=== PATIENT | female | born 1940 | race Caucasian/White ===

== ENCOUNTER 2017-10-27 13:00 | Outpatient (RCR) | payer MEDICARE, OTHER, SELFPAY | END 2017-11-17 15:26 | disposition home or self-care (01) | LOC: PT 13:00 | PROVIDERS: Visit Provider Podiatrist | DX: M72.2 Plantar fascial fibromatosis (principal) | CPT/HCPCS: 97033; 97035; 97110; 97140; 97163; 97164 ==

== ENCOUNTER → 2018-08-28 12:26 | Outpatient (POV) | payer MEDICARE, OTHER, SELFPAY | PROVIDERS: Visit Provider Dermatology | DX: Z00.00 Encounter for general adult medical examination without abnormal findings (principal) ==

== ENCOUNTER → 2019-01-15 10:26 | Outpatient (POV) | payer MEDICARE, OTHER, SELFPAY | PROVIDERS: Visit Provider Dermatology | DX: Z00.00 Encounter for general adult medical examination without abnormal findings (principal) ==

== ENCOUNTER 2019-09-26 14:51 | Emergency (ER) | payer MEDICARE, OTHER, SELFPAY ==
[2019-09-26 14:52] VITALS: BP 187/90; PULSE 71; RESP 16; TEMP 36.8; O2SAT 100; BMI 22.6
[2019-09-26 15:01] LABS: POC Glucose,Bedside 220 (70-110)
--- NOTE | 2019-09-26 15:01 | CT_ITS ---
PROCEDURE: CT HEAD/BRAIN WO CON CLINICAL INDICATION: Left Sided weakness Left arm numbness weakness and heaviness COMPARISON: No exams were available for comparison TECHNIQUE: Axial images obtained. All CT scans at the facility use one or more dose reduction, viz: automated exposure control, ma/kV adjustment per patient size (including targeted exams where dose is matched to indication, i.e. head), or iterative reconstruction technique. FINDINGS: No midline shift, mass effect, intracranial hemorrhage, hydrocephalus, or extra-axial fluid collection is evident. There is generalized atrophy with hypoattenuation of the periventricular white matter consistent with microangiopathic changes. The calvarium has an unremarkable appearance. No mastoid effusion. No sinus air-fluid level. IMPRESSION: No acute intracranial finding Dictated by: Roc Georges MD 09/26/2019 15:28 Electronically signed by Roc Georges MD in [place] 09/26/2019 15:28
--- NOTE | 2019-09-26 15:05 | ECG_ITS ---
APPROVED REPORT Exam: Resting ECG HR:70 bpm ECG Measurements Heart Rate 70 AXES AR 400 P QRSd 174 QRS 60 QT 432 T 263 QTc 466 <Conclusion> Electronic ventricular pacemaker Electronically signed by : Alejandro Boudreaux, 10/01/2019 13:55:19
--- NOTE | 2019-09-26 15:07 | PC.NURSE ---
PT TO CT FOR STROKE PROTOCOL.
--- NOTE | 2019-09-26 15:17 | PC.NURSE ---
pt returned from rad
--- NOTE | 2019-09-26 15:18 | PC.NURSE ---
PT RETURNED FROM CT.
[2019-09-26 15:35] VITALS: BP 156/79; PULSE 74; O2SAT 99
[2019-09-26 15:35] LABS: Basophils # 0.1 K/mm3 (0-0.2); Basophils % 0.8 % (0.1-2.0); Chloride 103 mmol/L (98-107); Eosinophils # 0.1 K/mm3 (0.0-0.4); Hematocrit 39.6 % (37.0-47.0); Hemoglobin 12.7 g/dL (12.2-16.2); Lymphocytes # 2.1 K/mm3 (0.7-4.5); Mean Corpuscular Volume 96.8 fl (81-99); Mean Platelet Volume 7.8 fl (7.4-10.4); Monocytes # 0.4 K/mm3 (0.1-1.0); Monocytes % 2.6 % (1.7-9.3); Neutrophils # 11.3 K/mm3 (1.8-7.8); Neutrophils % 80.7 % (37.0-80.0); Platelet Count 276 K/mm3 (142-424); Potassium 3.8 mmoL/L (3.5-5.1); Red Blood Count 4.09 M/mm3 (4.20-5.40); Red Cell Distribution Width 15.5 % (11.5-17.5); Sodium 139 mmol/L (136-145); White Blood Count 14.1 K/mm3 (4.8-10.8)
--- NOTE | 2019-09-26 15:35 | PC.NURSE ---
UA sent to lab
[2019-09-26 15:37] LABS: Microscopic, Urine URINE MICROSCOPIC (MICROSCOPIC)
[2019-09-26 15:38] LABS: Appearance,Urine CLEAR (Clear); Bilirubin,Urine Negative (Negative); Blood, Urine TRACE-L (Negative); Color,Urine YELLOW (Yellow); Glucose,Urine (UA) Negative (Negative); Ketones,Urine Negative (Negative); Leukocyte Esterase,Urine Negative (Negative); Nitrate,Urine Negative (Negative); PH,Urine 5.5 (5.0-8.5); Protein,Urine Negative (Negative); Urobilinogen,Urine 0.2 EU/dl (0.2)
[2019-09-26 15:38] LABS: Alanine Aminotransferase 30 U/L (12-78); Albumin Level 4.3 g/dl (3.5-5.0); Albumin/Globulin Ratio 1.1 (1.1-1.8); Alkaline Phosphatase 288 U/L (38-126); Anion Gap 12.8 mEq/L (5-15); Aspartate Amino Transferase 47 U/L (14-36); Bilirubin,Total 1.1 mg/dl (0.2-1.3); Blood Urea Nitrogen 14 mg/dl (7-17); Calcium 9.4 mg/dl (8.4-10.2); Carbon Dioxide 27 mmol/L (22.0-30.0); Creatinine Clearance Estimated 46 mL/min (50-200); Estimated Glomerular Filt Rate 60 ml/min (>60); GFR (African American) 73 ML/MIN (>60); Globulin 3.8 g/dL (1.3-3.2); Glucose 148 mg/dl (74-100); Total Protein,Serum 8.1 g/dl (6.3-8.2)
[2019-09-26 15:55] LABS: RBC,Urine Occasional #/hpf (0-3); Squamous Epithelial Cell,Urine Occasional #/hpf (0-5); WBC,Urine Occasional #/hpf (0-3)
--- NOTE | 2019-09-26 16:05 | PC.NURSE ---
calling [facility] at this time
--- NOTE | 2019-09-26 16:13 | PC.NURSE ---
Dr Valdes talking to Dr Duque.
--- NOTE | 2019-09-26 16:17 | HMH.EDNEU ---
ED Disposition Clinical Impression: Transient cerebral ischemia Disposition: Xfer Short-Term Hosp Condition on Discharge: Good Referrals: Obie Hernandes [Primary Care Provider] - - Critical Care Critical Care Time: Yes Attestation: On 09/26/19, the high probability of a clinically significant, sudden or life threatening deterioration of the following system(s) required my full and direct attention, intervention and personal management. The time I documented below is in addition to time spent performing reported procedures but includes the following listed in this critical care notation. Total Critical Care Time: 10 Vital system(s) involved:: Central Nervous System My critical care processes included: Assessment & monitoring of V/S, Initial and Re-exams, Data Review/Interpretation, Coordinating Care, Medication Orders and management, Documentation Medical Decision Making - Medical Records Medical records reviewed: Yes: I reviewed the patient's medical records. - Jorge Inquiry Pt receiving controlled substance: No Vital Signs: 09/26/19 14:52 09/26/19 15:35 Temperature 98.2 F Temperature Source Oral Pulse Rate [Right Radial] 71 74 Respiratory Rate 16 Blood Pressure [Right Arm] 187/90 H 156/79 H Blood Pressure Mean [Right Arm] 122 104 Blood Pressure Source [Right Arm] Automatic Cuff Automatic Cuff Blood Pressure Position [Right Arm] Sitting Sitting 02 Sat by Pulse Oximetry 100 99 Oxygen Delivery Method Room Air Room Air - Lab Data Lab results reviewed: Yes: I reviewed the patient's lab results. Lab Results 09/26/19 14:58: POC Glucose 220 H 09/26/19 15:04: WBC 14.1 H, RBC 4.09 L, Hgb 12.7, Hct 39.6, MCV 96.8, MCH 31.0, MCHC 32.0, RDW 15.5, Plt Count 276, MPV 7.8, Neut % (Auto) 80.7 H, Lymph % (Auto) 15.0, [place] % (Auto) 2.6, Eos % (Auto) 1.0, Baso % (Auto) 0.8, Neut # (Auto) 11.3 H, Lymph # (Auto) 2.1, [place] # (Auto) 0.4, Eos # (Auto) 0.1, Baso # (Auto) 0.1 09/26/19 15:04: Sodium 139, Potassium 3.8, Chloride 103, Carbon Dioxide 27, Anion Gap 12.8, BUN 14, Creatinine 0.90, Estimated Creat Clear 46, Estimated GFR 60, Est GFR ( Amer) 73, Glucose 148 H, Calcium 9.4, Total Bilirubin 1.1, AST 47 H, ALT 30, Alkaline Phosphatase 288 H, Total Protein 8.1, Albumin 4.3, Globulin 3.8 H, Albumin/Globulin Ratio 1.1 09/26/19 15:33: Urine Color Yellow, Urine Appearance Clear, Urine pH 5.5, Ur Specific [place] 1.010, Urine Protein Negative, Urine Glucose (UA) Negative, Urine Ketones Negative, Urine Blood Trace-l, Urine Nitrate Negative, Urine Bilirubin Negative, Urine Urobilinogen 0.2, Ur Leukocyte Esterase Negative, Urine RBC Occasional, Urine WBC Occasional, Ur Squamous Epith Cells Occasional, Urine Bacteria None Result diagrams: 09/26/19 15:04 09/26/19 15:04 Orders (Tests/Meds): ORDERS Category Date Time Status PT/INR [Prothrombin Time INR] Stat Lab 09/26/19 16:05 Ordered - CT Data CT Scan: Head Time Received: 16:00 Preliminary Findings: Normal/NAD - ECG Data Tracing #1 I reviewed this ECG and interpreted as documented below: Arrhythmias present: afib Medical Decision Narrative: I spoke to Dr. Lauren at [facility] neurology she accepted the patient to the emergency department at . Neuro HPI - General Chief Complaint: Neuro Symptoms/Deficit Stated Complaint: weakness on left side Time Seen by Provider: 09/26/19 16:00 Mode of Arrival: Ambulatory Source of Information: Patient Limitations: No Limitations Description of Symptoms (Recalled from ER Triage Doc. by RN): PT TO ED VIA PVT CAR C/O A 1 MINUTE EPISODE AT APPROX 1300 THAT SHE WASN'T ABLE TO MOVE HER LEFT ARM OR LEG WHILE SITTING IN HER RECLINER. PT DENIES ANY WEAKNESS AT THIS TIME. NIHSS IS NEGATIVE AT THIS TIME. PT STATES THAT SHE HAD BEEN MOPPING HER FLOORS PRIOR TO THE EVENT. - History of Present Illness HPI Narrative: 79-year-old female presents the ED after having neurological deficit around 1:45 PM [facility]
[2019-09-26 16:26] VITALS: BP 185/89; PULSE 70; O2SAT 100
[2019-09-26 16:27] LABS: INR 2.39 (0.9-1.1); Prothrombin Time 23.8 seconds (9.4-11.8)
--- NOTE | 2019-09-26 16:34 | PC.NURSE ---
[facility] aware of transfer
--- NOTE | 2019-09-26 17:07 | PC.NURSE ---
report called to [facility] spoke with akosua roth
[2019-09-26 17:10] VITALS: BP 185/89; PULSE 70; RESP 16; TEMP 36.6; O2SAT 98
== END 2019-09-26 17:12 | disposition short-term general hospital (02) ==
PROVIDERS: Emergency Provider Family Medicine; PCP Family Medicine
DX: G45.8 Other transient cerebral ischemic attacks and related syndromes (principal); I48.91 Unspecified atrial fibrillation; Z95.0 Presence of cardiac pacemaker; Z79.899 Other long term (current) drug therapy
CPT/HCPCS: 70450; 80053; 81001; 82962; 85025; 85610; 93005; 96374; 99284

== ENCOUNTER 2021-09-29 13:21 | Inpatient (IN) | payer MEDICARE, OTHER, SELFPAY ==
[2021-09-29] VITALS (10 sets, daily range): BP systolic 129–148; BP diastolic 40–64; PULSE 70–77; RESP 17–26; TEMP 37–37.4; O2SAT 90–97; BMI 24.1; BMI 22.6
--- NOTE | 2021-09-29 13:33 | ECG_ITS ---
APPROVED REPORT Exam: Resting ECG HR:72 bpm ECG Measurements Heart Rate 72 AXES QRSd 144 QRS 106 QT 401 T -83 QTc 426 Conclusion ELECTRONIC VENTRICULAR PACEMAKER ABNORMAL RHYTHM ECG UNCONFIRMED REPORT Electronically signed by : Alejandro Boudreaux MD 10/01/2021 10:33:06
[2021-09-29 13:41] LABS: Influenza A, PCR Not Detected (NotDetected); Influenza B, PCR Not Detected (NotDetected)
--- NOTE | 2021-09-29 13:44 | XR_ITS ---
FINAL REPORT CLINICAL HISTORY: . 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 A left-sided pacemaker is present. Cardiac and mediastinal silhouettes are within normal limits. There are mixed interstitial and alveolar markings bilaterally, asymmetric to the right, could be related to pneumonia or pulmonary edema. There are likely small pleural effusions. There is no pneumothorax. IMPRESSION: 1. Mixed interstitial and alveolar markings bilaterally, asymmetric to the right, could be related to pneumonia or pulmonary edema. 2. Likely small pleural effusions. Reviewed, Interpreted and Dictated by Mame Flower MD Transcribed by Carli Cuevas Authenticated by Mame Flower MD on 09/29/2021 04:21:35 PM [facility]
--- NOTE | 2021-09-29 14:00 | PC.NURSE ---
ED MD at
[2021-09-29 14:08] LABS: Lactic Acid 1.5 mmol/L (0.7-2.1)
[2021-09-29 14:08] LABS: Coronavirus 19, PCR Detected (NotDetected)
[2021-09-29 14:09] LABS: Alanine Aminotransferase 28 U/L (12-78); Albumin Level 3.6 g/dl (3.5-5.0); Albumin/Globulin Ratio 1.1 (1.1-1.8); Alkaline Phosphatase 252 U/L (38-126); Anion Gap 14.8 mEq/L (5-15); Aspartate Amino Transferase 74 U/L (14-36); Bilirubin,Total 0.7 mg/dl (0.2-1.3); Blood Urea Nitrogen 24 mg/dl (7-17); Calcium 8.5 mg/dl (8.4-10.2); Carbon Dioxide 20 mmol/L (22.0-30.0); Chloride 105 mmol/L (98-107); Creatinine Clearance Estimated 38 mL/min (50-200); Estimated Glomerular Filt Rate 43 ml/min (>60); GFR (African American) 52 ML/MIN (>60); Globulin 3.3 g/dL (1.3-3.2); Glucose 107 mg/dl (74-100); Potassium 4.8 mmoL/L (3.5-5.1); Sodium 135 mmol/L (136-145); Total Protein,Serum 6.9 g/dl (6.3-8.2)
[2021-09-29 14:12] LABS: Basophils # 0.1 K/mm3 (0-0.2); Basophils % 0.6 % (0.1-2.0); Eosinophils % 0.1 % (0.1-12.0); Hemoglobin 12.4 g/dL (12.2-16.2); Lymphocytes # 1.9 K/mm3 (0.7-4.5); Mean Corpuscular HGB Conc 32.5 g/dL (31.8-35.4); Mean Corpuscular Hemoglobin 31.7 pg (27.0-31.2); Mean Corpuscular Volume 97.5 fl (81-99); Mean Platelet Volume 9.5 fl (7.4-10.4); Monocytes # 0.4 K/mm3 (0.1-1.0); Monocytes % 4.2 % (1.7-9.3); Neutrophils # 6.2 K/mm3 (1.8-7.8); Neutrophils % 73.1 % (37.0-80.0); Platelet Count 207 K/mm3 (142-424); Red Blood Count 3.89 M/mm3 (4.20-5.40); Red Cell Distribution Width 15.8 % (11.5-17.5); White Blood Count 8.5 K/mm3 (4.8-10.8)
--- NOTE | 2021-09-29 14:24 | HMH.EDGENADL ---
ED Disposition Clinical Impression: Pneumonia due to COVID-19 virus Disposition: Admitted As Inpatient Condition on Discharge: Good - Critical Care Critical Care Time: No Attestation: On 09/29/21, the high probability of a clinically significant, sudden or life threatening deterioration of the following system(s) required my full and direct attention, intervention and personal management. The time I documented below is in addition to time spent performing reported procedures but includes the following listed in this critical care notation. Medical Decision Making - Medical Records Medical records reviewed: Yes: I reviewed the patient's medical records. - Jorge Inquiry Pt receiving controlled substance: No Vital Signs: 09/29/21 13:30 09/29/21 13:58 09/29/21 14:00 Temperature 99 F Temperature Source Oral Pulse Rate 72 72 Pulse Rate [Left Radial] 72 Respiratory Rate 17 20 Blood Pressure 142/60 H 129/61 Blood Pressure [Right Arm] 142/55 H Blood Pressure Mean [Right Arm] 84 Blood Pressure Source Automatic Cuff Automatic Cuff Blood Pressure Position Sitting Sitting 02 Sat by Pulse Oximetry 92 L 96 97 Oxygen Delivery Method Nasal Cannula Nasal Cannula Nasal Cannula Oxygen Flow Rate (LPM) 3 3 3 09/29/21 14:30 Temperature Temperature Source Pulse Rate 72 Pulse Rate [Left Radial] Respiratory Rate 20 Blood Pressure 148/64 H Blood Pressure [Right Arm] Blood Pressure Mean [Right Arm] Blood Pressure Source Automatic Cuff Blood Pressure Position Sitting 02 Sat by Pulse Oximetry 95 Oxygen Delivery Method Nasal Cannula Oxygen Flow Rate (LPM) - Lab Data Lab results reviewed: Yes: I reviewed the patient's lab results. Lab Results 09/29/21 13:37: SARS-CoV-2 (PCR) Detected A, Influenza A Untype (PCR) Not detected, Influenza Type B (PCR) Not detected 09/29/21 13:50: WBC 8.5, RBC 3.89 L, Hgb 12.4, Hct 38.0, MCV 97.5, MCH 31.7 H, MCHC 32.5, RDW 15.8, Plt Count 207, MPV 9.5, Neut % (Auto) 73.1, Lymph % (Auto) 22.0, [place] % (Auto) 4.2, Eos % (Auto) 0.1, Baso % (Auto) 0.6, Neut # (Auto) 6.2, Lymph # (Auto) 1.9, [place] # (Auto) 0.4, Eos # (Auto) 0.0, Baso # (Auto) 0.1 09/29/21 13:50: Sodium 135 L, Potassium 4.8, Chloride 105, Carbon Dioxide 20 L, Anion Gap 14.8, BUN 24 H, Creatinine 1.20 H, Estimated Creat Clear 38, Estimated GFR 43 L, Est GFR ( Amer) 52 L, Glucose 107 H, Calcium 8.5, Total Bilirubin 0.7, AST 74 H, ALT 28, Alkaline Phosphatase 252 H, Troponin I 1.58 H, Total Protein 6.9, Albumin 3.6, Globulin 3.3 H, Albumin/Globulin Ratio 1.1 09/29/21 13:50: Lactate 1.5 09/29/21 15:03: VBG pH 7.35, VBG pCO2 36.3, VBG pO2 29.8, VBG HCO3 19.7 L, VBG Total CO2 20.8 L, VBG O2 Saturation 53.5, VBG Base Excess -5.8 L Result diagrams: 09/29/21 13:50 09/29/21 13:50 Orders (Tests/Meds): ED MEDICATIONS Generic Name Dose Route Start Last Admin Trade Name Freq PRN Reason Stop Dose Admin Acetaminophen 650 mg 09/29/21 14:57 Acetaminophen 325mg Tab PO 10/29/21 14:36 Q6HP PRN Mild pain,fever,headache Ascorbic Acid 500 mg 09/29/21 17:00 09/29/21 20:58 Ascorbic Acid 500mg Tab PO 10/29/21 16:59 500 mg QID TERA Administration Enoxaparin Sodium 40 mg 09/29/21 14:57 09/29/21 16:20 Enoxaparin 40mg/0.4ml Syringe SQ 10/29/21 14:56 40 mg DAILY TERA Administration Ergocalciferol 50,000 unit 09/29/21 14:57 09/29/21 16:21 Ergocalciferol 50,000 Units (1.25mg) Capsule PO 10/29/21 14:44 50,000 unit WEEKLY TERA Administration Famotidine 20 mg 09/29/21 21:00 09/29/21 20:58 Famotidine 20mg Tablet PO 10/29/21 20:59 20 mg HS TERA Administration Sodium Chloride 1,000 mls @ 100 mls/hr 09/29/21 14:57 09/29/21 18:12 Sod Chlor 0.9% 1000ml Bag IV 10/29/21 14:44 100 mls/hr .Q10H TERA Administration Ceftriaxone Sodium 1 gm/ 50 mls @ 100 mls/hr 09/30/21 15:00 Sodium Chloride IV 10/13/21 14:59 Q24H TERA Levofloxacin/Dextrose 750 mg in 150 mls @ 100 mls
--- NOTE | 2021-09-29 14:33 | PC.NURSE ---
Paging Dr. Boudreaux to call back to the ED
--- NOTE | 2021-09-29 14:35 | PC.NURSE ---
GHADA ESTES speaking with Dr. Boudreaux who is electron beam photo mask technician for service pts.
--- NOTE | 2021-09-29 14:38 | PC.NURSE ---
contacted care management of admission, spoke with Madid. Reports pt will be an OBS admission.
--- NOTE | 2021-09-29 14:50 | PC.NURSE ---
notified RT of VBG order
[2021-09-29 15:07] LABS: VBG PCO2 36.3 mmol/L (35-51); VBG PH 7.35 mmol/L (7.31-7.41); VBG PO2 29.8 mmol/L (28-40)
[2021-09-29 15:08] LABS: VBG Base Excess -5.8 mmol/L (-2.4-2.3); VBG HCO3 19.7 mmol/L (23-30); VBG Oxygen Saturation 53.5 % (50-70); VBG Total CO2 20.8 mmol/L (23-27)
--- NOTE | 2021-09-29 15:10 | PC.NURSE ---
report called to ROMA Bates on second floor at this time, reports she will send staff down to transport pt.
--- NOTE | 2021-09-29 15:16 | HMH.PHAVTE ---
[facility] Pharmacy VTE Monitoring - Patient Demographics Admission date: 09/29/21 Report Date: 09/29/21 Time: 15:16 Allergies/Adverse Reactions: Patient Allergies nitrofurantoin [From Macrobid] Allergy (Verified 09/26/19 15:26) Sulfa (Sulfonamide Antibiotics) Allergy (Verified 09/26/19 15:26) Height: 1.65 m Weight: 65.771 kg - VTE Risk Labs: VTE Related Lab Results Hgb 12.4 g/dL (12.2-16.2) 09/29/21 13:50 Hct 38.0 % (37.0-47.0) 09/29/21 13:50 Plt Count 207 K/mm3 (142-424) 09/29/21 13:50 BUN 24 mg/dl (7-17) H 09/29/21 13:50 Creatinine 1.20 mg/dl (0.52-1.04) H 09/29/21 13:50 Estimated Creat Clear 38 mL/min (50-200) 09/29/21 13:50 Was VTE Risk Assessment Performed: No Clinical Trial Participant: No - Prophylaxis VTE Prophylaxis Ordered?: Yes Types of VTE Prophylaxis: TEDS Knee High, Pharmacological Location of Applied Device: Bilateral Lower Extremeties Pharmacologic Type: Enoxaparin
[2021-09-29 15:27] LABS: Troponin I 1.58 ng/ml (0.00-0.034)
--- NOTE | 2021-09-29 15:27 | PC.NURSE ---
notified ER MD of critical troponin at this time.
--- NOTE | 2021-09-29 15:28 | PC.NURSE ---
profile saw operator paging dr. lucio per ER request for consult
--- NOTE | 2021-09-29 15:29 | PC.NURSE ---
cd reactor operator head states left dr. lucio a message.
--- NOTE | 2021-09-29 15:33 | CA_ITS ---
APPROVED REPORT EXAM: Comprehensive 2D, Doppler, and color-flow Echocardiogram Mule Developer: BOB Barth, RVS Ht: 5 ft 4 in Wt: 145lbs BSA: 1.71 BP: 142/60 mmHg Rhythm: Atrial Fibrillation Indications: COVID Pneumonia, Afib, Pacer, Respiratory failure 2D Dimensions Aortic Root 3.07 cm F: 2.7 - 3.3 LA Volume 117.20 mL Left Atrium 3.91 cm F: 2.7 - 3.8 LA Volume Index [id number] mL/m2 (M/F) 16-34 LVOT 1.99 cm (M/F) 1.5-2.5 M-Mode Dimensions RVDd 2.48 cm (0.9-2.6) LA Diam 4.50 cm (1.9-4.0) LVDd 5.93 cm (3.5-5.7) Ao Diam 3.35 cm (2.0-3.7) LVDs 3.88 cm (3.5-5.7) IVSd 1.36 cm (0.6-1.1) PWd 1.00 cm (0.6-1.1) EF (Teich) 62.80% EPSs 1.70 cm FS 34.60% EDV (Teich) 175.20 mL TAPSE 1.39 (<1.7) ESV (Teich) 65.10 mL LV Diastology E Decel Time 197.00 (160-240 msec) E/A Ratio 4.08 MED E' 7.30 (< 7 cm/sec) MED A' 5.40 cm/s E'/MED E' Ratio 16.78 (>14) LAT E' 10.50 (<10 cm/sec) E/LAT E' Ratio 11.67 (>14) Aortic Valve LVOT Max 134.00 (70-110 cm/s) LVOT VTI 20.64 cm Mitral Valve MV A Velocity 30.00 (40-130 cm/s) E/A Ratio 4.08 MV Decel. Time 197.00 (160-240 ms) MV Mean Gr. 2.70 (<2mmHg) MV PHT 57.00 ms Pulmonary Valve PV Peak Velocity 126.00 (50-150 cm/s) MI End VMAX 233.00 cm/s Tricuspid Valve TR P. Velocity 255.00 cm/s RAP Estimate 10.00 mmHg RVSP 36.00 mmHg Left Ventricle Left atrium is mildly enlarged, left ventricle is normal size, mild concentric left ventricular hypertrophy, estimated ejection fraction 55% with no regional wall motion abnormality, diastolic parameters are inconclusive. Right Ventricle Right atrium and right ventricle are normal size and contractility, pacemaker lead seen in right ventricle. Aortic Valve Aortic valve is thickened and calcified without aortic stenosis or aortic insufficiency. Mitral Valve Mitral valve leaflets are minimally thickened, there is mild mitral regurgitation. Tricuspid Valve Tricuspid valve grossly normal, there is mild tricuspid regurgitation, tricuspid regurgitation jet velocity is inadequate for calculation of the right ventricular systolic pressure. Pulmonic Valve Pulmonic valve is poorly visualized, there is mild pulmonic insufficiency. Great Vessels Aortic root is normal size. Inferior vena cava is normal size with normal inspiratory collapse Pericardium No significant pericardial effusion noted. Conclusion 1. Mildly enlarged left atrium, normal left ventricular size, mild concentric left ventricular hypertrophy, estimated ejection fraction of 55% with no regional wall motion abnormality, diastolic parameters are inconclusive. 2. Thickened and calcified aortic valve without significant aortic stenosis or aortic insufficiency. 3. Mild mitral and tricuspid regurgitation. 4. No significant pericardial effusion. 5. Inferior vena cava is normal size with normal inspiratory collapse. Electronically signed by : Kyle Brandon MD 09/30/2021 05:49:42
--- NOTE | 2021-09-29 15:33 | PC.NURSE ---
GHADA ESTES speaking with Dr. Millard.
--- NOTE | 2021-09-29 15:34 | PC.NURSE ---
notified JanaRN on second floor of critical troponin on pt -ER MD has been notified and has consulted Dr. Millard. An echo order being placed per request of Dr. Millard Echo lab staff notified of Echo order, spoke with Kaylen
--- NOTE | 2021-09-29 15:34 | PC.NURSE ---
Tami Loera, RN called and notified this RN of pt's critical troponin of 1.53. She stated she would notify pt's Janusz ESTES.
--- NOTE | 2021-09-29 15:40 | PC.NURSE ---
Dr. Boudreaux notified of critical troponin, Dr. Millard consult and echo order for pt.
[2021-09-29 18:12] LABS: Troponin I 1.65 ng/ml (0.00-0.034)
--- NOTE | 2021-09-29 18:30 | PC.NURSE ---
PT IS ALERT AND ORIENTED X4. TOLERATING 3L NASAL CANNULA WELL. PT STATES THAT SHE, IS FEELING A LITTLE BETTER NOW .
[2021-09-30] VITALS (8 sets, daily range): BP systolic 139–182; BP diastolic 60–78; PULSE 60–80; RESP 20–26; TEMP 36.7–37.2; O2SAT 90–97; BMI 23.0
--- NOTE | 2021-09-30 03:42 | PC.NURSE ---
Patient had reports of nausea at the beginning of the shift and was treated per MAR with favorable results. Patient's oxygen dropped below 90% and was maintaining 88% on 3LNC around 0000. Patient's oxygen was increased to 4LNC and patient has tolerated 4LNC with oxygen saturation maintaining in the low 90%. Patient was educated on sleeping prone or attempting to at least lay on her sides. Patient verbalized understanding. Patient is a standby assist to the bedside commode.
[2021-09-30 06:29] LABS: Basophils # 0.1 K/mm3 (0-0.2); Basophils % 0.7 % (0.1-2.0); Eosinophils % 0.2 % (0.1-12.0); Hematocrit 36.3 % (37.0-47.0); Hemoglobin 11.7 g/dL (12.2-16.2); Lymphocytes # 1.3 K/mm3 (0.7-4.5); Lymphocytes % 20.5 % (10-50); Mean Corpuscular HGB Conc 32.3 g/dL (31.8-35.4); Mean Corpuscular Hemoglobin 31.8 pg (27.0-31.2); Mean Corpuscular Volume 98.4 fl (81-99); Mean Platelet Volume 8.9 fl (7.4-10.4); Monocytes # 0.2 K/mm3 (0.1-1.0); Monocytes % 3.8 % (1.7-9.3); Neutrophils # 4.8 K/mm3 (1.8-7.8); Neutrophils % 74.8 % (37.0-80.0); Platelet Count 189 K/mm3 (142-424); Red Blood Count 3.69 M/mm3 (4.20-5.40); Red Cell Distribution Width 15.9 % (11.5-17.5); White Blood Count 6.4 K/mm3 (4.8-10.8)
[2021-09-30 06:39] LABS: Alanine Aminotransferase 27 U/L (12-78); Anion Gap 14.2 mEq/L (5-15); Aspartate Amino Transferase 69 U/L (14-36); Bilirubin,Total 0.4 mg/dl (0.2-1.3); Blood Urea Nitrogen 21 mg/dl (7-17); Calcium 8.2 mg/dl (8.4-10.2); Carbon Dioxide 19 mmol/L (22.0-30.0); Chloride 109 mmol/L (98-107); Creatinine Clearance Estimated 46 mL/min (50-200); Estimated Glomerular Filt Rate 53 ml/min (>60); GFR (African American) 64 ML/MIN (>60); Glucose 100 mg/dl (74-100); Potassium 4.2 mmoL/L (3.5-5.1); Sodium 138 mmol/L (136-145)
[2021-09-30 06:40] LABS: Alkaline Phosphatase 221 U/L (38-126)
[2021-09-30 06:49] LABS: NT Pro Brain Natriuretic Pep. 7550 pg/mL (0-450)
--- NOTE | 2021-09-30 07:00 | XR_ITS ---
PROCEDURE INFORMATION: Exam: XR Chest Exam date and time: 09/30/2021 5:51 AM Age: 81 years old Clinical indication: Condition or disease; Lung condition and disease; Pneumonia; Other: Covid; Prior surgery; Additional info: Covid pneumonia TECHNIQUE: Imaging protocol: XR of the chest. Views: 1 view. COMPARISON: CR XR CHEST PORTABLE 09/29/2021 1:51 PM FINDINGS: Lungs: Chronic interstitial changes are noted bilaterally consistent with pulmonary fibrosis. Increased density seen in the right mid chest and lung base which may represent superimposed pneumonia. Pleural spaces: Unremarkable. No pleural effusion. No pneumothorax. Heart/Mediastinum: Unremarkable. No cardiomegaly. Bones/joints: Unremarkable. IMPRESSION: Increased opacity right mid and lower chest may represent superimposed infiltrate. Underlying fibrosis noted.
--- NOTE | 2021-09-30 07:28 | HMH.PHAINT ---
MEDICATION RECONCILIATION COMPLETED ON PATIENT USING EXTERNAL FILL HISTORY FROM PHARMACY. -HONORIO JAMIL, HARPREETD
--- NOTE | 2021-09-30 07:39 | HMH.HP ---
*Admission Date: 09/29/21 *Chief complaint: Cough/congestion/fever *History of present illness: Miss Santacruz is a 81 yo female presenting to the ED with dyspnea for 1 week. Patient tested + for COVID on Mon with home test. Patient is satting 88% on RA on arrival placed on 4L NC with improvement. No oxygen requirement at home. Bedside ECG shows V paced rhythm with no evidence of acute stemi given scarbossa criteria. Bedside CXR shows evidence of pneumonia. Patient is started on rocephin and levoquin. Basic labs, Trop, Lactic acid, UA, Blood cultures x2, and vbg obtained for furhter evaluation results remarkable for tropnin elevatoin of 1.4. Cardiology consulted for further management. Recommendations start enoxaprin per covid protocol and they will follow along. Patient is started on COVID protocol and admitted to medicine for acute hypoxic respiratory failure 2/2 to covid pneumonia. Above note per emergency department. Agree with admission. Troponin elevation seems to be likely from generalized inflammation. Follow echo and serial troponins level we will ask cardiology to be involved if needed. When I made rounds on the evening of 09/29 patient was pleasant, not confused and already felt better. [facility] History I have reviewed the patient's past medical history: Yes Medical History: Reports:: Arrhythmia, Atrial Fibrillation, Hyperlipidemia, Hypertension, Internal Pacemaker, Palpitations Denies:: Cancer, Diabetes Mellitus Type 1, Diabetes Mellitus Type 2, MRSA *Have you ever received a pneumonia vaccine?: No *Have you received a flu vaccine this season?: No Other Medical History: Reports: Arthritis, Blood Transfusion Reaction, Cataracts, Sinus Problems Other Surgeries: Yes: Cardiac Catheterization, Pacemaker, Tubal Ligation Amputation: No Fractures: No - *Social History Last grade of school completed: High school graduate Smoking Status: Never smoker Alcohol Intake: never *Occupational Status:: retired Housing: house Household Members: none *Travel in the last 8 weeks: None Family Hx:: Cancer, Hyperlipidemia, Hypertension Review of Systems - Review of Systems Review of systems:: pertinent systems reviewed and negative unless documented below Meds Home Medications Medication Instructions Recorded Confirmed Type Furosemide [Furosemide 20mg Tab*] 20 mg PO DAILY 09/29/21 09/29/21 History Amlodipine Besylate [Norvasc 2.5mg 2.5 mg PO DAILY 09/30/21 09/30/21 History tablet] Atorvastatin Calcium [Lipitor 80mg 80 mg PO HS 09/30/21 09/30/21 History Tab] Leflunomide 20 mg PO DAILY 09/30/21 09/30/21 History Levothyroxine Sodium 50 mcg PO DAILY 09/30/21 09/30/21 History [Levothyroxine 50mcg (0.05mg) Tab] Pantoprazole Sodium 40 mg PO DAILY 09/30/21 09/30/21 History Potassium Chloride [Klor-Con 10mEq 10 meq PO BID 09/30/21 09/30/21 History tab] ondansetron HCL [Ondansetron 4mg 4 mg PO BIDP PRN 09/30/21 09/30/21 History tab*] Allergies Allergy/AdvReac Type Severity Reaction Status Date / Time nitrofurantoin Allergy Verified 09/26/19 15:26 [From Macrobid] Sulfa (Sulfonamide Allergy Verified 09/26/19 15:26 Antibiotics) Exam Vital signs and Labs for Last 24 Hours: Temp Pulse Resp BP Pulse Ox 98.5 F 74 24 145/68 H 90 L 09/30/21 04:00 09/30/21 04:00 09/30/21 04:00 09/30/21 04:00 09/30/21 04:00 Laboratory Results - last 24 hr 09/29/21 13:37: SARS-CoV-2 (PCR) Detected A, Influenza A Untype (PCR) Not detected, Influenza Type B (PCR) Not detected 09/29/21 13:50: WBC 8.5, RBC 3.89 L, Hgb 12.4, Hct 38.0, MCV 97.5, MCH 31.7 H, MCHC 32.5, RDW 15.8, Plt Count 207, MPV 9.5, Neut % (Auto) 73.1, Lymph % (Auto) 22.0, [place] % (Auto) 4.2, Eos % (Auto) 0.1, Baso % (Auto) 0.6, Neut # (Auto) 6.2, Lymph # (Auto) 1.9, [place] # (Auto) 0.4, Eos # (Auto) 0.0, Baso # (Auto) 0.1 09/29/21 13:50: Sodium 135 L, Potassium 4.8, Chloride 105, Carbon Dioxide 20 L, Anion Gap 14.8, BUN 24 H, Creatinine 1.20
--- NOTE | 2021-09-30 08:34 | HMH.ACPN2 ---
Internal Medicine - PN: Ronald *Date: 09/30/21 *Time: 08:34 Interval history: Overnight patient did fairly well. Did have a little bit of dyspnea. Fluids were stopped and she feels little better. Exam Vital signs and Labs for Last 24 Hours: Temp Pulse Resp BP Pulse Ox 98.5 F 74 24 145/68 H 90 L 09/30/21 04:00 09/30/21 04:00 09/30/21 04:00 09/30/21 04:00 09/30/21 04:00 Laboratory Results - last 24 hr 09/29/21 13:37: SARS-CoV-2 (PCR) Detected A, Influenza A Untype (PCR) Not detected, Influenza Type B (PCR) Not detected 09/29/21 13:50: WBC 8.5, RBC 3.89 L, Hgb 12.4, Hct 38.0, MCV 97.5, MCH 31.7 H, MCHC 32.5, RDW 15.8, Plt Count 207, MPV 9.5, Neut % (Auto) 73.1, Lymph % (Auto) 22.0, Forrest % (Auto) 4.2, Eos % (Auto) 0.1, Baso % (Auto) 0.6, Neut # (Auto) 6.2, Lymph # (Auto) 1.9, Forrest # (Auto) 0.4, Eos # (Auto) 0.0, Baso # (Auto) 0.1 09/29/21 13:50: Sodium 135 L, Potassium 4.8, Chloride 105, Carbon Dioxide 20 L, Anion Gap 14.8, BUN 24 H, Creatinine 1.20 H, Estimated Creat Clear 38, Estimated GFR 43 L, Est GFR ( Amer) 52 L, Glucose 107 H, Calcium 8.5, Total Bilirubin 0.7, AST 74 H, ALT 28, Alkaline Phosphatase 252 H, Troponin I 1.58 H, Total Protein 6.9, Albumin 3.6, Globulin 3.3 H, Albumin/Globulin Ratio 1.1 09/29/21 13:50: Lactate 1.5 09/29/21 15:03: VBG pH 7.35, VBG pCO2 36.3, VBG pO2 29.8, VBG HCO3 19.7 L, VBG Total CO2 20.8 L, VBG O2 Saturation 53.5, VBG Base Excess -5.8 L 09/29/21 17:26: Troponin I 1.65 H 09/30/21 06:13: WBC 6.4, RBC 3.69 L, Hgb 11.7 L, Hct 36.3 L, MCV 98.4, MCH 31.8 H, MCHC 32.3, RDW 15.9, Plt Count 189, MPV 8.9, Neut % (Auto) 74.8, Lymph % (Auto) 20.5, Forrest % (Auto) 3.8, Eos % (Auto) 0.2, Baso % (Auto) 0.7, Neut # (Auto) 4.8, Lymph # (Auto) 1.3, Forrest # (Auto) 0.2, Eos # (Auto) 0.0, Baso # (Auto) 0.1 09/30/21 06:13: Sodium 138, Potassium 4.2, Chloride 109 H, Carbon Dioxide 19 L, Anion Gap 14.2, BUN 21 H, Creatinine 1.00, Estimated Creat Clear 46, Estimated GFR 53 L, Est GFR ( Amer) 64 D, Glucose 100, Calcium 8.2 L, Total Bilirubin 0.4, AST 69 H, ALT 27, Alkaline Phosphatase 221 H, Total Protein 6.0 L, Albumin 3.0 L D, Globulin 3.0, Albumin/Globulin Ratio 1.0 L 09/30/21 06:13: NT-Pro-B Natriuret Pep 7550 H I & O for Last 24 hours: Intake & Output 09/27/21 09/28/21 09/29/21 09/30/21 11:59 11:59 11:59 11:59 Intake Total 1297 / 1297 Output Total 150 / 150 Balance 1147 / 1147 Weight 146 lb 11.2 oz Narrative: Patient is alert, pleasant. Able to sit up on the side of the bed without distress. Requiring 4 L nasal cannula. Heart rate regular. Crackles in both lower lung [place], especially on the left side but easy breathing with no use of accessory muscles or gasping. Able to talk in complete sentences. Abdomen soft. No edema noted Assessment and Plan (1) Pneumonia due to COVID-19 virus Status: Acute Category: Medical Code(s): U07.1 - COVID-19; J12.82 - Pneumonia due to coronavirus disease 2019 (2) Transient cerebral ischemia Status: Acute Category: Medical Code(s): G45.9 - Transient cerebral ischemic attack, unspecified - Assessment and plan all Dx Assessment and Plan for all problems:: Patient seems to be doing fairly well. Elevated troponins and BNP are from inflammatory issues. Lovenox for DVT prophylaxis. Given her x-ray report showing underlying fibrosis and slightly worsened infiltrate I will asked Dr. Harris for his opinion regarding further pulmonary recommendations. Continue remdesivir given her age and high risk COVID status. Given infiltrates we will continue Levaquin.
--- NOTE | 2021-09-30 09:31 | HMH.PULMCON ---
*Admission Date: 09/29/21 *Reason for consult:: Acute hypoxic respiratory failure, COVID-19 pneumonia *History of present illness: Ms. Santacruz is a 81-year-old female no significant prior respiratory complaints, no significant smoking history only using albuterol as needed basis scented to the hospital worsening respiratory distress found to having COVID-19 pneumonia and pulmonary was called for further management. She completed her vaccination initial booster dose. History of COVID-19 pneumonia 1 year ago. [facility] History Medical History: Reports:: Arrhythmia, Atrial Fibrillation, Hyperlipidemia, Hypertension, Internal Pacemaker, Palpitations Denies:: Cancer, Diabetes Mellitus Type 1, Diabetes Mellitus Type 2, MRSA *Have you ever received a pneumonia vaccine?: No *Have you received a flu vaccine this season?: No Other Medical History: Reports: Arthritis, Blood Transfusion Reaction, Cataracts, Sinus Problems Other Surgeries: Yes: Cardiac Catheterization, Pacemaker, Tubal Ligation Amputation: No Fractures: No - *Social History Last grade of school completed: High school graduate Smoking Status: Never smoker Alcohol Intake: never *Occupational Status:: retired Housing: house Household Members: none *Travel in the last 8 weeks: None Family Hx:: Cancer, Hyperlipidemia, Hypertension ROS - Cons Reports anorexia, Reports body ache(s) - Eyes Reports blurry vision - ENT Denies nosebleed - Card Reports shortness of breath, Reports shortness of breath with activity - Resp Respiratory: Reports chest congestion, Reports cough, Reports excessive phlegm production, Reports cough with sputum production - GI Gastrointestingal: Denies: abdominal pain - [place] Musculoskeletal: Reports back pain - Psych Denies thoughts of hurting/killing others, Denies thoughts of hurting/killing yourself Meds Home Medications Medication Instructions Recorded Confirmed Type Furosemide [Furosemide 20mg Tab*] 20 mg PO DAILY 09/29/21 09/29/21 History Amlodipine Besylate [Norvasc 2.5mg 2.5 mg PO DAILY 09/30/21 09/30/21 History tablet] Atorvastatin Calcium [Lipitor 80mg 80 mg PO HS 09/30/21 09/30/21 History Tab] Leflunomide 20 mg PO DAILY 09/30/21 09/30/21 History Levothyroxine Sodium 50 mcg PO DAILY 09/30/21 09/30/21 History [Levothyroxine 50mcg (0.05mg) Tab] Pantoprazole Sodium 40 mg PO DAILY 09/30/21 09/30/21 History Potassium Chloride [Klor-Con 10mEq 10 meq PO BID 09/30/21 09/30/21 History tab] ondansetron HCL [Ondansetron 4mg 4 mg PO BIDP PRN 09/30/21 09/30/21 History tab*] Allergies Allergy/AdvReac Type Severity Reaction Status Date / Time nitrofurantoin Allergy Verified 09/26/19 15:26 [From Macrobid] Sulfa (Sulfonamide Allergy Verified 09/26/19 15:26 Antibiotics) Exam - Constitutional Constitutional:: Present: no acute distress, comfortable - HENMT Exam HENMT: Present: normocephalic, atraumatic - Eye Exam Eyes:: Present: normal appearance both eyes and related structures - Neck Exam Neck:: Present: normal visual inspection - Respiratory Exam Respiratory:: Present: able to speak in complete sentences, no respiratory distress, rales, rhonchi, wheezing - Cardiovascular Exam Cardiac:: Present: S1, S2 - GI Exam GI:: Present: soft - Skin Exam Skin: Present: warm, no rash - Neurological Exam Neurological: Present: alert, awake, normal cognition - Extremities Exam Extremities: Present: no cyanosis, no clubbing, no edema Internal Medicine - CN: Reslt - Labs CBC & Chem 7: 09/30/21 06:13 09/30/21 06:13 Labs: Short CBC 09/29/21 09/30/21 Range/Units 13:50 06:13 WBC 8.5 6.4 (4.8-10.8) K/mm3 Hgb 12.4 11.7 L (12.2-16.2) g/dL Hct 38.0 36.3 L (37.0-47.0) % Plt Count 207 189 (142-424) K/mm3 BMP 09/29/21 09/30/21 13:50 06:13 Sodium 135 L 138 Potassium 4.8 4.2 Chloride 105 109 H Carbon Dioxide 20 L 19 L BUN 24 H 21 H Cr
--- NOTE | 2021-09-30 09:35 | CA_ITS ---
FINAL REPORT CLINICAL HISTORY: Hypoxia, Covid, Afib, Varicosities. FINDINGS: DUPLEX VENOUS SONOGRAPHY OF THE BILATERAL LOWER EXTREMITIES Multiple transverse and longitudinal scans were performed of the femoropopliteal deep venous systems, with augmentation and compression maneuvers. Normal phasic flow was noted in the visualized deep venous systems. No intraluminal increased echogenicity is noted to suggest thrombus. There is normal compression and augmentation of the venous structures. No abnormal venous collaterals are seen. IMPRESSION: No evidence of deep venous thrombosis of the bilateral lower extremities. Reviewed, Interpreted and Dictated by Mame Flower MD Transcribed by Carli Cuevas Authenticated by Mame Flower MD on 09/30/2021 01:08:49 PM [facility]
[2021-09-30 09:39] LABS: Troponin I 1.43 ng/ml (0.00-0.034)
--- NOTE | 2021-09-30 09:41 | PC.NURSE ---
lab reported critical troponin. verified patient name and date of . md made aware. troponin is down from yesterday.
--- NOTE | 2021-09-30 09:45 | PC.NURSE ---
RESP CARE NOTE: Pt SPO2 at 86% on 4 lpm nc. Increased O2 to 6 lpm and SPO2 increased to 92% on 6 lpm. Will continue to monitor patient.
[2021-09-30 09:52] LABS: Lactate Dehydrogenase 397 U/L (313-618)
--- NOTE | 2021-09-30 11:05 | HMH.PTEV ---
Physical Therapy Evaluation Rehab PT IP Evaluation Start: 09/30/21 09:35 Freq: ONCE Status: Active Protocol: Document 09/30/21 11:00 DANIELDESIER (Rec: 09/30/21 11:05 COLLEENDAISHA [id number]) Subjective/History History History Miss Santacruz is a 81 yo female presenting to the ED with dyspnea for 1 week. Patient tested + for COVID on Mon with home test. Patient is satting 88% on RA on arrival placed on 4L NC with improvement. No oxygen requirement at home. Bedside ECG shows V paced rhythm with no evidence of acute stemi given scarbossa criteria. Bedside CXR shows evidence of pneumonia. Patient is started on rocephin and levoquin. Basic labs, Trop, Lactic acid, UA, Blood cultures x2, and vbg obtained for furhter evaluation results remarkable for tropnin elevatoin of 1.4. Cardiology consulted for further management. Recommendations start enoxaprin per covid protocol and they will follow along. Patient is started on COVID protocol and admitted to medicine for acute hypoxic respiratory failure 2/2 to covid pneumonia. sumaya from ER H&P Subjective Subjective Pt sitting EOB upon entering room and reports she will participate if I went easy on her c/o SOA Rehab PT IP Eval Objective Appearance Patient Behavior Appropriate,Cooperative Patient Orientation Place,Name,Birthday,Year Difficulty following instructions none Speech Pattern Appropriate,Soft-Spoken Ambulation Patient Able to Ambulate Yes Ambulation Observation IP General Gait Pattern Observation Shuffling Step Ambulation Distance (feet) 25 Ambulation Assistive Device None Ambulation Ability Contact Guard/Hand Hold Balance Ability to Arise Able, uses arms to help Sitting Balance Steady, safe Standing Balance Steady, wide stance Dynamic Sitting Balance Ability Good Dynamic
--- NOTE | 2021-09-30 15:51 | HMH.OTEV ---
OT Inpatient Evaluation Rehab OT IP Evaluation Start: 09/30/21 09:35 Freq: ONCE Status: Complete Protocol: Document 09/30/21 15:08 PALLOU (Rec: 09/30/21 15:49 ADRIANA [id number]) Rehab OT IP Assessment Subjective History Noam is a 81 yo female presenting to the ED with dyspnea for 1 week. Patient tested + for COVID on Mon with home test. Patient is satting 88% on RA on arrival placed on 4L NC with improvement. No oxygen requirement at home. Bedside ECG shows V paced rhythm with no evidence of acute stemi given scarbossa criteria. Bedside CXR shows evidence of pneumonia. Patient is started on rocephin and levoquin. Basic labs, Trop, Lactic acid, UA, Blood cultures x2, and vbg obtained for furhter evaluation results remarkable for tropnin elevatoin of 1.4. Cardiology consulted for further management. Recommendations start enoxaprin per covid protocol and they will follow along. Patient is started on COVID protocol and admitted to medicine for acute hypoxic respiratory failure 2/2 to covid pneumonia. Troponin elevation seems to be likely from generalized inflammation. Follow echo and serial troponins level we will ask cardiology to be involved if needed. When I made rounds on the evening of 09/29 patient was pleasant, not confused and already felt better. Medical History: Reports:: Arrhythmia, Atrial Fibrillation, Hyperlipidemia, Hypertension, Internal Pacemaker, Palpitations Denies:: Cancer, Diabetes Mellitus Type 1, Diabetes
--- NOTE | 2021-09-30 17:09 | PC.NURSE ---
Pt is alert and oriented x4. Crackles noted to lungs. Oxygen has been between 4L NC-6L NC to keep oxygen >92%. It is currently at 4L. Oxygen drops into the 80's with exertion but comes back up quickly with rest. She also gets very sob with exertion. Appetite is poor, she states she's just not hungry. She's paced on telemetry. She was up to the chair for a few hours and tolerated well. Family has called several times and have been updated on patients condition and poc.
--- NOTE | 2021-09-30 23:45 | PC.NURSE ---
Patient fell from the recliner to the floor from a sitting position per patient statement. Patient states I cannot get comfortable . Patient reports Patient attempted to get up without assistance. Call light was within reach, bedside table was within reach, non-skid foot wear was in place. Patient denies pain and denies hitting her head. Patient vitals are as follows BP- 182/78; RR-22; HR-73; O2- 92 4LNC. MD notified at 2349, patient observation put in place for every 30 minutes, bed alarm is on and functioning, patient educated on the importance of calling for help. Patient was assisted back to bed with 2 assist. Patient is weak in legs and unsteady when ambulating. Family notified of incident. MD has no new orders.
[2021-10-01] VITALS (9 sets, daily range): BP systolic 135–165; BP diastolic 51–72; PULSE 70–80; RESP 20–33; TEMP 36.4–37.1; O2SAT 90–96; BMI 22.8
--- NOTE | 2021-10-01 03:00 | PC.NURSE ---
Patient has been tolerating NC well. Patient was increased to 6LNC after ambulation to the BSC. Patient was not recovering very well. Patient lung sounds are rhonchi throughout. Patient has voiced no concerns from fall incident from earlier in the shift. Patient has bed alarm on, non skid footwear. Patient has remained >90% on 6LNC.
[2021-10-01 06:52] LABS: Basophils % 0.3 % (0.1-2.0); Eosinophils % 0.2 % (0.1-12.0); Hematocrit 36.3 % (37.0-47.0); Hemoglobin 11.8 g/dL (12.2-16.2); Lymphocytes # 1.4 K/mm3 (0.7-4.5); Lymphocytes % 16.1 % (10-50); Mean Corpuscular HGB Conc 32.5 g/dL (31.8-35.4); Mean Corpuscular Hemoglobin 31.9 pg (27.0-31.2); Mean Corpuscular Volume 98.2 fl (81-99); Monocytes # 0.3 K/mm3 (0.1-1.0); Neutrophils # 6.7 K/mm3 (1.8-7.8); Neutrophils % 79.5 % (37.0-80.0); Platelet Count 238 K/mm3 (142-424); Red Blood Count 3.69 M/mm3 (4.20-5.40); Red Cell Distribution Width 15.8 % (11.5-17.5); White Blood Count 8.5 K/mm3 (4.8-10.8)
[2021-10-01 07:01] LABS: Alanine Aminotransferase 26 U/L (12-78); Albumin Level 2.9 g/dl (3.5-5.0); Alkaline Phosphatase 215 U/L (38-126); Anion Gap 10.2 mEq/L (5-15); Aspartate Amino Transferase 70 U/L (14-36); Bilirubin,Total 0.5 mg/dl (0.2-1.3); Blood Urea Nitrogen 26 mg/dl (7-17); Calcium 8.6 mg/dl (8.4-10.2); Carbon Dioxide 21 mmol/L (22.0-30.0); Chloride 111 mmol/L (98-107); Creatinine Clearance Estimated 46 mL/min (50-200); Estimated Glomerular Filt Rate 60 ml/min (>60); GFR (African American) 73 ML/MIN (>60); Globulin 2.9 g/dL (1.3-3.2); Glucose 106 mg/dl (74-100); Potassium 4.2 mmoL/L (3.5-5.1); Sodium 138 mmol/L (136-145); Total Protein,Serum 5.8 g/dl (6.3-8.2)
--- NOTE | 2021-10-01 07:30 | HMH.ACPN2 ---
Internal Medicine - PN: Subj *Date: 10/01/21 *Time: 08:47 Interval history: Clinically better this morning. Stable anemia on labs. Kidney function normalized. Oxygen requirement of 6 L which is up a little bit over the past 24 hours however appears to be breathing comfortably. Afebrile. Exam Vital signs and Labs for Last 24 Hours: Temp Pulse Resp BP Pulse Ox 98.8 F 75 20 135/51 L 90 L 10/01/21 04:00 10/01/21 04:00 10/01/21 04:00 10/01/21 04:00 10/01/21 06:25 Laboratory Results - last 24 hr 09/30/21 06:13: Troponin I 1.43 H 09/30/21 06:13: Lactate Dehydrogenase 397, C-Reactive Protein 229.0 H 10/01/21 06:10: WBC 8.5 D, RBC 3.69 L, Hgb 11.8 L, Hct 36.3 L, MCV 98.2, MCH 31.9 H, MCHC 32.5, RDW 15.8, Plt Count 238 D, MPV 9.0, Neut % (Auto) 79.5, Lymph % (Auto) 16.1, Wharton % (Auto) 4.0, Eos % (Auto) 0.2, Baso % (Auto) 0.3, Neut # (Auto) 6.7, Lymph # (Auto) 1.4, [place]arton # (Auto) 0.3, Eos # (Auto) 0.0, Baso # (Auto) 0.0 10/01/21 06:10: Sodium 138, Potassium 4.2, Chloride 111 H, Carbon Dioxide 21 L, Anion Gap 10.2, BUN 26 H, Creatinine 0.90, Estimated Creat Clear 46, Estimated GFR 60, Est GFR ( Amer) 73, Glucose 106 H, Calcium 8.6, Total Bilirubin 0.5, AST 70 H, ALT 26, Alkaline Phosphatase 215 H, Total Protein 5.8 L, Albumin 2.9 L, Globulin 2.9, Albumin/Globulin Ratio 1.0 L I & O for Last 24 hours: Intake & Output 09/28/21 09/29/21 09/30/21 10/01/21 23:59 23:59 23:59 23:59 Intake Total 405 / 405 2122 / 2242 120 / 120 Output Total 150 / 150 600 / 600 Balance 255 / 255 1522 / 1642 120 / 120 Weight 65.487 kg 66.5 kg 66.224 kg - Constitutional mild distress, average body habitus - *Routine HEENT Exam Head: Present: normocephalic Eye: Present: EOMI, PERRL ENT: Present: mucous membranes moist - *Routine Neck Exam Present: supple. Absent: lymphadenopathy - *Routine Respiratory Exam Present: crackles (Left lung base). Absent: accessory muscle use, decreased breath sounds, rhonchi, wheezes - *Routine Cardiovascular Exam Present: RRR - *Routine Abdominal Exam Present: soft, normoactive bowel sounds. Absent: tenderness - *Routine Extremities Exam Absent: cyanosis, clubbing, edema - *Routine Skin Exam Present: warm. Absent: rash - *Routine Neurological Exam Present: alert, oriented X3 Assessment and Plan (1) Pneumonia due to COVID-19 virus Status: Acute Category: Medical Code(s): U07.1 - COVID-19; J12.82 - Pneumonia due to coronavirus disease 2019 (2) Transient cerebral ischemia Status: Acute Category: Medical Code(s): G45.9 - Transient cerebral ischemic attack, unspecified (3) Essential hypertension Status: Chronic Category: Medical Code(s): I10 - Essential (primary) hypertension (4) Hypothyroid Status: Chronic Category: Medical Code(s): E03.9 - Hypothyroidism, unspecified (5) Rheumatoid arthritis Status: Chronic Category: Medical Code(s): M06.9 - Rheumatoid arthritis, unspecified Chronic immunosuppressive therapy with leflunomide at home. Likely culprit in her more severe disease given vaccination status. - Assessment and plan all Dx Assessment and Plan for all problems:: 81-year-old female with acute hypoxemic respiratory failure secondary to COVID-19. Continue antibiotics and antivirals as ordered. Continues to require supplemental oxygen, increase overnight. Continues to require inpatient management due to increased O2 requirement. Resume home medications for hypothyroid. We will hold on antihypertensives for now. Holding leflunomide for her RA as it is an immunosuppressant. Full code Continue cardiac diet.
--- NOTE | 2021-10-01 09:22 | HMH.PULMPN ---
Internal Medicine - PN: Subj *Date: 10/01/21 *Time: 10:28 Interval history: No acute respiratory events overnight. Patient denies any new respiratory complaints. Admits minimal improvement in symptoms. Exam - Constitutional Constitutional:: Present: no acute distress, comfortable - HENMT Exam HENMT: Present: normocephalic - Eye Exam Eyes:: Present: normal appearance both eyes and related structures - Neck Exam Neck:: Present: normal visual inspection - Respiratory Exam Respiratory:: Present: able to speak in complete sentences, respiratory distress, crackles. Absent: wheezing - Cardiovascular Exam Cardiac:: Present: S1, S2 - GI Exam GI:: Present: soft - Skin Exam Skin: Present: warm, no rash - Neurological Exam Neurological: Present: alert, awake, normal cognition - Extremities Exam Extremities: Present: no cyanosis, no clubbing, no edema - Psychiatric Exam Psychiatric: Present: normal affect Assessment and Plan (1) Pneumonia due to COVID-19 virus Status: Acute Category: Medical Code(s): U07.1 - COVID-19; J12.82 - Pneumonia due to coronavirus disease 2019 (2) Transient cerebral ischemia Status: Acute Category: Medical Code(s): G45.9 - Transient cerebral ischemic attack, unspecified (3) Essential hypertension Status: Chronic Category: Medical Code(s): I10 - Essential (primary) hypertension (4) Hypothyroid Status: Chronic Category: Medical Code(s): E03.9 - Hypothyroidism, unspecified (5) Rheumatoid arthritis Status: Chronic Category: Medical Code(s): M06.9 - Rheumatoid arthritis, unspecified - Assessment and plan all Dx Assessment and Plan for all problems:: #Acute hypoxic respiratory failure: #COVID-19 pneumonia: On nasal cannula. No evidence of leukocytosis. Elevated BNP at 7550 along with elevated troponin on admission. CKD. VBG within normal limits, no evidence of hypoxic hypercarbic respiratory failure. Echo concentric LV hypertrophy with EF of 55 with inconclusive diastolic parameters normal RV size and function. Chest x-ray bilateral diffuse lower lobe predominant airspace disease beneficial thickening, worsening on today's chest x-ray with dense consolidative changes. Patient was initiated on levofloxacin and remdesivir on admission. Interval update: No acute respiratory events. Stable oxygen requirements at 6 L. Leukocytosis slightly worsened however within normal limits. CRP significantly elevated at 229. Lower extremity venous Doppler negative for DVT Plan: -Continue proning protocol -Continue nasal cannula O2 supplementation to maintain O2 saturation goal of 90% and above -Continue levofloxacin, follow with sputum cultures and nasal MRSA PCR. -Continue remdesivir x5 days. -Dexamethasone 6mg daily, order placed -Advair 250 twice daily along with Combivent every 6 hours on as-needed basis, order placed -Continue Lovenox for DVT prophylaxis along with H2 blockers twice daily -Management of other medical conditions including elevated troponin levels as per primary team #Thank you for involving pulmonary in this patient care. We will continue to follow.
[2021-10-02] VITALS: BP 158/69; PULSE 70; RESP 18; TEMP 37.1; O2SAT 90; O2SAT 92
[2021-10-02 04:00] VITALS: BP 158/71; PULSE 77; PULSE 80; RESP 18; TEMP 36.8; O2SAT 90
[2021-10-02 04:55] VITALS: O2SAT 87
[2021-10-02 05:00] VITALS: BMI 22.4
[2021-10-02 06:28] LABS: Alanine Aminotransferase 28 U/L (12-78); Aspartate Amino Transferase 64 U/L (14-36); Blood Urea Nitrogen 31 mg/dl (7-17); Calcium 8.3 mg/dl (8.4-10.2); Carbon Dioxide 17 mmol/L (22.0-30.0); Chloride 114 mmol/L (98-107); Creatinine Clearance Estimated 47 mL/min (50-200); Estimated Glomerular Filt Rate 69 ml/min (>60); GFR (African American) 83 ML/MIN (>60); Glucose 146 mg/dl (74-100); Sodium 142 mmol/L (136-145)
[2021-10-02 07:05] VITALS: O2SAT 89
--- NOTE | 2021-10-02 07:44 | HMH.DCSUM ---
General - General Admission date:: 09/29/21 Discharge date: 10/02/21 HPI HPI: Miss Santacruz is a 81 yo female presenting to the ED with dyspnea for 1 week. Patient tested + for COVID on Mon with home test. Patient is satting 88% on RA on arrival placed on 4L NC with improvement. No oxygen requirement at home. Bedside ECG shows V paced rhythm with no evidence of acute stemi given scarbossa criteria. Bedside CXR shows evidence of pneumonia. Patient is started on rocephin and levoquin. Basic labs, Trop, Lactic acid, UA, Blood cultures x2, and vbg obtained for [facility] evaluation results remarkable for tropnin elevatoin of 1.4. Cardiology consulted for further management. Recommendations start enoxaprin per covid protocol and they will follow along. Patient is started on COVID protocol and admitted to medicine for acute hypoxic respiratory failure 2/2 to covid pneumonia. Above note per emergency department. Agree with admission. Troponin elevation seems to be likely from generalized inflammation. Follow echo and serial troponins level we will ask cardiology to be involved if needed. When I made rounds on the evening of 09/29 patient was pleasant, not confused and already felt better. Hospital Course Hospital Course: Patient was admitted, found to have residual COVID positive test which certainly is consistent with her history of positive test at home. Found to have dense infiltrate on chest x-ray along with evidence of pneumonitis consistent with viral pneumonia. Admitted with oxygen therapy, started on dexamethasone and remdesivir given her age and previous oxygen requirement is her immune --suppressed status from her rheumatoid arthritis treatment. She was found to have elevated troponin and BNP levels, and echocardiogram showed concentric LVH but preserved LV function. She improved over the first 48 hours of hospitalization and this continued. Oxygen requirement went from 6 L down to 2 to 3 L today. Over the past 24 hours she is felt better, feels weak and tired, but very much wishes to go home so that she can convalesce in her own home with the care of her daughters. She is very weak today but is alert, pleasant, eating well and has been able to go to the bathroom by herself with no worsening oxygen requirements. Plan will be to discharge home with 3 more days of Levaquin therapy, dexamethasone twice daily for 5 days, along with oxygen therapy. Given her mobility status and advanced age and inflammatory markers we will treat with Xarelto 10 mg daily for high risk medical patient indication for anticoagulation therapy. Her physician has retired in [place], and I will make her an appointment in the [facility] with me on October 07. Objective Vital signs: Temp Pulse Resp BP Pulse Ox 98.2 F 77 18 158/71 H 89 L 10/02/21 04:00 10/02/21 04:00 10/02/21 04:00 10/02/21 04:00 10/02/21 07:05 no acute distress - *Routine HEENT Exam Head: Present: normocephalic Eye: Present: EOMI, PERRL ENT: Present: mucous membranes moist - *Routine Neck Exam Present: supple - *Routine Respiratory Exam Present: rales, rhonchi. Absent: respiratory distress, diminished air movement - *Routine Cardiovascular Exam Present: RRR - *Routine Abdominal Exam Present: soft, normoactive bowel sounds. Absent: tenderness - *Routine Extremities Exam Absent: cyanosis, clubbing, edema - *Routine Skin Exam Present: warm. Absent: rash - Detailed Eye Exam Eyelids: Bilateral normal inspection Results Labs on day of discharge: Labs from last 24 hours 10/02/21 05:36 Sodium 142 Potassium 4.0 Chloride 114 H Carbon Dioxide 17 L Anion Gap 15.0 BUN 31 H Creatinine 0.80 Estimated Creat Clear 47 Estimated GFR 69 Est GFR ( Amer) 83 Glucose 146 H D Calcium 8.3 L AST 64 H ALT 28 Preliminary micro results at discharge 09/29/21 13:50 Blood Culture - P
--- NOTE | 2021-10-02 07:47 | P.PN_ITS ---
Internal Medicine - PN: Subj *Date: 10/02/21 *Time: 07:47 Exam Vital signs and Labs for Last 24 Hours: Temp Pulse Resp BP Pulse Ox 98.2 F 77 18 158/71 H 89 L 10/02/21 04:00 10/02/21 04:00 10/02/21 04:00 10/02/21 04:00 10/02/21 07:05 Laboratory Results - last 24 hr 10/02/21 05:36: Sodium 142, Potassium 4.0, Chloride 114 H, Carbon Dioxide 17 L, Anion Gap 15.0, BUN 31 H, Creatinine 0.80, Estimated Creat Clear 47, Estimated GFR 69, Est GFR ( Amer) 83, Glucose 146 H D, Calcium 8.3 L, AST 64 H, ALT 28 I & O for Last 24 hours: Intake & Output 09/29/21 09/30/21 10/01/21 10/02/21 23:59 23:59 23:59 23:59 Intake Total 405 / 405 2122 / 2242 580 / 580 Output Total 150 / 150 600 / 600 200 / 200 Balance 255 / 255 1522 / 1642 580 / 380 -200 / -200 Weight 65.487 kg 66.5 kg 66.224 kg 66.95 kg Microbiology Reports for the Last 24 Hours: Microbiology 09/29/21 13:50 Blood Blood Culture - Preliminary NO GROWTH AFTER 48 HOURS 09/29/21 13:50 Blood Blood Culture - Preliminary NO GROWTH AFTER 48 HOURS Assessment and Plan (1) Pneumonia due to COVID-19 virus Status: Acute Category: Medical Code(s): U07.1 - COVID-19; J12.82 - Pneumonia due to coronavirus disease 2019 (2) Transient cerebral ischemia Status: Ruled-out Category: Medical Code(s): G45.9 - Transient cerebral ischemic attack, unspecified (3) Essential hypertension Status: Chronic Category: Medical Code(s): I10 - Essential (primary) hypertension (4) Hypothyroid Status: Chronic Category: Medical Code(s): E03.9 - Hypothyroidism, un specified (5) Rheumatoid arthritis Status: Chronic Category: Medical Code(s): M06.9 - Rheumatoid arthritis, unspecified The patient's infection will respond to the chosen ABx?: Yes Is the patient receiving the right drug, dose, and route?: Yes Could a more targeted ABx be ordered?: No
[2021-10-02 08:00] VITALS: O2SAT 82
--- NOTE | 2021-10-02 10:07 | PC.NURSE ---
Patient's oxygen status on room air at rest noted to be 82%.
--- NOTE | 2021-10-05 13:57 | CARE MANAGER ---
Return call to me from daughter who states patient is now requiring 4LPM/NC. She states that she called back to hospital Monday morning and Dr. Boudreaux told them to turn her O2 up. She follows up with Dr. Boudreaux on and currently denies any questions or concerns.
== END 2021-10-02 12:34 | disposition home or self-care (01) | DRG 177 ==
LOC: ER 13:35 → 2ND 14:57
PROVIDERS: Internal Medicine Pulmonary Disease; Admitting Provider Internal Medicine Adolescent Medicine; Emergency Provider Student in an Organized Health Care Education/Training Program; PCP Nurse Practitioner Family; Visit Provider Internal Medicine Adolescent Medicine
DX: U07.1 COVID-19 (principal); J12.82 Pneumonia due to coronavirus disease 2019; J96.01 Acute respiratory failure with hypoxia; G45.9 Transient cerebral ischemic attack, unspecified; M06.9 Rheumatoid arthritis, unspecified; E03.9 Hypothyroidism, unspecified
CPT/HCPCS: 36415; 71045; 80048; 80053; 82803; 83605; 83615; 83880; 84450; 84460; 84484; 85025; 86140; 87040; 87081; 93005; 93306; 93970; 94640; 94761; 96375; 97116; 97162; 97165; 97530; 97535; 99285; C9803; J0696; J1956; J2405; U0003; U0005

== ENCOUNTER 2021-11-03 10:54 | Inpatient (IN) | payer MEDICARE, OTHER, SELFPAY ==
[2021-11-03] VITALS (12 sets, daily range): BP systolic 126–170; BP diastolic 55–85; PULSE 69–78; RESP 20–94; TEMP 36.5–37.1; O2SAT 4–95; BMI 21.9; BMI 21.7
--- NOTE | 2021-11-03 10:50 | PC.NURSE ---
pt to ED room 4 by [facility] call EMS and transferred from EMS stretcher to ED stretcher with assist x 4; no complications. EKG performed, pt hooked to monitor. Radha RN at for triage.
--- NOTE | 2021-11-03 10:50 | ECG_ITS ---
APPROVED REPORT Exam: Resting ECG HR:69 bpm ECG Measurements Heart Rate 69 AXES QRSd 151 QRS 104 QT 405 T -81 QTc 425 Conclusion ELECTRONIC VENTRICULAR PACEMAKER ABNORMAL RHYTHM ECG UNCONFIRMED REPORT Electronically signed by : Alejandro Boudreaux MD 11/03/2021 17:26:58
--- NOTE | 2021-11-03 10:53 | XR_ITS ---
FINAL REPORT CLINICAL HISTORY: short of breath COMPARISON: September 30, 2021 FINDINGS: A single portable view of the chest was obtained. The left subclavian pacemaker is present. There is cardiomegaly. The mediastinum is within normal limits. There is worsening bilateral pulmonary opacities likely worsening pneumonia. There is a small pleural effusion. The bony thorax is intact. IMPRESSION: Worsening bilateral pulmonary opacities, likely worsening pneumonia. Reviewed, Interpreted and Dictated by Gabriel Oates III, MD Transcribed by Carli Cuevas Authenticated and . [facility]
--- NOTE | 2021-11-03 10:54 | CA_ITS ---
APPROVED REPORT EXAM: Comprehensive 2D, Doppler, and color-flow Echocardiogram Gear Shaver Set Up Operator: Tanesha Stephenson CRT Ht: 5 ft 4 in Wt: 143lbs BSA: 1.70 BP: 118/68 mmHg Indications: HX covid, afib, a fib, pacer, home o2, sob, 2D Dimensions LA Volume 60.50 mL LA Volume Index 35.60 mL/m2 (M/F) 16-34 M-Mode Dimensions RVDd 2.61 cm (0.9-2.6) LA Diam 2.69 cm (1.9-4.0) LVDd 4.97 cm (3.5-5.7) Ao Diam 4.52 cm (2.0-3.7) LVDs 3.36 cm (3.5-5.7) IVSd 2.04 cm (0.6-1.1) PWd 0.75 cm (0.6-1.1) EF (Teich) 60.50% FS 32.40% EDV (Teich) 116.60 mL ESV (Teich) 46.10 mL Conclusion 1. Limited echocardiogram performed, endocardial cells are very poorly visualized. 2. Likely preserved left ventricular systolic function, there is no obvious wall motion abnormality, estimated ejection fraction 55%. 3. Pacemaker leads in right atrium and right ventricle. 4. No significant pericardial effusion noted. Electronically signed by : Kyle Brandon MD 11/03/2021 19:46:42
--- NOTE | 2021-11-03 10:56 | HMH.EDGENADL ---
ED Disposition Clinical Impression: Multifocal pneumonia Respiratory failure Qualifiers: Chronicity: acute on chronic Respiratory failure complication: hypoxia Qualified Code(s): J96.21 - Acute and chronic respiratory failure with hypoxia Disposition: Admitted As Inpatient Condition on Discharge: Serious - Critical Care Critical Care Time: No Attestation: On , the high probability of a clinically significant, sudden or life threatening deterioration of the following system(s) required my full and direct attention, intervention and personal management. The time I documented below is in addition to time spent performing reported procedures but includes the following listed in this critical care notation. Medical Decision Making - Medical Records Medical records reviewed: Yes: I reviewed the patient's medical records. - Jorge Inquiry Pt receiving controlled substance: No Vital Signs: 11/03/21 10:53 11/03/21 11:00 11/03/21 12:02 Temperature 98.7 F Temperature Source Oral Pulse Rate 70 71 Pulse Rate [Radial] 70 Respiratory Rate 40 H Blood Pressure 126/55 L 136/59 L Blood Pressure [Right Arm] 150/59 H Blood Pressure Mean 91 96 Blood Pressure Mean [Right Arm] 89 02 Sat by Pulse Oximetry 88 L 94 L 93 L Oxygen Delivery Method Nasal Cannula Nasal Cannula Nasal Cannula Oxygen Flow Rate (LPM) 4 6 4 11/03/21 12:30 11/03/21 13:00 Temperature Temperature Source Pulse Rate 73 73 Pulse Rate [Radial] Respiratory Rate Blood Pressure 142/57 H 146/68 H Blood Pressure [Right Arm] Blood Pressure Mean 107 94 Blood Pressure Mean [Right Arm] 02 Sat by Pulse Oximetry 95 93 L Oxygen Delivery Method Nasal Cannula Nasal Cannula Oxygen Flow Rate (LPM) 5 5 - Lab Data Lab Results 11/03/21 10:53: VBG pH 7.49 H, VBG pCO2 34.1 L, VBG pO2 114.6 H, VBG HCO3 25.6, VBG Total CO2 26.7, VBG O2 Saturation 98.7 H, VBG Base Excess 2.4 H 11/03/21 11:05: WBC 10.7, RBC 3.51 L, Hgb 10.9 L, Hct 33.2 L, MCV 94.5, MCH 30.9, MCHC 32.7, RDW 16.0, Plt Count 313, MPV 7.8, Neut % (Auto) 84.3 H, Lymph % (Auto) 7.6 L, [place] % (Auto) 5.9, Eos % (Auto) 1.6, Baso % (Auto) 0.5, Neut # (Auto) 9.0 H, Lymph # (Auto) 0.8, [place] # (Auto) 0.6, Eos # (Auto) 0.2, Baso # (Auto) 0.1 11/03/21 11:05: D-Dimer 1.57 H 11/03/21 11:05: Sodium 135 L, Potassium 4.0, Chloride 102, Carbon Dioxide 27, Anion Gap 10.0, BUN 16, Creatinine 0.70, Estimated Creat Clear 44, Estimated GFR 80, Est GFR ( Amer) 97, Glucose 99, Calcium 8.3 L, Total Bilirubin 0.8, AST 40 H, ALT 24, Alkaline Phosphatase 216 H, Troponin I 0.20 H, NT-Pro-B Natriuret Pep 4570 H, Total Protein 5.7 L, Albumin 2.9 L, Globulin 2.8, Albumin/Globulin Ratio 1.0 L 11/03/21 11:05: SARS-CoV-2 (PCR) Not detected, Influenza A Untype (PCR) Not detected, Influenza Type B (PCR) Not detected 11/03/21 11:05: Digoxin 0.90 11/03/21 11:05: Lactate 1.1 Result diagrams: 11/03/21 11:05 11/03/21 11:05 Orders (Tests/Meds): ED MEDICATIONS Generic Name Dose Route Start Last Admin Trade Name Freq PRN Reason Stop Dose Admin Azithromycin 500 mg/ Sodium 250 mls @ 250 mls/hr 11/03/21 12:00 11/03/21 11:59 Chloride IV 11/17/21 11:59 250 mls/hr Q24H TERA Administration Ceftriaxone Sodium 1 gm/ 50 mls @ 100 mls/hr 11/03/21 12:00 11/03/21 11:58 Sodium Chloride IV 11/17/21 11:59 100 mls/hr Q24H TERA Administration Discontinued Medications Generic Name Dose Route Start Last Admin Trade Name Freq PRN Reason Stop Dose Admin Acetaminophen 1,000 mg 11/03/21 13:54 11/03/21 13:55 Acetaminophen 500mg Tab PO 11/03/21 13:55 1,000 mg ONCE ONE Administration Dexamethasone Sodium Phosphate 8 mg 11/03/21 11:50 11/03/21 11:58 Dexamethasone 4mg/Ml 1ml Vial IV 11/03/21 11:51 8 mg ONCE ONE Administration Iopamidol 70 ml 11/03/21 12:51 11/03/21 12:52 Iopamidol-370 (76%);100ml Bottle IV 11/03/21 12:52 70 ml ONCE ONE Administration Sodium Chloride 10 ml
--- NOTE | 2021-11-03 10:58 | PC.NURSE ---
Family at BS
--- NOTE | 2021-11-03 11:13 | PC.NURSE ---
ECHO AT BEDSIDE
[2021-11-03 11:16] LABS: VBG Base Excess 2.4 mmol/L (-2.4-2.3); VBG HCO3 25.6 mmol/L (23-30); VBG Oxygen Saturation 98.7 % (50-70); VBG PCO2 34.1 mmol/L (35-51); VBG PH 7.49 mmol/L (7.31-7.41); VBG PO2 114.6 mmol/L (28-40); VBG Total CO2 26.7 mmol/L (23-27)
[2021-11-03 11:17] LABS: Coronavirus 19, PCR Not Detected (NotDetected); Influenza A, PCR Not Detected (NotDetected); Influenza B, PCR Not Detected (NotDetected)
[2021-11-03 11:23] LABS: Basophils # 0.1 K/mm3 (0-0.2); Basophils % 0.5 % (0.1-2.0); Eosinophils # 0.2 K/mm3 (0.0-0.4); Eosinophils % 1.6 % (0.1-12.0); Hematocrit 33.2 % (37.0-47.0); Hemoglobin 10.9 g/dL (12.2-16.2); Lymphocytes # 0.8 K/mm3 (0.7-4.5); Lymphocytes % 7.6 % (10-50); Mean Corpuscular HGB Conc 32.7 g/dL (31.8-35.4); Mean Corpuscular Hemoglobin 30.9 pg (27.0-31.2); Mean Corpuscular Volume 94.5 fl (81-99); Mean Platelet Volume 7.8 fl (7.4-10.4); Monocytes # 0.6 K/mm3 (0.1-1.0); Monocytes % 5.9 % (1.7-9.3); Neutrophils % 84.3 % (37.0-80.0); Platelet Count 313 K/mm3 (142-424); Red Blood Count 3.51 M/mm3 (4.20-5.40); White Blood Count 10.7 K/mm3 (4.8-10.8)
[2021-11-03 11:28] LABS: Alanine Aminotransferase 24 U/L (12-78); Albumin Level 2.9 g/dl (3.5-5.0); Alkaline Phosphatase 216 U/L (38-126); Aspartate Amino Transferase 40 U/L (14-36); Bilirubin,Total 0.8 mg/dl (0.2-1.3); Blood Urea Nitrogen 16 mg/dl (7-17); Calcium 8.3 mg/dl (8.4-10.2); Carbon Dioxide 27 mmol/L (22.0-30.0); Chloride 102 mmol/L (98-107); Creatinine Clearance Estimated 44 mL/min (50-200); Estimated Glomerular Filt Rate 80 ml/min (>60); GFR (African American) 97 ML/MIN (>60); Globulin 2.8 g/dL (1.3-3.2); Glucose 99 mg/dl (74-100); Sodium 135 mmol/L (136-145); Total Protein,Serum 5.7 g/dl (6.3-8.2)
[2021-11-03 11:33] LABS: D-Dimer 1.57 ug/mL (0.0-0.5)
[2021-11-03 11:42] LABS: NT Pro Brain Natriuretic Pep. 4570 pg/mL (0-450)
--- NOTE | 2021-11-03 11:42 | PC.NURSE ---
pt given ice water; eric'luz elena by Dr. Garcia
--- NOTE | 2021-11-03 11:47 | CT_ITS ---
FINAL REPORT TECHNIQUE: Then section axial CT images of the chest were obtained with contrast. Three-D reformatted images were also obtained.This study was performed with techniques to keep radiation doses as low as reasonably achievable (ALARA). Individualized dose reduction techniques using automated exposure control or adjustment of mA and/or kV according to the patient''s size were employed. CLINICAL HISTORY: elevated d-dimer FINDINGS: There is no evidence of pulmonary embolism. There is no evidence of thoracic aortic aneurysm or dissection. There is no evidence of mediastinal or hilar mass or adenopathy. There are multifocal bilateral pulmonary opacities consistent with bilateral pneumonia. There are moderate changes of emphysema. There are small right and moderate left pleural effusions. Limited images of the upper abdomen demonstrates changes from cholecystectomy. IMPRESSION: 1. No evidence of pulmonary embolism. 2. Bilateral multifocal pneumonia. Reviewed, Interpreted and Dictated by Gabriel Oates III, MD Transcribed by Albert Nixon Authenticated and [facility]
--- NOTE | 2021-11-03 12:41 | PC.NURSE ---
pt in CT at this time; family waiting at BS
--- NOTE | 2021-11-03 12:47 | PC.NURSE ---
pt returned from CT
--- NOTE | 2021-11-03 12:47 | PC.NURSE ---
pt back from CT with windows migration technician by mark
--- NOTE | 2021-11-03 13:11 | PC.NURSE ---
Dr. Garcia at speaking with patient and family regarding update on POC
[2021-11-03 13:22] LABS: Lactic Acid 1.1 mmol/L (0.7-2.1)
--- NOTE | 2021-11-03 13:49 | PC.NURSE ---
attempted to call care management for admission, no answer. house detective called and notified for bed assignment. besson --> dorison resp failure/pneumonia
--- NOTE | 2021-11-03 13:56 | PC.NURSE ---
PT OFFERED FOOD AND DRINK, PT DECLINED
--- NOTE | 2021-11-03 14:16 | PC.NURSE ---
ATTEMPTED TO CALL REPORT
[2021-11-03 14:25] LABS: Troponin I 0.19 ng/ml (0.00-0.034)
--- NOTE | 2021-11-03 14:33 | PC.NURSE ---
assisted patient in using bedpan. No complications.
--- NOTE | 2021-11-03 14:40 | PC.NURSE ---
2 techs from 2nd floor are down to get patient and transfer for her to her room on 2nd floor by stretcher. family at BS, pt has all of belongings that she came in with
--- NOTE | 2021-11-03 17:03 | HMH.HP ---
*Admission Date: 11/03/21 *Chief complaint: Shortness of air and cough *History of present illness: 81-year-old white female who had COVID-19 pneumonitis in September of this year, who had a fairly long hospital stay and required oxygen therapy on discharge approximately 6 L, who at home was improving. I saw her in the [facility] at the beginning of October and she was making progress. Unfortunately, this progress retrogressed late last week and she began to have cough, congestion and shortness of air. This worsened until through the night last night she had consistent awakenings because of shortness of air and was brought to the ER this morning. In the ER she had multifocal pneumonia, dyspnea, worsening hypoxia and was admitted to hospital for further evaluation for community-acquired pneumonia. [facility] History I have reviewed the patient's past medical history: Yes Medical History: Reports:: Arrhythmia, Atrial Fibrillation, Hyperlipidemia, Hypertension, Internal Pacemaker, Palpitations Denies:: Cancer, Diabetes Mellitus Type 1, Diabetes Mellitus Type 2, MRSA *Have you ever received a pneumonia vaccine?: Yes *Have you received a flu vaccine this season?: Yes Other Medical History: Reports: Arthritis (rheumatoid), Blood Transfusion Reaction, Cataracts, Sinus Problems Other Surgeries: Yes: Cardiac Catheterization, Cholecystectomy, Pacemaker, Plastic Surgery, Tubal Ligation Amputation: No Fractures: No - *Social History Smoking Status: Never smoker Alcohol Intake: never *Occupational Status:: retired Housing: house Household Members: none *Travel in the last 8 weeks: None Family Hx:: Cancer, Heart Attack Review of Systems - Review of Systems Review of systems:: pertinent systems reviewed and negative unless documented below Other than respiratory symptoms patient complains of a feeling of abdominal fullness and constipation. Denies vomiting, GI pain or heartburn or melanotic stools. - *Neurologic Denies headache(s), Denies loss of vision, Denies numbness Meds Home Medications Medication Instructions Recorded Confirmed Type Furosemide [Furosemide 20mg Tab*] 20 mg PO DAILY 09/29/21 11/03/21 History Amlodipine Besylate [Norvasc 2.5mg 2.5 mg PO DAILY 09/30/21 11/03/21 History tablet] Atorvastatin Calcium [Lipitor 80mg 80 mg PO HS 09/30/21 11/03/21 History Tab] Levothyroxine Sodium 50 mcg PO DAILY 09/30/21 11/03/21 History [Levothyroxine 50mcg (0.05mg) Tab] Pantoprazole Sodium 40 mg PO DAILY 09/30/21 11/03/21 History Potassium Chloride [Klor-Con 10mEq 10 meq PO BID 09/30/21 11/03/21 History tab] allopurinol 300 mg tablet 300 mg PO DAILY 10/07/21 11/03/21 History apixaban 5 mg tablet 2.5 mg PO BID tab 10/07/21 11/03/21 History calcium carbonate 600 mg calcium 600 mg PO DAILY 10/07/21 11/03/21 History (1,500 mg) tablet digoxin 125 mcg (0.125 mg) tablet 125 mcg PO .COMPLEX 10/07/21 11/03/21 History ferrous sulfate 325 mg (65 mg 325 mg PO DAILY 10/07/21 11/03/21 History iron) tablet nebivolol 5 mg tablet 5 mg PO DAILY 10/07/21 11/03/21 History prednisone 5 mg tablet 5 mg PO DAILY 10/07/21 11/03/21 History Allergies Allergy/AdvReac Type Severity Reaction Status Date / Time nitrofurantoin Allergy Verified 10/07/21 09:44 [From Macrobid] Sulfa (Sulfonamide Allergy Verified 10/07/21 09:44 Antibiotics) Exam Vital signs and Labs for Last 24 Hours: Temp Pulse Resp BP Pulse Ox 98.2 F 75 24 166/85 H 90 L 11/03/21 15:03 11/03/21 15:03 11/03/21 15:03 11/03/21 15:03 11/03/21 15:03 Laboratory Results - last 24 hr 11/03/21 10:53: VBG pH 7.49 H, VBG pCO2 34.1 L, VBG pO2 114.6 H, VBG HCO3 25.6, VBG Total CO2 26.7, VBG O2 Saturation 98.7 H, VBG Base Excess 2.4 H 11/03/21 11:05: WBC 10.7, RBC 3.51 L, Hgb 10.9 L, Hct 33.2 L, MCV 94.5, MCH 30.9, MCHC 32.7, RDW 16.0, Plt Count 313, MPV 7.8, Neut % (Auto) 84.3 H, Lymph % (Auto) 7.6 L, [place] % (Auto) 5.9, Eos % (Auto) 1.6,
--- NOTE | 2021-11-03 18:57 | PC.NURSE ---
Patient admitted from ER with SOB, pneumonia. Patient began to complain of pain by bladder, bladder scan residual showed 1284 and 1119 ml of urine retention. Steven placed and 1700 emptied immediately, patient voiced instant relief. Dr. Boudreaux paged for order to anchor steven and urine specimen sent. Vitals stable and patient remained on 6LNC. Dr. Boudreaux ordered to anchor steven.
[2021-11-03 22:11] LABS: Microscopic, Urine URINE MICROSCOPIC (MICROSCOPIC)
[2021-11-03 22:24] LABS: Appearance,Urine CLEAR (Clear); Bilirubin,Urine Negative (Negative); Blood, Urine Negative (Negative); Color,Urine YELLOW (Yellow); Glucose,Urine (UA) Negative (Negative); Ketones,Urine Negative (Negative); Leukocyte Esterase,Urine Negative (Negative); Nitrate,Urine Negative (Negative); PH,Urine 5.5 (5.0-8.5); Protein,Urine Negative (Negative); Urobilinogen,Urine 0.2 EU/dl (0.2)
[2021-11-03 22:55] LABS: RBC,Urine Occasional #/hpf (0-3)
[2021-11-03 22:56] LABS: Bacteria,Urine Trace /lpf; Hyaline Casts,Urine Occasional #/lpf (0)
[2021-11-04] VITALS (10 sets, daily range): BP systolic 115–143; BP diastolic 53–72; PULSE 71–76; RESP 18–22; TEMP 36.3–36.5; O2SAT 90–95; BMI 22.0; BMI 21.9
--- NOTE | 2021-11-04 06:28 | PC.NURSE ---
No acute changes. Pt is tolerating 5 L nc well with sats >90%. No complaints voiced to staff. Call light within reach.
[2021-11-04 07:08] LABS: Basophils % 0.1 % (0.1-2.0); Hematocrit 34.7 % (37.0-47.0); Hemoglobin 11.1 g/dL (12.2-16.2); Lymphocytes # 0.8 K/mm3 (0.7-4.5); Lymphocytes % 5.9 % (10-50); Mean Corpuscular HGB Conc 32.1 g/dL (31.8-35.4); Mean Corpuscular Hemoglobin 29.9 pg (27.0-31.2); Mean Corpuscular Volume 93.2 fl (81-99); Mean Platelet Volume 7.6 fl (7.4-10.4); Monocytes # 0.5 K/mm3 (0.1-1.0); Monocytes % 3.6 % (1.7-9.3); Neutrophils # 12.5 K/mm3 (1.8-7.8); Neutrophils % 90.3 % (37.0-80.0); Platelet Count 356 K/mm3 (142-424); Red Blood Count 3.73 M/mm3 (4.20-5.40); Red Cell Distribution Width 15.9 % (11.5-17.5); White Blood Count 13.9 K/mm3 (4.8-10.8)
[2021-11-04 07:11] LABS: Chloride 103 mmol/L (98-107); Potassium 3.9 mmoL/L (3.5-5.1); Sodium 136 mmol/L (136-145)
[2021-11-04 07:14] LABS: Anion Gap 9.9 mEq/L (5-15); Blood Urea Nitrogen 19 mg/dl (7-17); Calcium 8.5 mg/dl (8.4-10.2); Carbon Dioxide 27 mmol/L (22.0-30.0); Creatinine Clearance Estimated 44 mL/min (50-200); Estimated Glomerular Filt Rate 80 ml/min (>60); GFR (African American) 97 ML/MIN (>60); Glucose 116 mg/dl (74-100); MANUAL DIFFERENTIAL MANUAL DIFFERENTIAL (MANUAL DIFF)
--- NOTE | 2021-11-04 07:17 | HMH.PHAVTE ---
[facility] Pharmacy VTE Monitoring - Patient Demographics Admission date: 11/03/21 Report Date: 11/04/21 Time: 07:17 Allergies/Adverse Reactions: Patient Allergies nitrofurantoin [From Macrobid] Allergy (Verified 10/07/21 09:44) Sulfa (Sulfonamide Antibiotics) Allergy (Verified 10/07/21 09:44) Height: 1.7 m Weight: 63.645 kg Patient Problems: Current Active Problems Essential hypertension (Chronic) Rheumatoid arthritis (Chronic) Respiratory failure (Acute) Multifocal pneumonia (Acute) Constipation (Acute) - VTE Risk Labs: VTE Related Lab Results Hgb 11.1 g/dL (12.2-16.2) L 11/04/21 06:30 Hct 34.7 % (37.0-47.0) L 11/04/21 06:30 Plt Count 356 K/mm3 (142-424) 11/04/21 06:30 BUN 19 mg/dl (7-17) H 11/04/21 06:30 Creatinine 0.70 mg/dl (0.52-1.04) 11/04/21 06:30 Estimated Creat Clear 44 mL/min (50-200) 11/04/21 06:30 Was VTE Risk Assessment Performed: Yes VTE Score: 7 VTE Risk Level: Moderate Risk Clinical Trial Participant: No - Prophylaxis VTE Prophylaxis Ordered?: Yes Types of VTE Prophylaxis: TEDS Knee High
--- NOTE | 2021-11-04 07:24 | HMH.PHAINT ---
home medication list verified using lsit from outpatient pharmacy and list from [facility] [place]
[2021-11-04 07:40] LABS: Burr Cells 1+; Lymphocytes % 6 % (10-50); Neutrophils % 94 % (42-76); Ovalocytes 1+; Total Cells Counted 100
[2021-11-04 07:41] LABS: Anisocytosis 1+; Platelet Estimate Normal
--- NOTE | 2021-11-04 08:21 | HMH.ACPN2 ---
Internal Medicine - PN: Subj *Date: 11/04/21 *Time: 08:21 Interval history: Patient had Felder catheter placed last night and had 1700 mL out which caused a great deal of relief for her breathing issues with excellent lung expansion. She feels much better. She has done well with Xopenex nebs, for some reason Mucomyst nebs were not given through the night. Exam Vital signs and Labs for Last 24 Hours: Temp Pulse Resp BP Pulse Ox 97.4 F L 76 18 141/66 H 91 L 11/04/21 04:00 11/04/21 06:05 11/04/21 04:00 11/04/21 04:00 11/04/21 06:05 Laboratory Results - last 24 hr 11/03/21 10:53: VBG pH 7.49 H, VBG pCO2 34.1 L, VBG pO2 114.6 H, VBG HCO3 25.6, VBG Total CO2 26.7, VBG O2 Saturation 98.7 H, VBG Base Excess 2.4 H 11/03/21 11:05: WBC 10.7, RBC 3.51 L, Hgb 10.9 L, Hct 33.2 L, MCV 94.5, MCH 30.9, MCHC 32.7, RDW 16.0, Plt Count 313, MPV 7.8, Neut % (Auto) 84.3 H, Lymph % (Auto) 7.6 L, [place] % (Auto) 5.9, Eos % (Auto) 1.6, Baso % (Auto) 0.5, Neut # (Auto) 9.0 H, Lymph # (Auto) 0.8, [place] # (Auto) 0.6, Eos # (Auto) 0.2, Baso # (Auto) 0.1 11/03/21 11:05: D-Dimer 1.57 H 11/03/21 11:05: Sodium 135 L, Potassium 4.0, Chloride 102, Carbon Dioxide 27, Anion Gap 10.0, BUN 16, Creatinine 0.70, Estimated Creat Clear 44, Estimated GFR 80, Est GFR ( Amer) 97, Glucose 99, Calcium 8.3 L, Total Bilirubin 0.8, AST 40 H, ALT 24, Alkaline Phosphatase 216 H, Troponin I 0.20 H, NT-Pro-B Natriuret Pep 4570 H, Total Protein 5.7 L, Albumin 2.9 L, Globulin 2.8, Albumin/Globulin Ratio 1.0 L 11/03/21 11:05: SARS-CoV-2 (PCR) Not detected, Influenza A Untype (PCR) Not detected, Influenza Type B (PCR) Not detected 11/03/21 11:05: Digoxin 0.90 11/03/21 11:05: Lactate 1.1 11/03/21 13:55: Troponin I 0.19 H 11/03/21 16:55: Urine Color Yellow, Urine Appearance Clear, Urine pH 5.5, Ur Specific [place] 1.010, Urine Protein Negative, Urine Glucose (UA) Negative, Urine Ketones Negative, Urine Blood Negative, Urine Nitrate Negative, Urine Bilirubin Negative, Urine Urobilinogen 0.2, Ur Leukocyte Esterase Negative, Urine RBC Occasional, Urine Bacteria Trace, Hyaline Casts Occasional 11/04/21 06:30: WBC 13.9 H D, RBC 3.73 L, Hgb 11.1 L, Hct 34.7 L, MCV 93.2, MCH 29.9, MCHC 32.1, RDW 15.9, Plt Count 356, MPV 7.6, Neut % (Auto) 90.3 H, Lymph % (Auto) 5.9 L, [place] % (Auto) 3.6, Eos % (Auto) 0.0 L, Baso % (Auto) 0.1, Neut # (Auto) 12.5 H, Lymph # (Auto) 0.8, [place] # (Auto) 0.5, Eos # (Auto) 0.0, Baso # (Auto) 0.0, Total Counted 100, Neutrophils % (Manual) 94 H, Lymphocytes % (Manual) 6 L, Platelet Estimate Normal, Anisocytosis 1+, Ovalocytes 1+, Katheryn Cells 1+ 11/04/21 06:30: Sodium 136, Potassium 3.9, Chloride 103, Carbon Dioxide 27, Anion Gap 9.9, BUN 19 H, Creatinine 0.70, Estimated Creat Clear 44, Estimated GFR 80, Est GFR ( Amer) 97, Glucose 116 H, Calcium 8.5 I & O for Last 24 hours: Intake & Output 11/01/21 11/02/21 11/03/21 11/04/21 11:59 11:59 11:59 11:59 Intake Total 240 / 240 Output Total 675 / 675 Balance -435 / -435 Weight 140 lb 140 lb 5 oz Narrative: Patient is awake, alert, much less dyspneic, talking in complete sentences. Lungs have good air movement, much less wheezing and no use of accessory muscles. Heart rate regular. Abdomen soft. No edema noted. Patient complains of a little bit of right sided ear discomfort but her tympanic membranes are retracted symmetrically without serous fluid. Assessment and Plan (1) Constipation Status: Acute Category: Medical Code(s): K59.00 - Constipation, unspecified (2) Multifocal pneumonia Status: Acute Category: Medical Code(s): J18.9 - Pneumonia, unspecified organism (3) Respiratory failure Status: Acute Qualifiers: Chronicity: acute on chronic Respiratory failure complication: hypoxia Qualified Code(s): J96.21 - Acute and chronic respiratory failure with hypoxia Category: Medical Code(s): J96.90 - Respiratory failure, unspecified, unspecified whether with hypox
--- NOTE | 2021-11-04 09:20 | PC.NURSE ---
Called RT to tell about sputum
--- NOTE | 2021-11-04 10:50 | PC.NURSE ---
rounded with md on morning rounds. complaints of ears feeling full. md ordered a spray. did relay to respiratory the order for mucamyst that they were unable to see based off how order was placed. no other complaints from patient noted.
--- NOTE | 2021-11-04 14:47 | PC.NURSE ---
rounded on patient. only concern is lack of bowel movement. states it has been a few days, offered prune juice and apple juice combo and primary nurse is calling md. no complaints or questions. stated the techs had been amazing and checked on the frequently. stated nurses had answered all their questions and educated appropriately. has had a bath this shift. no needs voiced.
--- NOTE | 2021-11-04 18:46 | PC.NURSE ---
Pt was given stool softener, and mag citrate. She had not had a BM since Monday. She sat on BS and had a good BM. Also got prep H to resolve her hemorrhoids. She had over all uneventful day during my shift. Will continue to monitor.
[2021-11-05] VITALS (11 sets, daily range): BP systolic 127–158; BP diastolic 46–69; PULSE 70–80; RESP 16–20; TEMP 36.5–36.9; O2SAT 5–96; BMI 21.9
[2021-11-05 07:21] LABS: Basophils % 0.2 % (0.1-2.0); Eosinophils % 0.2 % (0.1-12.0); Hematocrit 35.7 % (37.0-47.0); Hemoglobin 11.5 g/dL (12.2-16.2); Lymphocytes # 1.1 K/mm3 (0.7-4.5); Lymphocytes % 7.5 % (10-50); Mean Corpuscular HGB Conc 32.1 g/dL (31.8-35.4); Mean Corpuscular Hemoglobin 30.1 pg (27.0-31.2); Mean Corpuscular Volume 93.7 fl (81-99); Mean Platelet Volume 7.9 fl (7.4-10.4); Monocytes # 0.6 K/mm3 (0.1-1.0); Monocytes % 4.2 % (1.7-9.3); Neutrophils # 12.7 K/mm3 (1.8-7.8); Neutrophils % 87.9 % (37.0-80.0); Platelet Count 419 K/mm3 (142-424); Red Blood Count 3.81 M/mm3 (4.20-5.40); White Blood Count 14.5 K/mm3 (4.8-10.8)
[2021-11-05 07:28] LABS: MANUAL DIFFERENTIAL MANUAL DIFFERENTIAL (MANUAL DIFF)
[2021-11-05 07:40] LABS: Anion Gap 6.6 mEq/L (5-15); Blood Urea Nitrogen 17 mg/dl (7-17); Calcium 8.4 mg/dl (8.4-10.2); Carbon Dioxide 30 mmol/L (22.0-30.0); Chloride 103 mmol/L (98-107); Creatinine Clearance Estimated 44 mL/min (50-200); Estimated Glomerular Filt Rate 80 ml/min (>60); GFR (African American) 97 ML/MIN (>60); Glucose 121 mg/dl (74-100); Potassium 3.6 mmoL/L (3.5-5.1); Sodium 136 mmol/L (136-145)
--- NOTE | 2021-11-05 07:43 | PC.NURSE ---
No acute changes. Pt still tolerating 5 L nc well with sats >90%. Call light within reach
--- NOTE | 2021-11-05 08:01 | HMH.ACPN2 ---
Internal Medicine - PN: Subj *Date: 11/05/21 *Time: 08:52 Interval history: Patient remained stable this morning on 5 L. Afebrile overnight. Feeling much better after placement of Felder yesterday. Draining clear urine. No nausea or vomiting. Eating breakfast this morning. Exam Vital signs and Labs for Last 24 Hours: Temp Pulse Resp BP Pulse Ox 98.5 F 73 20 147/65 H 92 L 11/05/21 04:00 11/05/21 06:27 11/05/21 04:00 11/05/21 04:00 11/05/21 06:27 Laboratory Results - last 24 hr 11/05/21 06:58: WBC 14.5 H, RBC 3.81 L, Hgb 11.5 L, Hct 35.7 L, MCV 93.7, MCH 30.1, MCHC 32.1, RDW 16.0, Plt Count 419, MPV 7.9, Neut % (Auto) 87.9 H, Lymph % (Auto) 7.5 L, [place] % (Auto) 4.2, Eos % (Auto) 0.2, Baso % (Auto) 0.2, Neut # (Auto) 12.7 H, Lymph # (Auto) 1.1, [place] # (Auto) 0.6, Eos # (Auto) 0.0, Baso # (Auto) 0.0 11/05/21 06:58: Sodium 136, Potassium 3.6, Chloride 103, Carbon Dioxide 30, Anion Gap 6.6, BUN 17, Creatinine 0.70, Estimated Creat Clear 44, Estimated GFR 80, Est GFR ( Amer) 97, Glucose 121 H, Calcium 8.4 I & O for Last 24 hours: Intake & Output 11/02/21 11/03/21 11/04/21 11/05/21 23:59 23:59 23:59 23:59 Intake Total 240 / 240 240 / 240 Output Total 200 / 675 925 / 1425 500 / 500 Balance 40 / -435 -685 / -1185 -500 / -500 Weight 62.851 kg 63.4 kg 63.53 kg Narrative: - Constitutional mild distress - *Routine HEENT Exam Head: Present: normocephalic Eye: Present: EOMI, PERRL ENT: Present: mucous membranes moist - *Routine Neck Exam Present: supple. Absent: lymphadenopathy - *Routine Respiratory Exam Present: accessory muscle use, prolonged expiratory phase, crackles resolved, mild end expiratory wheeze - *Routine Cardiovascular Exam Present: RRR, irregular rhythm - *Routine Abdominal Exam Present: soft, normoactive bowel sounds. Absent: tenderness - *Routine Extremities Exam Absent: cyanosis, clubbing, edema - *Routine Skin Exam Present: warm. Absent: rash - *Routine Neurological Exam Present: alert, oriented X3 Assessment and Plan (1) NSTEMI (non-ST elevated myocardial infarction) Status: Acute Category: Medical Code(s): I21.4 - Non-ST elevation (NSTEMI) myocardial infarction (2) Multifocal pneumonia Status: Acute Category: Medical Code(s): J18.9 - Pneumonia, unspecified organism (3) Constipation Status: Acute Category: Medical Code(s): K59.00 - Constipation, unspecified (4) Respiratory failure Status: Acute Qualifiers: Chronicity: acute on chronic Respiratory failure complication: hypoxia Qualified Code(s): J96.21 - Acute and chronic respiratory failure with hypoxia Category: Medical Code(s): J96.90 - Respiratory failure, unspecified, unspecified whether with hypoxia or hypercapnia (5) Essential hypertension Status: Chronic Category: Medical Code(s): I10 - Essential (primary) hypertension (6) Rheumatoid arthritis Status: Chronic Category: Medical Code(s): M06.9 - Rheumatoid arthritis, unspecified - Assessment and plan all Dx Assessment and Plan for all problems:: 81-year-old female with recent COVID infection last month, was doing well at home until few days prior to admission. Admitted with worsening bilateral multifocal pneumonia. Increased oxygen requirement. Acute on chronic hypoxemic respiratory failure secondary to post viral pneumonia versus healthcare acquired pneumonia. Continue broad-spectrum antibiotics at this time. Continue supplemental oxygen with goal saturation greater 90%. Further management as follows: Respiratory failure -Oxygen antibiotics as above -Sputum cultures pending -Continue breathing treatments as ordered Urinary retention -Improved with Felder placement, will continue Felder for now. Monitor strict I's and O's. Continue bladder training in the coming days Continue home medications for hypothyroid, hypertension, A. fib. Full code Regular diet Continues to require i
[2021-11-05 08:19] LABS: Hypochromasia 1+; Lymphocytes % 3 % (10-50); Monocytes % 2 % (2-9); Neutrophils % 95 % (42-76); Ovalocytes 1+; Total Cells Counted 100
[2021-11-05 08:20] LABS: Anisocytosis 1+; Platelet Estimate Slight Increase
--- NOTE | 2021-11-05 11:44 | HMH.PTEV ---
Physical Therapy Evaluation Rehab PT IP Evaluation Start: 11/05/21 10:23 Freq: ONCE Status: Active Protocol: Document 11/05/21 11:42 PHORZACK (Rec: 11/05/21 11:44 PHORNE [id number]) Subjective/History History History 81 yowf adm to [facility] with PNA requiring increased oxygen via NC. She reports she uses a RW for ambulation and is generally independent with no steps to enter the home. Subjective Subjective Pt reports feeling tired overall, but otherwise no c/o. Rehab PT IP Eval Objective Appearance Patient Behavior Appropriate Patient Orientation Person,Place,Time Difficulty following instructions none Speech Pattern Clear Ambulation Patient Able to Ambulate Yes Ambulation Observation IP General Gait Pattern Observation No Deviations/Normal Ambulation Distance (feet) 20 Ambulation Assistive Device Rolling Walker Ambulation Ability Supervision/Stand by Balance Ability to Arise Able, uses arms to help Sitting Balance Steady, safe Standing Balance Steady, wide stance Dynamic Sitting Balance Ability Good Dynamic Standing Balance Ability Good Transfers Bed Transfer Ability Supervision/Stand by Chair Transfer Ability Supervision/Stand by Sit to Stand Bed Transfer Ability Supervision/Stand by Sit to Stand Chair Transfer Ability Supervision/Stand by Rehab PT IP prob,goals,plan Problems Date of Evaluation: 11/05/21 Discharge Plan PT Discharge Plan Pt appears to be at baseline for all mobility at this time and should be safe to return home once medically stable. G -code Required No Eval Complexity Eval Charge Codes 22849 - Moderate Complexity PHYSICIAN CERTIFICATION: I certify the specified therapy services for Nevaeh Santacruz are required, authorized, and reviewed every 30 days.
--- NOTE | 2021-11-05 12:28 | HMH.OTEV ---
OT Inpatient Evaluation Rehab OT IP Evaluation Start: 11/05/21 10:23 Freq: ONCE Status: Complete Protocol: Document 11/05/21 12:13 JOSE ROBERTOEVIN (Rec: 11/05/21 12:28 PALLOU [id number]) Rehab OT IP Assessment Subjective History 81-year-old white female who had COVID-19 pneumonitis in September of this year, who had a fairly long hospital stay and required oxygen therapy on discharge approximately 6 L, who at home was improving. I saw her in the [facility] at the beginning of October and she was making progress. Unfortunately, this progress retrogressed late last week and she began to have cough, congestion and shortness of air. This worsened until through the night last night she had consistent awakenings because of shortness of air and was brought to the ER this morning . In the ER she had multifocal pneumonia, dyspnea, worsening hypoxia and was admitted to hospital for further evaluation for community- acquired pneumonia. [facility] History I have reviewed the patient's past medical history: Yes Medical History: Reports:: Arrhythmia, Atrial Fibrillation, Hyperlipidemia, Hypertension, Internal Pacemaker, Palpitations. Patient lives alone in 1 story home with 1-2 PARVIN. Patient completed all ADLs and fx'l mobility Objective Patient Orientation Person,Place,Name,Age,Birthday ,Year Upper Extremity Gross ROM WFL Bed Mobility bed mobility - supine/sit Assist Level Supervision/Stand by Transfer Training Sit/Stand/Pivot Transfer Assist Level Supervision/Stand by Chair Transfer Ability Supervision/Stand by Chair Transfer Technique Sit to/from Ambula
--- NOTE | 2021-11-05 12:52 | PC.NURSE ---
ROUNDED ON PATIENT. SHE IS UP TO CHAIR ABOUT TO EAT LUNCH. SHE STATES SHE IS FEELING OKAY, ESPECIALLY AFTER GETTING HER BOWELS TO MOVE. STATED SHE FELT REALLY CLEANED OUT . HAS NO QUESTIONS OR CONCERNS AT THIS TIME. NO NEEDS VOICED.
--- NOTE | 2021-11-05 16:10 | PC.NURSE ---
Pt has done fine this shift. Scattered rhonchi and wheezing heard t/o lung [place]. Sputum sample sent down to lab this shift. Pt was up to the chair much of the afternoon. Pt is using IS every hour while awake. IS @ best 1250cc's. Pt has had x3 loose, incontinent bowel movements this shift. No other acute changes or complaints.
--- NOTE | 2021-11-05 17:20 | PC.NURSE ---
patient has been provided with a new ice pitcher and trash has been taken out
[2021-11-06] VITALS (12 sets, daily range): BP systolic 136–161; BP diastolic 54–73; PULSE 72–77; RESP 16–20; TEMP 36.4–36.8; O2SAT 91–95; BMI 21.9
--- NOTE | 2021-11-06 04:00 | PC.NURSE ---
pt rested some through the night, bilateral lung sounds with crackles noted, pt remains on 02 at 5L with 02 sats 94-96; pt alert and oriented x4; no other issues noted at this time, no changes from previous assessment
[2021-11-06 07:18] LABS: Basophils # 0.1 K/mm3 (0-0.2); Basophils % 0.4 % (0.1-2.0); Eosinophils # 0.2 K/mm3 (0.0-0.4); Eosinophils % 1.6 % (0.1-12.0); Hematocrit 36.7 % (37.0-47.0); Hemoglobin 10.8 g/dL (12.2-16.2); Lymphocytes # 1.2 K/mm3 (0.7-4.5); Lymphocytes % 9.4 % (10-50); Mean Corpuscular HGB Conc 29.3 g/dL (31.8-35.4); Mean Corpuscular Hemoglobin 29.7 pg (27.0-31.2); Mean Corpuscular Volume 101.3 fl (81-99); Mean Platelet Volume 8.5 fl (7.4-10.4); Monocytes # 0.6 K/mm3 (0.1-1.0); Monocytes % 4.7 % (1.7-9.3); Neutrophils # 10.3 K/mm3 (1.8-7.8); Neutrophils % 83.9 % (37.0-80.0); Platelet Count 363 K/mm3 (142-424); Red Blood Count 3.62 M/mm3 (4.20-5.40); Red Cell Distribution Width 16.6 % (11.5-17.5); White Blood Count 12.3 K/mm3 (4.8-10.8)
[2021-11-06 07:26] LABS: Alanine Aminotransferase 29 U/L (12-78); Albumin Level 2.8 g/dl (3.5-5.0); Alkaline Phosphatase 295 U/L (38-126); Anion Gap 5.9 mEq/L (5-15); Aspartate Amino Transferase 59 U/L (14-36); Bilirubin,Total 0.4 mg/dl (0.2-1.3); Blood Urea Nitrogen 14 mg/dl (7-17); Calcium 8.1 mg/dl (8.4-10.2); Carbon Dioxide 31 mmol/L (22.0-30.0); Chloride 105 mmol/L (98-107); Creatinine Clearance Estimated 44 mL/min (50-200); Estimated Glomerular Filt Rate 118 ml/min (>60); GFR (African American) 143 ML/MIN (>60); Globulin 2.8 g/dL (1.3-3.2); Glucose 103 mg/dl (74-100); Potassium 3.9 mmoL/L (3.5-5.1); Sodium 138 mmol/L (136-145); Total Protein,Serum 5.6 g/dl (6.3-8.2)
--- NOTE | 2021-11-06 09:03 | P.PN_ITS ---
Internal Medicine - PN: Subj *Date: 11/06/21 *Time: 09:03 Interval history: Patient felt very good overnight, notes that her breathing is better. She continues to be very worried about her positive improving after having COVID- pneumonia last month. Exam Vital signs and Labs for Last 24 Hours: Temp Pulse Resp BP Pulse Ox 97.7 F 76 16 156/63 H 93 L 11/06/21 07:43 11/06/21 07:43 11/06/21 07:43 11/06/21 07:43 11/06/21 07:43 Laboratory Results - last 24 hr 11/06/21 06:33: WBC 12.3 H, RBC 3.62 L, Hgb 10.8 L, Hct 36.7 L, MCV 101.3 H, MCH 29.7, MCHC 29.3 L, RDW 16.6, Plt Count 363, MPV 8.5, Neut % (Auto) 83.9 H, Lymph % (Auto) 9.4 L, [place] % (Auto) 4.7, Eos % (Auto) 1.6, Baso % (Auto) 0.4, Neut # (Auto) 10.3 H, Lymph # (Auto) 1.2, [place] # (Auto) 0.6, Eos # (Auto) 0.2, Baso # (Auto) 0.1 11/06/21 06:33: Sodium 138, Potassium 3.9, Chloride 105, Carbon Dioxide 31 H, Anion Gap 5.9, BUN 14, Creatinine 0.50 L D, Estimated Creat Clear 44, Estimated GFR 118, Est GFR ( Amer) 143 D, Glucose 103 H, Calcium 8.1 L, Magnesium 2.0, Total Bilirubin 0.4, AST 59 H D, ALT 29, Alkaline Phosphatase 295 H, Total Protein 5.6 L, Albumin 2.8 L, Globulin 2.8, Albumin/Globulin Ratio 1.0 L I & O for Last 24 hours: Intake & Output 11/03/21 11/04/21 11/05/21 11/06/21 11:59 11:59 11:59 11:59 Intake Total 360 / 360 360 / 360 1780 / 1780 Output Total 775 / 775 850 / 850 901 / 901 Balance -415 / -415 -490 / -490 879 / 879 Weight 140 lb 139 lb 12.369 oz 140 lb 0.955 oz 140 lb 1.6 oz Microbiology Reports for the Last 24 Hours: Microbiology 11/04/21 16:07 Sputum - Expectorated Sputum Gram Stain - Final Narrative: Alert, oriented x3. Lungs have a little bit more wheezing than they did a couple of days ago. Some squeaking crackles in the left lower lung field. She few appears however more comfortable. Heart rate regular. No edema or clubbing noted in her extremities. Abdomen soft. Heart rate regular. Assessment and Plan (1) NSTEMI (non-ST elevated myocardial infarction) Status: Acute Category: Medical Code(s): I21.4 - Non-ST elevation (NSTEMI) myocardial infarction (2) Multifocal pneumonia Status: Acute Category: Medical Code(s): J18.9 - Pneumonia, unspecified organism (3) Constipation Status: Acute Category: Medical Code(s): K59.00 - Constipation, unspecified (4) Respiratory failure Status: Acute Qualifiers: Chronicity: acute on chronic Respiratory failure complication: hypoxia Qualified Code(s): J96.21 - Acute and chronic respiratory failure with hypoxia Category: Medical Code(s): J96.90 - Respiratory failure, unspecified, unspecified whether with hypoxia or hypercapnia (5) Essential hypertension Status: Chronic Category: Medical Code(s): I10 - Essential (primary) hypertension (6) Rheumatoid arthritis Status: Chronic Category: Medical Code(s): M06.9 - Rheumatoid arthritis, unspecified - Assessment and plan all Dx Assessment and Plan for all problems:: Given her wheezing and inflammatory response to pneumonia will start dexamethasone IV today, continue antibiotics and nebs. Continue oxygen support. Discussed with her that she would most likely be on oxygen for quite a while. Continue Felder catheter given severe urinary retention that impaired pulmonary excursion given her small body size.
--- NOTE | 2021-11-06 16:00 | PC.NURSE ---
Pt had unevenful day during shift. Will continue to monitor. No changes since last assessment.
[2021-11-07] VITALS (12 sets, daily range): BP systolic 126–182; BP diastolic 63–69; PULSE 70–79; RESP 17–20; TEMP 36.4–36.7; O2SAT 90–97; BMI 21.9
--- NOTE | 2021-11-07 04:58 | PC.NURSE ---
pt has rested most of the night, lung sounds with crackles pt on 02 at 4L pnc, o2 sats 97%; VSS, no changes from previous assessment
[2021-11-07 07:20] LABS: Basophils % 0.1 % (0.1-2.0); Eosinophils % 0.1 % (0.1-12.0); Hematocrit 38.1 % (37.0-47.0); Lymphocytes # 0.8 K/mm3 (0.7-4.5); Lymphocytes % 6.2 % (10-50); Mean Corpuscular HGB Conc 28.9 g/dL (31.8-35.4); Mean Corpuscular Hemoglobin 29.2 pg (27.0-31.2); Mean Corpuscular Volume 100.9 fl (81-99); Mean Platelet Volume 8.2 fl (7.4-10.4); Monocytes # 0.3 K/mm3 (0.1-1.0); Monocytes % 1.9 % (1.7-9.3); Neutrophils # 12.3 K/mm3 (1.8-7.8); Neutrophils % 91.8 % (37.0-80.0); Platelet Count 351 K/mm3 (142-424); Red Blood Count 3.77 M/mm3 (4.20-5.40); Red Cell Distribution Width 16.4 % (11.5-17.5); White Blood Count 13.4 K/mm3 (4.8-10.8)
[2021-11-07 07:27] LABS: Anion Gap 8.6 mEq/L (5-15); Blood Urea Nitrogen 16 mg/dl (7-17); Calcium 8.3 mg/dl (8.4-10.2); Carbon Dioxide 29 mmol/L (22.0-30.0); Chloride 103 mmol/L (98-107); Creatinine Clearance Estimated 44 mL/min (50-200); Estimated Glomerular Filt Rate 153 ml/min (>60); GFR (African American) 185 ML/MIN (>60); Glucose 164 mg/dl (74-100); Potassium 4.6 mmoL/L (3.5-5.1); Sodium 136 mmol/L (136-145)
[2021-11-07 07:50] LABS: MANUAL DIFFERENTIAL MANUAL DIFFERENTIAL (MANUAL DIFF)
--- NOTE | 2021-11-07 08:47 | P.PN_ITS ---
Internal Medicine - PN: Subj *Date: 11/07/21 *Time: 08:47 Interval history: Patient is up in a chair, eating breakfast well. Has had some wheezing and congestion. Exam Vital signs and Labs for Last 24 Hours: Temp Pulse Resp BP Pulse Ox 97.6 F 73 20 182/69 H 90 L 11/07/21 07:44 11/07/21 07:44 11/07/21 07:44 11/07/21 07:44 11/07/21 07:44 Laboratory Results - last 24 hr 11/07/21 06:36: WBC 13.4 H, RBC 3.77 L, Hgb 11.0 L, Hct 38.1, MCV 100.9 H, MCH 29.2, MCHC 28.9 L, RDW 16.4, Plt Count 351, MPV 8.2, Neut % (Auto) 91.8 H, Lymph % (Auto) 6.2 L, [place] % (Auto) 1.9, Eos % (Auto) 0.1, Baso % (Auto) 0.1, Neut # (Auto) 12.3 H, Lymph # (Auto) 0.8, [place] # (Auto) 0.3, Eos # (Auto) 0.0, Baso # (Auto) 0.0 11/07/21 06:36: Sodium 136, Potassium 4.6, Chloride 103, Carbon Dioxide 29, Anion Gap 8.6, BUN 16, Creatinine 0.40 L, Estimated Creat Clear 44, Estimated GFR 153, Est GFR ( Amer) 185 D, Glucose 164 H, Calcium 8.3 L I & O for Last 24 hours: Intake & Output 11/04/21 11/05/21 11/06/21 11/07/21 11:59 11:59 11:59 11:59 Intake Total 360 / 360 360 / 360 1780 / 1780 720 / 720 Output Total 775 / 775 850 / 850 901 / 901 1100 / 1100 Balance -415 / -415 -490 / -490 879 / 879 -380 / -380 Weight 139 lb 12.369 oz 140 lb 0.955 oz 140 lb 1.6 oz 140 lb 1.59 oz Microbiology Reports for the Last 24 Hours: Microbiology 11/04/21 16:07 Sputum - Expectorated Sputum Gram Stain - Final 06/30/22 16:07 Sputum - Expectorated Sputum Sputum Culture - Preliminary Narrative: Lungs with scattered wheezing. Blood pressure slightly elevated but patient no jose luis that she has been extremely anxious about her health and her discharge possibilities. No edema noted. She is alert and pleasant and talkative. Assessment and Plan (1) NSTEMI (non-ST elevated myocardial infarction) Status: Acute Category: Medical Code(s): I21.4 - Non-ST elevation (NSTEMI) myocardial infarction (2) Multifocal pneumonia Status: Acute Category: Medical Code(s): J18.9 - Pneumonia, unspecified organism (3) Constipation Status: Acute Category: Medical Code(s): K59.00 - Constipation, unspecified (4) Respiratory failure Status: Acute Qualifiers: Chronicity: acute on chronic Respiratory failure complication: hypoxia Qualified Code(s): J96.21 - Acute and chronic respiratory failure with hypoxia Category: Medical Code(s): J96.90 - Respiratory failure, unspecified, unspecified whether with hypoxia or hypercapnia (5) Essential hypertension Status: Chronic Category: Medical Code(s): I10 - Essential (primary) hypertension (6) Rheumatoid arthritis Status: Chronic Category: Medical Code(s): M06.9 - Rheumatoid arthritis, unspecified - Assessment and plan all Dx Assessment and Plan for all problems:: Overall patient's improving/stable. Low-dose Ativan for her anxiety. She previously was taking amitriptyline. Does not think this works much and given its side effect profile would be not an ideal medicine. Her sister is coming into town tomorrow, she may be able to help at home for a week. Consider discharge possibly on 09 November if she continues to make progress.
[2021-11-07 09:35] LABS: Anisocytosis 1+; Lymphocytes % 5 % (10-50); Macrocytosis 1+; Monocytes % 2 % (2-9); Neutrophils % 93 % (42-76); Platelet Estimate Normal; Total Cells Counted 100
--- NOTE | 2021-11-07 10:35 | HMH.ACPN ---
Internal Medicine - PN: Subj *Date: 11/07/21 *Time: 10:35 Exam Vital signs and Labs for Last 24 Hours: Temp Pulse Resp BP Pulse Ox 97.6 F 73 20 182/69 H 90 L 11/07/21 07:44 11/07/21 08:55 11/07/21 07:44 11/07/21 07:44 11/07/21 07:44 Laboratory Results - last 24 hr 11/07/21 06:36: WBC 13.4 H, RBC 3.77 L, Hgb 11.0 L, Hct 38.1, MCV 100.9 H, MCH 29.2, MCHC 28.9 L, RDW 16.4, Plt Count 351, MPV 8.2, Neut % (Auto) 91.8 H, Lymph % (Auto) 6.2 L, [place] % (Auto) 1.9, Eos % (Auto) 0.1, Baso % (Auto) 0.1, Neut # (Auto) 12.3 H, Lymph # (Auto) 0.8, [place] # (Auto) 0.3, Eos # (Auto) 0.0, Baso # (Auto) 0.0, Total Counted 100, Neutrophils % (Manual) 93 H, Lymphocytes % (Manual) 5 L, Monocytes % (Manual) 2, Platelet Estimate Normal, Anisocytosis 1+, Macrocytosis 1+ 11/07/21 06:36: Sodium 136, Potassium 4.6, Chloride 103, Carbon Dioxide 29, Anion Gap 8.6, BUN 16, Creatinine 0.40 L, Estimated Creat Clear 44, Estimated GFR 153, Est GFR ( Amer) 185 D, Glucose 164 H, Calcium 8.3 L I & O for Last 24 hours: Intake & Output 11/04/21 11/05/21 11/06/21 11/07/21 23:59 23:59 23:59 23:59 Intake Total 240 / 240 1540 / 1660 960 / 960 240 / 240 Output Total 925 / 1425 1001 / 1401 1000 / 1500 500 / 500 Balance -685 / -1185 539 / 259 -40 / -540 -260 / -260 Weight 63.4 kg 63.53 kg 63.548 kg 63.548 kg Microbiology Reports for the Last 24 Hours: Microbiology 11/04/21 16:07 Sputum - Expectorated Sputum Gram Stain - Final 11/04/21 16:07 Sputum - Expectorated Sputum Sputum Culture - Preliminary Assessment and Plan (1) NSTEMI (non-ST elevated myocardial infarction) Status: Acute Category: Medical Code(s): I21.4 - Non-ST elevation (NSTEMI) myocardial infarction (2) Multifocal pneumonia Status: Acute Category: Medical Code(s): J18.9 - Pneumonia, unspecified organism (3) Constipation Status: Acute Category: Medical Code(s): K59.00 - Constipation, unspecified (4) Respiratory failure Status: Acute Qualifiers: Chronicity: acute on chronic Respiratory failure complication: hypoxia Qualified Code(s): J96.21 - Acute and chronic respiratory failure with hypoxia Category: Medical Code(s): J96.90 - Respiratory failure, unspecified, unspecified whether with hypoxia or hypercapnia (5) Essential hypertension Status: Chronic Category: Medical Code(s): I10 - Essential (primary) hypertension (6) Rheumatoid arthritis Status: Chronic Category: Medical Code(s): M06.9 - Rheumatoid arthritis, unspecified The patient's infection will respond to the chosen ABx?: Yes Is the patient receiving the right drug, dose, and route?: Yes Could a more targeted ABx be ordered?: No
--- NOTE | 2021-11-07 16:00 | PC.NURSE ---
pt is A&OX4. receiving oxygen via nasal cannula at 4 L. pt reports feelings of anxiety but is relieved with medication. pt is able to ambulate short distances with minimal assistance. pt voids per steven cath. pt resting comfortably, call light in reach, bed in lowest position and wheels locked.
[2021-11-08] VITALS (9 sets, daily range): BP systolic 137–176; BP diastolic 63–78; PULSE 70–76; RESP 16–20; TEMP 36.4–36.8; O2SAT 91–99; BMI 21.9
--- NOTE | 2021-11-08 04:27 | PC.NURSE ---
No changes since previous assessment. Alert and oriented x 4. Pt is on O2 4 L NC, tolerating well with O2 sats >92%. Pt also wears 4L NC @ home. Pt medicated once this shift for anxiety with favorable results. Last BM was 11/07/21. Pt voiding per steven cath. Pt has rested in intervals. No acute complaints or needs at this time. Call light in reach.
--- NOTE | 2021-11-08 08:45 | HMH.ACPN2 ---
Internal Medicine - PN: Subj *Date: 11/08/21 *Time: 08:45 Interval history: Patient is in much better spirits than yesterday. Did not sleep well because of the discomfort of the hospital bed but feels like her breathing has improved. Exam Vital signs and Labs for Last 24 Hours: Temp Pulse Resp BP Pulse Ox 97.8 F 70 18 176/78 H 99 11/08/21 04:00 11/08/21 06:07 11/08/21 04:00 11/08/21 04:00 11/08/21 06:07 Laboratory Results - last 24 hr 11/07/21 06:36: Total Counted 100, Neutrophils % (Manual) 93 H, Lymphocytes % (Manual) 5 L, Monocytes % (Manual) 2, Platelet Estimate Normal, Anisocytosis 1+, Macrocytosis 1+ I & O for Last 24 hours: Intake & Output 11/05/21 11/06/21 11/07/21 11/08/21 11:59 11:59 11:59 11:59 Intake Total 360 / 360 1780 / 1780 720 / 720 360 / 360 Output Total 850 / 850 901 / 901 1100 / 1100 600 / 600 Balance -490 / -490 879 / 879 -380 / -380 -240 / -240 Weight 140 lb 0.955 oz 140 lb 1.6 oz 140 lb 1.59 oz 140 lb 1.59 oz Microbiology Reports for the Last 24 Hours: Microbiology 11/04/21 16:07 Sputum - Expectorated Sputum Gram Stain - Final 11/04/21 16:07 Sputum - Expectorated Sputum Sputum Culture - Preliminary Narrative: Pleasant, talkative, Felder catheter in place draining clear yellow urine. On 3 L nasal cannula with good O2 saturations. Lungs have minimal inspiratory crackles but much improved over admission exam with no wheezing today. Abdomen soft, heart rate regular. Neurologically she is weak but it no focal deficits. Assessment and Plan (1) NSTEMI (non-ST elevated myocardial infarction) Status: Acute Category: Medical Code(s): I21.4 - Non-ST elevation (NSTEMI) myocardial infarction (2) Multifocal pneumonia Status: Acute Category: Medical Code(s): J18.9 - Pneumonia, unspecified organism (3) Constipation Status: Acute Category: Medical Code(s): K59.00 - Constipation, unspecified (4) Respiratory failure Status: Acute Qualifiers: Chronicity: acute on chronic Respiratory failure complication: hypoxia Qualified Code(s): J96.21 - Acute and chronic respiratory failure with hypoxia Category: Medical Code(s): J96.90 - Respiratory failure, unspecified, unspecified whether with hypoxia or hypercapnia (5) Essential hypertension Status: Chronic Category: Medical Code(s): I10 - Essential (primary) hypertension (6) Rheumatoid arthritis Status: Chronic Category: Medical Code(s): M06.9 - Rheumatoid arthritis, unspecified (7) Urinary retention Status: Acute Category: Medical Code(s): R33.9 - Retention of urine, unspecified - Assessment and plan all Dx Assessment and Plan for all problems:: I discussed case with patient, her daughter and niece who are here today visiting. Plan will be as follows 1. Respiratory issues-improving. Plan will be to discharge home tomorrow with oxygen and home health with [facility] agency which is already been set up for her. Her sister is going to be in town visiting, she is 12 years younger and is in [facility] and plans to stay with her for a week or so to help with transition to home. Physical therapy has mentioned pulmonary rehab to the patient, I think this would be a great idea when she is feeling a little stronger and we will set this up as an outpatient. 2. Wheezing-patient has albuterol nebulizers at home but these make her extremely jittery and tachycardic and anxious-Xopenex neb treatment symptoms very nicely for her here and we will prescribe these on discharge. I told the family there may be some difficulty getting these through Medicare and we may need to do Xopenex HFA inhalers as a temporizing measure while we try to authorize the Xopenex nebs. 3. We will try to get portable home oxygen for her. 4. I started low-dose Ativan yesterday which seemed to help today. On discussion with her she has been on amitriptyline for several years and rec
--- NOTE | 2021-11-08 13:12 | PC.NURSE ---
Pt's steven cath clamped at this time. Pt educated on purpose of bladder training and when to call out for steven to be unclamped. Pt verbalized understanding.
--- NOTE | 2021-11-08 18:09 | PC.NURSE ---
Pt has done well this shift. Pt has remained on 3LNC w/ o2 sats >90%. Pt has tolerated bladder training well and continues to do so. Pt has requested anxiety PRN meds x1 this shift, w/ favorable results. No other acute changes
[2021-11-09] VITALS: BP 148/64; PULSE 72; RESP 17; TEMP 36.6; O2SAT 94
[2021-11-09 04:00] VITALS: BP 159/74; PULSE 77; RESP 16; TEMP 36.7; O2SAT 92
--- NOTE | 2021-11-09 04:04 | PC.NURSE ---
Pt O2 sat 92-94% on 2L NC. No complaints this far into shift. Pt transferred from chair to bed 1x assist. No other acute changes. Pt has been resting since going to bed.
[2021-11-09 05:00] VITALS: BMI 21.9
--- NOTE | 2021-11-09 05:49 | PC.NURSE ---
pt bed scale is not working.
[2021-11-09 06:12] VITALS: PULSE 79; PULSE 81; O2SAT 96
--- NOTE | 2021-11-09 07:19 | HMH.DCSUM ---
General - General Admission date:: 11/03/21 Discharge date: 11/09/21 HPI HPI: 81-year-old white female who had COVID-19 pneumonitis in September of this year, who had a fairly long hospital stay and required oxygen therapy on discharge approximately 6 L, who at home was improving. I saw her in the [facility] at the beginning of October and she was making progress. Unfortunately, this progress retrogressed late last week and she began to have cough, congestion and shortness of air. This worsened until through the night last night she had consistent awakenings because of shortness of air and was brought to the ER this morning. In the ER she had multifocal pneumonia, dyspnea, worsening hypoxia and was admitted to hospital for further evaluation for community-acquired pneumonia. Hospital Course Hospital Course: 81-year-old female with recent COVID infection last month, was doing well at home until few days prior to admission. Admitted with worsening bilateral multifocal pneumonia. Increased oxygen requirement. Acute on chronic hypoxemic respiratory failure secondary to post viral pneumonia versus healthcare acquired pneumonia. Broad-spectrum. Gradually improving back to 2 L nasal cannula, consistent with baseline oxygen requirement. Stable for discharge home. Problems addressed as follows: Acute on chronic hypoxemic respiratory failure Healthcare acquired pneumonia -Showed gradual improvement with broad-spectrum antibiotics. Sputum culture obtained showing gram-negative rods, still waiting for speciation and sensitivity. We will plan to complete 10 days total of antibiotics, transition to Levaquin for 3 more days. Continue supplemental oxygen goal saturation greater than 90%. Has help at home. Her [facility], she is 12 years younger and is in robust health and plans to stay with her for a week or so to help with transition to home. Physical therapy has mentioned pulmonary rehab to the patient, I think this would be a great idea when she is feeling a little stronger and we will set this up as an outpatient. - Continue nebulizers at home, transition to Xopenex due to patient's significant tachycardia with albuterol. Anxiety -Previously on amitriptyline before admission, had stopped shortly before admission. Given anxiety secondary to health baseline, was started on low-dose Ativan. Seeing some improvement. Can discharge home with short course, reevaluate on outpatient setting. Urinary retention -Admission. Resolved catheter. Will trial removal of catheter today, if voids independently, we will not replace. If does not void independently and still has retention, will replace and consider doing bladder training at home. Will need home health to assist with training if that is the case. Medically stable for discharge home. We will plan for follow-up in [facility] oral health clinic later this week. Objective Vital signs: Temp Pulse Resp BP Pulse Ox 98.1 F 79 16 159/74 H 96 11/09/21 04:00 11/09/21 06:12 11/09/21 04:00 11/09/21 04:00 11/09/21 06:12 mild distress, chronically ill appearing - *Routine HEENT Exam Head: Present: normocephalic Eye: Present: EOMI, PERRL ENT: Present: mucous membranes moist - *Routine Neck Exam Present: supple - *Routine Respiratory Exam Present: CTA bilaterally, crackles (in bilateral bases.). Absent: wheezes - *Routine Cardiovascular Exam Present: RRR - *Routine Abdominal Exam Present: soft, normoactive bowel sounds. Absent: tenderness - *Routine Extremities Exam Present: edema (1+ to mid russell). Absent: cyanosis, clubbing - *Routine Skin Exam Present: warm. Absent: rash - *Routine Neurological Exam Present: alert, oriented X3 Results Labs on day of discharge: Preliminary micro results at discharge 11/04/21 16:07 Sputum Culture - Preliminary Sputum - Expectorated Sputum Gram Negati
[2021-11-09 07:55] LABS: Eosinophils % 0.1 % (0.1-12.0); Hematocrit 32.8 % (37.0-47.0); Hemoglobin 11.2 g/dL (12.2-16.2); Lymphocytes % 5.3 % (10-50); Mean Platelet Volume 7.8 fl (7.4-10.4); Monocytes # 0.5 K/mm3 (0.1-1.0); Monocytes % 2.8 % (1.7-9.3); Neutrophils # 16.5 K/mm3 (1.8-7.8); Neutrophils % 91.7 % (37.0-80.0); Platelet Count 322 K/mm3 (142-424); Red Cell Distribution Width 15.8 % (11.5-17.5)
[2021-11-09 07:56] LABS: Anion Gap 8.2 mEq/L (5-15); Blood Urea Nitrogen 25 mg/dl (7-17); Calcium 8.4 mg/dl (8.4-10.2); Carbon Dioxide 30 mmol/L (22.0-30.0); Chloride 102 mmol/L (98-107); Creatinine Clearance Estimated 44 mL/min (50-200); Estimated Glomerular Filt Rate 118 ml/min (>60); GFR (African American) 143 ML/MIN (>60); Glucose 140 mg/dl (74-100); Potassium 4.2 mmoL/L (3.5-5.1); Sodium 136 mmol/L (136-145)
[2021-11-09 08:00] VITALS: BP 176/65; PULSE 71; RESP 20; TEMP 36.4; O2SAT 93
[2021-11-09 08:02] LABS: MANUAL DIFFERENTIAL MANUAL DIFFERENTIAL (MANUAL DIFF)
[2021-11-09 09:13] VITALS: PULSE 71
[2021-11-09 09:55] LABS: Lymphocytes % 7 % (10-50); Monocytes % 1 % (2-9); Neutrophils % 92 % (42-76); Total Cells Counted 100
[2021-11-09 09:56] LABS: Anisocytosis 1+; Hypochromasia 1+; Ovalocytes 1+; Platelet Estimate Normal
--- NOTE | 2021-11-09 10:32 | DIET.NUTRFU ---
RD reviewed meal intake, consistency consuming 50% or better of trays. She is also receiving ensure daily. Plans to discharge home today, daughters are very supportive and help with meals. No discharge needs at this time.
--- NOTE | 2021-11-10 15:10 | CARE MANAGER ---
Contacted patient related to discharge from hospital. She states that she is weak, but able to do things for herself. She states she does have swelling in her feet and she has never had that before. We discussed propping them up and that sometimes IVF can cause retention of fluid. She states she is urinating well and denies any other questions. She picked up her medication and has f/u appt. with Dr. Boudreaux in the morning where she will tell him about the swelling. Ronak Payan
== END 2021-11-09 12:00 | disposition home or self-care (01) | DRG 177 ==
LOC: ER 13:48 → 2ND 13:56
PROVIDERS: Internal Medicine Adolescent Medicine; Admitting Provider Internal Medicine Adolescent Medicine; Emergency Provider Emergency Medicine; PCP Nurse Practitioner Family; Visit Provider Internal Medicine Adolescent Medicine
DX: J15.1 Pneumonia due to Pseudomonas (principal); I21.4 Non-ST elevation (NSTEMI) myocardial infarction; J96.21 Acute and chronic respiratory failure with hypoxia; Z79.01 Long term (current) use of anticoagulants; Z95.0 Presence of cardiac pacemaker; Z99.81 Dependence on supplemental oxygen; I48.91 Unspecified atrial fibrillation; I10 Essential (primary) hypertension; M06.9 Rheumatoid arthritis, unspecified; R33.9 Retention of urine, unspecified; Z86.16 Personal history of COVID-19; K59.00 Constipation, unspecified; F41.9 Anxiety disorder, unspecified
CPT/HCPCS: 36415; 71045; 71275; 80048; 80053; 80162; 81001; 82803; 83605; 83735; 83880; 84484; 85007; 85025; 85378; 87070; 87077; 87186; 87205; 93005; 93308; 94640; 94760; 94761; 97162; 97165; 99285; C9803; J0456; J0696; Q9967; U0003; U0005

== ENCOUNTER → 2021-12-09 17:39 | Outpatient (CLI) | payer MEDICARE, OTHER, SELFPAY ==
--- NOTE | 2021-12-09 17:55 | XR_ITS ---
PROCEDURE INFORMATION: Exam: XR Chest Exam date and time: 12/09/2021 5:48 PM Age: 81 years old Clinical indication: Cough; Additional info: F/u exam from mutifocal pneumonia TECHNIQUE: Imaging protocol: Radiologic exam of the chest. Views: 2 views. COMPARISON: CR XR CHEST PORTABLE 11/03/2021 11:07 AM FINDINGS: Tubes, catheters and devices: Overlying oxygen tubing. Lungs: Improved, though not resolved bilateral multifocal airspace disease. Compared with 11/03/2021, there is improved aeration of the lateral lower right lung and at the periphery of right upper lobe, also improved aeration of peripheral left upper lobe. Pulmonary vessels also appear less congested on today's exam, there is decreased haziness of the central bronchovascular markings. There are patchy residual airspace opacities bilaterally, in the mid and lower lungs, and there is residual interstitial prominence and peribronchial thickening. Normal lung volumes. Pleural spaces: Small residual left pleural effusion, question trace residual right pleural fluid. This has improved in the interval. No pneumothorax. Heart/Mediastinum: Cardiomegaly. Left atrial enlargement. Left subclavian cardiac pacer device. Vasculature: Calcified plaques in the aortic arch. Bones/joints: Chronic thoracic kyphosis, multilevel disc narrowing, spondylosis. Chronic minimal anterior wedge deformities. No acute appearing fracture or high-grade listhesis, as visualized. Organs: Chronic cholecystectomy clips in the right upper quadrant abdomen. IMPRESSION: 1. Significantly improved aeration of both lungs compared with the prior exam from 11/03/2021, suggesting partial clearing of pneumonia and/or edema. 2. There is residual patchy bilateral central and lower pulmonary airspace disease, interstitial prominence and peribronchial thickening which could be vascular congestion, chronic interstitial lung disease, or residual infection and bronchitis. 3. Cardiomegaly, cardiac pacer. 4. Improved pleural effusions. 5. Additional nonemergency and chronic findings as above.
[2021-12-09 18:32] LABS: Basophils # 0.1 K/mm3 (0-0.2); Basophils % 0.9 % (0.1-2.0); Eosinophils # 0.1 K/mm3 (0.0-0.4); Eosinophils % 1.1 % (0.1-12.0); Hematocrit 36.7 % (37.0-47.0); Lymphocytes # 2.1 K/mm3 (0.7-4.5); Lymphocytes % 21.5 % (10-50); Mean Corpuscular HGB Conc 29.9 g/dL (31.8-35.4); Mean Corpuscular Hemoglobin 30.1 pg (27.0-31.2); Mean Corpuscular Volume 100.7 fl (81-99); Mean Platelet Volume 9.4 fl (7.4-10.4); Monocytes # 0.5 K/mm3 (0.1-1.0); Monocytes % 5.1 % (1.7-9.3); Neutrophils # 6.9 K/mm3 (1.8-7.8); Neutrophils % 71.5 % (37.0-80.0); Platelet Count 272 K/mm3 (142-424); Red Blood Count 3.64 M/mm3 (4.20-5.40); Red Cell Distribution Width 16.2 % (11.5-17.5); White Blood Count 9.7 K/mm3 (4.8-10.8)
[2021-12-09 18:46] LABS: Anion Gap 9.3 mEq/L (5-15); Blood Urea Nitrogen 18 mg/dl (7-17); Calcium 9.2 mg/dl (8.4-10.2); Carbon Dioxide 29 mmol/L (22.0-30.0); Chloride 103 mmol/L (98-107); Estimated Glomerular Filt Rate 96 ml/min (>60); GFR (African American) 116 ML/MIN (>60); Glucose 141 mg/dl (74-100); Potassium 4.3 mmoL/L (3.5-5.1); Sodium 137 mmol/L (136-145)
== END ==
PROVIDERS: PCP Internal Medicine Adolescent Medicine; Visit Provider Internal Medicine Adolescent Medicine
DX: J18.9 Pneumonia, unspecified organism (principal)
CPT/HCPCS: 71046; 80048; 85025

== ENCOUNTER → 2022-11-30 23:21 | Outpatient (CLI) | payer MEDICARE, OTHER, SELFPAY ==
[2022-11-30 17:29] LABS: Basophils # 0.1 K/mm3 (0-0.2); Basophils % 0.4 % (0.1-2.0); Eosinophils # 0.3 K/mm3 (0.0-0.4); Eosinophils % 2.6 % (0.1-12.0); Hematocrit 41.2 % (37.0-47.0); Hemoglobin 12.4 g/dL (12.2-16.2); Lymphocytes # 1.5 K/mm3 (0.7-4.5); Mean Corpuscular HGB Conc 30.1 g/dL (31.8-35.4); Mean Corpuscular Hemoglobin 30.4 pg (27.0-31.2); Mean Corpuscular Volume 100.9 fl (81-99); Mean Platelet Volume 9.4 fl (7.4-10.4); Monocytes # 0.6 K/mm3 (0.1-1.0); Monocytes % 5.7 % (1.7-9.3); Neutrophils % 77.3 % (37.0-80.0); Platelet Count 249 K/mm3 (142-424); Red Blood Count 4.09 M/mm3 (4.20-5.40); Red Cell Distribution Width 15.7 % (11.5-17.5); White Blood Count 10.4 K/mm3 (4.8-10.8)
[2022-11-30 17:35] LABS: Alanine Aminotransferase 54 U/L (12-78); Albumin Level 3.7 g/dl (3.5-5.0); Albumin/Globulin Ratio 1.1 (1.1-1.8); Alkaline Phosphatase 442 U/L (38-126); Anion Gap 12.7 mEq/L (5-15); Aspartate Amino Transferase 73 U/L (14-36); Bilirubin,Total 0.8 mg/dl (0.2-1.3); Blood Urea Nitrogen 20 mg/dl (7-17); Calcium 9.2 mg/dl (8.4-10.2); Carbon Dioxide 29 mmol/L (22.0-30.0); Chloride 106 mmol/L (98-107); Chol/HDL Ratio 2.5 (1-3.5); Cholesterol 135 mg/dl (140-200); Estimated Glomerular Filt Rate 69 ml/min (>60); GFR (African American) 83 ML/MIN (>60); Globulin 3.4 g/dL (1.3-3.2); Glucose 96 mg/dl (74-100); HDL Cholesterol 53 mg/dl (40-60); Potassium 4.7 mmoL/L (3.5-5.1); Sodium 143 mmol/L (136-145); Total Protein,Serum 7.1 g/dl (6.3-8.2); Triglycerides 179 mg/dl (30-150); VLDL Cholesterol 36 mg/dL (0-40)
[2022-11-30 17:46] LABS: Direct LDL Cholesterol 55.07 mg/dL (100-129)
[2022-11-30 18:04] LABS: Thyroid Stimulating Hormone 0.37 uIU/mL (0.465-4.68)
== END ==
PROVIDERS: PCP Nurse Practitioner Family; Visit Provider Nurse Practitioner Family
DX: R10.32 Left lower quadrant pain (principal); I10 Essential (primary) hypertension; E03.9 Hypothyroidism, unspecified
CPT/HCPCS: 80053; 80061; 80162; 83735; 84443; 85025

== ENCOUNTER → 2023-01-24 11:26 | Outpatient (CLI) | payer MEDICARE, OTHER, SELFPAY ==
--- NOTE | 2023-01-24 11:31 | XR_ITS ---
FINAL REPORT CLINICAL HISTORY: left wrist pain and swelling FINDINGS: Left wrist Four views were obtained. There is no acute fracture or dislocation. The joint spaces appear normal. The bones are osteopenic. There is soft tissue swelling over the dorsum of the wrist. IMPRESSION: No acute process. Reviewed, Interpreted and Dictated by Armando Jones MD Transcribed by Radha Stoddard Authenticated and [facility]
--- NOTE | 2023-01-24 11:31 | XR_ITS ---
FINAL REPORT CLINICAL HISTORY: left elbow pain and swelling, fall last FINDINGS: Left elbow Three views were obtained. There is a small joint effusion. Definite fracture is not seen, can not exclude underlying subtle occult fracture. IMPRESSION: Small joint effusion, can not exclude underlying subtle occult fracture. Reviewed, Interpreted and Dictated by Armando Jones MD Transcribed by Radha Stoddard Authenticated and [facility]
--- NOTE | 2023-01-24 11:31 | XR_ITS ---
FINAL REPORT CLINICAL HISTORY: left forearm pain and swelling, fall last FINDINGS: Left forearm Two views were obtained. There is no acute fracture or dislocation. The joint spaces appear normal. No soft tissue abnormality is identified. IMPRESSION: No acute process. Reviewed, Interpreted and Dictated by Armando Jones MD Transcribed by Radha Stoddard Authenticated and [facility]
== END ==
PROVIDERS: PCP Family Medicine; Visit Provider Family Medicine
DX: M25.532 Pain in left wrist (principal); M25.522 Pain in left elbow; M79.632 Pain in left forearm
CPT/HCPCS: 73080; 73090; 73110

== ENCOUNTER 2023-03-15 16:18 | Observation (INO) | payer MEDICARE, OTHER, SELFPAY ==
[2023-03-15] VITALS (8 sets, daily range): BP systolic 115–140; BP diastolic 58–70; PULSE 70–71; RESP 16–20; TEMP 36.6–36.9; O2SAT 97–98; BMI 22.4; BMI 21.2
--- NOTE | 2023-03-15 16:28 | ECG_ITS ---
APPROVED REPORT Exam: Resting ECG HR:69 bpm ECG Measurements Heart Rate 69 AXES QRSd 166 QRS 76 QT 416 T -77 QTc 436 Conclusion ELECTRONIC VENTRICULAR PACEMAKER ABNORMAL RHYTHM ECG UNCONFIRMED REPORT Electronically signed by : Alejandro Boudreaux MD 03/16/2023 17:32:17
--- NOTE | 2023-03-15 16:38 | PC.NURSE ---
Dr. Ramírez at BS for pt eval
--- NOTE | 2023-03-15 16:39 | XR_ITS ---
PROCEDURE INFORMATION: Exam: XR Chest Exam date and time: 03/15/2023 5:21 PM Age: 82 years old Clinical indication: Shortness of breath; Prior surgery; Surgery date: 6+ months; Surgery type: Pace maker; Patient HX: PT had cxr x 1 wk go, says fluid was found on lungs. C/O SOA since. ; Additional info: Weakness TECHNIQUE: Imaging protocol: Radiologic exam of the chest. Views: 2 views. COMPARISON: CR XR CHEST 2V 12/09/2021 5:48 PM FINDINGS: Tubes, catheters and devices: Left chest wall cardiac pacing device. Lungs: Chronic interstitial lung markings. Stable bandlike densities within the right mid and bilateral lower lobes. Hyperexpanded lungs compatible with emphysema. Pleural spaces: Unremarkable. No pleural effusion. No pneumothorax. Heart/Mediastinum: Calcified atherosclerotic changes of the thoracic aorta. No cardiomegaly. Bones/joints: Unremarkable. Intraperitoneal space: Right upper quadrant surgical clips. IMPRESSION: Chronic emphysematous changes, interstitial lung markings and bandlike opacity likely representing atelectasis or scarring. A superimposed acute pulmonary process is difficult to exclude.
[2023-03-15 16:52] LABS: Basophils # 0.1 K/mm3 (0-0.2); Basophils % 0.6 % (0.1-2.0); Eosinophils # 0.1 K/mm3 (0.0-0.4); Eosinophils % 0.5 % (0.1-12.0); Hemoglobin 12.2 g/dL (12.2-16.2); Lymphocytes # 3.3 K/mm3 (0.7-4.5); Lymphocytes % 22.1 % (10-50); Mean Corpuscular HGB Conc 33.1 g/dL (31.8-35.4); Mean Corpuscular Hemoglobin 33.4 pg (27.0-31.2); Mean Corpuscular Volume 100.9 fl (81-99); Mean Platelet Volume 8.2 fl (7.4-10.4); Monocytes # 0.6 K/mm3 (0.1-1.0); Neutrophils # 10.8 K/mm3 (1.8-7.8); Neutrophils % 72.7 % (37.0-80.0); Platelet Count 297 K/mm3 (142-424); Red Blood Count 3.67 M/mm3 (4.20-5.40); Red Cell Distribution Width 15.5 % (11.5-17.5); White Blood Count 14.9 K/mm3 (4.8-10.8)
[2023-03-15 16:59] LABS: Chloride 103 mmol/L (98-107); Potassium 4.8 mmoL/L (3.5-5.1); Sodium 138 mmol/L (136-145)
[2023-03-15 17:02] LABS: Alanine Aminotransferase 28 U/L (12-78); Alkaline Phosphatase 219 U/L (38-126); Anion Gap 15.8 mEq/L (5-15); Aspartate Amino Transferase 46 U/L (14-36); Bilirubin,Total 1.1 mg/dl (0.2-1.3); Blood Urea Nitrogen 61 mg/dl (7-17); Calcium 9.1 mg/dl (8.4-10.2); Carbon Dioxide 24 mmol/L (22.0-30.0); Creatinine Clearance Estimated 20 mL/min (50-200); Estimated Glomerular Filt Rate 21 ml/min (>60); GFR (African American) 26 ML/MIN (>60); Glucose 128 mg/dl (74-100); Magnesium 1.6 mg/dl (1.6-2.3); Phosphorous 6.1 mg/dl (2.5-4.5)
[2023-03-15 17:20] LABS: T4 (Thyroxine) 10.8 ug/dl (5.53-11.0)
--- NOTE | 2023-03-15 17:30 | HMH.EDGENADL ---
Discharge Plan Disposition Patient Disposition: Admitted Condition: Good Clinical Impressions Clinical Impression: DOMINIK (acute kidney injury) Discharge ED Provider: Jessika Ramírez General Adult HPI General Chief complaint: Weakness Stated complaint: confusion, congestion Time Seen by Provider: 03/15/23 16:25 Mode of Arrival: Wheelchair Source of Information: Patient and Relative Limitations: No Limitations Description of Symptoms (Recalled from ER Triage Doc. by RN): Patient's daughter reports that the patient has been confused for a few days. Reports feeling tired all the time for about two weeks, vomiting and nausea since Monday and had some diarrhea for 2-3 days that has since resolved. History of Present Illness HPI narrative: This patient is an 82-year-old female with a history of atrial fibrillation with pacemaker in place, NSTEMI, history of respiratory failure secondary pneumonia, and history of hypothyroidism presented to the emergency department for evaluation with concern for generalized weakness and intermittent confusion over the last few days. According the patient's daughter, she had her diuretic dose increased about 2 to 3 weeks ago, and since then she has had decreased urine output, generalized weakness and fatigue, and intermittent bouts of confusion. She notes that she has had some nausea with decreased appetite, but no other issues. No other symptoms noted. No focal neurologic deficits noted. No fevers, chills, cough, congestion, chest pain, shortness of breath, numbness, tingling, unilateral weakness, abdominal pain, changes in bowel movements, or other issues. Related Data Home Medications Medication Instructions Recorded Confirmed levothyroxine 50 mcg tablet 40 mcg PO DAILY hypothyroidism 09/30/21 03/15/23 apixaban 5 mg tablet (Eliquis) 2.5 mg PO BID Blood thinner/atrial 10/07/21 03/15/23 fib digoxin 125 mcg (0.125 mg) tablet 125 mcg PO DIRECTED Heart rhythm 10/07/21 03/15/23 albuterol sulfate 90 mcg/actuation 2 puff inhalation Q6H PRN SOA 02/03/22 03/15/23 aerosol inhaler aspirin 81 mg tablet,delayed 81 mg PO DAILY 02/03/22 03/15/23 release multivitamin 1 tab PO DAILY 02/03/22 03/15/23 escitalopram oxalate 5 mg tablet 5 mg PO DAILY 10/12/22 03/15/23 adalimumab 40 mg/0.8 mL See Rx Instructions SQ .COMPLEX 01/11/23 03/15/23 subcutaneous syringe kit (Humira) doxycycline hyclate 100 mg tablet 100 mg PO BID 03/15/23 03/15/23 furosemide 40 mg tablet 40 mg PO BID 03/15/23 03/15/23 nebivolol 5 mg tablet 5 mg PO DAILY 03/15/23 03/15/23 potassium chloride 20 mEq 20 meq PO BID 03/15/23 03/15/23 tablet,extended release(part/cryst) tramadol 50 mg tablet 50 mg PO Q6 PRN Moderate Pain 03/15/23 03/15/23 (Scale Score 5-6) Previous Rx's Medication Instructions Recorded budesonide-formoterol HFA 80 1 inh inhalation BID #10.2 grams 01/11/23 mcg-4.5 mcg/actuation aerosol inhaler (Symbicort) allopurinol 300 mg tablet 300 mg PO DAILY gout 90 days #90 01/26/23 tabs atorvastatin 40 mg tablet 40 mg PO DAILY 90 days #90 tabs 02/07/23 pantoprazole 40 mg tablet,delayed 40 mg PO DAILY acid reflux 90 days 02/07/23 release #90 tabs alprazolam 0.25 mg tablet 0.25 mg PO BID anxiety #60 tabs 03/06/23 Allergies Allergy/AdvReac Type Severity Reaction Status Date / Time nitrofurantoin Allergy Verified 02/07/23 08:11 [From Macrobid] Sulfa (Sulfonamide Allergy Verified 02/07/23 08:11 Antibiotics) [facility] Disclaimer: The information contained in this section may have been updated after the patient was seen, as this information can be updated by other users. Medical History (Updated 03/15/23 @ 22:16 by Stew Chi APRN) A-fib Multifocal pneumonia NSTEMI (non-ST elevated myocardial infarction) Pneumonia due to COVID-19 virus Respiratory failure Rheumatoid arthritis Transient cerebral ischemia Surgical History Histor
--- NOTE | 2023-03-15 17:33 | PC.NURSE ---
Pt returned from RAD
[2023-03-15 17:34] LABS: Thyroid Stimulating Hormone 1.68 uIU/mL (0.465-4.68)
[2023-03-15 17:46] LABS: Microscopic, Urine URINE MICROSCOPIC (MICROSCOPIC)
[2023-03-15 17:47] LABS: Appearance,Urine CLEAR (Clear); Bilirubin,Urine Negative (Negative); Blood, Urine Negative (Negative); Color,Urine YELLOW (Yellow); Glucose,Urine (UA) Negative (Negative); Ketones,Urine Negative (Negative); Leukocyte Esterase,Urine Negative (Negative); Nitrate,Urine Negative (Negative); PH,Urine 5.5 (5.0-8.5); Protein,Urine Negative (Negative); Urobilinogen,Urine 0.2 EU/dl (0.2)
[2023-03-15 18:04] LABS: Bacteria,Urine Trace /lpf; RBC,Urine Occasional #/hpf (0-3); WBC,Urine Occasional #/hpf (0-3)
--- NOTE | 2023-03-15 19:30 | PC.NURSE ---
Admitting notified of OBS admission for Hospitalist to Med/Surg Rm [id number] for DOMINIK. ED charge and MS charge aware.
--- NOTE | 2023-03-15 20:04 | EXP.HP ---
History of Present Illness *Admission Date: 03/15/23 *Reason for visit:: weakness and confusion *History of present illness: This patient is a pleasant 82-year-old female with a history of atrial fibrillation with pacemaker in place, NSTEMI, history of respiratory failure secondary COVID pneumonia, hypothyroidism, RA on Humira presented to the emergency department for evaluation with concern for generalized weakness and intermittent confusion over the last few days. Patient stated that in a family meeting, members found her talking non sense . According to the ER documentation by patient's daughter, she had her diuretic dose increased about 2 to 3 weeks ago, and since then all symptoms began, including decreased urine output, generalized weakness and fatigue, and intermittent bouts of confusion. Currently patient report nausea with decreased appetite, but no other issues. Admitted for further work up and treatment. [facility] Disclaimer: The information contained in this section may have been updated after the patient was seen, as this information can be updated by other users. Medical History (Updated 03/15/23 @ 22:16 by Stew Chi APRN) A-fib Multifocal pneumonia NSTEMI (non-ST elevated myocardial infarction) Pneumonia due to COVID-19 virus Respiratory failure Rheumatoid arthritis Transient cerebral ischemia Surgical History History of cholecystectomy History of colonoscopy Pacemaker Family History Mother Cancer Father Heart attack Sister Diabetes Social History (Updated 03/15/23 @ 20:32 by Lauren Woodruff RN) Smoking Status: Never smoker alcohol intake: never substance use type: denies use current occupational status: retired Travel in the last 8 weeks: None household members: none housing: house caffeine: No Review of Systems Review of Systems Review of systems:: pertinent systems reviewed and negative unless documented below Meds Home Medications and Allergies Home Medications Medication Instructions Recorded Confirmed Type levothyroxine 50 mcg tablet 50 mcg PO DAILY thyroid 09/30/21 03/16/23 History apixaban 5 mg tablet (Eliquis) 2.5 mg PO BID Blood thinner/atrial 10/07/21 03/16/23 History fib digoxin 125 mcg (0.125 mg) tablet 125 mcg PO SUTUTHSA Heart rhythm 10/07/21 03/16/23 History albuterol sulfate 90 mcg/actuation 2 puff inhalation Q6HP PRN 02/03/22 03/16/23 History aerosol inhaler Shortness Of Breath aspirin 81 mg tablet,delayed 81 mg PO DAILY Heart Health 02/03/22 03/15/23 History release multivitamin 1 tab PO DAILY Supplement 02/03/22 03/15/23 History escitalopram oxalate 5 mg tablet 5 mg PO DAILY mood 10/12/22 03/15/23 History adalimumab 40 mg/0.8 mL 40 mg SQ DIRECTED 01/11/23 03/16/23 History subcutaneous syringe kit (Humira) budesonide-formoterol HFA 80 1 inh inhalation BID #10.2 grams 01/11/23 03/15/23 Rx mcg-4.5 mcg/actuation aerosol inhaler (Symbicort) allopurinol 300 mg tablet 300 mg PO DAILY gout 90 days #90 01/26/23 03/16/23 Rx tabs pantoprazole 40 mg tablet,delayed 40 mg PO DAILY acid reflux 90 days 02/07/23 03/15/23 Rx release #90 tabs alprazolam 0.25 mg tablet 0.25 mg PO BID anxiety #60 tabs 03/06/23 03/15/23 Rx doxycycline hyclate 100 mg tablet 100 mg PO BID Infection 03/15/23 03/15/23 History furosemide 40 mg tablet 40 mg PO BID Fluid 03/15/23 03/15/23 History nebivolol 5 mg tablet 5 mg PO DAILY High Blood Pressure 03/15/23 03/16/23 History potassium chloride 20 mEq 20 meq PO BID Supplement 03/15/23 03/15/23 History tablet,extended release(part/cryst) tramadol 50 mg tablet 50 mg PO Q6HP Moderate Pain (Scale 03/15/23 03/16/23 History Score 5-6) atorvastatin 40 mg tablet 40 mg PO DAILY Cholesterol 03/16/23 03/16/23 History digoxin 125 mcg (0.125 mg) tablet 62.5 mcg PO MOWEFR Heart Rhythm 03/16/23 03/16/23 History ondanset
--- NOTE | 2023-03-15 20:08 | PC.NURSE ---
pt arrived to the floor via wheel chair @20:05
[2023-03-16] VITALS (9 sets, daily range): BP systolic 103–150; BP diastolic 50–68; PULSE 69–80; RESP 16–18; TEMP 36.4–36.7; O2SAT 92–100; BMI 21.2
--- NOTE | 2023-03-16 05:43 | PC.NURSE ---
Pt alert and oriented x4. Pt is pleasant and has no complaints. Pt denies pain and other needs at this time.
[2023-03-16 06:07] LABS: Basophils # 0.1 K/mm3 (0-0.2); Basophils % 0.7 % (0.1-2.0); Eosinophils # 0.3 K/mm3 (0.0-0.4); Eosinophils % 3.8 % (0.1-12.0); Hematocrit 31.7 % (37.0-47.0); Lymphocytes % 25.6 % (10-50); Mean Corpuscular HGB Conc 32.7 g/dL (31.8-35.4); Mean Corpuscular Hemoglobin 32.9 pg (27.0-31.2); Mean Corpuscular Volume 100.4 fl (81-99); Mean Platelet Volume 8.7 fl (7.4-10.4); Monocytes # 0.5 K/mm3 (0.1-1.0); Monocytes % 6.7 % (1.7-9.3); Neutrophils # 4.9 K/mm3 (1.8-7.8); Neutrophils % 63.3 % (37.0-80.0); Platelet Count 227 K/mm3 (142-424); Red Blood Count 3.15 M/mm3 (4.20-5.40); Red Cell Distribution Width 15.7 % (11.5-17.5); White Blood Count 7.8 K/mm3 (4.8-10.8)
[2023-03-16 06:14] LABS: Alanine Aminotransferase 19 U/L (12-78); Albumin Level 2.9 g/dl (3.5-5.0); Albumin/Globulin Ratio 0.9 (1.1-1.8); Alkaline Phosphatase 183 U/L (38-126); Anion Gap 15.2 mEq/L (5-15); Aspartate Amino Transferase 37 U/L (14-36); Bilirubin,Total 0.5 mg/dl (0.2-1.3); Blood Urea Nitrogen 54 mg/dl (7-17); Calcium 8.4 mg/dl (8.4-10.2); Carbon Dioxide 21 mmol/L (22.0-30.0); Chloride 107 mmol/L (98-107); Creatinine Clearance Estimated 25 mL/min (50-200); Estimated Glomerular Filt Rate 29 ml/min (>60); GFR (African American) 35 ML/MIN (>60); Globulin 3.4 g/dL (1.3-3.2); Glucose 105 mg/dl (74-100); Potassium 4.2 mmoL/L (3.5-5.1); Sodium 139 mmol/L (136-145); Total Protein,Serum 6.3 g/dl (6.3-8.2)
[2023-03-16 06:16] LABS: Hemoglobin 10.4 g/dL (12.2-16.2)
--- NOTE | 2023-03-16 08:37 | HMH.PHAINT1 ---
Pharmacy Intervention Comments: Med reconciliation completed using pharmacy fill history and patient interview.
--- NOTE | 2023-03-16 09:35 | CT_ITS ---
FINAL REPORT TECHNIQUE: Thin section axial images were obtained from the lung apices through the upper abdomen without contrast. This study was performed with techniques to keep radiation doses as low as reasonably achievable (ALARA). Individualized dose reduction techniques using automated exposure control or adjustment of mA and/or kV according to the patient's size were employed. CLINICAL HISTORY: changes to lungs COMPARISON: CTA chest 11/03/2021 FINDINGS: There is no mediastinal, hilar, or axillary lymphadenopathy. Previously noted right pleural effusion has resolved. Left pleural effusion has decreased in size. The heart is enlarged. There is no pericardial effusion. There are prominent coronary artery and aortic calcifications. There are changes of fibrosis with anterior upper lobe predominance although there are changes in the lower lungs. There are patchy groundglass opacities in the lungs bilaterally. Pneumonia is not excluded. Limited, unenhanced evaluation of the upper abdomen is without acute abnormality. There is no acute osseous abnormality. IMPRESSION: Patchy groundglass opacities which may represent pneumonia. Areas of chronic fibrosis, similar to the prior study. Cardiomegaly with small left pleural effusion. Reviewed, Interpreted and Dictated by Mame Flower MD Transcribed by Yakelin Freed Authenticated and . [facility]
--- NOTE | 2023-03-16 09:42 | EXP.ACUTE.PN ---
Subjective *Date: 03/16/23 *Time: 11:28 Interval history: Pleasant, on room air. Denies any chest pain, nausea, vomiting. Daughter at bedside reports that she is back to baseline mentation. Still weak but back to her normal self. Discussion about her lung findings, was treated for pneumonia a week ago and diuretic was increased Medical Exam Vital signs and Labs for Last 24 Hours: Vital Signs Temp Pulse Pulse Resp BP BP Pulse Ox 03/16/23 07:31 97.8 F 73 18 126/66 97 03/16/23 06:51 03/16/23 05:00 03/16/23 04:00 97.7 F 70 16 121/58 L 95 03/16/23 03:00 03/16/23 01:00 03/16/23 00:00 70 03/16/23 00:00 97.9 F 69 16 103/50 L 92 L 03/15/23 22:30 03/15/23 21:00 03/15/23 20:30 97.9 F 71 18 140/63 98 03/15/23 19:44 98 F 70 16 138/70 03/15/23 19:00 71 16 136/63 97 03/15/23 18:30 70 20 134/58 L 97 03/15/23 18:00 71 20 115/63 98 03/15/23 17:38 70 136/67 98 03/15/23 17:00 70 120/60 98 03/15/23 16:19 98.5 F 70 16 132/64 97 O2 Del Method 03/16/23 07:31 Room Air 03/16/23 06:51 Room Air 03/16/23 05:00 Room Air 03/16/23 04:00 Room Air 03/16/23 03:00 Room Air 03/16/23 01:00 Room Air 03/16/23 00:00 03/16/23 00:00 Room Air 03/15/23 22:30 Room Air 03/15/23 21:00 Room Air 03/15/23 20:30 Room Air 03/15/23 19:44 Room Air 03/15/23 19:00 03/15/23 18:30 03/15/23 18:00 03/15/23 17:38 Room Air 03/15/23 17:00 Room Air 03/15/23 16:19 Room Air Intake and Output 03/15/23 03/16/23 03/16/23 23:59 07:59 15:59 Intake Total 480 / 480 Output Total 0 / 0 0 / 0 Balance 0 / 120 480 / 480 Intake: Intake, Oral Amount 480 / 480 Output: Output, Urine Amount 0 / 0 0 / 0 Other: Number of Voids 0 Number of Unmeasured Voids 1 1 Weight 61.433 kg 61.433 kg Patient Weight 03/16/23 23:59 Weight 61.433 kg Laboratory Results - last 24 hr 03/15/23 16:35: WBC 14.9 H, RBC 3.67 L, Hgb 12.2, Hct 37.0, MCV 100.9 H, MCH 33.4 H, MCHC 33.1, RDW 15.5, Plt Count 297, MPV 8.2, Neut % (Auto) 72.7, Lymph % (Auto) 22.1, [place] % (Auto) 4.0, Eos % (Auto) 0.5, Baso % (Auto) 0.6, Neut # (Auto) 10.8 H, Lymph # (Auto) 3.3, [place] # (Auto) 0.6, Eos # (Auto) 0.1, Baso # (Auto) 0.1, Sodium 138, Potassium 4.8, Chloride 103, Carbon Dioxide 24, Anion Gap 15.8 H, BUN 61 H, Creatinine 2.20 H, Estimated Creat Clear 20, Estimated GFR 21 L, Est GFR ( Amer) 26 L, Glucose 128 H, Calcium 9.1, Phosphorus 6.1 H, Magnesium 1.6, Total Bilirubin 1.1, AST 46 H, ALT 28, Alkaline Phosphatase 219 H, Total Protein 8.0, Albumin 4.0, Globulin 4.0 H, Albumin/Globulin Ratio 1.0 L, TSH 1.68, Thyroxine (T4) 10.8 03/15/23 17:38: Urine Color Yellow, Urine Appearance Clear, Urine pH 5.5, Ur Specific Frannie 1.020, Urine Protein Negative, Urine Glucose (UA) Negative, Urine Ketones Negative, Urine Blood Negative, Urine Nitrate Negative, Urine Bilirubin Negative, Urine Urobilinogen 0.2, Ur Leukocyte Esterase Negative, Urine RBC Occasional, Urine WBC Occasional, Ur Squamous Epith Cells 3-5, Urine Bacteria Trace 03/16/23 05:34: WBC 7.8 D, RBC 3.15 L, Hgb 10.4 L D, Hct 31.7 L, MCV 100.4 H, MCH 32.9 H, MCHC 32.7, RDW 15.7, Plt Count 227, MPV 8.7, Neut % (Auto) 63.3, Lymph % (Auto) 25.6, [place]af[place] % (Auto) 6.7, Eos % (Auto) 3.8, Baso % (Auto) 0.7, Neut # (Auto) 4.9, Lymph # (Auto) 2.0, [place] # (Auto) 0.5, Eos # (Auto) 0.3, Baso # (Auto) 0.1, Sodium 139, Potassium 4.2, Chloride 107, Carbon Dioxide 21 L, Anion Gap 15.2 H, BUN 54 H, Creatinine 1.70 H D, Estimated Creat Clear 25, Estimated GFR 29 L, Est GFR ( Amer) 35 L D, Glucose 105 H, Calcium 8.4, Total Bilirubin 0.5, AST 37 H, ALT 19 D, Alkaline Phosphatase 183 H, Total Protein 6.3, Albumin 2.9 L D, Globulin 3.4 H, Albumin/Globulin Ratio 0.9 L I & O for Labs for Last 24 Hours: Intake & Output 03/13/23 03/14/23 03/15/23 03/16/23 23:59 23:59 23:59 23:59 Intake Total 480 /
--- NOTE | 2023-03-16 10:51 | EXP.PULM.CON ---
History of Present Illness History of present illness: Ms. Santacruz is a 82-year-old female no significant smoking history, had a history of rheumatoid arthritis previously not treated up until last 6 years ago where she was tried multiple medications with no good symptom control recently initiated Humira in the last 2 to 3 months presented to the hospital with worsening weakness and CT found to be having pulmonary fibrosis on pulmonary was called for further evaluation and management. [facility] Disclaimer: The information contained in this section may have been updated after the patient was seen, as this information can be updated by other users. Medical History (Updated 03/16/23 @ 15:53 by Vaibhav Christensen MD) A-fib Fibrosis of lung History of rheumatoid arthritis ILD (interstitial lung disease) Multifocal pneumonia NSTEMI (non-ST elevated myocardial infarction) Pneumonia due to COVID-19 virus Respiratory failure Rheumatoid arthritis Transient cerebral ischemia Surgical History History of cholecystectomy History of colonoscopy Pacemaker Family History Mother Cancer Father Heart attack Sister Diabetes Social History (Updated 03/15/23 @ 20:32 by Lauren Woodruff RN) Smoking Status: Never smoker alcohol intake: never substance use type: denies use current occupational status: retired Travel in the last 8 weeks: None household members: none housing: house caffeine: No Review of Systems Constitutional Constitutional: Reports anorexia, Reports body ache(s) and Reports fatigue Eyes Eyes: Denies eye discharge, Denies dry eyes, Denies irritation and Denies itchy eyes ENT Ears, Nose, Mouth, and Throat: Denies epistaxis, Denies facial pain, Denies lip swelling and Denies throat swelling *Cardiovascular Cardiovascular: Reports dyspnea and Reports dyspnea on exertion *Respiratory Respiratory: Reports chest congestion, Reports cough, Reports dyspnea, Reports dyspnea on exertion, Denies excessive phlegm production, Denies hemoptysis, Denies pain on inspiration, Denies pain with cough and Denies wheezing *Gastrointestinal Gastrointestinal: Denies abdominal pain, Denies belching and Denies cramping *Musculoskeletal Musculoskeletal: Reports back pain, Reports myalgias and Reports other (No small joint swelling or Pain) Psychiatric Psychiatric: Denies homicidal ideation and Denies suicidal ideation Endocrine Endocrine: Reports fatigue and Denies heat intolerance Hematologic/Lymphatic Hematologic/Lymphatic: Denies easy bleeding and Denies lymphadenopathy Allergic/Immunologic Allergic/Immunologic: Denies itchy eyes, Denies lip swelling, Denies throat swelling and Denies wheezing Pulmonology Exam Inpatient Vital signs and Labs for Last 24 Hours: Temp Pulse Resp BP Pulse Ox O2 Del Method 97.8 F 80 18 126/66 97 Room Air 03/16/23 07:31 03/16/23 09:43 03/16/23 07:31 03/16/23 07:31 03/16/23 07:31 03/16/23 09:00 Laboratory Results - last 24 hr 03/15/23 16:35: WBC 14.9 H, RBC 3.67 L, Hgb 12.2, Hct 37.0, MCV 100.9 H, MCH 33.4 H, MCHC 33.1, RDW 15.5, Plt Count 297, MPV 8.2, Neut % (Auto) 72.7, Lymph % (Auto) 22.1, [place] % (Auto) 4.0, Eos % (Auto) 0.5, Baso % (Auto) 0.6, Neut # (Auto) 10.8 H, Lymph # (Auto) 3.3, [place] # (Auto) 0.6, Eos # (Auto) 0.1, Baso # (Auto) 0.1, Sodium 138, Potassium 4.8, Chloride 103, Carbon Dioxide 24, Anion Gap 15.8 H, BUN 61 H, Creatinine 2.20 H, Estimated Creat Clear 20, Estimated GFR 21 L, Est GFR ( Amer) 26 L, Glucose 128 H, Calcium 9.1, Phosphorus 6.1 H, Magnesium 1.6, Total Bilirubin 1.1, AST 46 H, ALT 28, Alkaline Phosphatase 219 H, Total Protein 8.0, Albumin 4.0, Globulin 4.0 H, Albumin/Globulin Ratio 1.0 L, TSH 1.68, Thyroxine (T4) 10.8 03/15/23 17:38: Urine Color Yellow, Urine Appearance Clear, Urine pH 5.5, Ur Specific [place] 1.020, Urine Protein Negative, Urine Glucose
--- NOTE | 2023-03-16 11:20 | PC.NURSE ---
Pe rMD stop fluids after bag completes.
--- NOTE | 2023-03-16 11:27 | HMH.OTEV ---
OT Inpatient Evaluation Rehab OT IP Evaluation Start: 03/16/23 09:39 Freq: ONCE Status: Active Protocol: Document 03/16/23 11:23 JOSE ROBERTOEVIN (Rec: 03/16/23 11:27 ADRIANA [id number]) Rehab OT IP Assessment Subjective History This patient is a pleasant 82- year-old female with a history of atrial fibrillation with pacemaker in place, NSTEMI, history of respiratory failure secondary COVID pneumonia, hypothyroidism, RA on Humira presented to the emergency department for evaluation with concern for generalized weakness and intermittent confusion over the last few days. Patient stated that in a family meeting, members found her talking non sense . According to the ER documentation by patient's daughter, she had her diuretic dose increased about 2 to 3 weeks ago, and since then all symptoms began, including decreased urine output, generalized weakness and fatigue, and intermittent bouts of confusion. Currently patient report nausea with decreased appetite, but no other issues. Admitted for further work up and treatment. Patient lives alone in a 1 story home with 1 PARVIN. Patient independent with ADLs and fx' l mobility. Patient has family near by. Uses a RW to ambulate. Subjective I can get up. Instructed Patient on safety awareness during bed mobility, transfers, fx'l mobility of ambulation and ADLs. Patient completed all tasks CGA/SBA for safety. Patient able to maneuver throughout facility > 50ft with SBA. No LOB noted with RW. Left Patient up in chair with needs met and call
--- NOTE | 2023-03-16 11:39 | HMH.PTEV ---
Physical Therapy Evaluation Rehab PT IP Evaluation Start: 03/16/23 09:41 Freq: ONCE Status: Active Protocol: Document 03/16/23 11:36 PHOTERENCE (Rec: 03/16/23 11:39 PHORNE [id number]) Subjective/History History History 82 yowf adm to [facility] with DOMINIK. PMH of a-fib, pacemaker, NSTEMI, prior COVID PNA, RA. SHe reports she lives alone, 1 step to enter the home, and she uses a RW for all ambulation. She is independent with all mobility and ADLs at baseline. Subjective Subjective Pt reports she feels achy all over, but is better than yesterday. New diagnosis of cancer in past 12 No months? Rehab PT IP Eval Objective Appearance Patient Behavior Appropriate Patient Orientation Person,Place,Time Difficulty following instructions none Speech Pattern Clear Ambulation Patient Able to Ambulate Yes Ambulation Observation IP General Gait Pattern Observation No Deviations/Normal Ambulation Distance (feet) 75 Ambulation Assistive Device Rolling Walker Ambulation Ability Supervision/Stand by Balance Ability to Arise Able, uses arms to help Sitting Balance Steady, safe Standing Balance Steady, wide stance Dynamic Sitting Balance Ability Good Dynamic Standing Balance Ability Good Transfers Bed Transfer Ability Supervision/Stand by Chair Transfer Ability Supervision/Stand by Sit to Stand Bed Transfer Ability Supervision/Stand by Sit to Stand Chair Transfer Ability Supervision/Stand by Rehab PT IP prob,goals,plan Problems Date of Evaluation: 03/16/23 Discharge Plan PT Discharge Plan Pt is currently independent with all mobility and is appropriate to return home once medically stable for d/c. Recommend home health therapy after d/c. Eval Complexity Eval Charge Codes 99144 - High Complexity PHYSICIAN CERTIFICATION: I certify the specified therapy services for Nevaeh Santacruz are required, authorized, and reviewed every 30 days.
--- NOTE | 2023-03-16 16:21 | PC.NURSE ---
Report given to Maylin Silver
[2023-03-16 18:13] LABS: Anion Gap 16.1 mEq/L (5-15); Blood Urea Nitrogen 48 mg/dl (7-17); Calcium 9.1 mg/dl (8.4-10.2); Carbon Dioxide 24 mmol/L (22.0-30.0); Chloride 105 mmol/L (98-107); Creatinine Clearance Estimated 28 mL/min (50-200); Estimated Glomerular Filt Rate 33 ml/min (>60); GFR (African American) 40 ML/MIN (>60); Glucose 131 mg/dl (74-100); Potassium 4.1 mmoL/L (3.5-5.1); Sodium 141 mmol/L (136-145)
[2023-03-16 18:18] LABS: C-Reactive Protein 60.4 mg/L (0-4)
[2023-03-17] VITALS (8 sets, daily range): BP systolic 131–149; BP diastolic 51–68; PULSE 70–79; RESP 17–18; TEMP 36.4–36.9; O2SAT 94–97; BMI 21.2
--- NOTE | 2023-03-17 07:01 | EXP.DC.SUM ---
General Admission date:: 03/15/23 Discharge date: 03/17/23 HPI HPI HPI: This patient is a pleasant 82-year-old female with a history of atrial fibrillation with pacemaker in place, NSTEMI, history of respiratory failure secondary COVID pneumonia, hypothyroidism, RA on Humira presented to the emergency department for evaluation with concern for generalized weakness and intermittent confusion over the last few days. Patient stated that in a family meeting, members found her talking non sense . According to the ER documentation by patient's daughter, she had her diuretic dose increased about 2 to 3 weeks ago, and since then all symptoms began, including decreased urine output, generalized weakness and fatigue, and intermittent bouts of confusion. Currently patient report nausea with decreased appetite, but no other issues. Admitted for further work up and treatment. Hospital Course Hospital Course Hospital Course: 82-year-old female with a history of atrial fibrillation with pacemaker in place, NSTEMI, CHF history of respiratory failure secondary COVID pneumonia, hypothyroidism, RA on Humira presented to the emergency department for evaluation with concern for generalized weakness and intermittent confusion over the last few days. on initial ER assessment, patient found on severe DOMINIK, creatinine above 2.00, diminished GFR, CXR was obtain, with son interstitial disease, more likely secondary to lung scar. After review of imaging, concern for interstitial lung disease versus pneumonia. Kidney function showing some improvement but still grossly abnormal. Pulmonology consulted today. Continues to require admission. Problems addressed as follows: -DOMINIK: Creatinine 2.2 on admission. Baseline 0.8. Initiated on gentle IV hydration. Patient tolerated oral intake. Diuretics were held. BUN and creatinine both improved. BUN from 61-40. Creatinine to 1.1. Recommend repeat CMP in 1 week. We will hold diuretics at discharge. Patient is not volume overloaded at this time. Caution with nephrotoxins. Was given 1 dose of Toradol for her rheumatoid pain with no adverse event. - Pneumonia versus interstitial lung disease Initiated empirically on ceftriaxone and azithromycin. After review of patient's chart, concern for interstitial lung disease possibly related to her RA. Has had groundglass opacities and increased markings for well over a year. Significant crackles on exam. White cell count normalized rapidly from 14.8 to 7.8. Remained within normal range at 9.4 on day of discharge. Stable on room air with no oxygen requirement or fever. Pulmonology was consulted, high-res CT obtained. Findings consistent with interstitial lung disease. Patient CRP was marginally elevated. No steroids were initiated at this time however recommend close follow-up with her sharepoint consultant to discuss further management of her RA as this finding of lung disease is likely related to her autoimmune disorder. Continue albuterol and Symbicort as needed. We will plan for follow-up with pulmonology as an outpatient with further lung function testing. A-fib Hypertension CHF -Continue Lipitor 40 mg daily -Continue Eliquis 2.5 mg twice a day he -Continue digoxin 125 mcg daily - Holding diuretics in the setting of DOMINIK -Continue beta-williams with carvedilol 6.25 mg twice daily RA: On humira. patient express concern about the use of this medication. Given new diagnosis above, patient would benefit from further management of her RA to decrease risk for progression of lung disease. Of note, patient slept poorly in the hospital, had some mild confusion or sundowning her last night in the hospital. Was alert and oriented with improvement in mentation on morning of discharge. Extensive discussion with daughter at bedside about comfort taking patient home. At this time I recommend resuming her normal home routine and getting back home to help reorient her to her baseline function.
[2023-03-17 07:04] LABS: Basophils % 0.4 % (0.1-2.0); Eosinophils # 0.3 K/mm3 (0.0-0.4); Hemoglobin 10.5 g/dL (12.2-16.2); Lymphocytes # 2.1 K/mm3 (0.7-4.5); Lymphocytes % 21.8 % (10-50); Mean Corpuscular HGB Conc 33.9 g/dL (31.8-35.4); Mean Corpuscular Hemoglobin 33.5 pg (27.0-31.2); Mean Corpuscular Volume 99.1 fl (81-99); Mean Platelet Volume 8.3 fl (7.4-10.4); Monocytes # 0.5 K/mm3 (0.1-1.0); Monocytes % 5.7 % (1.7-9.3); Neutrophils # 6.5 K/mm3 (1.8-7.8); Neutrophils % 69.2 % (37.0-80.0); Platelet Count 219 K/mm3 (142-424); Red Blood Count 3.12 M/mm3 (4.20-5.40); Red Cell Distribution Width 15.6 % (11.5-17.5); White Blood Count 9.4 K/mm3 (4.8-10.8)
[2023-03-17 07:13] LABS: Alanine Aminotransferase 19 U/L (12-78); Albumin/Globulin Ratio 0.9 (1.1-1.8); Alkaline Phosphatase 185 U/L (38-126); Anion Gap 14.2 mEq/L (5-15); Aspartate Amino Transferase 37 U/L (14-36); Bilirubin,Total 0.8 mg/dl (0.2-1.3); Blood Urea Nitrogen 40 mg/dl (7-17); Calcium 8.9 mg/dl (8.4-10.2); Carbon Dioxide 22 mmol/L (22.0-30.0); Chloride 107 mmol/L (98-107); Creatinine Clearance Estimated 38 mL/min (50-200); Estimated Glomerular Filt Rate 48 ml/min (>60); GFR (African American) 58 ML/MIN (>60); Globulin 3.4 g/dL (1.3-3.2); Glucose 121 mg/dl (74-100); Magnesium 1.6 mg/dl (1.6-2.3); Potassium 4.2 mmoL/L (3.5-5.1); Sodium 139 mmol/L (136-145); Total Protein,Serum 6.4 g/dl (6.3-8.2)
--- NOTE | 2023-03-17 08:08 | SW/DCPLANNER ---
I spoke w/ this patient's daughter/POA (Stephanie) regarding plans once medically stable for discharge. Patient is asleep and somewhat confused this AM per MD. Stephanie stated that patient may go home later this afternoon. PT/OT evaluated patient and recommended home health services at time of discharge. Stephanie stated that patient is agreeable to home health and would prefer to use [facility] due to using this agency in the past. Patient information/order will be faxed to [facility] at time of discharge.
--- NOTE | 2023-03-17 08:42 | PC.NURSE ---
COURTESY NOTE: morning round performed on pt. pt requested assistance to the bathroom. pt assisted to bathroom x1 assist and ambulated to chair afterward. no new requests at this time.
--- NOTE | 2023-03-17 09:13 | EXP.PULM.PN ---
Subjective *Date: 03/17/23 *Time: 10:51 Interval history: No acute respiratory vents overnight. Patient continued to remain on room air. Pulmonology Exam Inpatient Vital signs and Labs for Last 24 Hours: Temp Pulse Resp BP Pulse Ox O2 Del Method 98.4 F 70 17 149/60 H 96 Room Air 03/17/23 07:41 03/17/23 08:00 03/17/23 07:41 03/17/23 07:41 03/17/23 07:41 03/17/23 07:41 Laboratory Results - last 24 hr 03/16/23 17:45: Sodium 141, Potassium 4.1, Chloride 105, Carbon Dioxide 24, Anion Gap 16.1 H, BUN 48 H, Creatinine 1.50 H, Estimated Creat Clear 28, Estimated GFR 33 L, Est GFR ( Amer) 40 L, Glucose 131 H D, Calcium 9.1, C-Reactive Protein 60.4 H 03/17/23 06:40: WBC 9.4, RBC 3.12 L, Hgb 10.5 L, Hct 31.0 L, MCV 99.1 H, MCH 33.5 H, MCHC 33.9, RDW 15.6, Plt Count 219, MPV 8.3, Neut % (Auto) 69.2, Lymph % (Auto) 21.8, [place] % (Auto) 5.7, Eos % (Auto) 3.0, Baso % (Auto) 0.4, Neut # (Auto) 6.5, Lymph # (Auto) 2.1, [place] # (Auto) 0.5, Eos # (Auto) 0.3, Baso # (Auto) 0.0, Sodium 139, Potassium 4.2, Chloride 107, Carbon Dioxide 22, Anion Gap 14.2, BUN 40 H, Creatinine 1.10 H D, Estimated Creat Clear 38, Estimated GFR 48 L, Est GFR ( Amer) 58 L D, Glucose 121 H, Calcium 8.9, Magnesium 1.6, Total Bilirubin 0.8, AST 37 H, ALT 19, Alkaline Phosphatase 185 H, Total Protein 6.4, Albumin 3.0 L, Globulin 3.4 H, Albumin/Globulin Ratio 0.9 L I & O for Labs for Last 24 Hours: Intake & Output 03/14/23 03/15/23 03/16/23 03/17/23 23:59 23:59 23:59 23:59 Intake Total 920 / 1320 460 / 460 Output Total 0 / 0 425 / 425 0 / 0 Balance 0 / 120 495 / 895 460 / 460 Weight 135 lb 7 oz 135 lb 6.985 oz 135 lb 6.985 oz Constitutional: Present mild distress Head: Present normocephalic and atraumatic ENT: Present normal exam, normal oropharynx and mucous membranes moist Neck: Present normal inspection and full ROM Respiratory: Present rales and able to speak in complete sentences; Absent respiratory distress, wheezes or crackles Cardiac: Present S1/S2, Tachycardia and radial pulses present GI: Present soft and distention; Absent tenderness or guarding Rectal (female): Present deferred (female): Present deferred Skin: Present intact; Absent cyanosis or jaundice Neuro: Present alert, awake and oriented x 3 Extremities: Present normal inspection; Absent clubbing or cyanosis Psychiatric: Present normal affect and cooperative Assessment and Plan *Assessment and plan (1) ILD (interstitial lung disease): Status: Acute Category: Medical Code(s): J84.9 - Interstitial pulmonary disease, unspecified (2) Fibrosis of lung: Status: Acute Category: Medical Code(s): J84.10 - Pulmonary fibrosis, unspecified (3) History of rheumatoid arthritis: Status: Acute Category: Medical Code(s): Z87.39 - Personal history of other diseases of the musculoskeletal system and connective tissue Plan Ms. Santacruz is a 82-year-old male history of rheumatoid arthritis recently started on Humira, COVID-19 pneumonia Sep 30 2021 admitted for 48 hrs (bilateral diffuse patchy pulmonary infiltrates on CXR) presented to the ER with complaining of worsening generalized weakness and intermittent confusion and was found to be have abnormal CT chest and pulmonary was called for further evaluation and management as CT is concerning for pulmonary fibrosis Patient CT chest from October 2021 showed bilateral lower lobe anterior fibrotic changes with honeycombing along with patchy airspace disease. HRCT performed today continued to show the previously noted honeycombing and fibrotic changes but significantly improved patchy/groundglass infiltrates. No active GG opacities noted on her HRCT from today. -It appears her current admission is likely from dehydration as her diuretics was recently increased by her residential case manager secondary to concerning volume overload. I do not see any evidence of volume overload on her HRCT today. Patient was
--- NOTE | 2023-03-17 12:52 | HMH.PHAINT1 ---
Pharmacy Intervention Comments: DISCHARGE MEDICATION COUNSELING COMPLETED. DISCUSSED STOPPING THE TRAMADOL AND DOXYCYCLINE AND CHANGE ON THE LASIX FROM TWICE A DAY TO ONCE A DAY. PATIENT VERBALIZED NO QUESTIONS AT THIS TIME.
--- NOTE | 2023-03-20 14:19 | SW/DCPLANNER ---
Follow up phone call w/ this patient: patient stated that she is doing well at home at this time and feeling better. Patient also stated that home health services start today. Patient does not have any further needs/questions at this time.
== END 2023-03-17 14:05 | disposition home or self-care (01) ==
LOC: ER 18:25 → 2ND 19:31
PROVIDERS: Nurse Practitioner Family; Admitting Provider Internal Medicine Adolescent Medicine; Emergency Provider Emergency Medicine; PCP Family Medicine; Visit Provider Internal Medicine Adolescent Medicine
DX: N17.9 Acute kidney failure, unspecified (principal); Z86.16 Personal history of COVID-19; J18.9 Pneumonia, unspecified organism; I25.2 Old myocardial infarction; I10 Essential (primary) hypertension; E03.9 Hypothyroidism, unspecified; M06.9 Rheumatoid arthritis, unspecified; I48.91 Unspecified atrial fibrillation; J84.9 Interstitial pulmonary disease, unspecified; J84.10 Pulmonary fibrosis, unspecified; Z87.39 Personal history of other diseases of the musculoskeletal system and connective tissue; Z95.0 Presence of cardiac pacemaker; Z79.899 Other long term (current) drug therapy; Z79.01 Long term (current) use of anticoagulants
CPT/HCPCS: 36415; 71046; 71250; 80048; 80053; 81001; 83735; 84100; 84436; 84443; 85025; 86140; 93005; 94640; 97163; 97165; 99285; G0378; J0696; J3475

== ENCOUNTER → 2023-03-24 23:29 | Outpatient (CLI) | payer MEDICARE, OTHER, SELFPAY ==
[2023-03-24 16:52] LABS: Basophils # 0.1 K/mm3 (0-0.2); Basophils % 0.5 % (0.1-2.0); Eosinophils # 0.7 K/mm3 (0.0-0.4); Eosinophils % 4.9 % (0.1-12.0); Hematocrit 37.9 % (37.0-47.0); Lymphocytes # 1.9 K/mm3 (0.7-4.5); Lymphocytes % 14.2 % (10-50); Mean Corpuscular HGB Conc 31.5 g/dL (31.8-35.4); Mean Corpuscular Hemoglobin 32.1 pg (27.0-31.2); Mean Corpuscular Volume 101.7 fl (81-99); Mean Platelet Volume 9.8 fl (7.4-10.4); Monocytes # 0.6 K/mm3 (0.1-1.0); Monocytes % 4.7 % (1.7-9.3); Neutrophils # 10.1 K/mm3 (1.8-7.8); Neutrophils % 75.7 % (37.0-80.0); Platelet Count 313 K/mm3 (142-424); Red Blood Count 3.73 M/mm3 (4.20-5.40); Red Cell Distribution Width 15.4 % (11.5-17.5); White Blood Count 13.3 K/mm3 (4.8-10.8)
[2023-03-24 17:34] LABS: Alanine Aminotransferase 22 U/L (12-78); Albumin Level 3.5 g/dl (3.5-5.0); Alkaline Phosphatase 243 U/L (38-126); Anion Gap 17.6 mEq/L (5-15); Aspartate Amino Transferase 40 U/L (14-36); Bilirubin,Total 0.7 mg/dl (0.2-1.3); Blood Urea Nitrogen 42 mg/dl (7-17); Calcium 9.5 mg/dl (8.4-10.2); Carbon Dioxide 24 mmol/L (22.0-30.0); Chloride 102 mmol/L (98-107); Estimated Glomerular Filt Rate 36 ml/min (>60); GFR (African American) 44 ML/MIN (>60); Globulin 3.5 g/dL (1.3-3.2); Glucose 123 mg/dl (74-100); Potassium 5.6 mmoL/L (3.5-5.1); Sodium 138 mmol/L (136-145)
== END ==
PROVIDERS: PCP Family Medicine; Visit Provider Nurse Practitioner Family
DX: N17.9 Acute kidney failure, unspecified (principal)
CPT/HCPCS: 80053; 85025

== ENCOUNTER → 2023-04-03 08:08 | Outpatient (CLI) | payer MEDICARE, OTHER, SELFPAY ==
[2023-04-03 16:29] LABS: Basophils # 0.1 K/mm3 (0-0.2); Basophils % 0.4 % (0.1-2.0); Eosinophils # 0.4 K/mm3 (0.0-0.4); Eosinophils % 3.6 % (0.1-12.0); Hematocrit 35.5 % (37.0-47.0); Hemoglobin 11.3 g/dL (12.2-16.2); Lymphocytes # 1.6 K/mm3 (0.7-4.5); Lymphocytes % 14.4 % (10-50); Mean Corpuscular HGB Conc 31.7 g/dL (31.8-35.4); Mean Corpuscular Hemoglobin 32.1 pg (27.0-31.2); Monocytes # 0.6 K/mm3 (0.1-1.0); Neutrophils # 8.6 K/mm3 (1.8-7.8); Neutrophils % 76.6 % (37.0-80.0); Platelet Count 277 K/mm3 (142-424); Red Blood Count 3.52 M/mm3 (4.20-5.40); Red Cell Distribution Width 15.7 % (11.5-17.5); White Blood Count 11.3 K/mm3 (4.8-10.8)
[2023-04-03 16:42] LABS: Blood Urea Nitrogen 17 mg/dl (7-17); Carbon Dioxide 21 mmol/L (22.0-30.0); Chloride 107 mmol/L (98-107); Estimated Glomerular Filt Rate 60 ml/min (>60); GFR (African American) 73 ML/MIN (>60)
[2023-04-03 16:43] LABS: Anion Gap 12.2 mEq/L (5-15); Calcium 8.8 mg/dl (8.4-10.2); Glucose 110 mg/dl (74-100); Potassium 5.2 mmoL/L (3.5-5.1); Sodium 135 mmol/L (136-145)
[2023-04-03 16:47] LABS: Digoxin < 0.40 ng/ml (0.2-2.00)
== END ==
PROVIDERS: PCP Family Medicine; Visit Provider Family Medicine
DX: R41.0 Disorientation, unspecified (principal); I48.91 Unspecified atrial fibrillation
CPT/HCPCS: 80048; 80162; 85025

== ENCOUNTER → 2023-04-04 11:17 | Outpatient (CLI) | payer MEDICARE, OTHER, SELFPAY ==
--- NOTE | 2023-04-04 11:22 | CT_ITS ---
FINAL REPORT TECHNIQUE: Axial images were performed through the brain.This study was performed with techniques to keep radiation doses as low as reasonably achievable, (ALARA). Individualized dose reduction techniques using automated exposure control or adjustment of mA and/or kV according to the patient''s size were employed. CLINICAL HISTORY: confusion COMPARISON: 09/26/2019 FINDINGS: There is mild global atrophy. The ventricles are normal in size for the degree of atrophy. There is no extra-axial fluid or midline shift. There is no evidence of acute hemorrhage or mass. IMPRESSION: Atrophy. No acute intracranial process. Reviewed, Interpreted and Dictated by Sd Wharton MD Transcribed by Antonella Herrera Authenticated and [facility]
== END ==
PROVIDERS: PCP Family Medicine; Visit Provider Family Medicine
DX: R41.0 Disorientation, unspecified (principal)
CPT/HCPCS: 70450

== ENCOUNTER → 2023-04-14 08:17 | Outpatient (CLI) | payer MEDICARE, OTHER, SELFPAY | PROVIDERS: PCP Family Medicine; Visit Provider Internal Medicine Pulmonary Disease | DX: J84.10 Pulmonary fibrosis, unspecified (principal); J84.9 Interstitial pulmonary disease, unspecified | CPT/HCPCS: 94060; 94726; 94729 ==

== ENCOUNTER → 2023-05-05 12:50 | Outpatient (CLI) | payer MEDICARE, OTHER, SELFPAY ==
[2023-05-05 13:18] LABS: Basophils % 0.4 % (0.1-2.0); Eosinophils # 0.2 K/mm3 (0.0-0.4); Eosinophils % 2.2 % (0.1-12.0); Hematocrit 33.5 % (37.0-47.0); Hemoglobin 10.7 g/dL (12.2-16.2); Lymphocytes # 1.8 K/mm3 (0.7-4.5); Lymphocytes % 16.3 % (10-50); Mean Corpuscular HGB Conc 31.9 g/dL (31.8-35.4); Mean Corpuscular Hemoglobin 30.7 pg (27.0-31.2); Mean Corpuscular Volume 96.1 fl (81-99); Monocytes # 0.4 K/mm3 (0.1-1.0); Monocytes % 3.9 % (1.7-9.3); Neutrophils # 8.3 K/mm3 (1.8-7.8); Neutrophils % 77.1 % (37.0-80.0); Platelet Count 330 K/mm3 (142-424); Red Blood Count 3.49 M/mm3 (4.20-5.40); Red Cell Distribution Width 16.5 % (11.5-17.5); White Blood Count 10.8 K/mm3 (4.8-10.8)
[2023-05-05 13:35] LABS: Alanine Aminotransferase 21 U/L (12-78); Albumin Level 2.7 g/dl (3.5-5.0); Albumin/Globulin Ratio 0.8 (1.1-1.8); Alkaline Phosphatase 366 U/L (38-126); Anion Gap 10.9 mEq/L (5-15); Aspartate Amino Transferase 42 U/L (14-36); Bilirubin,Total 0.6 mg/dl (0.2-1.3); Blood Urea Nitrogen 19 mg/dl (7-17); Calcium 8.4 mg/dl (8.4-10.2); Carbon Dioxide 22 mmol/L (22.0-30.0); Chloride 108 mmol/L (98-107); Estimated Glomerular Filt Rate 80 ml/min (>60); GFR (African American) 97 ML/MIN (>60); Globulin 3.4 g/dL (1.3-3.2); Glucose 95 mg/dl (74-100); Potassium 3.9 mmoL/L (3.5-5.1); Sodium 137 mmol/L (136-145); Total Protein,Serum 6.1 g/dl (6.3-8.2)
[2023-05-05 13:47] LABS: NT Pro Brain Natriuretic Pep. 5910 pg/mL (0-450); Troponin I 0.08 ng/ml (0.00-0.034)
== END ==
LOC: LAB.DROPOF 12:51
PROVIDERS: PCP Family Medicine; Visit Provider Family Medicine
DX: N17.9 Acute kidney failure, unspecified (principal); I50.9 Heart failure, unspecified; I48.91 Unspecified atrial fibrillation; M06.9 Rheumatoid arthritis, unspecified
CPT/HCPCS: 80053; 83880; 84484; 85025

== ENCOUNTER 2023-05-17 10:35 | Emergency (ER) | payer MEDICARE, OTHER, SELFPAY ==
[2023-05-17] VITALS (12 sets, daily range): BP systolic 123–166; BP diastolic 68–75; PULSE 70–73; RESP 16–18; TEMP 36.6; O2SAT 97–99; BMI 20.3
--- NOTE | 2023-05-17 10:57 | ECG_ITS ---
APPROVED REPORT Exam: Resting ECG HR:69 bpm ECG Measurements Heart Rate 69 AXES QRSd 138 QRS 76 QT 388 T 269 QTc 408 Conclusion ELECTRONIC VENTRICULAR PACEMAKER ABNORMAL RHYTHM ECG UNCONFIRMED REPORT Electronically signed by : Alejandro Boudreaux MD 05/18/2023 20:12:39
--- NOTE | 2023-05-17 11:03 | HMH.EDGENADL ---
Discharge Plan Disposition Patient Disposition: Home, Self-Care Chief Complaint: Weakness Prescriptions Prescriptions: No Action Eliquis 5 mg tablet 2.5 mg PO BID Humira 40 mg/0.8 mL syringe kit 40 mg SQ DIRECTED Rx Instructions: inject one - 40 mg/0.8 mL syringe every 2 weeks SQ budesonide-formoterol [Symbicort] 80-4.5 mcg/actuation HFA aerosol inhaler 1 inh inhalation BID Qty: 10.2 3RF multivitamin Tablet 1 tab PO DAILY aspirin 81 mg tablet,delayed release (DR/EC) 81 mg PO DAILY levothyroxine 50 mcg capsule 50 mcg PO DAILY PreserVision AREDS 4,296 mcg-226 mg-90 mg capsule 1 cap PO BID furosemide 20 mg tablet 10 mg PO DAILY Qty: 20 1RF albuterol sulfate 90 mcg/actuation HFA aerosol inhaler 2 puff inhalation Q6HP PRN (Reason: Shortness Of Breath) Qty: 8.5 2RF allopurinol 300 mg tablet 300 mg PO DAILY 90 Days Qty: 90 3RF mirtazapine 7.5 mg tablet 7.5 mg PO HS Qty: 30 0RF digoxin 125 mcg (0.125 mg) tablet 125 mcg PO SUTUTHSA 90 Days Qty: 52 0RF digoxin 125 mcg (0.125 mg) tablet 62.5 mcg PO MOWEFR 90 Days Qty: 20 0RF pantoprazole 40 mg tablet,delayed release (DR/EC) 40 mg PO DAILY 90 Days Qty: 90 0RF nystatin 100,000 unit/mL suspension 1 ml PO BID Qty: 60 0RF Rx Instructions: swish and swallow ipratropium-albuterol 0.5 mg-3 mg(2.5 mg base)/3 mL solution for nebulization 3 ml inhalation Q4-6H PRN (Reason: shortness of breath) Qty: 90 0RF atorvastatin 40 mg tablet 40 mg PO DAILY 30 Days Qty: 30 0RF ondansetron 4 mg tablet,disintegrating 4 mg PO BIDP PRN (Reason: Nausea And Vomiting) furosemide 40 mg tablet 40 mg PO DAILY 30 Days Qty: 30 0RF Hold Instructions: Doctor's Order nebivolol 5 mg tablet 10 mg PO DAILY Referrals Follow up/Referrals: Provider,Referral, MD [Referring] - See instructions Activity Restrictions/Add. Instructions Additional Instructions/Restrictions: Discontinue taking potassium and fluid medication. See your family doctor within a week to have labs drawn to see how kidney function, electrolytes are doing. Try to drink at least 2 protein shakes per day and stay hydrated in between with water or electrolyte containing fluids. Call your family doctor to establish care for this visit to the emergency department and schedule follow-up within 48 hours to ensure improvement. If you have any worsening of your condition or any other concerning signs or symptoms, return to the emergency department or your primary care doctor for further evaluation. Clinical Impressions Clinical Impression: Weakness, Acute hyperkalemia Discharge ED Provider: Dale Mittal General Adult HPI General Chief complaint: Weakness Stated complaint: Weakness Time Seen by Provider: 05/17/23 10:38 Mode of Arrival: EMS Source of Information: Patient and EMS Limitations: No Limitations Description of Symptoms (Recalled from ER Triage Doc. by RN): 82 yo F presents to ED via EMS for confusion, weakness, dehydration, no appetite. pts daughter reports pt symptoms ongoing for the past week History of Present Illness HPI narrative: 82-year-old female history of rheumatoid arthritis on injection medication, interstitial lung disease, hypothyroidism, A-fib on Eliquis presenting with generalized malaise. Patient has been feeling generally weak for the past couple of weeks. Daughter is at bedside providing some history as well. States that patient has been intermittently confused, generally weak, lost 10 pounds over the past 1 month and is decompensating weak and deconditioned. Patient denies any complaints at this time, but does feel weak. Related Data Home Medications Medication Instructions Recorded Confirmed apixaban 5 mg tablet (Eliquis) 2.5 mg PO BID Blood thinner/atrial 10/07/21 05/11/23 fib aspirin 81 mg tablet,delayed 81 mg PO DAILY Heart Health 02/03/22 05/11/23 release multivitamin 1 tab PO DAILY Supplement 02/03/22 05/11/23 adalimumab 40 mg/0.8 mL 40 mg SQ DIRECTED 01/11/23 05/11/23 subcutaneous syringe kit (Humira) ondansetron 4 mg disintegrating 4 mg PO BIDP PRN Nausea And 03/16/23 05/11/23 tablet Vomiting nebivolol 5 mg tablet 10 mg PO DAILY High Blood Pressure 03/24/23 05/11/23 levothyroxine 50 mcg capsule 50 mcg PO DAILY 05/11/23 05/11/23 vitamins A,C,Z-gkup-gahura 4,296 1 cap PO BID 05/11/23 05/11/23 mcg-226 mg-90 mg capsule (PreserVision AREDS) Previous Rx's Medication Instructions Recorded budesonide-formoterol HFA 80 1 inh inhalation BID #10.2 grams 01/11/23 mcg-4.5 mcg/actuation aerosol inhaler (Symbicort) furosemide 40 mg tablet 40 mg PO DAILY Fluid 30 days #30 03/17/23 tabs albuterol sulfate 90 mcg/actuation 2 puff inhalation Q6HP PRN 04/07/23 aerosol inhaler Shortness Of Breath #8.5 grams allopurinol 300 mg tablet 300 mg PO DAILY gout 90 days #90 04/10/23 tabs mirtazapine 7.5 mg tablet 7.5 mg PO HS #30 tabs 04/20/23 digoxin 125 mcg (0.125 mg) tablet 62.5 mcg PO MOWEFR Heart Rhythm 90 05/03/23 days #20 tabs digoxin 125 mcg (0.125 mg) tablet 125 mcg PO SUTUTHSA Heart rhythm 05/03/23 90 days #52 tabs pantoprazole 40 mg tablet,delayed 40 mg PO DAILY acid reflux 90 days 05/03/23 release #90 tabs ipratropium 0.5 mg-albuterol 3 mg 3 ml inhalation Q4-6H PRN 05/09/23 (2.5 mg base)/3 mL nebulization shortness of breath #90 mL soln nystatin 100,000 unit/mL oral 1 ml PO BID #60 mL 05/09/23 suspension furosemide 20 mg tablet 10 mg PO DAILY #20 tabs 05/11/23 atorvastatin 40 mg tablet 40 mg PO DAILY Cholesterol 30 days 05/16/23 #30 tabs Allergies Allergy/AdvReac Type Severity Reaction Status Date / Time nitrofurantoin Allergy Verified 05/11/23 14:04 [From Macrobid] Sulfa (Sulfonamide Allergy Verified 05/11/23 14:04 Antibiotics) [facility] Disclaimer: The information contained in this section may have been updated after the patient was seen, as this information can be updated by other users. Medical History A-fib Asthma Dyspnea on exertion Fibrosis of lung History of rheumatoid arthritis ILD (interstitial lung disease) Multifocal pneumonia NSTEMI (non-ST elevated myocardial infarction) Pneumonia due to COVID-19 virus Respiratory failure Rheumatoid arthritis Transient cerebral ischemia Surgical History History of cholecystectomy History of colonoscopy Pacemaker Family History Mother Cancer Father Heart attack Sister Diabetes Social History Smoking Status: Never smoker alcohol intake: never substance use type: denies use current occupational status: retired Travel in the last 8 weeks: None household members: none housing: house caffeine: No ROS Obtained: Yes All systems reviewed & no additional complaints except as documented Physical Exam General General appearance: alert Head Head exam: atraumatic and normocephalic Eye Eye exam: Present normal appearance, PERRL and EOMI ENT ENT exam: Present mucous membranes moist Neck Neck exam: Present trachea midline Chest Chest inspection: Present normal inspection and symmetric chest wall rise Respiratory Respiratory exam: Present normal lung sounds bilaterally; Absent respiratory distress, wheezes, stridor, accessory muscle use or prolonged expiratory phase Cardiovascular Cardiovascular exam: Present regular rate, normal rhythm and systolic murmur Abdominal Exam Abdominal exam: Present soft; Absent distention, tenderness, guarding, rebound or rigidity Extremities Exam Extremities exam: Absent edema Neurological Exam Neurological exam: Present alert, oriented X3 and CN II-XII intact Skin Skin exam: Present warm and dry; Absent cyanosis, diaphoresis or pallor Medical Decision Making Medical Records Medical records reviewed: Yes I reviewed the patient's medical records. Jorge Inquiry Pt receiving controlled substance: No Jorge was queried for this patient: No Vital Signs: 05/17/23 10:35 05/17/23 11:00 05/17/23 11:30 Temperature 97.9 F Temperature Source Oral Pulse Rate 71 73 Pulse Rate [Left Radial] 73 Respiratory Rate 16 Blood Pressure 131/73 144/73 H Blood Pressure [Right Arm] 138/72 Blood Pressure Mean 92 Blood Pressure Mean [Right Arm] 94 02 Sat by Pulse Oximetry 98 98 99 Oxygen Delivery Method Room Air 05/17/23 12:00 05/17/23 12:31 05/17/23 13:00 Temperature Temperature Source Pulse Rate 71 70 71 Pulse Rate [Left Radial] Respiratory Rate Blood Pressure 141/71 H 166/69 H 157/74 H Blood Pressure [Right Arm] Blood Pressure Mean Blood Pressure Mean [Right Arm] 02 Sat by Pulse Oximetry 97 99 97 Oxygen Delivery Method Room Air Room Air Room Air 05/17/23 13:31 05/17/23 14:00 05/17/23 14:30 Temperature Temperature Source Pulse Rate 71 70 70 Pulse Rate [Left Radial] Respiratory Rate Blood Pressure 123/71 146/74 H 146/68 H Blood Pressure [Right Arm] Blood Pressure Mean 98 108 Blood Pressure Mean [Right Arm] 02 Sat by Pulse Oximetry 97 97 99 Oxygen Delivery Method Room Air 05/17/23 15:00 Temperature Temperature Source Pulse Rate 70 Pulse Rate [Left Radial] Respiratory Rate Blood Pressure 157/73 H Blood Pressure [Right Arm] Blood Pressure Mean 101 Blood Pressure Mean [Right Arm] 02 Sat by Pulse Oximetry 98 Oxygen Delivery Method Lab Data Lab results reviewed: Yes I reviewed the patient's lab results. Lab Results 05/17/23 10:57: WBC 10.3, RBC 3.92 L, Hgb 12.0 L, Hct 38.4, MCV 97.8, MCH 30.5, MCHC 31.2 L, RDW 16.0, Plt Count 329, MPV 8.1, Neut % (Auto) 74.3, Lymph % (Auto) 17.7, [place] % (Auto) 4.5, Eos % (Auto) 2.9, Baso % (Auto) 0.6, Neut # (Auto) 7.7, Lymph # (Auto) 1.8, [place]per # (Auto) 0.5, Eos # (Auto) 0.3, Baso # (Auto) 0.1, Sodium 137, Potassium 6.2 H*, Chloride 104, Carbon Dioxide 22, Anion Gap 17.2 H, BUN 35 H, Creatinine 1.30 H, Estimated Creat Clear 31, Estimated GFR 39 L, Est GFR ( Amer) 47 L, Glucose 107 H, Calcium 9.2, Total Bilirubin 0.9, AST 70 H, ALT 32, Alkaline Phosphatase 544 H, Troponin I 0.08 H, Total Protein 7.6, Albumin 3.5, Globulin 4.1 H, Albumin/Globulin Ratio 0.9 L 05/17/23 12:12: Urine Color Yellow, Urine Appearance Clear, Urine pH 5.5, Ur Specific [place] 1.015, Urine Protein Negative, Urine Glucose (UA) Negative, Urine Ketones Negative, Urine Blood Negative, Urine Nitrate Negative, Urine Bilirubin Negative, Urine Urobilinogen 0.2, Ur Leukocyte Esterase Trace, Urine RBC None, Urine WBC 3-5, Ur Squamous Epith Cells Occasional, Amorphous Sediment Trace, Urine Bacteria None 05/17/23 14:10: Sodium 136, Potassium 5.0, Chloride 103, Carbon Dioxide 25, Anion Gap 13.0, BUN 33 H, Creatinine 1.10 H, Estimated Creat Clear 37, Estimated GFR 48 L, Est GFR ( Amer) 58 L D, Glucose 111 H, Calcium 9.0, Total Bilirubin 0.8, AST 66 H, ALT 31, Alkaline Phosphatase 505 H, Troponin I 0.06 H, Total Protein 7.1, Albumin 3.2 L, Globulin 3.9 H, Albumin/Globulin Ratio 0.8 L 05/17/23 10:57 05/17/23 14:10 Orders (Tests/Meds): ED MEDICATIONS Generic Name Dose Route Start Last Admin Trade Name Freq PRN Reason Stop Dose Admin Sodium Chloride 10 ml 05/17/23 11:02 Sodium Chloride 0.9% 10ml Flush Syringe IV 06/16/23 11:01 NEEDED PRN Maintain IV Site Discontinued Medications Generic Name Dose Route Start Last Admin Trade Name Freq PRN Reason Stop Dose Admin Dextrose 50 ml 05/17/23 11:37 05/17/23 12:28 Dextrose 50% 50ml Syringe (Crash Cart) IVP 05/17/23 11:38 50 ml ONCE ONE Administration Lactated Ringer's 1,000 mls @ 999 mls/hr 05/17/23 11:02 05/17/23 11:08 Lactated Ringer's 1000 Ml Bag IV 05/17/23 12:02 999 mls/hr .Q1H1M ONE Administration Sodium Chloride 1,000 mls @ 999 mls/hr 05/17/23 14:30 05/17/23 14:21 Sod Chlor 0.9% 1000ml Bag IV 05/17/23 15:30 999 mls/hr .Q1H1M TERA Administration Insulin Human Regular 3 unit 05/17/23 11:37 05/17/23 12:28 Insulin Human Regular 100 Units/Ml 10ml Vial 0.05 unit/kg (3 unit) 05/17/23 11:38 3 unit IV Administration ONCE ONE Sodium Zirconium Cyclosilicate 10 gm 05/17/23 11:37 05/17/23 12:28 Lokelma 5gm Packet PO 05/17/23 11:38 10 gm ONCE ONE Administration ORDERS Category Date Time Status XR chest portable Stat Exams 05/17/23 11:12 Completed CMP [Comprehensive Metabolic Panel] Stat Lab 05/17/23 14:10 Completed Complete Blood Count Auto Diff Stat Lab 05/17/23 10:57 Completed Comprehensive Metabolic Panel Stat Lab 05/17/23 10:57 Completed Troponin I Q3H Lab 05/17/23 14:10 Completed Troponin I Q3H Lab 05/17/23 17:15 Ordered Troponin I Stat Lab 05/17/23 10:57 Completed UA [Urinalysis and Microscopic] Stat Lab 05/17/23 12:12 Completed ECG initial Besson Routine Y 05/17/23 10:57 Completed Medical Decision Narrative: 82-year-old female history of rheumatoid arthritis on injection medication, interstitial lung disease, hypothyroidism, A-fib on Eliquis presenting with generalized malaise. Patient has been feeling generally weak for the past couple of weeks. Daughter is at bedside providing some history as well. States that patient has been intermittently confused, generally weak, lost 10 pounds over the past 1 month and is decompensating weak and deconditioned. Patient denies any complaints at this time, but does feel weak. History was obtained via conversation with patient and daughter. On arrival, patient hemodynamically stable, alert, oriented x4, appropriate, GCS 15, moving all extremities spontaneously, pupils equal and reactive to light. Full physical exam performed and significant for chronically ill-appearing woman in no acute distress. Thin, dry mucous membranes, dry appearing. Patient does have a right upper sternal border murmur that radiates to the carotids. No lower extremity edema. Differential includes metabolic, endocrinologic, pneumonia, UTI, medication induced, cardiac, ACS, MO, among others. Patient was given fluids, insulin, dextrose, Lokelma for symptomatic management and correction of underlying abnormalities. Workup independently interpreted and significant for hyperkalemia. Nonactionable CBC. Cardiac workup negative. Patient also has DOMINIK. See radiology read for full review of final results. Independent interpretation of EKG shows atrially paced rhythm [address] or T wave changes concerning for acute ischemia by Sgarbossa criteria. QRS interval wide at 138, QT interval within normal limits 388.. Patient was placed in observation beginning at 11 AM in order to receive IV fluids, delta troponin, repeat electrolytes and receive hyperkalemia medications and determine need for admission versus home-going. The patient was provided monitoring and fluids while awaiting results. Independent interpretation of results demonstrated repeat potassium 5.0, patient feeling better after fluids. At this time, I feel patient is appropriate for discharge. Total observation time 4 hours. Because patient at baseline without signs or symptoms of clinical decompensation, deemed appropriate for discharge. Results were relayed to patient who voiced understanding and were agreeable to outpatient management and follow up. At the time of discharge the patient was hemodynamically stable, tolerating PO, and mobilizing appropriately. Critical Care Critical Care Time Critical Care Time: No
[2023-05-17] MEDS: LACTATED RINGERS 1000ML 1,000 ML 999 ML IV (11:08)
[2023-05-17 11:12] LABS: Alanine Aminotransferase 32 U/L (12-78); Alkaline Phosphatase 544 U/L (38-126); Aspartate Amino Transferase 70 U/L (14-36); Bilirubin,Total 0.9 mg/dl (0.2-1.3); Blood Urea Nitrogen 35 mg/dl (7-17); Calcium 9.2 mg/dl (8.4-10.2); Carbon Dioxide 22 mmol/L (22.0-30.0); Chloride 104 mmol/L (98-107); Creatinine Clearance Estimated 31 mL/min (50-200); Estimated Glomerular Filt Rate 39 ml/min (>60); GFR (African American) 47 ML/MIN (>60); Glucose 107 mg/dl (74-100); Total Protein,Serum 7.6 g/dl (6.3-8.2)
--- NOTE | 2023-05-17 11:12 | XR_ITS ---
FINAL REPORT CLINICAL HISTORY: weakness COMPARISON: 03/15/2023 FINDINGS: A single portable view of the chest was obtained. Left subclavian pacer is present. There is pulmonary vascular congestion. The heart size is within normal limits. The mediastinum is within normal limits. There is worsening left base atelectasis or pneumonia. The bony thorax is intact. IMPRESSION: Worsening left base atelectasis or pneumonia. Reviewed, Interpreted and Dictated by Gabriel Oates III, MD Transcribed by Yakelin Freed Authenticated and [facility]
[2023-05-17 11:18] LABS: Basophils # 0.1 K/mm3 (0-0.2); Basophils % 0.6 % (0.1-2.0); Eosinophils # 0.3 K/mm3 (0.0-0.4); Eosinophils % 2.9 % (0.1-12.0); Hematocrit 38.4 % (37.0-47.0); Lymphocytes # 1.8 K/mm3 (0.7-4.5); Lymphocytes % 17.7 % (10-50); Mean Corpuscular HGB Conc 31.2 g/dL (31.8-35.4); Mean Corpuscular Hemoglobin 30.5 pg (27.0-31.2); Mean Corpuscular Volume 97.8 fl (81-99); Mean Platelet Volume 8.1 fl (7.4-10.4); Monocytes # 0.5 K/mm3 (0.1-1.0); Monocytes % 4.5 % (1.7-9.3); Neutrophils # 7.7 K/mm3 (1.8-7.8); Neutrophils % 74.3 % (37.0-80.0); Platelet Count 329 K/mm3 (142-424); Red Blood Count 3.92 M/mm3 (4.20-5.40); White Blood Count 10.3 K/mm3 (4.8-10.8)
[2023-05-17 11:27] LABS: Albumin Level 3.5 g/dl (3.5-5.0); Albumin/Globulin Ratio 0.9 (1.1-1.8); Anion Gap 17.2 mEq/L (5-15); Globulin 4.1 g/dL (1.3-3.2); Sodium 137 mmol/L (136-145)
[2023-05-17 11:36] LABS: Potassium 6.2 mmoL/L (3.5-5.1)
[2023-05-17 11:40] LABS: Troponin I 0.08 ng/ml (0.00-0.034)
[2023-05-17 12:26] LABS: Microscopic, Urine URINE MICROSCOPIC (MICROSCOPIC)
[2023-05-17 12:27] LABS: Appearance,Urine CLEAR (Clear); Bilirubin,Urine Negative (Negative); Blood, Urine Negative (Negative); Color,Urine YELLOW (Yellow); Glucose,Urine (UA) Negative (Negative); Ketones,Urine Negative (Negative); Leukocyte Esterase,Urine TRACE (Negative); Nitrate,Urine Negative (Negative); PH,Urine 5.5 (5.0-8.5); Protein,Urine Negative (Negative); Specific Gravity, Urine 1.015 (1.005-1.030); Urobilinogen,Urine 0.2 EU/dl (0.2)
[2023-05-17] MEDS: DEXTROSE 50% 50ML SYRINGE (CRASH CART) 50 ML IVP (12:28)
[2023-05-17] MEDS: INSULIN HUMAN REGULAR 100 UNITS/ML 10ML VIAL 3 UNIT IV (12:28)
[2023-05-17] MEDS: LOKELMA 5GM PACKET 10 GM PO (12:28)
[2023-05-17 12:52] LABS: Amorphous Sediment,Urine Trace /lpf; Squamous Epithelial Cell,Urine Occasional #/hpf (0-5)
[2023-05-17] MEDS: 0.9 % SODIUM CHLORIDE 1000ML 1,000 ML 999 ML IV (14:21)
[2023-05-17 14:33] LABS: Alanine Aminotransferase 31 U/L (12-78); Albumin Level 3.2 g/dl (3.5-5.0); Albumin/Globulin Ratio 0.8 (1.1-1.8); Alkaline Phosphatase 505 U/L (38-126); Aspartate Amino Transferase 66 U/L (14-36); Bilirubin,Total 0.8 mg/dl (0.2-1.3); Blood Urea Nitrogen 33 mg/dl (7-17); Carbon Dioxide 25 mmol/L (22.0-30.0); Chloride 103 mmol/L (98-107); Creatinine Clearance Estimated 37 mL/min (50-200); Estimated Glomerular Filt Rate 48 ml/min (>60); GFR (African American) 58 ML/MIN (>60); Globulin 3.9 g/dL (1.3-3.2); Glucose 111 mg/dl (74-100); Total Protein,Serum 7.1 g/dl (6.3-8.2)
[2023-05-17 14:45] LABS: Troponin I 0.06 ng/ml (0.00-0.034)
[2023-05-17 15:26] LABS: Sodium 136 mmol/L (136-145)
--- NOTE | 2023-05-18 07:02 | PC.NURSE ---
spoke with daughter who stated she wasn't sure what to do over the next few hours as her mom was kind of acting abnormal . advised daughter to page on-call for mom's pcp and to obtain their advice for whether to bring her back to ed or not. advised her that it is impossible to evaluate a patient over the phone and that if she felt something was off with how her mom was acting she could bring her back in at any time. daughter agrees and will page on-call physician
== END 2023-05-17 16:07 | disposition home or self-care (01) ==
PROVIDERS: Emergency Provider Emergency Medicine; PCP Family Medicine
DX: R53.1 Weakness (principal); R41.0 Disorientation, unspecified; E86.0 Dehydration; E87.5 Hyperkalemia; M06.9 Rheumatoid arthritis, unspecified; I48.91 Unspecified atrial fibrillation; E03.9 Hypothyroidism, unspecified; I25.2 Old myocardial infarction; Z79.01 Long term (current) use of anticoagulants
CPT/HCPCS: 71045; 80053; 81001; 84484; 85025; 93005; 96361; 96374; 96375; 99285

== ENCOUNTER 2023-05-18 09:51 | Inpatient (IN) | payer MEDICARE, OTHER, SELFPAY ==
[2023-05-18] VITALS (13 sets, daily range): BP systolic 116–157; BP diastolic 41–72; PULSE 69–119; RESP 17–18; TEMP 37.3–39.5; O2SAT 90–98; BMI 20.3; BMI 18.5
--- NOTE | 2023-05-18 11:14 | CT_ITS ---
FINAL REPORT CLINICAL HISTORY: [facility] COMPARISON: 04/04/2023 FINDINGS: Axial images of the head were obtained without contrast. Coronal reformatted images were also obtained. This study was performed with techniques to keep radiation doses as low as reasonably achievable (ALARA). Individualized dose reduction techniques using automated exposure control or adjustment of mA and/or kV according to the patient''s size were employed. Motion artifact is identified on many of the images. There is generalized age-appropriate atrophy. Periventricular low-attenuation areas are seen consistent with mild chronic ischemic changes. There is no evidence of intracranial hemorrhage or mass. There is no evidence of acute infarct. There is no evidence of shift of the midline structures. No skull abnormality is seen on the bone window images. IMPRESSION: Atrophy and mild periventricular chronic ischemic changes. No acute intracranial abnormality identified. Reviewed, Interpreted and Dictated by Gabriel Oates III, MD Transcribed by Radha Stoddard Authenticated and [facility]
--- NOTE | 2023-05-18 11:14 | CT_ITS ---
FINAL REPORT TECHNIQUE: Axial images were obtained from the lung apex to the mid abdomen by computed tomography. Coronal reformatted images were obtained. This study was performed with techniques to keep radiation doses as low as reasonably achievable, (ALARA). Individualized dose reduction techniques using automated exposure control or adjustment of mA and/or kV according to the patient''s size were employed. CLINICAL HISTORY: fever, AMS, tachypnea, h/o fibrosis COMPARISON: 03/16/2023 FINDINGS: There is no axillary adenopathy. There is no hilar or mediastinal adenopathy. Cardiomegaly is noted. There is a left subclavian pacer. There is no pericardial effusion. There are worsening small right and moderate left pleural effusions. Small left pneumothorax may be iatrogenic. There is moderate fibrosis which is progressed somewhat since the prior exam. IMPRESSION: Small left pneumothorax, may be iatrogenic. Worsening of bilateral pleural effusions. Interval progression moderate fibrosis. Reviewed, Interpreted and Dictated by Gabriel Oates III, MD Transcribed by Yakelin Freed Authenticated and [facility]
--- NOTE | 2023-05-18 11:16 | HMH.EDGENADL ---
Discharge Plan Disposition Patient Disposition: Home, Self-Care Prescriptions Prescriptions: No Action Eliquis 5 mg tablet 2.5 mg PO BID Humira 40 mg/0.8 mL syringe kit 40 mg SQ DIRECTED Rx Instructions: inject one - 40 mg/0.8 mL syringe every 2 weeks SQ budesonide-formoterol [Symbicort] 80-4.5 mcg/actuation HFA aerosol inhaler 1 inh inhalation BID Qty: 10.2 3RF multivitamin Tablet 1 tab PO DAILY aspirin 81 mg tablet,delayed release (DR/EC) 81 mg PO DAILY levothyroxine 50 mcg capsule 50 mcg PO DAILY PreserVision AREDS 4,296 mcg-226 mg-90 mg capsule 1 cap PO BID furosemide 20 mg tablet 10 mg PO DAILY Qty: 20 1RF albuterol sulfate 90 mcg/actuation HFA aerosol inhaler 2 puff inhalation Q6HP PRN (Reason: Shortness Of Breath) Qty: 8.5 2RF allopurinol 300 mg tablet 300 mg PO DAILY 90 Days Qty: 90 3RF mirtazapine 7.5 mg tablet 7.5 mg PO HS Qty: 30 0RF digoxin 125 mcg (0.125 mg) tablet 125 mcg PO SUTUTHSA 90 Days Qty: 52 0RF digoxin 125 mcg (0.125 mg) tablet 62.5 mcg PO MOWEFR 90 Days Qty: 20 0RF pantoprazole 40 mg tablet,delayed release (DR/EC) 40 mg PO DAILY 90 Days Qty: 90 0RF nystatin 100,000 unit/mL suspension 1 ml PO BID Qty: 60 0RF Rx Instructions: swish and swallow ipratropium-albuterol 0.5 mg-3 mg(2.5 mg base)/3 mL solution for nebulization 3 ml inhalation Q4-6H PRN (Reason: shortness of breath) Qty: 90 0RF atorvastatin 40 mg tablet 40 mg PO DAILY 30 Days Qty: 30 0RF ondansetron 4 mg tablet,disintegrating 4 mg PO BIDP PRN (Reason: Nausea And Vomiting) furosemide 40 mg tablet 40 mg PO DAILY 30 Days Qty: 30 0RF Hold Instructions: Doctor's Order nebivolol 5 mg tablet 10 mg PO DAILY Referrals Follow up/Referrals: Arvin Beltran MD [Primary Care Provider] - See instructions Clinical Impressions Clinical Impression: Severe sepsis, Encephalopathy acute, Myocardial injury, Pneumonia, Acute UTI Discharge ED Provider: Andrews Hernandes General Adult HPI General Chief complaint: PAIN Stated complaint: Confusion Time Seen by Provider: 05/18/23 10:55 Mode of Arrival: EMS Source of Information: Patient and EMS Limitations: No Limitations Description of Symptoms (Recalled from ER Triage Doc. by RN): Patient with increased confusion and complaint of bilateral side pain. History of Present Illness HPI narrative: Is an 82-year-old female brought in by family for significant change in mental status over the last 24 hours. They state that she lives at home and is normally highly functioning she has had a few episodes of delirium that been short-lived in the past and were attributed to dehydration but normally she is lucid and is able to care for herself. She was in the emergency department yesterday and started to have a little bit of confusion was diagnosed with mild acute kidney injury and hyperkalemia was given some medications for treatment and reassessed and told that she was stable for outpatient follow-up because she was feeling better. Family was agreeable to that plan at the time. However over the last 24 hours she has significantly worsened from mental status standpoint has become acutely agitated and very altered out of her proportion. She also had a temperature of 99 at home and they were concerned that she was having a fever. She does have a history of pulmonary fibrosis and chest x-ray showed questionable interstitial disease yesterday but no definitive diagnosis of pneumonia yesterday. Patient is unable to answer any further questions for me given her clinical status at the moment. Related Data Home Medications Medication Instructions Recorded Confirmed apixaban 5 mg tablet (Eliquis) 2.5 mg PO BID Blood thinner/atrial 10/07/21 05/11/23 fib aspirin 81 mg tablet,delayed 81 mg PO DAILY Heart Health 02/03/22 05/11/23 release multivitamin 1 tab PO DAILY Supplement 02/03/22 05/11/23 adalimumab 40 mg/0.8 mL 40 mg SQ DIRECTED 01/11/23 05/11/23 subcutaneous syringe kit (Humira) ondansetron 4 mg disintegrating 4 mg PO BIDP PRN Nausea And 03/16/23 05/11/23 tablet Vomiting nebivolol 5 mg tablet 10 mg PO DAILY High Blood Pressure 03/24/23 05/11/23 levothyroxine 50 mcg capsule 50 mcg PO DAILY 05/11/23 05/11/23 vitamins A,C,Y-csti-bawita 4,296 1 cap PO BID 05/11/23 05/11/23 mcg-226 mg-90 mg capsule (PreserVision AREDS) Previous Rx's Medication Instructions Recorded budesonide-formoterol HFA 80 1 inh inhalation BID #10.2 grams 01/11/23 mcg-4.5 mcg/actuation aerosol inhaler (Symbicort) furosemide 40 mg tablet 40 mg PO DAILY Fluid 30 days #30 03/17/23 tabs albuterol sulfate 90 mcg/actuation 2 puff inhalation Q6HP PRN 04/07/23 aerosol inhaler Shortness Of Breath #8.5 grams allopurinol 300 mg tablet 300 mg PO DAILY gout 90 days #90 04/10/23 tabs mirtazapine 7.5 mg tablet 7.5 mg PO HS #30 tabs 04/20/23 digoxin 125 mcg (0.125 mg) tablet 62.5 mcg PO MOWEFR Heart Rhythm 90 05/03/23 days #20 tabs digoxin 125 mcg (0.125 mg) tablet 125 mcg PO SUTUTHSA Heart rhythm 05/03/23 90 days #52 tabs pantoprazole 40 mg tablet,delayed 40 mg PO DAILY acid reflux 90 days 05/03/23 release #90 tabs ipratropium 0.5 mg-albuterol 3 mg 3 ml inhalation Q4-6H PRN 05/09/23 (2.5 mg base)/3 mL nebulization shortness of breath #90 mL soln nystatin 100,000 unit/mL oral 1 ml PO BID #60 mL 05/09/23 suspension furosemide 20 mg tablet 10 mg PO DAILY #20 tabs 05/11/23 atorvastatin 40 mg tablet 40 mg PO DAILY Cholesterol 30 days 05/16/23 #30 tabs Allergies Allergy/AdvReac Type Severity Reaction Status Date / Time nitrofurantoin Allergy Verified 05/11/23 14:04 [From Macrobid] Sulfa (Sulfonamide Allergy Verified 05/11/23 14:04 Antibiotics) [facility] Disclaimer: The information contained in this section may have been updated after the patient was seen, as this information can be updated by other users. Medical History A-fib Asthma Dyspnea on exertion Fibrosis of lung History of rheumatoid arthritis ILD (interstitial lung disease) Multifocal pneumonia NSTEMI (non-ST elevated myocardial infarction) Pneumonia due to COVID-19 virus Respiratory failure Rheumatoid arthritis Transient cerebral ischemia Surgical History History of cholecystectomy History of colonoscopy Pacemaker Family History Mother Cancer Father Heart attack Sister Diabetes Social History Smoking Status: Unknown if ever smoked alcohol intake: never substance use type: denies use current occupational status: retired Travel in the last 8 weeks: None household members: none housing: house caffeine: No ROS Obtained: Yes All systems reviewed & no additional complaints except as documented Physical Exam General General appearance: lethargic Respiratory Respiratory exam: Present other (Tachypneic respiratory rate 30 coarse breath sounds throughout) Cardiovascular Cardiovascular exam: Present systolic murmur Abdominal Exam Abdominal exam: Present soft; Absent distention or tenderness Neurological Exam Neurological exam: Present other (moving all extremities nonfocal); Absent alert or oriented X3 Expanded Neurological Exam Coma scale eye opening: To voice Coma scale motor response: Obeys commands Coma scale verbal response: Confused Coma scale total: 13 Medical Decision Making Jorge Inquiry Pt receiving controlled substance: No Vital Signs: 05/18/23 09:51 05/18/23 09:54 05/18/23 10:01 Temperature 101.2 F H Temperature Source Oral Pulse Rate 105 H 71 Pulse Rate [Radial] 119 H Respiratory Rate 18 Blood Pressure 116/66 157/54 H Blood Pressure [Left Arm] 116/66 Blood Pressure Mean Blood Pressure Mean [Left Arm] 82 Blood Pressure Source [Left Arm] Automatic Cuff Blood Pressure Position [Left Arm] Sitting 02 Sat by Pulse Oximetry 95 95 95 Oxygen Delivery Method Room Air Room Air Room Air 05/18/23 10:17 05/18/23 11:00 05/18/23 11:32 Temperature 99.5 F Temperature Source Oral Pulse Rate 71 70 69 Pulse Rate [Radial] Respiratory Rate Blood Pressure 153/58 H 141/43 H 149/56 H Blood Pressure [Left Arm] Blood Pressure Mean 75 71 Blood Pressure Mean [Left Arm] Blood Pressure Source [Left Arm] Blood Pressure Position [Left Arm] 02 Sat by Pulse Oximetry 95 94 L 95 Oxygen Delivery Method Room Air Room Air Lab Data Lab results reviewed: Yes I reviewed the patient's lab results. Lab Results 05/18/23 10:25: WBC 12.4 H, RBC 3.78 L, Hgb 11.4 L, Hct 36.5 L, MCV 96.5, MCH 30.2, MCHC 31.3 L, RDW 16.3, Plt Count 321, MPV 8.6, Neut % (Auto) 83.5 H, Lymph % (Auto) 13.7, [place] % (Auto) 2.4, Eos % (Auto) 0.1, Baso % (Auto) 0.4, Neut # (Auto) 10.4 H, Lymph # (Auto) 1.7, [place] # (Auto) 0.3, Eos # (Auto) 0.0, Baso # (Auto) 0.0, Sodium 134 L, Potassium 4.4, Chloride 102, Carbon Dioxide 23, Anion Gap 13.4, BUN 34 H, Creatinine 1.10 H, Estimated Creat Clear 37, Estimated GFR 48 L, Est GFR ( Amer) 58 L, Glucose 135 H D, Lactate 1.5, Calcium 8.6, Total Bilirubin 0.8, AST 60 H, ALT 32, Alkaline Phosphatase 464 H, Troponin I 0.18 H, Total Protein 7.4, Albumin 3.3 L, Globulin 4.1 H, Albumin/Globulin Ratio 0.8 L 05/18/23 11:16: VBG pH 7.34, VBG pCO2 38.0, VBG pO2 38.3, VBG HCO3 19.8 L, VBG Total CO2 21.0 L, VBG O2 Saturation 67.6, VBG Base Excess -6.0 L 05/18/23 11:22: Chlamy pneumoniae PCR TNP, Adenovirus (PCR) Not detected, B. pertussis DNA (PCR) TNP, Coronavirus OC43 (PCR) Not detected, Coronavirus HKU1 (PCR) Not detected, Coronavirus 229E (PCR) Not detected, SARS-CoV-2 (PCR) Not detected, Coronavirus NL63 (PCR) Not detected, Human Metapneumovir PCR Not detected, Influenza A (H1) PCR Not detected, Influ A (H1N1/09) PCR Not detected, Influenza A (H3) PCR Not detected, Influenza Type A (PCR) Not detected, Influenza Type B (PCR) Not detected, M. pneumoniae (PCR) TNP, Parainfluenza 1 (PCR) Not detected, Parainfluenza 2 (PCR) Not detected, Parainfluenza 3 (PCR) Not detected, Parainfluenza 4 (PCR) Not detected, RSV (PCR) Not detected, Entero/Rhino (PCR) Not detected 05/18/23 12:28: Urine Color Yellow, Urine Appearance Clear, Urine pH 5.5, Ur Specific [place] 1.020, Urine Protein Negative, Urine Glucose (UA) Negative, Urine Ketones Trace, Urine Blood Negative, Urine Nitrate Negative, Urine Bilirubin Negative, Urine Urobilinogen 0.2, Ur Leukocyte Esterase Trace, Urine RBC None, Urine WBC Occasional, Ur Squamous Epith Cells 3-5, Urine Bacteria Trace 05/18/23 10:25 05/18/23 10:25 Orders (Tests/Meds): ED MEDICATIONS Generic Name Dose Route Start Last Admin Trade Name Freq PRN Reason Stop Dose Admin Ceftriaxone Sodium 2 gm/ 100 mls @ 200 mls/hr 05/18/23 14:02 Sodium Chloride IV 05/18/23 14:31 ONCE ONE Azithromycin 500 mg/ Sodium 250 mls @ 250 mls/hr 05/18/23 14:02 Chloride IV 05/18/23 14:03 ONCE ONE Discontinued Medications Generic Name Dose Route Start Last Admin Trade Name Freq PRN Reason Stop Dose Admin Acetaminophen 650 mg 05/18/23 11:20 05/18/23 11:23 Acetaminophen 325mg Tab PO 05/18/23 11:21 650 mg ONCE ONE Administration Acetaminophen 1,000 mg 05/18/23 11:36 05/18/23 11:37 Acetaminophen 1,000mg/100ml Vial IV 05/18/23 11:37 1,000 mg ONCE ONE Administration Lactated Ringer's 1,000 mls @ 999 mls/hr 05/18/23 11:15 05/18/23 11:22 Lactated Ringer's 1000 Ml Bag IV 05/18/23 12:15 999 mls/hr .Q1H1M TERA Administration Lactated Ringer's 1,850 mls @ 925 mls/hr 05/18/23 11:20 Lactated Ringer's 1000 Ml Bag 30 ml/kg infuse over 2 hr (1850 ml) 05/18/23 13:19 IV .Q2H ONE ORDERS Category Date Time Status CT chest wo con Stat Cat Scan 05/18/23 11:[address] head/brain wo con Stat Cat Scan 05/18/23 11:14 Completed CBC w/Auto Diff [Complete Blood Count Auto Diff] Stat Lab 05/18/23 10:25 Completed CMP [Comprehensive Metabolic Panel] Stat Lab 05/18/23 10:25 Completed Full Resp Panel w/COVID ([facility]) Routine Lab 05/18/23 11:22 Completed Lactic Acid Stat Lab 05/18/23 10:25 Completed Trop I [Troponin I] Stat Lab 05/18/23 10:25 Completed Troponin I Q3H Lab 05/18/23 14:15 Ordered Troponin I Q3H Lab 05/18/23 17:15 Ordered UA [Urinalysis and Microscopic] Stat Lab 05/18/23 12:28 Completed Blood Culture Stat Micro 05/18/23 11:40 Received Venous Blood Gas Stat RT 05/18/23 11:16 Completed Tissue Perfus/Sepsis Re-Eval Sepsis Re-Evaluation Performed: Yes Date Performed: 05/18/23 Time Performed: 14:05 Medical Decision Narrative: Patient is an 82-year-old female with above history. Patient was uncooperative with initial set of vital signs but was very warm on my evaluation I rechecked her temperature was 101.2. She is also tachypneic this is consistent with sepsis. Differential includes respiratory viral infection bacterial pneumonia superimposed on her pulmonary fibrosis, urinary tract infection, bacteremia, meningeal encephalitis etc. Metabolic abnormalities and dehydration certainly could be a contributing factor as well. Given the fact that she is altered we will get a CT scan to evaluate for space-occupying lesion intracranial abscess is unlikely. Also will scan her chest to further evaluate the lung abnormalities and the pulmonary fibrosis which we saw yesterday. Anticipation is that the patient will be admitted holding off antibiotics for more tailored therapy at the moment no evidence of shock. Assessment 2:03 PM patient significantly improved from an agitation standpoint but remains encephalopathic with a GCS of 14. Cannot rule out a MOLDING CUTTER infection at this point however chest x-ray yesterday showed questionable pneumonia urinalysis also questionable for urinary tract infection and therefore we have 2 possible sources of infection will cover with Rocephin and azithromycin. CT scan of the head was performed which I first interpreted shows no acute intracranial abnormality but there was some motion artifact. She does have a mild leukocytosis and her troponin is mildly elevated she has no clinical signs of a type I KS this is likely secondary to sepsis and a type II myocardial injury or KS. Therefore at this point she has multiorgan dysfunction with altered mental status myocardial injury in the setting of sepsis. Remains diagnostic uncertainty she still could be bacteremic. I had an extensive discussion with the family regarding doing a lumbar puncture at this point and given the fact that we have 2 other possible sources of infection we will hold off for now. Last vitals blood pressure 149/56 respiratory rate has normalized and pulse is in the mid 60s now. I will admit the patient for further evaluation and treatment. . Of note the patient did not cooperate with and tolerate a CT scan of the patient's chest therefore evaluation of her from a pulmonary standpoint was done based on chest x-ray done yesterday evening. I will repeat a plain film today to make sure denies significant worsening and the fact that we will abort efforts to get a CT scan. Critical Care Critical Care Time Critical Care Time: Yes Attestation: On 05/18/23, the high probability of a clinically significant, sudden or life threatening deterioration of the following system(s) required my full and direct attention, intervention and personal management. The time I documented below is in addition to time spent performing reported procedures but includes the following listed in this critical care notation. Total Time Total Critical Care Time: 35
[2023-05-18] MEDS: LACTATED RINGERS 1000ML 1,000 ML 999 ML IV (11:22)
[2023-05-18] MEDS: ACETAMINOPHEN 325MG TAB 650 MG PO ×2 (11:23→20:05)
[2023-05-18 11:29] LABS: Adenovirus,PCR Not Detected (NotDetected); Coronavirus 19, PCR Not Detected (NotDetected); Coronavirus 229E Not Detected (NotDetected); Coronavirus NL63 Not Detected (NotDetected); Coronavirus OC43 Not Detected (NotDetected); Coronovirus HKU1,PCR Not Detected (NotDetected); Human Metapneumovirus Not Detected (NotDetected); Influenza A, PCR Not Detected (NotDetected); Influenza AH1, 2009 Not Detected (NotDetected); Influenza AH1, PCR Not Detected (NotDetected); Influenza AH3,PCR Not Detected (NotDetected); Influenza B, PCR Not Detected (NotDetected); Parainfluenza 1, PCR Not Detected (NotDetected); Parainfluenza 2, PCR Not Detected (NotDetected); Parainfluenza 3, PCR Not Detected (NotDetected); Parainfluenza 4, PCR Not Detected (NotDetected); Respiratory Syncytial Virus Not Detected (NotDetected); Rhinovirus/Enterovirus Not Detected (NotDetected)
[2023-05-18 11:30] LABS: Alanine Aminotransferase 32 U/L (12-78); Alkaline Phosphatase 464 U/L (38-126); Aspartate Amino Transferase 60 U/L (14-36); Bilirubin,Total 0.8 mg/dl (0.2-1.3); Blood Urea Nitrogen 34 mg/dl (7-17); Calcium 8.6 mg/dl (8.4-10.2); Carbon Dioxide 23 mmol/L (22.0-30.0); Chloride 102 mmol/L (98-107); Creatinine Clearance Estimated 37 mL/min (50-200); Estimated Glomerular Filt Rate 48 ml/min (>60); GFR (African American) 58 ML/MIN (>60); Glucose 135 mg/dl (74-100); Lactic Acid 1.5 mmol/L (0.7-2.1)
[2023-05-18 11:31] LABS: Albumin Level 3.3 g/dl (3.5-5.0); Albumin/Globulin Ratio 0.8 (1.1-1.8); Anion Gap 13.4 mEq/L (5-15); Globulin 4.1 g/dL (1.3-3.2); Potassium 4.4 mmoL/L (3.5-5.1); Sodium 134 mmol/L (136-145); Total Protein,Serum 7.4 g/dl (6.3-8.2)
[2023-05-18] MEDS: ACETAMINOPHEN 1,000MG/100ML VIAL 1000 MG IV (11:37)
[2023-05-18 11:42] LABS: VBG HCO3 19.8 mmol/L (23-30); VBG Oxygen Saturation 67.6 % (50-70); VBG PH 7.34 mmol/L (7.31-7.41); VBG PO2 38.3 mmol/L (28-40)
[2023-05-18 11:42] LABS: Troponin I 0.18 ng/ml (0.00-0.034)
[2023-05-18 11:55] LABS: Basophils % 0.4 % (0.1-2.0); Eosinophils % 0.1 % (0.1-12.0); Hematocrit 36.5 % (37.0-47.0); Hemoglobin 11.4 g/dL (12.2-16.2); Lymphocytes # 1.7 K/mm3 (0.7-4.5); Lymphocytes % 13.7 % (10-50); Mean Corpuscular HGB Conc 31.3 g/dL (31.8-35.4); Mean Corpuscular Hemoglobin 30.2 pg (27.0-31.2); Mean Corpuscular Volume 96.5 fl (81-99); Mean Platelet Volume 8.6 fl (7.4-10.4); Monocytes # 0.3 K/mm3 (0.1-1.0); Monocytes % 2.4 % (1.7-9.3); Neutrophils # 10.4 K/mm3 (1.8-7.8); Neutrophils % 83.5 % (37.0-80.0); Platelet Count 321 K/mm3 (142-424); Red Blood Count 3.78 M/mm3 (4.20-5.40); Red Cell Distribution Width 16.3 % (11.5-17.5); White Blood Count 12.4 K/mm3 (4.8-10.8)
--- NOTE | 2023-05-18 12:08 | HMH.ITSTN ---
Raina to call when patient has calmed down and able to do CT Chest.
[2023-05-18 13:22] LABS: Microscopic, Urine URINE MICROSCOPIC (MICROSCOPIC)
[2023-05-18 13:26] LABS: Appearance,Urine CLEAR (Clear); Bilirubin,Urine Negative (Negative); Blood, Urine Negative (Negative); Color,Urine YELLOW (Yellow); Glucose,Urine (UA) Negative (Negative); Ketones,Urine TRACE (Negative); Leukocyte Esterase,Urine TRACE (Negative); Nitrate,Urine Negative (Negative); PH,Urine 5.5 (5.0-8.5); Protein,Urine Negative (Negative); Urobilinogen,Urine 0.2 EU/dl (0.2)
[2023-05-18 13:50] LABS: Bacteria,Urine Trace /lpf; WBC,Urine Occasional #/hpf (0-3)
--- NOTE | 2023-05-18 14:07 | XR_ITS ---
FINAL REPORT CLINICAL HISTORY: sepsis FINDINGS: SINGLE-VIEW CHEST There is cardiomegaly. Left subclavian pacer is identified. The mediastinum is normal. There are bilateral pulmonary opacities, likely bilateral pneumonia. There is no pneumothorax. IMPRESSION: Likely bilateral pneumonia. Reviewed, Interpreted and Dictated by Gabriel Oates III, MD Transcribed by Radha Stoddard Authenticated and [facility]
[2023-05-18] MEDS: CEFTRIAXONE SODIUM 2 GM in 0.9 % SODIUM CHLORIDE 100 ML IV (14:15)
--- NOTE | 2023-05-18 14:16 | PC.NURSE ---
called care management for bed assignment
--- NOTE | 2023-05-18 14:52 | PC.NURSE ---
pt sleeping on her left side does not want to be bothered, daughters at bs
[2023-05-18] MEDS: AZITHROMYCIN 500 MG in 0.9 % SODIUM CHLORIDE 250 ML 250 MG IV (14:53)
--- NOTE | 2023-05-18 14:59 | PC.NURSE ---
CARE MANAGEMENT NOTIFIED AGAIN OF ADMISSION
[2023-05-18 15:06] LABS: Troponin I 0.24 ng/ml (0.00-0.034)
--- NOTE | 2023-05-18 15:06 | PC.NURSE ---
Notified Dr Hernandes of critical lab at this time.
--- NOTE | 2023-05-18 15:47 | PC.NURSE ---
UPDATED PT FAMILY THAT AFTER SPEAKING WITH [employer] EMISSIONS TECHNICIAN WE ARE WAITING ON A ROOM TO BE CLEAN AND THEN WE WOULD HAVE A BED ASSIGNMENT STATED IT MIGHT BE A LITTLE BIT
[2023-05-18] MEDS: LACTATED RINGERS 1000ML 1,850 ML 925 ML IV (15:57)
[2023-05-18 16:18] LABS: Ammonia < 9 umol/L (9-30)
--- NOTE | 2023-05-18 16:23 | PC.NURSE ---
REPORT GIVEN TO ROMA MOTLEY
[2023-05-18 17:39] LABS: Troponin I 0.25 ng/ml (0.00-0.034)
--- NOTE | 2023-05-18 18:07 | EXP.HP ---
History of Present Illness *Admission Date: 05/18/23 *Reason for visit:: confused *History of present illness: Ms. Santacruz is an 82-year-old female with history of pulmonary fibrosis, TIA, weight loss, hypertension, hypothyroidism, RA who was brought to the ER by family with concern for change in mental status over the last 24 hours. She was actually seen in the ER yesterday for some weakness and mild confusion. Was diagnosed with mild kidney injury given fluids, discharged home. She presents today with increased confusion. Has had episodes like this in the past with delirium onset during illnesses that would improve as her illness is improved. Presentation today, family skin concern for fatigue, agitation, altered from baseline. Had a temperature of 99 at home. Has had a mild cough but not productive. Workup in the ER concerning for elevated white count at 12.4. Also noted to have mild infection in troponin but no complaint of chest pain. Chest imaging obtained that is poorly rotated but has concern for increased interstitial markings, suspicious for pneumonia on top of her fibrosis. Fever 101.2 in the ER. ER consulted medicine for admission given patient's meeting of sepsis criteria. Extensive discussion about possible LP for meningitis, no clear meningitic signs in the ER. Treating empirically with azithromycin and meningitic dosing ceftriaxone. Will hold on LP at this time and reevaluate over the next day or 2. On arrival to the floor, patient's daughter is at bedside. Patient is sleeping comfortably on room air. Denies any nausea, vomiting, diarrhea. No skin wounds or other signs of infection. Urine was obtained in the ER with minor findings including trace leuk esterase and occasional white cells. Negative nitrates. [facility] Disclaimer: The information contained in this section may have been updated after the patient was seen, as this information can be updated by other users. Medical History A-fib Asthma Dyspnea on exertion Fibrosis of lung History of rheumatoid arthritis ILD (interstitial lung disease) Multifocal pneumonia NSTEMI (non-ST elevated myocardial infarction) Pneumonia due to COVID-19 virus Respiratory failure Rheumatoid arthritis Transient cerebral ischemia Surgical History History of cholecystectomy History of colonoscopy Pacemaker Family History Diabetes Sister Heart attack Father Cancer Mother Social History Smoking Status: Unknown if ever smoked alcohol intake: never substance use type: denies use current occupational status: retired Travel in the last 8 weeks: None household members: none housing: house caffeine: No Review of Systems Review of Systems Review of systems:: unable to obtain Meds Home Medications and Allergies Home Medications Medication Instructions Recorded Confirmed Type apixaban 5 mg tablet (Eliquis) 2.5 mg PO BID Blood thinner/atrial 10/07/21 05/18/23 History fib aspirin 81 mg tablet,delayed 81 mg PO DAILY Heart Health 02/03/22 05/18/23 History release multivitamin 1 tab PO DAILY Supplement 02/03/22 05/18/23 History adalimumab 40 mg/0.8 mL 40 mg SQ DIRECTED 01/11/23 05/18/23 History subcutaneous syringe kit (Humira) budesonide-formoterol HFA 80 1 inh inhalation BID #10.2 grams 01/11/23 05/18/23 Rx mcg-4.5 mcg/actuation aerosol inhaler (Symbicort) albuterol sulfate 90 mcg/actuation 2 puff inhalation Q6HP PRN 04/07/23 05/18/23 Rx aerosol inhaler Shortness Of Breath #8.5 grams allopurinol 300 mg tablet 300 mg PO DAILY gout 90 days #90 04/10/23 05/18/23 Rx tabs mirtazapine 7.5 mg tablet 7.5 mg PO HS #30 tabs 04/20/23 05/18/23 Rx digoxin 125 mcg (0.125 mg) tablet 62.5 mcg PO MOWEFR Heart Rhythm 90 05/03/23 05/18/23 Rx days #20 tabs digoxin 125 mcg (0.125 mg) tablet 125 mcg PO SUTUTHSA Heart rhythm 05/03/23 05/18/23 Rx 90 days #52 tabs pantoprazole 40 mg tablet,delayed 40 mg PO DAILY acid reflux 90 days 05/03/23 05/18/23 Rx release #90 tabs ipratropium 0.5 mg-albuterol 3 mg 3 ml inhalation Q4-6H PRN 05/09/23 05/18/23 Rx (2.5 mg base)/3 mL nebulization shortness of breath #90 mL soln levothyroxine 50 mcg capsule 50 mcg PO DAILY 05/11/23 05/18/23 History vitamins A,C,M-sgws-ctdari 4,296 1 cap PO BID 05/11/23 05/18/23 History mcg-226 mg-90 mg capsule (PreserVision AREDS) atorvastatin 40 mg tablet 40 mg PO DAILY Cholesterol 30 days 05/16/23 05/18/23 Rx #30 tabs New Prescriptions to Start Prescriptions: Allergies Allergy/AdvReac Type Severity Reaction Status Date / Time nitrofurantoin Allergy Verified 05/18/23 16:34 [From Macrobid] Sulfa (Sulfonamide Allergy Verified 05/18/23 16:34 Antibiotics) Exam Data for Last 24 hours Vital signs and Labs for Last 24 Hours: Temp Pulse Resp BP Pulse Ox O2 Del Method 99.1 F 72 18 124/41 L 98 Room Air 05/18/23 17:28 05/18/23 17:28 05/18/23 17:28 05/18/23 17:28 05/18/23 17:40 05/18/23 17:40 Laboratory Results - last 24 hr 05/18/23 10:25: WBC 12.4 H, RBC 3.78 L, Hgb 11.4 L, Hct 36.5 L, MCV 96.5, MCH 30.2, MCHC 31.3 L, RDW 16.3, Plt Count 321, MPV 8.6, Neut % (Auto) 83.5 H, Lymph % (Auto) 13.7, [place] % (Auto) 2.4, Eos % (Auto) 0.1, Baso % (Auto) 0.4, Neut # (Auto) 10.4 H, Lymph # (Auto) 1.7, [place] # (Auto) 0.3, Eos # (Auto) 0.0, Baso # (Auto) 0.0, Sodium 134 L, Potassium 4.4, Chloride 102, Carbon Dioxide 23, Anion Gap 13.4, BUN 34 H, Creatinine 1.10 H, Estimated Creat Clear 37, Estimated GFR 48 L, Est GFR ( Amer) 58 L, Glucose 135 H D, Lactate 1.5, Calcium 8.6, Total Bilirubin 0.8, AST 60 H, ALT 32, Alkaline Phosphatase 464 H, Troponin I 0.18 H, Total Protein 7.4, Albumin 3.3 L, Globulin 4.1 H, Albumin/Globulin Ratio 0.8 L 05/18/23 11:16: VBG pH 7.34, VBG pCO2 38.0, VBG pO2 38.3, VBG HCO3 19.8 L, VBG Total CO2 21.0 L, VBG O2 Saturation 67.6, VBG Base Excess -6.0 L 05/18/23 11:22: Chlamy pneumoniae PCR TNP, Adenovirus (PCR) Not detected, B. pertussis DNA (PCR) TNP, Coronavirus OC43 (PCR) Not detected, Coronavirus HKU1 (PCR) Not detected, Coronavirus 229E (PCR) Not detected, SARS-CoV-2 (PCR) Not detected, Coronavirus NL63 (PCR) Not detected, Human Metapneumovir PCR Not detected, Influenza A (H1) PCR Not detected, Influ A (H1N1/09) PCR Not detected, Influenza A (H3) PCR Not detected, Influenza Type A (PCR) Not detected, Influenza Type B (PCR) Not detected, M. pneumoniae (PCR) TNP, Parainfluenza 1 (PCR) Not detected, Parainfluenza 2 (PCR) Not detected, Parainfluenza 3 (PCR) Not detected, Parainfluenza 4 (PCR) Not detected, RSV (PCR) Not detected, Entero/Rhino (PCR) Not detected 05/18/23 12:28: Urine Color Yellow, Urine Appearance Clear, Urine pH 5.5, Ur Specific Warner 1.020, Urine Protein Negative, Urine Glucose (UA) Negative, Urine Ketones Trace, Urine Blood Negative, Urine Nitrate Negative, Urine Bilirubin Negative, Urine Urobilinogen 0.2, Ur Leukocyte Esterase Trace, Urine RBC None, Urine WBC Occasional, Ur Squamous Epith Cells 3-5, Urine Bacteria Trace 05/18/23 14:31: Troponin I 0.24 H 05/18/23 16:01: Ammonia < 9 L 05/18/23 16:20: Troponin I 0.25 H I & O for Last 24 hours: Intake & Output 05/15/23 05/16/23 05/17/23 05/18/23 23:59 23:59 23:59 23:59 Weight 53.637 kg Constitutional Constitutional: mild distress, thin, chronically ill appearing and somnolent *Routine HEENT Exam Head: Present normocephalic and atraumatic Eye: Present PERRL ENT: Present mucous membranes dry *Routine Neck Exam Neck: Present supple, full ROM and trachea midline *Routine Respiratory Exam Respiratory: Present accessory muscle use and crackles; Absent rhonchi or wheezes *Routine Cardiovascular Exam Cardiovascular: Present Normal S1, Normal S2 and irregularly irregular *Routine Abdominal Exam Abdominal: Present soft and normoactive bowel sounds; Absent organomegaly *Routine Rectal Exam Rectal:: no bleeding *Routine Genitalia Exam Genitalia:: normal female *Routine Extremities Exam Extremities: Present pulses intact and normal capillary refill; Absent cyanosis, clubbing or edema *Routine Skin Exam Skin: Present intact, dry and warm *Routine Neurological Exam Neurological: Present moving all extremities Comments: confused, somnolent, withdraws from pain and stimuli. Assessment and Plan *Assessment and plan (1) Severe sepsis: Status: Acute Category: Medical Code(s): A41.9 - Sepsis, unspecified organism; R65.20 - Severe sepsis without septic shock (2) Encephalopathy acute: Status: Acute Category: Medical Code(s): G93.40 - Encephalopathy, unspecified (3) Myocardial injury: Status: Acute Category: Medical Code(s): I5A - Non-ischemic myocardial injury (non-traumatic) (4) Pneumonia: Status: Acute Category: Medical Code(s): J18.9 - Pneumonia, unspecified organism (5) Fibrosis of lung: Status: Acute Category: Medical Code(s): J84.10 - Pulmonary fibrosis, unspecified (6) ILD (interstitial lung disease): Status: Acute Category: Medical Code(s): J84.9 - Interstitial pulmonary disease, unspecified (7) Essential hypertension: Status: Chronic Category: Medical Code(s): I10 - Essential (primary) hypertension (8) Hypothyroid: Status: Chronic Qualifiers: Hypothyroidism type: unspecified Qualified Code(s): E03.9 - Hypothyroidism, unspecified Category: Medical Code(s): E03.9 - Hypothyroidism, unspecified Plan 82-year-old female who presents with worsening confusion. Presentation in the ER concerning for severe sepsis with pneumonia. Discussed case with ER physician, request admission for continued IV antibiotics, further management of sepsis. Medicine agreed to admit. Patient is stable on room air at this time but is mildly tachypneic. Will continue to hold on LP pending response over the next 24 to 48 hours. Urine culture obtained. Problems addressed as follows: Severe sepsis Pneumonia Metabolic encephalopathy -Elevated white cell count 12.4, fever 101.2 chest imaging per review concerning for an interstitial abdomen, tachycardic on arrival. -Blood cultures and urine culture obtained. Urinalysis suspicious as well for possible UTI given presence of leuk esterase and white cells and trace bacteria. -Initiated on ceftriaxone, continue 2 g every 12 hours. Continue azithromycin 500 mg daily. -Stable on room air, low threshold to add oxygen however. Goal sats greater than 90%. -If no improvement in mentation over the next 24 to 48 hours, will reconsider LP. -Further management pending culture results -I do question patient's mentation given delirium with other infections, at her advanced age of 82, history of TIA, weight loss, reliance on family for significant help, suspect there is a component of MCI at baseline that has gone on noticed or unmanaged. Additionally, CT of head shows generalized atrophy. Pulmonary fibrosis/RA: - Will hold adalimumab at this time. -Continue DuoNebs every 6 hours scheduled A-fib Hypertension -Continue aspirin 81 mg daily, continue Eliquis 2.5 mg twice daily, continue Lipitor Ehly, continue digoxin 0.125 mg daily Sleep disorder: Continue mirtazapine 7.5 mg nightly Hypothyroid: Continue levothyroxine 2 mcg daily GERD: Continue pantoprazole 40 mg nightly IV Gout: Continue allopurinol 300 mg daily Eliquis DVT prophylaxis Full code cardiac diet
[2023-05-18] MEDS: 0.9 % SODIUM CHLORIDE 1000ML 1,000 ML 100 ML IV (18:35)
[2023-05-18 18:55] LABS: Thyroid Stimulating Hormone 0.48 uIU/mL (0.465-4.68)
[2023-05-18] MEDS: SODIUM CHLORIDE 0.9% 10ML VIAL 10 ML IV (20:06)
[2023-05-18] MEDS: APIXABAN 5MG TABLET 2.5 MG PO (20:06)
[2023-05-18] MEDS: PANTOPRAZOLE 40MG VIAL 40 MG IV (20:06)
[2023-05-18] MEDS: PATIENT'S OWN HOME MEDICATION (Mirtazapine 7.5 mg tablet) 7.5 EACH PO (20:06)
[2023-05-18] MEDS: ACETAMINOPHEN 650MG SUPPOSITORY 650 MG RC (20:50)
[2023-05-18] MEDS: OLANZapine 10 MG VIAL 5 MG IM (21:48)
--- NOTE | 2023-05-18 22:25 | PC.NURSE ---
AMS and febrile (see VS), tx per mar and bear hugger applied on ambient, ice packs under arm pits, cool wash cloths on forehead, room temp decreased to 68, and blankets removed - pt is non-compliant r/t AMS. agitation tx with Zyprexa IM. daughter at bedside. hospitalist has been in room multiple times to assess and speak with daughter.
[2023-05-19] VITALS (11 sets, daily range): BP systolic 113–147; BP diastolic 46–98; PULSE 69–82; RESP 16–20; TEMP 36.1–39.4; O2SAT 91–97; BMI 18.5
[2023-05-19] MEDS: CEFTRIAXONE SODIUM 2 GM in 0.9 % SODIUM CHLORIDE 100 ML IV (02:30)
[2023-05-19] MEDS: ACETAMINOPHEN 650MG SUPPOSITORY 650 MG RC (05:00)
--- NOTE | 2023-05-19 07:12 | CT_ITS ---
FINAL REPORT TECHNIQUE: Axial CT images of the abdomen and pelvis were obtained without intravenous contrast. Coronal and sagittal reformatted images were also obtained.This study was performed with techniques to keep radiation doses as low as reasonably achievable (ALARA). Individualized dose reduction techniques using automated exposure control or adjustment of mA and/or kV according to the patient's size were employed. CLINICAL HISTORY: sepsis, fever, ams COMPARISON: None FINDINGS: Abdomen: The lung bases are clear. The liver parenchyma is homogeneous. Postcholecystectomy. There are multiple pancreatic calcifications consistent with chronic pancreatitis. The spleen and adrenals are unremarkable. There is no evidence of nephrolithiasis or hydronephrosis. There is a small left renal cyst. There is no mass or adenopathy. There are moderate vascular calcifications. Pelvis: The appendix is unremarkable. The urinary bladder is unremarkable. There is no free fluid, mass, or adenopathy. IMPRESSION: Chronic pancreatitis. Reviewed, Interpreted and Dictated by Gabriel Oates III, MD Transcribed by Yakelin Freed Authenticated and [facility]
--- NOTE | 2023-05-19 07:46 | HMH.PHAINT1 ---
Pharmacy Intervention Comments: MEDICATION RECONCILIATION COMPLETED ON PATIENT USING EXTERNAL FILL HISTORY FROM PHARMACY. -HONORIO JAMIL, HARPREETD
--- OUTSIDE RECORDS SUMMARY | 2023-05-19 08:03 | XMS_ITS | Continuity of Care Document ---
Author Name Unknown Organization [facility] Address [address] [place] [id number] Phone Care Team Providers Care Director Toxicology Name Role Phone David KRAUSEAly Unavailable Unavailable Allergies, Adverse Reactions, Alerts Substance Reaction Status Criticality NITROFURANTOIN MACROCRYSTALLINE Active No Information nitrofurantoin Active No Informatio n Sulfa (Sulfonamide Antibiotics) Active No Information Medications Medication Instructions Dosage Effective Dates (start - stop) Status Comments Humira(CF) Pen 40 mg/0.4 mL subcutaneous kit inject 0.4 milliliter by subcutaneous route every 2 weeks in the abdomen or thigh (rotate sites) 40 MG - Active failed: nsaids, plaquenil, mtx, arava, sulfa allergy. qtb negative. PAP till 05/07/2023 Lasix 40 mg tablet take 1 tablet by oral route every day 40 MG - Active Xanax 0.25 mg tablet take 1 tablet by oral route 2 times every day 0.25 MG - Active escitalopram 5 mg tablet take 1 tablet by oral route every day 5 MG - Active ProAir RespiClick 90 mcg/actuation breath activated inhale 2 puff by inhalation route every 4 - 6 hours as needed 180 MCG - Active PreserVision AREDS 14,320 unit-226 mg-200 unit capsule one capsule twice daily - Active MULTIVITAMIN (unknown strength) one daily Not Available - Active potassium chloride ER 10 mEq capsule,extended release take 1 capsule by oral route 2 times every day with food 10 MEQ - Active digoxin 125 mcg (0.125 mg) tablet take 1/2 tablet by mouth Mon, Wed, Fri, 1 Tablet Sun, Tues, Thur, and Sat - Active Eliquis 5 mg tablet take 0.5 tablet by oral route 2 times every day 2.5 MG - Active Synthroid 50 mcg tablet take 1 tablet by oral route every day 50 MCG - Active Lipitor 80 mg tablet take 1 tablet by oral route every day 80 MG - Active Aspirin Low Dose 81 mg tablet,delayed release take 1 tablet by oral route every day 81 MG - Active Protonix 40 mg tablet,delayed release take 1 tablet by oral route every day 40 MG - Active Bystolic 5 mg tablet take 1 tablet by oral route every day 5 MG - Active allopurinol 300 mg tablet take 1.0 tablet by oral route every day - Active Procedures Procedure Date Office Visit Level IV Office Visit Level IV Office Visit Level II Office Visit Level IV Office Visit Level IV Office Visit Level IV Office Visit Level II Office Visit Level III Office Visit Level IV Office Visit Level IV Office Visit Level V Office Visit Level V [facility] Office Visit Level V Advance Directives Directive Yes / No Effective Date File Name No Information Encounters Encounter Description Practice Location Reason(s) For Visit Diagnoses Date Provider Providers Copied on Encounter [facility] [address] [place] [address], [id number], tel:[phone] [facility] No Information 3 Gen[place] Aly. [address] [facility], [address], [place], [address]. tel:[phone] Office Visit Level IV [facility] [address] [place] [address], [id number], tel:[phone] [facility] Follow Up of Osteoarthriti s (chief complaint)gou t management (chief complaint)Rhe umatoid Arthritis (chief complaint) Immune deficiency due to drugRheumato id arthritisGou tGeneralized osteoarthrit isBody mass index (BMI) 24.0-24.9, adultCurrent Use of Steroid MedicationOt her fatigue 3 Dereck Stafford. [address] [place] [address], [id number], . tel:[phone] Referring Provider: Arvin Beltran MD, [address] [place] [address], [address]. tel:[phone] Office Visit Level IV [facility] [address] [place] [address], [id number], tel:[phone] [facility] Follow Up of Osteoarthriti s (chief complaint)gou t management (chief complaint)Rhe umatoid Arthritis (chief complaint) Rheumatoid arthritisGou tGeneralized osteoarthrit isBody mass index (BMI) 24.0-24.9, adultCurrent Use of Steroid MedicationIm mune deficiency due to drug 3 David Lu. [address] [place] [address], [place], [address]. tel:[phone] Specialist : Jossy Huizar, [address] [place] [address], [address]. tel:[phone] cialist: Norm Nunes, [facility] [address], [place], [address]. tel:[phone] cialist: Eunice Segundo, [address] [place] [address] Dr [address], [place], [address]. tel:[phone] cialist: Ankur Sweeney, [address] [place], [address]. tel:[phone] erring Provider: Arvin Beltran MD, [address] [place] [address], [place], [address]. tel:[phone] Office Visit Level II [facility] [address] [place] [address], [id number], tel:[phone] [facility] Follow Up of Osteoarthriti s (chief complaint)gou t management (chief complaint)Rhe umatoid Arthritis (chief complaint) Rheumatoid arthritisGou tGeneralized osteoarthrit isBody mass index (BMI) 24.0-24.9, adultCurrent Use of Steroid Medication Jul-0 3 Dereck Stafford. [address] [place] [address], [id number], . tel:[phone] Referring Provider: Nydia Jesus, [address] [place] [address], [place], [address] . tel:[phone] Office Visit Level [facility] [address] [place] [address], [id number], tel:[phone] [facility] Follow Up of Osteoarthriti s (chief complaint)gou t management (chief complaint)Rhe umatoid Arthritis (chief complaint) Rheumatoid arthritisGou tGeneralized osteoarthrit isBody mass index (BMI) 24.0-24.9, adultCurrent Use of Steroid MedicationFa tigue Dec- 2 [facility]. [address] [place] [address], [address]. tel:[phone] Specialist : Jossy Huizar, [address] [place] [address], [address]. tel:[phone] cialist: Norm Nunes, [address] [facility] [address] [facility], [place], [address]. tel:[phone] cialist: Eunice Segundo, [address] [facility] [address], [place], [address]. tel:[phone] cialist: Ankur Sweeney, [address] [place], [address]. tel:[phone] erring Provider: Zuly Goldberg APRN, [address] [place], [address]. tel:[phone] Office Visit Level IV [facility], [address] [place] [address], [id number], tel:[phone] [facility]. Follow Up of Osteoarthriti s (chief complaint)gou t management (chief complaint)Rhe umatoid Arthritis (chief complaint) Rheumatoid arthritisGou tGeneralized osteoarthrit isENCOUNTER FOR MONITORING OF HYDROXYCHLOR OQUINE THERAPYCurre nt Use of Steroid MedicationBo dy mass index (BMI) 24.0-24.9, adult Aug- 2 [place] WAGNER Stafford. [address] [place] [address], [id number], . tel:[phone] Referring Provider: Obie Patterson, [address] [place], [address]. tel:[phone] Office Visit Level IV [facility], [address] [place] [address], [id number], tel:[phone] [facility]. Follow Up of Osteoarthriti s (chief complaint)gou t management (chief complaint)Rhe umatoid Arthritis (chief complaint) Rheumatoid arthritisGou tGeneralized osteoarthrit isENCOUNTER FOR MONITORING OF HYDROXYCHLOR OQUINE THERAPYCurre nt Use of Steroid Medication 1 David Lu. [address] [place] [address], [address]. tel:[phone] Specialist : Jossy Huizar, [address] [facility], [place], [address]. tel:[phone] cialist: Norm Nunes, [facility] [address], [place], [address]. tel:[phone] cialist: Eunice Segundo, [address] [facility] [address], [place], [address]. tel:[phone] cialist: Ankur Sweeney, [address] [place], [address]. tel:[phone] erring Provider: Obie Patterson, [address] [place] [address], [address]. tel:[phone] Office Visit Level II [facility] [address] [place] [address], [id number], tel:[phone] [facility] Follow Up of Osteoarthriti s (chief complaint)gou t management (chief complaint)Rhe umatoid Arthritis (chief complaint) Rheumatoid arthritisGou tGeneralized osteoarthrit isBody mass index (BMI) 26.0-26.9, adultCurrent Use of Steroid MedicationEN COUNTER FOR MONITORING OF HYDROXYCHLOR OQUINE THERAPY 1 David Lu. [address] [place] [address], [address]. tel:[phone] Specialist : Jossy Huizar, [address] [place] [address], [address]. tel:[phone] cialist: Norm Nunes, [address] [place] [address], [place], [address]. tel:[phone] cialist: Eunice Segundo, [address] [place] [address] Dr [address], [place], [address]. tel:[phone] cialist: Ankur Sweeney, [address] [place] [address], [address]. tel:[phone] erring Provider: Obie Patterson, [address] [place] [address], [address]. tel:[phone] Office Visit Level III [facility], [address] [place] [address], [place], [place], [id number], [place] tel:[phone] [facility] Follow Up of Osteoarthriti s (chief complaint)gou t management (chief complaint)Rhe umatoid Arthritis (chief complaint) Rheumatoid arthritisGou tGeneralized osteoarthrit isBody mass index (BMI) 26.0-26.9, adultLONG-TE RM USE OF PLAQUENILCur rent Use of Steroid Medication 1 [facility]. [address] [facility], [facility] [address], [place], [address]. tel:[phone] Specialist : Jossy Huizar, [address] [place], [address]. tel:[phone] cialist: Norm Nunes, [facility], [address]. tel:[phone] cialist: Eunice Segundo, [address], [place], [address]. tel:[phone] cialist: Ankur Sweeney, [address] [place], [address]. tel:[phone] erring Provider: Obie Patterson, [address] [place] [address], [address]. tel:[phone] Office Visit Level IV [facility] [address], [id number], tel:[phone] [facility] Follow Up of Osteoarthriti s (chief complaint)gou t management (chief complaint)Rhe umatoid Arthritis (chief complaint) Rheumatoid arthritisGou tGeneralized osteoarthrit isBody mass index (BMI) 26.0-26.9, adultLONG-TE RM USE OF PLAQUENILCur rent Use of Steroid Medication 0 [facility]. [address] [facility], [address], [address]. tel:[phone] Specialist : Jossy Huizar, [address] [place], [address]. tel:[phone] cialist: Norm Nunes, [facility], [address]. tel:[phone] cialist: Eunice Segundo, [address], [place], [address]. tel:[phone] cialist: Ankur Sweeney, [address] [place], [address]. tel:[phone] erring Provider: Obie Patterson, [address] [facility], [place], [address]. tel:[phone] Office Visit Level IV [facility], [address], [id number], tel:[phone] [facility]. Follow Up of Osteoarthriti s (chief complaint)gou t management (chief complaint)Rhe umatoid Arthritis (chief complaint) Rheumatoid arthritisGou tGeneralized osteoarthrit isShortness of breathLONG-T ERM USE OF PLAQUENILCur rent Use of Steroid MedicationBo dy mass index (BMI) 26.0-26.9, adult 9 Aleksandra Patterson. [address] [facility], [address], [id number]. tel:[phone] Referring Provider: Obie Patterson, [address] [place], [address]. tel:[phone] Office Visit Level V [facility], [address] [place] [address], [place], [place], [id number], [place] tel:[phone] [facility]. Follow Up of Osteoarthriti s (chief complaint)gou t management (chief complaint)Rhe umatoid Arthritis (chief complaint) Rheumatoid arthritisGou tGeneralized osteoarthrit isShortness of breathLONG-T ERM USE OF PLAQUENILCur rent Use of Steroid Medication 9 David Aly. [address] [facility] [employer] [address] [address], [place], [address]. tel:[phone] Specialist : Jossy Huizar, [address] [facility], [place], [address]. tel:[phone] cialist: Eunice Segundo, [address] [place] [address] Dr [address], [place], [address]. tel:[phone] cialist: Ankur Sweeney, [address] [place], [address]. tel:[phone] erring Provider: Obie Patterson, [address] [place] [address], [address]. tel:[phone] Office Visit Level V [facility]., [address] [place] [address], [id number], tel:[phone] [facility] Follow Up of Osteoarthriti s (chief complaint)gou t management (chief complaint)Rhe umatoid Arthritis (chief complaint) LONG-TERM USE OF PLAQUENILMet hotrexate, terminal press operator, current useGeneraliz ed osteoarthrit isGoutCurren t Use of Steroid MedicationRh eumatoid arthritisSho rtness of breathFatigu e 9 [facility]. [address] [place] [address], [address]. tel:[phone] Specialist : Jossy Huizar, [address] [place] [address], [address]. tel:[phone] cialist: Eunice Segundo, [address] [place] [address] Dr [address], [place], [address]. tel:[phone] erring Provider: Obie Patterson, [address] [place] [address], [address]. tel:[phone] New Office Visit Level V [facility] [address] [place] [address], [id number], [place] tel:[phone] [facility] Osteoarthriti s (chief complaint)gou t management (chief complaint)Rhe umatoid Arthritis (chief complaint) LONG-TERM USE OF PLAQUENILMet hotrexate, snf, current useGeneraliz ed osteoarthrit isGoutCurren t Use of Steroid MedicationRh eumatoid arthritisPai n in footShortnes s of breath 201 8 [facility]. [address] [place] [address], [address], [address]. tel:[phone] Specialist : Jossy Huizar, [address] [place] [address], [address]. tel:[phone] erring Provider: Obie Patterson, [address] [place] [address], [place], [address]. tel:[phone] Family History Family Member Type Diagnosis Age At Onset Father Problem (finding) heart attack Sister Problem (finding) Diabetes mellitus Mother Problem (finding) tongue Payers Payer name Insurance type Covered constitution party ID Authorana paulaa tidora(s) Medicare [id number] MB [id number] [facility] [id number] CI [id number] Social History Type Description Quantity Date Captured Comments Alcohol Use Details Unknown Caffeine Use Details Unknown Tobacco Use Status No Information Smoking Status No Information Sex Female Chief Complaint And Reason For Visit No Information Reason For Referral Reason For Referral No Information Plan Of Treatment Date Type Action Status Goal Lifestyle educat ion regarding diet completed Goal Lifestyle educat ion regarding diet completed Referral Ordered: Pulmonology (related to Shortness of breath) ordered Referral Ordered: Referrals: Pulmonology. Evaluate and treat ordered Appointment Nevaeh Santacruz BOOKED Patient Education Osteoarthritis: Care In structions completed Patient Education Knee Arthritis: Care In structions completed Patient Education Thumb Arthritis: Exerci ses completed Patient Education Neck Arthritis: Exercis es completed Patient Education Hand Arthritis: Exercis es completed Patient Education Foot Arthritis: Exercis es completed Patient Education Arthritis: Care Instruc tions completed Patient Education Rheumatoid Art hritis Diet: Care Instr~ completed Patient Education Rheumatoid Art hritis: Care Instructio~ completed Future Order: Lab Order CBC With Differential/Platelet (102624), Ordered on: Ordered Future Order: Lab Order Comp. Me tabolic Panel (14) ([id number]), Ordered on: Ordered Future Order: Lab Order C-Reacti ve Protein, Quant ([id number]), Ordered on: Ordered Future Order: Lab Order Sediment ation Rate-Westergren ([id number]), Ordered on: Ordered Future Order: Lab Order Uric Aci d, Serum ([id number]), Ordered on: Ordered Future Order: Lab Order QuantiFE JIM TB Gold Plus(in Tube) ([id number]), Ordered on: Ordered Future Order: Lab Order Acute He patitis Panel (770049), Ordered on: Ordered Future Order: Lab Order CBC With Differential/Platelet ([id number]), Ordered on: Ordered Future Order: Lab Order Comp. Me tabolic Panel (14) ([id number]), Ordered on: Ordered Future Order: Lab Order C-Reacti ve Protein, Quant ([id number]), Ordered on: Ordered Future Order: Lab Order Uric Aci d, Serum ([id number]), Ordered on: Ordered Future Order: Lab Order CBC With Differential/Platelet (227849), Ordered on: Ordered Future Order: Lab Order Comp. Me tabolic Panel (14) ([id number]), Ordered on: Ordered Future Order: Lab Order C-Reacti ve Protein, Quant ([id number]), Ordered on: Ordered Future Order: Lab Order Sediment ation Rate-Westergren (271560), Ordered on: Ordered Future Order: Lab Order Uric Aci d, Serum ([id number]), Ordered on: Ordered Future Order: Radiology Order Ch est X-ray, AP/Lat (2 Views) (88528), Ordered on: Ordered Future Order: Lab Order CBC With Differential/Platelet ([id number]), Ordered on: Ordered Future Order: Lab Order Comp. Ct tabolic Panel (14) ([id number]), Ordered on: Ordered Future Order: Lab Order C-Reacti ve Protein, Quant ([id number]), Ordered on: Ordered Future Order: Lab Order Sediment ation Rate-Westergren (654894), Ordered on: Ordered Future Order: Lab Order QuantiFE JIM TB Gold Plus(in Tube) (103938), Ordered on: Ordered Future Order: Lab Order Acute He patitis Panel ([id number]), Ordered on: Ordered Future Order: Lab Order CBC With Differential/Platelet (617864), Ordered on: Ordered Future Order: Lab Order Comp. Ct tabolic Panel (14) (909594), Ordered on: Ordered Future Order: Lab Order C-Reacti ve Protein, Quant ([id number]), Ordered on: Ordered Future Order: Lab Order Sediment ation Rate-Westergren (404104), Ordered on: Ordered Future Order: Lab Order Uric Aci d, Serum (281181), Ordered on: Ordered Future Order: Lab Order CBC With Differential/Platelet (117061), Ordered on: Ordered Future Order: Lab Order Comp. Ct tabolic Panel (14) ([id number]), Ordered on: Ordered Future Order: Lab Order C-Reacti ve Protein, Quant (274793), Ordered on: Ordered Future Order: Lab Order Sediment ation Rate-Westergren (284360), Ordered on: Ordered Future Order: Lab Order Uric Aci d, Serum (961288), Ordered on: Ordered Future Order: Lab Order CBC With Differential/Platelet (853859), Ordered on: Ordered Future Order: Lab Order Comp. Ct tabolic Panel (14) ([id number]), Ordered on: Ordered Future Order: Lab Order C-Reacti ve Protein, Quant ([id number]), Ordered on: Ordered Future Order: Lab Order Sediment ation Rate-Westergren (694881), Ordered on: Ordered Future Order: Lab Order Uric Aci d, Serum (640984), Ordered on: Ordered Future Order: Lab Order CBC With Differential/Platelet (293964), Ordered on: Ordered Future Order: Lab Order Comp. Ct tabolic Panel (14) ([id number]), Ordered on: Ordered Future Order: Lab Order C-Reacti ve Protein, Quant (590750), Ordered on: Ordered Future Order: Lab Order Sediment ation Rate-Westergren (582494), Ordered on: Ordered Future Order: Lab Order Uric Aci d, Serum (695474), Ordered on: Ordered Future Order: Lab Order CBC With Differential/Platelet (947562), Ordered on: Ordered Future Order: Lab Order Comp. Ct tabolic Panel (14) (139484), Ordered on: Ordered Future Order: Lab Order C-Reacti ve Protein, Quant (407875), Ordered on: Ordered Future Order: Lab Order Sediment ation Rate-Westergren (340138), Ordered on: Ordered Future Order: Lab Order Uric Aci d, Serum ([id number]), Ordered on: Ordered Future Order: Lab Order CBC With Differential/Platelet (565002), Ordered on: Ordered Future Order: Lab Order Comp. Me tabolic Panel (14) ([id number]), Ordered on: Ordered Future Order: Lab Order C-Reacti ve Protein, Quant ([id number]), Ordered on: Ordered Future Order: Lab Order Sediment ation Rate-Westergren (751792), Ordered on: Ordered Future Order: Lab Order Uric Aci d, Serum ([id number]), Ordered on: Ordered Future Order: Lab Order CBC With Differential/Platelet (344063), Ordered on: Ordered Future Order: Lab Order Comp. Me tabolic Panel (14) ([id number]), Ordered on: Ordered Future Order: Lab Order C-Reacti ve Protein, Quant (697793), Ordered on: Ordered Future Order: Lab Order Sediment ation Rate-Westergren ([id number]), Ordered on: Ordered Future Order: Lab Order Hepatiti s Panel (4) ([id number]), Ordered on: Ordered Future Order: Lab Order QuantiFE JIM - TB Gold IT Plus (Theratest) (TBGP), Ordered on: Ordered History Of Present Illness Encounter Date Complaint History Of Prese nt Illness Follow Up of Osteoarthritis gout management Rheumatoid Arthritis Follow Up of Osteoarthritis gout management Rheumatoid Arthritis Follow Up of Osteoarthritis gout management Rheumatoid Arthritis gout management Rheumatoid Arthritis Follow Up of Osteoarthritis Follow Up of Osteoarthritis gout management Rheumatoid Arthritis Follow Up of Osteoarthritis gout management Rheumatoid Arthritis Follow Up of Osteoarthritis gout management Rheumatoid Arthritis Follow Up of Osteoarthritis gout management Rheumatoid Arthritis Follow Up of Osteoarthritis gout management Rheumatoid Arthritis Follow Up of Osteoarthritis gout management Rheumatoid Arthritis Follow Up of Osteoarthritis gout management Rheumatoid Arthritis Follow Up of Osteoarthritis gout management Rheumatoid Arthritis Osteoarthritis gout management Rheumatoid Arthritis Functional Status Date Functional Assessmen t No Information Instructions Date Instruction Additional Infor marialuisa Update hepatitis myers el and QTB with next lab draw. Related to Other fatigue 1. Historically we s topped MTX due to her pulmonary issues. 2. She stopped Plaquenil due to concerns about ocular toxicity 3. Continue prednisone. Attempts to taper have been unsuccessful. 4. Humira is helping. No history of CHF. She has an ECHO Monday. If no signs of CHF then we recommend staying on Humira. IF she does have CHF we can try for another biologic such as Orencia.5. Follow up in 3-4 months. 6. We gave her a handout on knee arthritis to take home and review 7. She stopped Arava due to elevated LFTs and was diagnosed with cirrhosis.8. She is sulfa allergic. We cannot try sulfasalazine 9. Check labs Related to Rheumatoid arthritis 1. Continue Allopuri nol2. Check labs 3. She denies any recent gout attacks. 4. Colcrys PRN flares5. Our goal is to maintain the serum uric acid level < 6.0 Related to Gout 1. She has seen a po diatrist for her feet 2. Tylenol PRN is ok. 3. She is on a blood thinner so we would avoid/limit oral NSAIDs. 4. She has done some physical therapy in the past.5. She has seen a chiropractor6. She does have hand pain. She will start PT tomorrow. Related to Generalized osteoarthritis Ideally she would ta per off. Prior attempts were not successful. Refill today Related to Current Use of Steroid Medication 1. Hold if the patie nt develops infection. 2. Avoid live vaccines while on this medication. 3. No recent serious infections4. No injection site reactions. 5. Also hold this medication perioperatively if the patient is going to have a surgical procedure. 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 Today she is ready to do so. We will do injection training with her today and administer the first dosage as requested. 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 Continue Allopuri nol2. Check labs 3. She denies any recent gout attacks. 4. Colcrys PRN flares5. Our goal is to maintain the serum uric acid level < 6.0 Related to Gout 1. She has seen a po diatrist for her feet 2. Tylenol PRN is ok. 3. She is on a blood thinner so we would avoid/limit oral NSAIDs. 4. She has done some physical therapy in the past.5. She has seen a chiropractor Related to Generalized osteoarthritis 1. Historically we s topped MTX due to her pulmonary issues. 2. She stopped Plaquenil due to concerns about ocular toxicity 3. Continue prednisone. Attempts to taper have been unsuccessful. 4. We have prescribed her Humira but she has not started it yet. Today she is ready to do so. We will do injection training with her today and administer the first dosage as requested. Risks and benefits reviewed 5. Follow up in 3-4 months. 6. We gave her a handout on knee arthritis to take home and review 7. She stopped Arava due to elevated LFTs 8. She is sulfa allergic. We cannot try sulfasalazine 9. Check labs Related to Rheumatoid arthritis Ideally she would ta per off. Prior attempts were not successful. Refill today Related to Current Use of Steroid Medication 1. Continue Allopuri nol2. Check labs 3. She denies any recent gout attacks. 4. Colcrys PRN flares5. Our goal is to maintain the serum uric acid level < 6.0 Related to Gout 1. She has seen a po diatrist for her feet 2. Tylenol PRN is ok. 3. She is on a blood thinner so we would avoid/limit oral NSAIDs. 4. She has done some physical therapy in the past.5. She has seen a chiropractor Related to Generalized osteoarthritis Ideally she would ta per off. Prior attempts were not successful. Refill today Related to Current Use of Steroid Medication 1. Historically we s topped MTX due to her pulmonary issues. 2. She stopped Plaquenil due to concerns about ocular toxicity 3. Continue prednisone. Attempts to taper have been unsuccessful. 4. She has been prescribed Humira but has not started this yet due to having a pacemaker battery replaced next month.5. Follow up in 3-4 months. 6. I will mail her a shoulder exercise handout.7. She stopped Arava due to elevated LFTs 8. She is sulfa allergic. We cannot try sulfasalazine 9. Prednisone taper today and then resume prednisone 5 mg daily.10. RTC 2 months. Related to Rheumatoid arthritis Check TB status, hep atitis panel, and CXR Related to Fatigue Ideally she would ta per off. Prior attempts were not successful. Refill today Related to Current Use of Steroid Medication 1. Historically we s topped MTX due to her pulmonary issues. 2. She stopped Plaquenil due to concerns about ocular toxicity 3. Continue prednisone. Attempts to taper have been unsuccessful. 4. She has been lost to follow up since . Follow up in 3-4 months. 6. We gave her an educational handout on thumb arthritis to take home and review 7. She stopped Arava due to elevated LFTs 8. She is sulfa allergic. We cannot try sulfasalazine 9. At this point we will try and PA a biologic agent. Risks and benefits reviewed Related to Rheumatoid arthritis 1. Continue Allopuri nol2. Check labs 3. She denies any recent gout attacks. 4. Colcrys PRN flares5. Our goal is to maintain the serum uric acid level < 6.0 Related to Gout 1. She has seen a po diatrist for her feet 2. Tylenol PRN is ok. 3. She is on a blood thinner so we would avoid/limit oral NSAIDs. 4. She has done some physical therapy in the past.5. She has seen a chiropractor Related to Generalized osteoarthritis 1. At this age she m ost certainly has some OA changes. 2. Tylenol PRN is ok. 3. She is on a blood thinner so I would avoid/limit oral NSAIDs. 4. She has done some physical therapy in the past.5. She has seen a chiropractor Related to Generalized osteoarthritis 1. Historically we s topped MTX due to her pulmonary issues. 2. Continue Plaquenil. 3. Continue prednisone. Attempts to taper have been unsuccessful. 4. She seems stable. 5. Follow up in 6 months. 6. We gave her an educational handout. 7. Refill medicine. 8. Prognosis is fair Related to Rheumatoid arthritis Ideally she would ta per off. Prior attempts were not successful. Refill today Related to Current Use of Steroid Medication 1. Continue Allopuri nol2. She recently had labs at her PCP office3. She denies any recent gout attacks. 4. Colcrys PRN flares5. Our goal is to maintain the serum uric acid level < 6.0 Related to Gout On this medication t he patient needs to have an eye exam at least once/year to monitor for toxicity. No eye complaints today. No recent serious infections Related to ENCOUNTER FOR MONITORING OF HYDROXYCHLOROQUINE THERAPY Lifestyle education regarding di et Related to Body mass index [BMI] 24.0-24.9, adult Ideally she would ta per off. Prior attempts were not successful. Refill today Related to Current Use of Steroid Medication 1. At this age she m ost certainly has some OA changes. 2. Tylenol PRN is ok. 3. She is on a blood thinner so I would avoid/limit oral NSAIDs. 4. She has done some physical therapy in the past.5. She has seen a chiropractor Related to Generalized osteoarthritis On this medication t he patient needs to have an eye exam at least once/year to monitor for toxicity. No eye complaints today. No recent serious infections Related to ENCOUNTER FOR MONITORING OF HYDROXYCHLOROQUINE THERAPY 1. Historically we s topped MTX due to her pulmonary issues. 2. Continue Plaquenil. 3. Continue prednisone. Attempts to taper have been unsuccessful. 4. She seems stable. 5. Follow up in 6 months. 6. We gave her an educational handout. 7. Refill medicine. 8. Prognosis is fair Related to Rheumatoid arthritis 1. Continue Allopuri nol2. She recently had labs at her PCP office3. She denies any recent gout attacks. 4. Colcrys PRN flares5. Our goal is to maintain the serum uric acid level < 6.0 Related to Gout On this medication t he patient needs to have an eye exam at least once/year to monitor for toxicity. No eye complaints today. No recent serious infections Related to ENCOUNTER FOR MONITORING OF HYDROXYCHLOROQUINE THERAPY 1. Historically I st opped MTX due to her pulmonary issues. 2. Continue Plaquenil. 3. Continue prednisone. Attempts to taper have been unsuccessful. 4. She seems stable. 5. Follow up in 6 months. 6. I will mail her a lab order and educational handout. 7. Refill medicine. 8. Prognosis is fair9. This visit today was conducted on the telephone per the patient's request. We spent approximately 22-23 minutes today talking/working with them Related to Rheumatoid arthritis 1. Continue Allopuri nol2. We will mail her a lab order. 3. She denies any recent gout attacks. 4. Colcrys PRN flares5. Our goal is to maintain the serum uric acid level < 6.0 Related to Gout 1. At this age she m ost certainly has some OA changes. 2. Tylenol PRN is ok. 3. She is on a blood thinner so I would avoid/limit oral NSAIDs. 4. She has done some physical therapy in the past.5. She has seen a chiropractor Related to Generalized osteoarthritis Ideally she would ta per off. Prior attempts were not successful. Refill today Related to Current Use of Steroid Medication 1. At this age she m ost certainly has some OA changes. 2. Tylenol PRN is ok. 3. She is on a blood thinner so I would avoid/limit oral NSAIDs. 4. She has done some physical therapy in the past.5. She has seen a chiropractor Related to Generalized osteoarthritis On this medication t he patient needs to have an eye exam at least once/year to monitor for toxicity. No eye complaints today. No recent serious infections Related to LONG-TERM USE OF PLAQUENIL 1. Historically I st opped MTX due to her pulmonary issues. 2. Continue Plaquenil. 3. Continue prednisone. Attempts to taper have been unsuccessful. 4. She seems stable. 5. Follow up in 6 months. 6. I will mail her a lab order and educational handout. 7. Refill medicine. 8. Prognosis is fair9. This visit today was conducted on the telephone per the patient's request. We spent approximately 25 minutes today talking/working with them Related to Rheumatoid arthritis Ideally she would ta per off. Prior attempts were not successful Related to Current Use of Steroid Medication 1. Continue Allopuri nol2. We will mail her a lab order. 3. She denies any recent gout attacks. 4. Colcrys PRN flares5. 03/26/2019 her uric acid level was 2.7. Our goal is to maintain this < 6.0 Related to Gout 1. Continue Allopuri nol2. We will mail her a lab order. 3. She denies any recent gout attacks. 4. Colcrys PRN flares5. 03/26/2019 her uric acid level was 2.7. Our goal is to maintain this < 6.0. Related to Gout 1. At this age she m ost certainly has some OA changes. 2. Tylenol PRN is ok. 3. She is on a blood thinner so I would avoid/limit oral NSAIDs. 4. She has done some physical therapy in the past.5. She has seen a chiropractor. Related to Generalized osteoarthritis 1. Historically I st opped MTX due to her pulmonary issues. 2. Continue Plaquenil. 3. Continue prednisone. Attempts to taper have been unsuccessful. 4. She seems stable. 5. Follow up in 6 months. 6. I will mail her a lab order and educational handout. 7. Refill medicine. 8. Prognosis is fair. Related to Rheumatoid arthritis Ideally she would ta per off. Prior attempts were not successful. Related to Current Use of Steroid Medication On this medication t he patient needs to have an eye exam at least once/year to monitor for toxicity. No eye complaints today. No recent serious infections. Related to LONG-TERM USE OF PLAQUENIL 1. Continue Allopuri nol2. Check labs. 3. She denies any recent gout attacks. 4. Colcrys PRN flares Related to Gout 1. She has had breat nelli trouble. I stopped MTX due to her pulmonary issues. 2. Continue Plaquenil. 3. Continue prednisone. Attempts to taper have been unsuccessful. 4. Today she rates her pain as 3/10 in severity. She has previously declined Dr. Hernandez's offer to escalate treatment. 5. Follow up in 6 months. 6. Labs ordered today. Will obtain recent labs from PCP. 7. Refill medicine. 8. Prognosis is fair. Related to Rheumatoid arthritis On this medication t he patient needs to have an eye exam at least once/year to monitor for toxicity. No eye complaints today. No recent serious infections. Related to LONG-TERM USE OF PLAQUENIL Ideally she would ta per off. Prior attempts were not successful. Related to Current Use of Steroid Medication 1. At this age she m ost certainly has some OA changes. 2. Some of her foot pain/problems could be due to OA. Related to Generalized osteoarthritis 1. She sees a cardio logist. She has a pacemaker. She has had a coronary stent put in. 2. She has a history of pulmonary histoplasmosis infection. 3. She also has a history of RA. 4. I stopped MTX 02/09/2018 because of her breathing difficulty. 5. I referred her to pulmonology but she never scheduled this appointment. Related to Shortness of breath Lifestyle education regarding di et Related to Body mass index (BMI) 26.0-26.9, adult 1. She sees a cardio logist. She has a pacemaker. She has had a coronary stent put in. 2. She has a history of pulmonary histoplasmosis infection. 3. She also has a history of RA. 4. I stopped MTX 02/09/2018 because of her breathing difficulty. 5. I referred her to pulmonology but she never scheduled this appointment. Related to Shortness of breath Ideally she would ta per off. Prior attempts were not successful. Related to Current Use of Steroid Medication 1. She has had breat nelli trouble. I stopped MTX due to her pulmonary issues. 2. Continue Plaquenil. 3. Continue prednisone. Attempts to taper have been unsuccessful. 4. Today she rates her pain as 5/10 in severity. She hurts mostly in her feet and shoulders/back. I offered to escalate treatment but she declined. 5. Follow up in 6 months. 6. Labs ordered today. 7. Refill medicine. 8. Prognosis is fair. Related to Rheumatoid arthritis 1. Continue Allopuri nol and colchicine. 2. Check labs. 3. She denies any recent gout attacks. Related to Gout On this medication t he patient needs to have an eye exam at least once/year to monitor for toxicity. No eye complaints today. No recent serious infections. Related to LONG-TERM USE OF PLAQUENIL 1. At this age she m ost certainly has some OA changes. 2. I gave her a handout on arthritis to take home and review. 3. Some of her foot pain/problems could be due to OA. Related to Generalized osteoarthritis Her PCP recently had her try and stop taking this. She feels worse. I will restart today per her request. Risks and benefits reviewed. Related to Current Use of Steroid Medication 1. She has had breat nelli trouble. I stopped MTX due to her pulmonary issues. 2. Continue Plaquenil. 3. Her PCP recently stopped prednisone and she feels worse. Restart prednisone 5 mg/day. Risks and benefits reviewed. 4. We discussed possibly starting a biologic agent. We discussed risks and benefits. She is not sure whether or not she wants to try this. She is going to think about it and let me know. 5. Follow up in 4 months. 6. Labs ordered today. Related to Rheumatoid arthritis 1. She sees a cardio logist. She has a pacemaker. She recently had a stent. 2. She has a history of pulmonary histoplasmosis infection. 3. She also has a history of RA. 4. I stopped MTX 02/09/2018 because of her breathing difficulty. 5. I referred her to pulmonology but she never scheduled this appointment. Related to Shortness of breath On this medication t he patient needs to have an eye exam at least once/year to monitor for toxicity. No eye complaints today. No recent serious infections. Related to LONG-TERM USE OF PLAQUENIL I stopped MTX due to breathing difficulty she was having. This was stopped 02/09/2018. Related to Methotrexate, terminal press operator, current use 1. At this age she m ost certainly has some OA changes. 2. I gave her a handout on arthritis to take home and review. 3. Some of her foot pain/problems could be due to OA. Related to Generalized osteoarthritis 1. Continue Allopuri nol and colchicine. 2. Check labs. Related to Gout Check TB and hepatitis status. R elated to Fatigue 1. She sees a cardio logist. She has a pacemaker. 2. She has a history of pulmonary histoplasmosis infection. 3. She also has a history of RA. 4. I am going to stop MTX due to the fact that this can cause pulmonary side effects. 5. Refer to pulmonology. Related to Shortness of breath 1. I think that this was most likely gout. 2. She is on allopurinol 150 mg/day. Increase this to 300 mg/day. 3. Add Colcrys 0.6 mg once/day. 4. She is on prednisone 5 mg/day. 5. RTC in 3 months. Related to Pain in foot 1. At this age she m ost certainly has some OA changes. 2. I gave her a handout on OA to take home and review. 3. Some of her foot pain/problems could be due to OA. Related to Generalized osteoarthritis 1. Her PCP has been managing her RA.2. She has seen a soil sampler in the past (She does not remember who it was, she says they retired). 3. Historically prednisone and Plaquenil were her primary treatments. 4. This past year MTX was added because she has had foot problems. 5. She is now having breathing issues. 6. I am going to have her stop MTX/folic acid because MTX can cause pulmonary toxicity and I believe her foot problems were more likely due to gout. 7. Follow up in 3 months. Related to Rheumatoid arthritis 1. She is on Allopur inol 150 mg/day. 2. I believe her recent foot problems were most likely due to gout. 3. I am going to have her increase her allopurinol to 300 mg/day. Risks and benefits reviewed. 4. She is taking prednisone 5 mg/day. 5. Start Colcrys 0.6 mg once/day. Risks and benefits reviewed. 6. She will follow up with me in 3 months. Related to Gout I am going to have h er stop this. She is having breathing difficulty and MTX can cause pulmonary toxicity. Related to Methotrexate, terminal press operator, current use Ideally she would taper off Rela sheeba to Current Use of Steroid Medication On this medication t he patient needs to have an eye exam at least once/year to monitor for toxicity. No eye complaints today. No recent serious infections. Related to LONG-TERM USE OF PLAQUENIL Assessments Type Assessment Date No Information Patient Care Teams Name Effective Dates (start - stop) Status Members No Information
--- OUTSIDE RECORDS SUMMARY | 2023-05-19 08:03 | XMS_ITS | Clinical Summary ---
Author Name Unknown Address [address] [place] [address] Phone Organization [facility] Address [address] [place] [address] Phone Care Team Providers Care Senior Management Consultant Name Role Phone Unavailable Unavailable Conditions or Problems No information available. Medications No information available. Medications Administered No information available. Allergies, Adverse Reactions, Alerts No information available. Results No information available. Plan of Care No information available. Procedures No information available. Vital Signs No information available. Immunizations No information available. Advance Directives No information available.
[2023-05-19 08:18] LABS: Alanine Aminotransferase 29 U/L (12-78); Albumin Level 3.1 g/dl (3.5-5.0); Albumin/Globulin Ratio 0.8 (1.1-1.8); Alkaline Phosphatase 406 U/L (38-126); Anion Gap 18.1 mEq/L (5-15); Aspartate Amino Transferase 98 U/L (14-36); Bilirubin,Total 0.7 mg/dl (0.2-1.3); Blood Urea Nitrogen 31 mg/dl (7-17); Carbon Dioxide 17 mmol/L (22.0-30.0); Chloride 107 mmol/L (98-107); Creatinine Clearance Estimated 2 mL/min (50-200); Estimated Glomerular Filt Rate 53 ml/min (>60); GFR (African American) 64 ML/MIN (>60); Globulin 4.1 g/dL (1.3-3.2); Glucose 96 mg/dl (74-100); Magnesium 1.8 mg/dl (1.6-2.3); Potassium 4.1 mmoL/L (3.5-5.1); Sodium 138 mmol/L (136-145); Total Protein,Serum 7.2 g/dl (6.3-8.2)
[2023-05-19 09:31] LABS: Basophils # 0.1 K/mm3 (0-0.2); Basophils % 0.5 % (0.1-2.0); Eosinophils # 0.2 K/mm3 (0.0-0.4); Eosinophils % 1.3 % (0.1-12.0); Hemoglobin 10.6 g/dL (12.2-16.2); Lymphocytes # 2.1 K/mm3 (0.7-4.5); Lymphocytes % 15.6 % (10-50); Mean Corpuscular Hemoglobin 30.8 pg (27.0-31.2); Mean Corpuscular Volume 96.1 fl (81-99); Mean Platelet Volume 8.3 fl (7.4-10.4); Monocytes # 0.8 K/mm3 (0.1-1.0); Monocytes % 5.8 % (1.7-9.3); Neutrophils # 10.4 K/mm3 (1.8-7.8); Neutrophils % 76.7 % (37.0-80.0); Platelet Count 203 K/mm3 (142-424); Red Blood Count 3.44 M/mm3 (4.20-5.40); Red Cell Distribution Width 16.4 % (11.5-17.5); White Blood Count 13.5 K/mm3 (4.8-10.8)
[2023-05-19] MEDS: DIGOXIN 0.125MG TABLET 125 MCG PO (09:44)
[2023-05-19] MEDS: APIXABAN 5MG TABLET 2.5 MG PO ×2 (09:44→20:59)
[2023-05-19] MEDS: ASPIRIN EC 81MG TABLET 81 MG PO (09:45)
[2023-05-19] MEDS: ALLOPURINOL 300MG TABLET 300 MG PO (09:45)
[2023-05-19] MEDS: LEVOTHYROXINE 50MCG (0.05MG) TAB 50 MCG PO (09:47)
--- NOTE | 2023-05-19 10:03 | P.CONS_ITS ---
History of Present Illness History of present illness: Ms. Santacruz is a 82-year-old female history rheumatoid arthritis, pulmonary fibrosis, mild persistent asthma presented to the ER with altered mentation CT found to have pneumonia and pleural effusion pulmonary was called for further evaluation and management. [facility] Disclaimer: The information contained in this section may have been updated after the patient was seen, as this information can be updated by other users. Medical History (Updated 05/19/23 @ 11:51 by Vaibhav Christensen MD) A-fib Asthma Dyspnea on exertion Fibrosis of lung History of rheumatoid arthritis ILD (interstitial lung disease) Multifocal pneumonia NSTEMI (non-ST elevated myocardial infarction) Pleural effusion, bilateral Pneumonia due to COVID-19 virus Respiratory failure Rheumatoid arthritis Transient cerebral ischemia Surgical History History of cholecystectomy History of colonoscopy Pacemaker Family History Diabetes Sister Heart attack Father Cancer Mother Social History Smoking Status: Unknown if ever smoked alcohol intake: never substance use type: denies use current occupational status: retired Travel in the last 8 weeks: None household members: none housing: house caffeine: No Review of Systems Review of Systems Review of systems (narrative): Limited review of systems. Patient altered and intermittently arousable. *Cardiovascular Cardiovascular: Reports dyspnea and Reports dyspnea on exertion *Respiratory Respiratory: Reports chest congestion, Reports cough, Reports dyspnea, Reports dyspnea on exertion and Reports excessive phlegm production *Musculoskeletal Musculoskeletal: Reports other (No small joint swelling or Pain) Psychiatric Psychiatric: Denies homicidal ideation and Denies suicidal ideation Endocrine Endocrine: Denies heat intolerance Hematologic/Lymphatic Hematologic/Lymphatic: Denies easy bleeding and Denies lymphadenopathy Pulmonology Exam Inpatient Vital signs and Labs for Last 24 Hours: Temp Pulse Resp BP Pulse Ox O2 Del Method O2 Flow Rate 97.6 F 82 16 130/93 H 91 L Nasal Cannula 2 05/19/23 08:00 05/19/23 09:44 05/19/23 08:00 05/19/23 08:00 05/19/23 08:00 05/19/23 08:00 05/19/23 06:21 Laboratory Results - last 24 hr 05/18/23 10:25: WBC 12.4 H, RBC 3.78 L, Hgb 11.4 L, Hct 36.5 L, MCV 96.5, MCH 30.2, MCHC 31.3 L, RDW 16.3, Plt Count 321, MPV 8.6, Neut % (Auto) 83.5 H, Lymph % (Auto) 13.7, [place] % (Auto) 2.4, Eos % (Auto) 0.1, Baso % (Auto) 0.4, Neut # (Auto) 10.4 H, Lymph # (Auto) 1.7, [place] # (Auto) 0.3, Eos # (Auto) 0.0, Baso # (Auto) 0.0, Sodium 134 L, Potassium 4.4, Chloride 102, Carbon Dioxide 23, Anion Gap 13.4, BUN 34 H, Creatinine 1.10 H, Estimated Creat Clear 37, Estimated GFR 48 L, Est GFR ( Amer) 58 L, Glucose 135 H D, Lactate 1.5, Calcium 8.6, Total Bilirubin 0.8, AST 60 H, ALT 32, Alkaline Phosphatase 464 H, Troponin I 0.18 H, Total Protein 7.4, Albumin 3.3 L, Globulin 4.1 H, Albumin/Globulin Ratio 0.8 L 05/18/23 11:16: VBG pH 7.34, VBG pCO2 38.0, VBG pO2 38.3, VBG HCO3 19.8 L, VBG Total CO2 21.0 L, VBG O2 Saturation 67.6, VBG Base Excess -6.0 L 05/18/23 11:22: Chlamy pneumoniae PCR TNP, Adenovirus (PCR) Not detected, B. pertussis DNA (PCR) TNP, Coronavirus OC43 (PCR) Not detected, Coronavirus HKU1 (PCR) Not detected, Coronavirus 229E (PCR) Not detected, SARS-CoV-2 (PCR) Not detected, Coronavirus NL63 (PCR) Not detected, Human Metapneumovir PCR Not de tected, Influenza A (H1) PCR Not detected, Influ A (H1N1/09) PCR Not detected, Influenza A (H3) PCR Not detected, Influenza Type A (PCR) Not detected, Influenza Type B (PCR) Not detected, M. pneumoniae (PCR) TNP, Parainfluenza 1 (PCR) Not detected, Parainfluenza 2 (PCR) Not detected, Parainfluenza 3 (PCR) Not detected, Parainfluenza 4 (PCR) Not detected, RSV (PCR) Not detected, Entero/Rhino (PCR) Not detected 05/18/23 12:28: Urine Color Yellow, Urine Appearance Clear, Urine pH 5.5, Ur Specific [place] 1.020, Urine Protein Negative, Urine Glucose (UA) Negative, Urine Ketones Trace, Urine Blood Negative, Urine Nitrate Negative, Urine Bilirubin Negative, Urine Urobilinogen 0.2, Ur Leukocyte Esterase Trace, Urine RBC None, Urine WBC Occasional, Ur Squamous Epith Cells 3-5, Urine Bacteria Trace 05/18/23 14:31: Troponin I 0.24 H 05/18/23 16:01: Ammonia < 9 L 05/18/23 16:20: Troponin I 0.25 H, TSH 0.48 05/19/23 07:35: Sodium 138, Potassium 4.1, Chloride 107, Carbon Dioxide 17 L, Anion Gap 18.1 H, BUN 31 H, Creatinine 1.00, Estimated Creat Clear 2, Estimated GFR 53 L, Est GFR ( Amer) 64, Glucose 96 D, Calcium 8.0 L, Magnesium 1.8, Total Bilirubin 0.7, AST 98 H D, ALT 29, Alkaline Phosphatase 406 H, Total Protein 7.2, Albumin 3.1 L, Globulin 4.1 H, Albumin/Globulin Ratio 0.8 L 05/19/23 09:24: WBC 13.5 H, RBC 3.44 L, Hgb 10.6 L, Hct 33.0 L, MCV 96.1, MCH 30.8, MCHC 32.0, RDW 16.4, Plt Count 203 D, MPV 8.3, Neut % (Auto) 76.7, Lymph % (Auto) 15.6, [place] % (Auto) 5.8, Eos % (Auto) 1.3, Baso % (Auto) 0.5, Neut # (Auto) 10.4 H, Lymph # (Auto) 2.1, [place] # (Auto) 0.8, Eos # (Auto) 0.2, Baso # (Auto) 0.1 I & O for Labs for Last 24 Hours: Intake & Output 05/16/23 05/17/23 05/18/23 05/19/23 23:59 23:59 23:59 23:59 Intake Total 120 / 120 Output Total 0 / 0 100 / 100 Balance 0 / 120 Weight 118 lb 4 oz 118 lb 3.742 oz Constitutional: Present severe distress Head: Present normocephalic and atraumatic ENT: Present normal exam, normal oropharynx and mucous membranes moist Neck: Present normal inspection and full ROM Respiratory: Present rhonchi and diminished air movement; Absent wheezes, crackles or able to speak in complete sentences Cardiac: Present S1/S2, Tachycardia and radial pulses present GI: Present soft and distention; Absent tenderness or guarding Rectal (female): Present deferred (female): Present deferred Skin: Present intact; Absent cyanosis or jaundice Neuro: Present alert, awake and oriented x 3 Extremities: Present normal inspection; Absent clubbing or cyanosis Psychiatric: Present normal affect and cooperative Meds Home Medications and Allergies Home Medications Medication Instructions Recorded Confirmed Type apixaban 5 mg tablet (Eliquis) 2.5 mg PO BID Blood thinner/atrial 10/07/21 05/18/23 History fib aspirin 81 mg tablet,delayed 81 mg PO DAILY Heart Health 02/03/22 05/18/23 History release multivitamin 1 tab PO DAILY Supplement 02/03/22 05/18/23 History adalimumab 40 mg/0.8 mL 40 mg SQ DIRECTED 01/11/23 05/18/23 History subcutaneous syringe kit (Humira) budesonide-formoterol HFA 80 1 inh inhalation BID #10.2 grams 01/11/23 05/18/23 Rx mcg-4.5 mcg/actuation aerosol inhaler (Symbicort) albuterol sulfate 90 mcg/actuation 2 puff inhalation Q6HP PRN 04/07/23 05/18/23 Rx aerosol inhaler Shortness Of Breath #8.5 grams allopurinol 300 mg tablet 300 mg PO DAILY gout 90 days #90 04/10/23 05/18/23 Rx tabs mirtazapine 7.5 mg tablet 7.5 mg PO HS #30 tabs 04/20/23 05/18/23 Rx digoxin 125 mcg (0.125 mg) tablet 62.5 mcg PO MOWEFR Heart Rhythm 90 05/03/23 05/18/23 Rx days #20 tabs digoxin 125 mcg (0.125 mg) tablet 125 [facility]cg [facility] Heart rhythm 05/03/23 05/18/23 Rx 90 days #52 tabs pantoprazole 40 mg tablet,delayed 40 mg PO DAILY acid reflux 90 days 05/03/23 05/18/23 Rx release #90 tabs ipratropium 0.5 mg-albuterol 3 mg 3 ml inhalation Q4-6H PRN 05/09/23 05/18/23 Rx (2.5 mg base)/3 mL nebulization shortness of breath #90 mL soln vitamins A,C,B-rvul-uatysm 4,296 1 cap PO BID Supplement 05/11/23 05/18/23 History mcg-226 mg-90 mg capsule (PreserVision AREDS) atorvastatin 40 mg tablet 40 mg PO DAILY Cholesterol 30 days 05/16/23 05/18/23 Rx #30 tabs levothyroxine 50 mcg tablet 50 mcg PO DAILY Thyroid 05/19/23 05/19/23 History New Prescriptions to Start Prescriptions: Allergies Allergy/AdvReac Type Severity Reaction Status Date / Time nitrofurantoin Allergy Verified 05/18/23 16:34 [From Macrobid] Sulfa (Sulfonamide Allergy Verified 05/18/23 16:34 Antibiotics) Results Laboratory Findings 05/19/23 09:24 05/19/23 07:35 Abnormal lab findings: Abnormal Labs 05/18/23 05/18/23 05/18/23 10:25 11:16 14:31 WBC 12.4 H RBC 3.78 L Hgb 11.4 L Hct 36.5 L MCHC 31.3 L Neut % (Auto) 83.5 H Neut # (Auto) 10.4 H VBG HCO3 19.8 L VBG Total CO2 21.0 L VBG Base Excess -6.0 L Sodium 134 L Carbon Dioxide Anion Gap BUN 34 H Creatinine 1.10 H Estimated GFR 48 L Est GFR ( Amer) 58 L Glucose 135 H D Calcium AST 60 H Alkaline Phosphatase 464 H Ammonia Troponin I 0.18 H 0.24 H Albumin 3.3 L Globulin 4.1 H Albumin/Globulin Ratio 0.8 L 05/18/23 05/18/23 05/19/23 16:01 16:20 07:35 WBC RBC Hgb Hct MCHC Neut % (Auto) Neut # (Auto) VBG HCO3 VBG Total CO2 VBG Base Excess Sodium Carbon Dioxide 17 L Anion Gap 18.1 H BUN 31 H Creatinine Estimated GFR 53 L Est GFR ( Amer) Glucose Calcium 8.0 L AST 98 H D Alkaline Phosphatase 406 H Ammonia < 9 L Troponin I 0.25 H Albumin 3.1 L Globulin 4.1 H Albumin/Globulin Ratio 0.8 L 05/19/23 09:24 WBC 13.5 H RBC 3.44 L Hgb 10.6 L Hct 33.0 L MCHC Neut % (Auto) Neut # (Auto) 10.4 H VBG HCO3 VBG Total CO2 VBG Base Excess Sodium Carbon Dioxide Anion Gap BUN Creatinine Estimated GFR Est GFR ( Amer) Glucose Calcium AST Alkaline Phosphatase Ammonia Troponin I Albumin Globulin Albumin/Globulin Ratio Assessment and Plan *Assessment and plan (1) Pneumonia: Status: Acute Category: Medical Code(s): J18.9 - Pneumonia, unspecified organism (2) Pleural effusion, bilateral: Status: Acute Category: Medical Code(s): J90 - Pleural effusion, not elsewhere classified Plan Ms. Santacruz is a 82-year-old female history rheumatoid arthritis, pulmonary fibrosis, mild persistent asthma presented to the ER with altered mentation CT found to have pneumonia and pleural effusion pulmonary was called for further evaluation and management. Neutrophilic leukocytosis upon admission. CT chest bilateral worsening airspace disease also concerning for interstitial thickening/pulmonary edema. COVID-19 and flu PCR negative. CT also showed bilateral pleural effusions left greater than right. Patient noted to have effusions on her CT from 03/16/2023 which are progressively getting worse. I do not think the effusions have anything to do with patient acute distress at this point of time. She is saturating 98% on room air. Does not appear to be in any respiratory distress. Plan: Change antibiotics to cover hospital-acquired pneumonia with linezolid cefepime for 7 days pending culture results. Continue azithromycin x 5 days Follow with serum fungal serologies sputum cultures and nasal MRSA PCR. DuoNebs every 6 hours scheduled along with Pulmicort every 12 scheduled Follow with echocardiogram results. Lasix 40 mg IV once Will follow: Will hold off on performing thoracentesis at this point of time pending clinical improvement.-Discussed with the patient and the family reluctant to proceed with thoracentesis today. Also given this being a chronic finding, patient be on room air it is reasonable at this point of time to monitor her clinical improvement without performing thoracentesis. Thank you for involving pulmonary in this patient care. Pulmonary services will be unavailable to provide for both inpatient and outpatient patient care services starting 05/20/2022 untill 05/28/2022. We will resume direct inpatient and pulmonary services starting 05/29/2022, 8AM.
--- NOTE | 2023-05-19 11:33 | P.PN_ITS ---
Subjective *Date: 05/19/23 *Time: 16:28 Interval history: Admit to fever overnight. No nausea or vomiting. Increased oxygen requirement to 2 L. Showing some improvement this morning as she opens her eyes to voice and responds to questions. Appears more relaxed and calm. Required dose of Zyprexa overnight. Tolerating breakfast today. Medical Exam Vital signs and Labs for Last 24 Hours: Vital Signs Temp Pulse Pulse Resp BP BP Pulse Ox 05/19/23 08:00 97.6 F 81 16 130/93 H 91 L 05/19/23 09:44 82 05/19/23 06:37 101.8 F H 05/19/23 04:00 101.9 F H 71 18 131/54 L 91 L 05/19/23 05:34 101.9 F H 05/19/23 05:00 05/19/23 04:47 103 F H 05/19/23 06:21 05/19/23 02:46 05/19/23 01:00 05/19/23 00:00 101.9 F H 79 20 147/98 H 91 L 05/18/23 22:58 05/18/23 21:00 05/18/23 20:00 05/18/23 21:45 103.1 F H 05/18/23 20:00 102.5 F H 72 17 156/72 H 90 L 05/18/23 21:30 102.9 F H 05/18/23 20:48 102.5 F H 05/18/23 19:00 05/18/23 17:40 98 05/18/23 17:00 05/18/23 17:28 99.1 F 72 18 124/41 L 98 05/18/23 16:59 99.5 F 69 18 149/56 H O2 Del Method O2 Flow Rate 05/19/23 08:00 Nasal Cannula 05/19/23 09:44 05/19/23 06:37 05/19/23 04:00 Nasal Cannula 05/19/23 05:34 05/19/23 05:00 Nasal Cannula 2 05/19/23 04:47 05/19/23 06:21 Nasal Cannula 2 05/19/23 02:46 Room Air 05/19/23 01:00 Room Air 05/19/23 00:00 Room Air 05/18/23 22:58 Room Air 05/18/23 21:00 Room Air 05/18/23 20:00 Room Air 05/18/23 21:45 05/18/23 20:00 05/18/23 21:30 05/18/23 20:48 05/18/23 19:00 Room Air 05/18/23 17:40 Room Air 05/18/23 17:00 Room Air 05/18/23 17:28 Room Air 05/18/23 16:59 Room Air Intake and Output 05/18/23 05/19/23 05/19/23 23:59 07:59 15:59 Intake Total 120 / 120 Output Total 0 / 0 100 / 100 Balance 0 / 120 20 / 20 Intake: Intake, Oral Amount 120 / 120 Output: Output, Urine Amount 0 / 0 100 / 100 Other: Number of Unmeasured Voids 1 0 Weight 53.637 kg 3.637 kg 53.63 kg Patient Weight 05/19/23 23:59 Weight 53.63 kg Laboratory Results - last 24 hr 05/18/23 10:25: WBC 12.4 H, RBC 3.78 L, Hgb 11.4 L, Hct 36.5 L, MCV 96.5, MCH 30.2, MCHC 31.3 L, RDW 16.3, Plt Count 321, MPV 8.6, Neut % (Auto) 83.5 H, Lymph % (Auto) 13.7, [place] % (Auto) 2.4, Eos % (Auto) 0.1, Baso % (Auto) 0.4, Neut # (Auto) 10.4 H, Lymph # (Auto) 1.7, [place] # (Auto) 0.3, Eos # (Auto) 0.0, Baso # (Auto) 0.0, Sodium 134 L, Potassium 4.4, Chloride 102, Carbon Dioxide 23, Anion Gap 13.4, BUN 34 H, Creatinine 1.10 H, Estimated Creat Clear 37, Estimated GFR 48 L, Est GFR ( Amer) 58 L, Glucose 135 H D, Lactate 1.5, Calcium 8.6, Total Bilirubin 0.8, AST 60 H, ALT 32, Alkaline Phosphatase 464 H, Troponin I 0.18 H, Total Protein 7.4, Albumin 3.3 L, Globulin 4.1 H, Albumin/Globulin Ratio 0.8 L 05/18/23 11:16: VBG pH 7.34, VBG pCO2 38.0, VBG pO2 38.3, VBG HCO3 19.8 L, VBG Total CO2 21.0 L, VBG O2 Saturation 67.6, VBG Base Excess -6.0 L 05/18/23 11:22: Chlamy pneumoniae PCR TNP, Adenovirus (PCR) Not detected, B. pertussis DNA (PCR) TNP, Coronavirus OC43 (PCR) Not detected, Coronavirus HKU1 (PCR) Not detected, Coronavirus 229E (PCR) Not detected, SARS-CoV-2 (PCR) Not detected, Coronavirus NL63 (PCR) Not detected, Human Metapneumovir PCR Not detected, Influenza A (H1) PCR Not detected, Influ A (H1N1/09) PCR Not detected, Influenza A (H3) PCR Not detected, Influenza Type A (PCR) Not detected, Influenza Type B (PCR) Not detected, M. pneumoniae (PCR) TNP, Parainfluenza 1 (PCR) Not detected, Parainfluenza 2 (PCR) Not detected, Parainfluenza 3 (PCR) Not detected, Parainfluenza 4 (PCR) Not detected, RSV (PCR) Not detected, Entero/Rhino (PCR) Not detected 05/18/23 12:28: Urine Color Yellow, Urine Appearance Clear, Urine pH 5.5, Ur Specific [place] 1.020, Urine Protein Negative, Urine Glucose (UA) Negative, Urine Ketones Trace, Urine Blood Negative, Urine Nitrate Negative, Urine Bilirubin Negative, Urine Urobilinogen 0.2, Ur Leukocyte Esterase Trace, Urine RBC None, Urine WBC Occasional, Ur Squamous Epith Cells 3-5, Urine Bacteria Trace 05/18/23 14:31: Troponin I 0.24 H 05/18/23 16:01: Ammonia < 9 L 05/18/23 16:20: Troponin I 0.25 H, TSH 0.48 05/19/23 07:35: Sodium 138, Potassium 4.1, Chloride 107, Carbon Dioxide 17 L, Anion Gap 18.1 H, BUN 31 H, Creatinine 1.00, Estimated Creat Clear 2, Estimated GFR 53 L, Est GFR ( Amer) 64, Glucose 96 D, Calcium 8.0 L, Magnesium 1.8, Total Bilirubin 0.7, AST 98 H D, ALT 29, Alkaline Phosphatase 406 H, Total Protein 7.2, Albumin 3.1 L, Globulin 4.1 H, Albumin/Globulin Ratio 0.8 L 05/19/23 09:24: WBC 13.5 H, RBC 3.44 L, Hgb 10.6 L, Hct 33.0 L, MCV 96.1, MCH 30.8, MCHC 32.0, RDW 16.4, Plt Count 203 D, MPV 8.3, Neut % (Auto) 76.7, Lymph % (Auto) 15.6, [place] % (Auto) 5.8, Eos % (Auto) 1.3, Baso % (Auto) 0.5, Neut # (Auto) 10.4 H, Lymph # (Auto) 2.1, [place] # (Auto) 0.8, Eos # (Auto) 0.2, Baso # (Auto) 0.1 I & O for Labs for Last 24 Hours: Intake & Output 05/16/23 05/17/23 05/18/23 05/19/23 23:59 23:59 23:59 23:59 Intake Total 120 / 120 Output Total 0 / 0 100 / 100 Balance 0 / 120 Weight 53.637 kg 53.63 kg Constitutional: Present no acute distress, cachectic and chronically ill appearing Head: Present atraumatic and normocephalic ENT: Present normal exam Respiratory: Present crackles (Diffuse bilaterally), diminished air movement (In left lung field) and normal respiratory effort; Absent rhonchi or wheezes Cardiac: Present Reg Rate and Rhythm GI: Present normal bowel sounds; Absent tenderness Extremities: Present normal inspection and full ROM; Absent edema Skin: Present intact; Absent erythema Neuro: Present Grossly Intact, alert, awake and moves all extremities Assessment and Plan *Assessment and plan (1) Severe sepsis: Status: Acute Category: Medical Code(s): A41.9 - Sepsis, unspecified organism; R65.20 - Severe sepsis without septic shock (2) Encephalopathy acute: Status: Acute Category: Medical Code(s): G93.40 - Encephalopathy, unspecified (3) Myocardial injury: Status: Acute Category: Medical Code(s): I5A - Non-ischemic myocardial injury (non-traumatic) (4) Pneumonia: Status: Acute Category: Medical Code(s): J18.9 - Pneumonia, unspecified organism (5) Fibrosis of lung: Status: Acute Category: Medical Code(s): J84.10 - Pulmonary fibrosis, unspecified (6) ILD (interstitial lung disease): Status: Acute Category: Medical Code(s): J84.9 - Interstitial pulmonary disease, unspecified (7) Essential hypertension: Status: Chronic Category: Medical Code(s): I10 - Essential (primary) hypertension (8) Hypothyroid: Status: Chronic Qualifiers: Hypothyroidism type: unspecified Qualified Code(s): E03.9 - Hypothyroidism, unspecified Category: Medical Code(s): E03.9 - Hypothyroidism, unspecified (9) Pleural effusion, bilateral: Status: Acute Category: Medical Code(s): J90 - Pleural effusion, not elsewhere classified (10) Severe protein-calorie malnutrition: Status: Acute Category: Medical Code(s): E43 - Unspecified severe protein-calorie malnutrition Plan 82-year-old female who presents with worsening confusion. Presentation in the ER concerning for severe sepsis with pneumonia. Discussed case with ER hema montilla, request admission for continued IV antibiotics, further management of sepsis. Medicine agreed to admit. Patient developed fever overnight and confusion. He is doing better this morning and is at least oriented to self. Tolerating 2 L nasal cannula oxygen. Pulmonology consulted to assist with care given finding of pleural effusion and small pneumothorax on left side. Problems addressed as follows: Severe sepsis Pneumonia Metabolic encephalopathy Pleural effusion Small pneumothorax -White cell count remains elevated at 13, fever of 103 overnight. Hemoglobin 10. Repeat CBC ordered for the morning. -Blood cultures and urine culture obtained. Urinalysis suspicious as well for possible UTI given presence of leuk esterase and white cells and trace bacteria. - Discontinue ceftriaxone, broaden antibiotics. To linezolid and cefepime for 7 days. Continue azithromycin for 5 days. -Given immunocompromise state, pulmonology recommends fungal serologies and sputum culture. Nasal MRSA ordered. Discussed case today, will continue to monitor for response to changes in treatment. No intervention on pleural effusion. Pneumothorax minimal, will monitor for change with repeat imaging if patient has increased oxygen requirement. - DuoNebs every 6 hours scheduled along with Pulmicort every 12 scheduled - Lasix 40 mg IV once -Continue supplemental oxygen, currently on 2 L, goal sats greater 90%. Pulmonary fibrosis/RA: - Will hold adalimumab at this time. A-fib Hypertension -Continue aspirin 81 mg daily, continue Eliquis 2.5 mg twice daily, continue Lipitor daily, continue digoxin 0.125 mg daily Sleep disorder: Continue mirtazapine 7.5 mg nightly Hypothyroid: Continue levothyroxine 2 mcg daily GERD: Continue pantoprazole 40 mg nightly IV Gout: Continue allopurinol 300 mg daily Eliquis DVT prophylaxis Full code cardiac diet
[2023-05-19 12:03] LABS: VBG Base Excess -2.6 mmol/L (-2.4-2.3); VBG HCO3 23.8 mmol/L (23-30); VBG Oxygen Saturation 34.5 % (50-70); VBG PCO2 49.3 mmol/L (35-51); VBG PO2 24.5 mmol/L (28-40); VBG Total CO2 25.3 mmol/L (23-27)
[2023-05-19] MEDS: LINEZOLID 600 MG/300 ML IV.SOLN 300 MG IV (12:10)
[2023-05-19 12:36] LABS: C-Reactive Protein 66.8 mg/L (0-4)
[2023-05-19] MEDS: CEFEPIME HCL 2 GM in 0.9 % SODIUM CHLORIDE 100 ML IV (13:19)
[2023-05-19] MEDS: FUROSEMIDE 40MG/4ML VIAL 40 MG IV (13:19)
[2023-05-19] MEDS: AZITHROMYCIN 500 MG in 0.9 % SODIUM CHLORIDE 250 ML 250 MG IV (13:57)
--- NOTE | 2023-05-19 17:23 | PC.NURSE ---
patient a&Ox4 and VSS. Patient has been afebrile this shift and has not had any confusion. Patient has rested most of shift but is easily aroused and oriented upon waking. Patient tolerating IV antibiotics.
[2023-05-19] MEDS: IPRATROPIUM/ALBUTEROL 3 ML NEB IH (18:17)
[2023-05-19] MEDS: BUDESONIDE 0.5MG/2ML NEB 0.5 MG IH (18:17)
[2023-05-19] MEDS: PANTOPRAZOLE 40MG VIAL 40 MG IV (20:59)
[2023-05-19] MEDS: SODIUM CHLORIDE 0.9% 10ML VIAL 10 ML IV (20:59)
[2023-05-20] VITALS (7 sets, daily range): BP systolic 110–133; BP diastolic 45–56; PULSE 69–78; RESP 16–18; TEMP 36.3–36.7; O2SAT 93–97; BMI 18.7
[2023-05-20] MEDS: LINEZOLID 600 MG/300 ML IV.SOLN 300 MG IV ×2 (00:17→12:58)
[2023-05-20] MEDS: CEFEPIME HCL 2 GM in 0.9 % SODIUM CHLORIDE 100 ML IV ×2 (01:23→14:19)
[2023-05-20] MEDS: ACETAMINOPHEN 325MG TAB 650 MG PO ×2 (02:00→20:35)
[2023-05-20] MEDS: LEVOTHYROXINE 50MCG (0.05MG) TAB 50 MCG PO (06:58)
[2023-05-20 07:14] LABS: Alanine Aminotransferase 31 U/L (12-78); Albumin Level 2.5 g/dl (3.5-5.0); Albumin/Globulin Ratio 0.7 (1.1-1.8); Alkaline Phosphatase 321 U/L (38-126); Anion Gap 9.2 mEq/L (5-15); Aspartate Amino Transferase 74 U/L (14-36); Bilirubin,Total 0.8 mg/dl (0.2-1.3); Blood Urea Nitrogen 35 mg/dl (7-17); Calcium 7.8 mg/dl (8.4-10.2); Carbon Dioxide 22 mmol/L (22.0-30.0); Chloride 109 mmol/L (98-107); Creatinine Clearance Estimated 37 mL/min (50-200); Estimated Glomerular Filt Rate 53 ml/min (>60); GFR (African American) 64 ML/MIN (>60); Globulin 3.5 g/dL (1.3-3.2); Glucose 96 mg/dl (74-100); Magnesium 1.7 mg/dl (1.6-2.3); Potassium 3.2 mmoL/L (3.5-5.1); Sodium 137 mmol/L (136-145)
[2023-05-20 07:19] LABS: Basophils # 0.1 K/mm3 (0-0.2); Basophils % 0.5 % (0.1-2.0); Eosinophils # 1.1 K/mm3 (0.0-0.4); Eosinophils % 8.8 % (0.1-12.0); Hematocrit 34.1 % (37.0-47.0); Hemoglobin 10.7 g/dL (12.2-16.2); Lymphocytes # 1.2 K/mm3 (0.7-4.5); Lymphocytes % 9.4 % (10-50); Mean Corpuscular HGB Conc 31.4 g/dL (31.8-35.4); Mean Corpuscular Hemoglobin 30.6 pg (27.0-31.2); Mean Corpuscular Volume 97.4 fl (81-99); Monocytes # 0.4 K/mm3 (0.1-1.0); Monocytes % 3.5 % (1.7-9.3); Neutrophils # 9.7 K/mm3 (1.8-7.8); Neutrophils % 77.8 % (37.0-80.0); Platelet Count 230 K/mm3 (142-424); Red Blood Count 3.51 M/mm3 (4.20-5.40); Red Cell Distribution Width 16.1 % (11.5-17.5); White Blood Count 12.4 K/mm3 (4.8-10.8)
[2023-05-20] MEDS: POTASSIUM CHLORIDE 20MEQ TAB 20 MEQ PO ×2 (09:06→20:35)
[2023-05-20] MEDS: APIXABAN 5MG TABLET 2.5 MG PO ×2 (09:06→20:35)
[2023-05-20] MEDS: MAGNESIUM SULFATE IN WATER 2 GM/50 ML PIGGYBACK IV (09:06)
[2023-05-20] MEDS: AZITHROMYCIN 250MG TABLET 500 MG PO (09:07)
[2023-05-20] MEDS: ALLOPURINOL 300MG TABLET 300 MG PO (09:07)
[2023-05-20] MEDS: DIGOXIN 0.125MG TABLET 125 MCG PO (09:07)
[2023-05-20] MEDS: ASPIRIN EC 81MG TABLET 81 MG PO (09:07)
--- NOTE | 2023-05-20 10:47 | EXP.ACUTE.PN ---
Subjective *Date: 05/20/23 *Time: 10:47 Interval history: Patient states she is feeling rough this morning however she is smiling and on room air. Interactive on exam. Alert and oriented x 4. Family at bedside. Appears much better compared to admission. Still quite weak. No nausea, vomiting, chest pain. Does have some general soreness because of her RA and being in the bed. Medical Exam Vital signs and Labs for Last 24 Hours: Vital Signs Temp Pulse Pulse Resp BP Pulse Ox O2 Del Method 05/20/23 09:06 Room Air 05/20/23 09:06 Room Air 05/20/23 07:55 98.0 F 16 110/50 L 95 Room Air 05/20/23 07:00 Room Air 05/20/23 04:56 Room Air 05/20/23 04:00 98.0 F 70 18 110/45 L 93 L Room Air 05/20/23 03:00 Room Air 05/20/23 01:00 Room Air 05/20/23 00:00 98.1 F 70 18 133/48 L 97 Room Air 05/19/23 23:00 Room Air 05/19/23 21:00 Room Air 05/19/23 20:00 Room Air 05/19/23 20:00 98.4 F 70 18 113/53 L 95 Room Air 05/19/23 18:18 77 05/19/23 18:18 70 05/19/23 16:00 97.7 F 69 16 120/57 L 97 Nasal Cannula 05/19/23 12:00 96.9 F L 70 18 118/46 L 97 Nasal Cannula O2 Flow Rate 05/20/23 09:06 05/20/23 09:06 05/20/23 07:55 05/20/23 07:00 05/20/23 04:56 05/20/23 04:00 05/20/23 03:00 05/20/23 01:00 05/20/23 00:00 05/19/23 23:00 05/19/23 21:00 05/19/23 20:00 05/19/23 20:00 05/19/23 18:18 05/19/23 18:18 05/19/23 16:00 0.5 05/19/23 12:00 0.5 Intake and Output 05/19/23 05/20/23 05/20/23 23:59 07:59 15:59 Intake Total 250 / 250 Output Total 1100 / 1400 300 / 400 100 / 400 Balance -1100 / -1230 -50 / -150 -100 / -150 Intake: Intake, Oral Amount 250 / 250 Output: Output, Urine Amount 1100 / 1400 300 / 300 Output, Urine Amount (Catheter) 100 / 100 Felder 100 / 100 Other: Weight 54.233 kg Patient Weight 05/20/23 23:59 Weight 54.233 kg Laboratory Results - last 24 hr 05/19/23 12:01: VBG pH 7.30 L, VBG pCO2 49.3, VBG pO2 24.5 L, VBG HCO3 23.8, VBG Total CO2 25.3, VBG O2 Saturation 34.5 L, VBG Base Excess -2.6 L 05/19/23 12:10: C-Reactive Protein 66.8 H 05/20/23 06:43: WBC 12.4 H, RBC 3.51 L, Hgb 10.7 L, Hct 34.1 L, MCV 97.4, MCH 30.6, MCHC 31.4 L, RDW 16.1, Plt Count 230, MPV 9.0, Neut % (Auto) 77.8, Lymph % (Auto) 9.4 L, [place] % (Auto) 3.5, Eos % (Auto) 8.8, Baso % (Auto) 0.5, Neut # (Auto) 9.7 H, Lymph # (Auto) 1.2, [place] # (Auto) 0.4, Eos # (Auto) 1.1 H, Baso # (Auto) 0.1, Sodium 137, Potassium 3.2 L D, Chloride 109 H, Carbon Dioxide 22, Anion Gap 9.2, BUN 35 H, Creatinine 1.00, Estimated Creat Clear 37, Estimated GFR 53 L, Est GFR ( Amer) 64, Glucose 96, Calcium 7.8 L, Magnesium 1.7, Total Bilirubin 0.8, AST 74 H, ALT 31, Alkaline Phosphatase 321 H, Total Protein 6.0 L, Albumin 2.5 L D, Globulin 3.5 H, Albumin/Globulin Ratio 0.7 L I & O for Labs for Last 24 Hours: Intake & Output 05/17/23 05/18/23 05/19/23 05/20/23 23:59 23:59 23:59 23:59 Intake Total 120 / 170 250 / 250 Output Total 0 / 0 1200 / 1400 400 / 400 Balance 0 / 120 -1080 / -1230 -150 / -150 Weight 53.637 kg 53.63 kg 54.233 kg Constitutional: Present no acute distress, cachectic and chronically ill appearing Head: Present atraumatic and normocephalic ENT: Present normal exam Respiratory: Present crackles (Diffuse bilaterally), diminished air movement (In left lung field) and normal respiratory effort; Absent rhonchi or wheezes Cardiac: Present Reg Rate and Rhythm GI: Present normal bowel sounds; Absent tenderness Extremities: Present normal inspection and full ROM; Absent edema Skin: Present intact; Absent erythema Neuro: Present Grossly Intact, alert, awake, oriented x 3 and moves all extremities Assessment and Plan *Assessment and plan (1) Encephalopathy acute: Status: Resolved Category: Medical Code(s): G93.40 - Encephalopathy, unspecified (2) Myocardial injury: Status: Acute Category: Medical Code(s): I5A - Non-ischemic myocardial injury (non-traumatic) (3) Pneumonia: Status: Acute Category: Medical Code(s): J18.9 - Pneumonia, unspecified organism (4) Fibrosis of lung: Status: Acute Category: Medical Code(s): J84.10 - Pulmonary fibrosis, unspecified (5) ILD (interstitial lung disease): Status: Acute Category: Medical Code(s): J84.9 - Interstitial pulmonary disease, unspecified (6) Essential hypertension: Status: Chronic Category: Medical Code(s): I10 - Essential (primary) hypertension (7) Hypothyroid: Status: Chronic Qualifiers: Hypothyroidism type: unspecified Qualified Code(s): E03.9 - Hypothyroidism, unspecified Category: Medical Code(s): E03.9 - Hypothyroidism, unspecified (8) Pleural effusion, bilateral: Status: Acute Category: Medical Code(s): J90 - Pleural effusion, not elsewhere classified (9) Severe protein-calorie malnutrition: Status: Acute Category: Medical Code(s): E43 - Unspecified severe protein-calorie malnutrition Plan 82-year-old female who presents with worsening confusion. Presentation in the ER concerning for severe sepsis with pneumonia. Discussed case with ER physician, request admission for continued IV antibiotics, further management of sepsis. Medicine agreed to admit. Patient developed fever overnight and confusion. Oriented x 4 this morning on exam. Weaning oxygen as tolerated. Showing good improvement. Continues to require inpatient management given immunocompromise status and IV antibiotics. Problems addressed as follows: Severe sepsis, resolved Pneumonia Metabolic encephalopathy, resolved Pleural effusion Small pneumothorax -White cell count remains elevated at 12. No further fevers for 24 hours. Hemoglobin stable at 10.7. Repeat CBC ordered for the morning -Urine cultures remain negative, blood cultures remain negative. Continue to follow. -Continue with linezolid and cefepime for 7 days. Continue azithromycin for 5 days. -Given immunocompromise state, pulmonology recommends fungal serologies and sputum culture. Nasal MRSA ordered. Discussed case today, will continue to monitor for response to changes in treatment. No intervention on pleural effusion. Pneumothorax minimal, will monitor for change with repeat imaging if patient has increased oxygen requirement. - DuoNebs every 6 hours scheduled along with Pulmicort every 12 scheduled - Lasix 40 mg IV once -Continue supplemental oxygen, currently on RA, goal sats greater 90%. Pulmonary fibrosis/RA: - Will hold adalimumab at this time. A-fib Hypertension -Continue aspirin 81 mg daily, continue Eliquis 2.5 mg twice daily, continue Lipitor daily, continue digoxin 0.125 mg daily Sleep disorder: Continue mirtazapine 7.5 mg nightly Hypothyroid: Continue levothyroxine 2 mcg daily GERD: Continue pantoprazole 40 mg nightly IV Gout: Continue allopurinol 300 mg daily Eliquis DVT prophylaxis Full code cardiac diet
[2023-05-20] MEDS: IPRATROPIUM/ALBUTEROL 3 ML NEB IH ×3 (11:48→23:28)
[2023-05-20] MEDS: ONDANSETRON 4MG/2ML VIAL 4 MG IV (13:00)
--- NOTE | 2023-05-20 16:13 | PC.NURSE ---
VS stable, patient remained on room air. IV antibiotics given, lung sounds clear. Patient alert and oriented times 4. Catheter d/c'd and patient able to void. No other changes noted.
[2023-05-20] MEDS: BUDESONIDE 0.5MG/2ML NEB 0.5 MG IH (18:33)
[2023-05-20] MEDS: PANTOPRAZOLE 40MG TABLET 40 MG PO (20:35)
[2023-05-20] MEDS: MELATONIN 5MG TABLET 5 MG PO (22:18)
[2023-05-21] VITALS (7 sets, daily range): BP systolic 99–134; BP diastolic 43–67; PULSE 70–71; RESP 15–18; TEMP 36.4–37; O2SAT 94–98
[2023-05-21] MEDS: CEFEPIME HCL 2 GM in 0.9 % SODIUM CHLORIDE 100 ML IV (00:53)
[2023-05-21] MEDS: IPRATROPIUM/ALBUTEROL 3 ML NEB IH ×2 (06:15→18:34)
[2023-05-21] MEDS: BUDESONIDE 0.5MG/2ML NEB 0.5 MG IH ×2 (06:15→18:34)
[2023-05-21] MEDS: LEVOTHYROXINE 50MCG (0.05MG) TAB 50 MCG PO (06:19)
--- NOTE | 2023-05-21 07:07 | XR_ITS ---
PROCEDURE INFORMATION: Exam: XR Chest Exam date and time: 05/21/2023 6:49 AM Age: 82 years old Clinical indication: Shortness of breath; Additional info: SOB TECHNIQUE: Imaging protocol: Radiologic exam of the chest. Views: 1 view. COMPARISON: CT CHEST WO CON 05/19/2023 8:07 AM FINDINGS: Tubes, catheters and devices: The left chest wall pacemaker leads are noted in the right atrium and the right ventricle. Lungs: Multiple streaky and patchy opacities in both lungs can be seen with scarring, interstitial lung disease. Superimposed infection is not entirely excluded. These changes are stable since the prior study. Pleural spaces: Unremarkable. No pleural effusion. No pneumothorax. Heart/Mediastinum: The aorta is calcified and tortuous. No cardiomegaly. Bones/joints: Unremarkable. IMPRESSION: 1. Multiple streaky and patchy opacities in both lungs can be seen with scarring, interstitial lung disease. Superimposed infection is not entirely excluded. These changes are stable since the prior study. 2. The left chest wall pacemaker leads are noted in the right atrium and the right ventricle.
[2023-05-21 08:28] LABS: Basophils % 0.2 % (0.1-2.0); Chloride 107 mmol/L (98-107); Eosinophils % 10.5 % (0.1-12.0); Hematocrit 32.1 % (37.0-47.0); Hemoglobin 10.1 g/dL (12.2-16.2); Lymphocytes # 1.2 K/mm3 (0.7-4.5); Lymphocytes % 11.8 % (10-50); Mean Corpuscular HGB Conc 31.4 g/dL (31.8-35.4); Mean Corpuscular Hemoglobin 30.4 pg (27.0-31.2); Mean Corpuscular Volume 97.1 fl (81-99); Mean Platelet Volume 8.8 fl (7.4-10.4); Monocytes # 0.3 K/mm3 (0.1-1.0); Neutrophils # 7.3 K/mm3 (1.8-7.8); Neutrophils % 74.5 % (37.0-80.0); Platelet Count 212 K/mm3 (142-424); Potassium 3.5 mmoL/L (3.5-5.1); Red Blood Count 3.31 M/mm3 (4.20-5.40); Red Cell Distribution Width 16.2 % (11.5-17.5); Sodium 133 mmol/L (136-145); White Blood Count 9.9 K/mm3 (4.8-10.8)
[2023-05-21 08:31] LABS: Alanine Aminotransferase 38 U/L (12-78); Albumin Level 2.5 g/dl (3.5-5.0); Albumin/Globulin Ratio 0.7 (1.1-1.8); Alkaline Phosphatase 329 U/L (38-126); Anion Gap 7.5 mEq/L (5-15); Aspartate Amino Transferase 64 U/L (14-36); Bilirubin,Total 0.6 mg/dl (0.2-1.3); Blood Urea Nitrogen 36 mg/dl (7-17); Carbon Dioxide 22 mmol/L (22.0-30.0); Creatinine Clearance Estimated 31 mL/min (50-200); Estimated Glomerular Filt Rate 39 ml/min (>60); GFR (African American) 47 ML/MIN (>60); Globulin 3.6 g/dL (1.3-3.2); Glucose 137 mg/dl (74-100); Total Protein,Serum 6.1 g/dl (6.3-8.2)
[2023-05-21 08:40] LABS: Magnesium 2.1 mg/dl (1.6-2.3)
[2023-05-21] MEDS: AZITHROMYCIN 250MG TABLET 500 MG PO (08:42)
[2023-05-21] MEDS: DIGOXIN 0.125MG TABLET 125 MCG PO (08:42)
[2023-05-21] MEDS: ASPIRIN EC 81MG TABLET 81 MG PO (08:42)
[2023-05-21] MEDS: ALLOPURINOL 300MG TABLET 300 MG PO (08:42)
[2023-05-21] MEDS: APIXABAN 5MG TABLET 2.5 MG PO ×2 (08:42→20:12)
[2023-05-21] MEDS: POTASSIUM CHLORIDE 20MEQ TAB 20 MEQ PO ×2 (08:42→20:12)
[2023-05-21] MEDS: LINEZOLID 600 MG/300 ML IV.SOLN 300 MG IV ×2 (13:04)
--- NOTE | 2023-05-21 13:16 | P.PN_ITS ---
Subjective *Date: 05/21/23 *Time: 13:16 Interval history: Patient has some mild confusion this morning but is alert and oriented to self and place. Did not sleep well last night. Confused as to how long she has been at the hospital and why she is here. Just does not feel well but has a hard time specifying. Is on room air and afebrile. No significant cough. Tolerating p.o. intake. No more nausea or vomiting since yesterday. Medical Exam Vital signs and Labs for Last 24 Hours: Vital Signs Temp Pulse Pulse Resp BP Pulse Ox O2 Del Method 05/21/23 09:00 Room Air 05/21/23 08:45 Room Air 05/21/23 08:00 98.2 F 71 18 99/43 L 97 Room Air 05/21/23 07:00 Room Air 05/21/23 05:00 Room Air 05/21/23 04:00 97.6 F 70 16 117/50 L 94 L Room Air 05/21/23 06:15 70 05/21/23 06:15 70 05/21/23 06:15 95 Room Air 05/21/23 03:00 Room Air 05/21/23 01:00 Room Air 05/20/23 22:46 Room Air 05/20/23 20:00 97.6 F 70 18 114/46 L 97 Room Air 05/20/23 21:00 Room Air 05/20/23 20:00 Room Air 05/20/23 18:43 Room Air 05/20/23 18:32 73 05/20/23 18:32 72 05/20/23 17:00 Room Air 05/20/23 16:00 97.3 F L 69 16 123/56 L 96 Room Air 05/20/23 14:58 Room Air Intake and Output 05/20/23 05/21/23 05/21/23 23:59 07:59 15:59 Intake Total 120 / 1530 560 / 800 240 / 800 Output Total 125 / 525 0 / 0 Balance -5 / 1005 560 / 800 240 / 800 Intake: Intake, Oral Amount 120 / 640 120 / 360 240 / 360 Intake, Other Amount 40 / 40 Intake, Total IV Amount 400 / 400 Cefepime HCl 2 gm In 0.9 % 100 / 100 Sodium Chloride 100 ml @ 200 mls/hr IV Q12H [facility] Rx#:[id number] Linezolid 600 mg In 300 ml @ 300 / 300 300 mls/hr IV Q12H [facility] Rx#: [id number] Output: Output, Urine Amount 125 / 425 0 / 0 Other: Number of Unmeasured Voids 0 1 Weight 58.06 kg Patient Weight 05/21/23 23:59 Weight 58.06 kg Laboratory Results - last 24 hr 05/21/23 06:36: WBC 9.9, RBC 3.31 L, Hgb 10.1 L, Hct 32.1 L, MCV 97.1, MCH 30.4, MCHC 31.4 L, RDW 16.2, Plt Count 212, MPV 8.8, Neut % (Auto) 74.5, Lymph % (Auto) 11.8, [place] % (Auto) 3.0, Eos % (Auto) 10.5, Baso % (Auto) 0.2, Neut # (Auto) 7.3, Lymph # (Auto) 1.2, [place] # (Auto) 0.3, Eos # (Auto) 1.0 H, Baso # (Auto) 0.0, Sodium 133 L, Potassium 3.5, Chloride 107, Carbon Dioxide 22, Anion Gap 7.5, BUN 36 H, Creatinine 1.30 H D, Estimated Creat Clear 31, Estimated GFR 39 L, Est GFR ( Amer) 47 L D, Glucose 137 H D, Calcium 8.0 L, Magnesium 2.1 D, Total Bilirubin 0.6, AST 64 H, ALT 38, Alkaline Phosphatase 329 H, Total Protein 6.1 L, Albumin 2.5 L, Globulin 3.6 H, Albumin/Globulin Ratio 0.7 L I & O for Labs for Last 24 Hours: Intake & Output 05/18/23 05/19/23 05/20/23 05/21/23 23:59 23:59 23:59 23:59 Intake Total 120 / 170 970 / 1530 800 / 800 Output Total 0 / 0 1200 / 1400 525 / 525 0 / 0 Balance 0 / 120 -1080 / -1230 445 / 1005 800 / 800 Weight 53.637 kg 53.63 kg 54.233 kg 58.06 kg Microbiology Reports for the Last 24 Hours: Microbiology 05/18/23 10:25 Blood Blood Culture - Preliminary 05/18/23 11:40 Blood Blood Culture - Preliminary 05/18/23 12:28 Urine,Catheterized Urine Culture - Final Constitutional: Present no acute distress, cachectic and chronically ill appearing Head: Present atraumatic and normocephalic ENT: Present normal exam Respiratory: Present crackles (Diffuse bilaterally), diminished air movement (In left lung field) and normal respiratory effort; Absent rhonchi or wheezes Cardiac: Present Reg Rate and Rhythm GI: Present normal bowel sounds; Absent tenderness Extremities: Present normal inspection and full ROM; Absent edema Skin: Present intact; Absent erythema Neuro: Present Grossly Intact, alert, awake, oriented x 3 and moves all ext remities Assessment and Plan *Assessment and plan (1) Pneumonia: Status: Acute Category: Medical Code(s): J18.9 - Pneumonia, unspecified organism (2) Encephalopathy acute: Status: Resolved Category: Medical Code(s): G93.40 - Encephalopathy, unspecified (3) Myocardial injury: Status: Acute Category: Medical Code(s): I5A - Non-ischemic myocardial injury (non-traumatic) (4) Fibrosis of lung: Status: Acute Category: Medical Code(s): J84.10 - Pulmonary fibrosis, unspecified (5) ILD (interstitial lung disease): Status: Acute Category: Medical Code(s): J84.9 - Interstitial pulmonary disease, unspecified (6) Essential hypertension: Status: Chronic Category: Medical Code(s): I10 - Essential (primary) hypertension (7) Hypothyroid: Status: Chronic Qualifiers: Hypothyroidism type: unspecified Qualified Code(s): E03.9 - Hypothyroidism, unspecified Category: Medical Code(s): E03.9 - Hypothyroidism, unspecified (8) Pleural effusion, bilateral: Status: Acute Category: Medical Code(s): J90 - Pleural effusion, not elsewhere classified (9) Severe protein-calorie malnutrition: Status: Acute Category: Medical Code(s): E43 - Unspecified severe protein-calorie malnutrition Plan 82-year-old female who presents with worsening confusion. Presentation in the ER concerning for severe sepsis with pneumonia. Discussed case with ER physician, request admission for continued IV antibiotics, further management of sepsis. Medicine agreed to admit. No fevers in the past 24 hours. Patient tolerating p.o. intake. Alert and oriented x 3 this morning. On room air. Discussed case with pulmonology, recommend transitioning to Levaquin for ease of dosing at home. Continue to monitor for 24 more hours, will have PT and OT evaluate patient tomorrow she is still quite weak. Echo pending for the morning. Problems addressed as follows: Severe sepsis, resolved Pneumonia Metabolic encephalopathy, resolved Pleural effusion Small pneumothorax -White cell count improved to 9.9 today. No fevers in 24 hours. Hemoglobin stable at 10.1. Repeat CBC ordered for the morning -Urine cultures remain negative, blood cultures remain negative. Continue to follow. -Continue linezolid. Will transition to levofloxacin from cefepime for ease of transitioning to oral regimen at discharge. Plan to complete 7 days of antibiotics total. Continue azithromycin for total of 5 days. -Given immunocompromise state, pulmonology recommends fungal serologies and sputum culture. Nasal MRSA still pending. Repeat chest imaging today with chest x-ray, infiltrates and fibrotic changes bilaterally are stable. - DuoNebs every 6 hours scheduled along with Pulmicort every 12 scheduled -Continue supplemental oxygen, currently on RA, goal sats greater 90%. Pulmonary fibrosis/RA: Will hold adalimumab at this time. Due for dose tomorrow, recommend holding until she completes antibiotics. A-fib Hypertension -Continue aspirin 81 mg daily, continue Eliquis 2.5 mg twice daily, continue Lipitor daily, continue digoxin 0.125 mg daily Sleep disorder: Transition to melatonin, holding mirtazapine given risk for serotonin syndrome with linezolid Hypothyroid: Continue levothyroxine 2 mcg daily GERD: Continue pantoprazole 40 mg nightly IV Gout: Continue allopurinol 300 mg daily Eliquis DVT prophylaxis Full code cardiac diet
[2023-05-21] MEDS: LEVOFLOXACIN/D5W 750 MG/150 ML 750 MG/150 ML PIGGYBACK 100 MG IV (14:49)
--- NOTE | 2023-05-21 15:09 | PC.NURSE ---
Patient able to ambulate from room to hallway. VS stable and patient remained on room air. Patient has intermittent confusion but has not slept for two days. Lung sounds clear.
[2023-05-21] MEDS: ONDANSETRON 4MG/2ML VIAL 4 MG IV (17:55)
[2023-05-21] MEDS: MELATONIN 5MG TABLET 5 MG PO (20:12)
[2023-05-21] MEDS: PANTOPRAZOLE 40MG TABLET 40 MG PO (20:12)
--- NOTE | 2023-05-22 05:50 | PC.NURSE ---
pt has been increasingly confused through the night, was not able to identify daughter that had been in the room all night, called another daughter at home to verify identify of daughter in room. pt was instructed to give phone as not to wake daughter at home. attempted to take phone away was met with resistence from pt as she was pulling her arm away. pt has been hallucinating. pt has not been ableto identify where she is at or situation of why she is in hospital all night. pt has no been able to sleep al night. provider micha ortez aprn made aware of increased confusion x2 attempts. iv site became unable to be flushed and had to be removed. desirae ortez aprn made aware as daughter was hoping not to put another iv back in. order to leave iv out and have provider assess for further iv abx's this morning.
[2023-05-22 06:25] VITALS: PULSE 70
[2023-05-22] MEDS: IPRATROPIUM/ALBUTEROL 3 ML NEB IH (06:27)
[2023-05-22] MEDS: BUDESONIDE 0.5MG/2ML NEB 0.5 MG IH (06:27)
[2023-05-22] MEDS: LEVOTHYROXINE 50MCG (0.05MG) TAB 50 MCG PO (07:09)
[2023-05-22 07:38] LABS: Alanine Aminotransferase 34 U/L (12-78); Albumin Level 2.9 g/dl (3.5-5.0); Albumin/Globulin Ratio 0.7 (1.1-1.8); Alkaline Phosphatase 312 U/L (38-126); Anion Gap 12.8 mEq/L (5-15); Aspartate Amino Transferase 84 U/L (14-36); Bilirubin,Total 1.1 mg/dl (0.2-1.3); Blood Urea Nitrogen 32 mg/dl (7-17); Calcium 8.3 mg/dl (8.4-10.2); Carbon Dioxide 17 mmol/L (22.0-30.0); Chloride 108 mmol/L (98-107); Creatinine Clearance Estimated 31 mL/min (50-200); Estimated Glomerular Filt Rate 39 ml/min (>60); GFR (African American) 47 ML/MIN (>60); Globulin 3.9 g/dL (1.3-3.2); Glucose 92 mg/dl (74-100); Potassium 4.8 mmoL/L (3.5-5.1); Sodium 133 mmol/L (136-145); Total Protein,Serum 6.8 g/dl (6.3-8.2)
[2023-05-22 08:00] VITALS: BP 122/49; PULSE 70; RESP 16; TEMP 36.7; O2SAT 99
[2023-05-22] MEDS: APIXABAN 5MG TABLET 2.5 MG PO (08:05)
[2023-05-22] MEDS: ASPIRIN EC 81MG TABLET 81 MG PO (08:05)
[2023-05-22 08:06] VITALS: PULSE 70
[2023-05-22] MEDS: ACETAMINOPHEN 325MG TAB 650 MG PO (08:06)
[2023-05-22] MEDS: DIGOXIN 0.125MG TABLET 125 MCG PO (08:06)
[2023-05-22] MEDS: AZITHROMYCIN 250MG TABLET 500 MG PO (08:07)
[2023-05-22] MEDS: POTASSIUM CHLORIDE 20MEQ TAB 20 MEQ PO (08:07)
[2023-05-22] MEDS: ALLOPURINOL 300MG TABLET 300 MG PO (08:07)
[2023-05-22 08:08] LABS: Magnesium 2.1 mg/dl (1.6-2.3)
[2023-05-22 09:24] LABS: Basophils % 0.2 % (0.1-2.0); Eosinophils # 0.6 K/mm3 (0.0-0.4); Eosinophils % 6.2 % (0.1-12.0); Hematocrit 31.4 % (37.0-47.0); Hemoglobin 10.2 g/dL (12.2-16.2); Lymphocytes # 0.9 K/mm3 (0.7-4.5); Lymphocytes % 8.4 % (10-50); Mean Corpuscular HGB Conc 32.4 g/dL (31.8-35.4); Mean Corpuscular Hemoglobin 31.1 pg (27.0-31.2); Mean Corpuscular Volume 95.9 fl (81-99); Mean Platelet Volume 9.8 fl (7.4-10.4); Monocytes # 0.3 K/mm3 (0.1-1.0); Monocytes % 3.1 % (1.7-9.3); Neutrophils # 8.4 K/mm3 (1.8-7.8); Neutrophils % 82.1 % (37.0-80.0); Platelet Count 204 K/mm3 (142-424); Red Blood Count 3.28 M/mm3 (4.20-5.40); Red Cell Distribution Width 16.5 % (11.5-17.5); White Blood Count 10.2 K/mm3 (4.8-10.8)
--- NOTE | 2023-05-22 10:05 | HMH.OTEV ---
OT Inpatient Evaluation Rehab OT IP Evaluation Start: 05/21/23 10:48 Freq: ONCE Status: Active Protocol: Document 05/22/23 09:55 KLARISSA (Rec: 05/22/23 10:04 [id number] Rehab OT IP Assessment Subjective History Pt oriented x 3 on arrival. Pt agreeable to engage in therapy evaluation. Her family present and supportive of patient. Prior to being in the hospital , pt lived at home alone. Pt' s family check on her daily. Normally, pt is able to complete all ADLs independently. Pt is able to cook small meals and do light cleaning independently. However, family usually completes heavier household tasks. Pt does use a rollator during functional transfers. History and physical report: Ms. Santacruz is an 82-year-old female with history of pulmonary fibrosis, TIA, weight loss, hypertension, hypothyroidism, RA who was brought to the ER by family with concern for change in mental status over the last 24 hours. She was actually seen in the ER yesterday for some weakness and mild confusion. Was diagnosed with mild kidney injury given fluids, discharged home. She presents today with increased confusion. Has had episodes like this in the past with delirium onset during illnesses that would improve as her illness is improved. Presentation today, family skin concern for fatigue, agitation, altered from baseline. Had a temperature of 99 at home. Has had a mild cough but not productive. Workup in the ER concerning for elevated white count at 12 .4. Also noted to have mild infection in troponin but no complaint of chest pain. Chest imaging obtained that is poorly rotated but has concern for increased interstitial markings, suspicious for pneumonia on top of her fibrosis. Fever 101.2 in the ER. ER consulted medicine for admission given patient's meeting of sepsis criteria. Extensive discussion about possible LP for meningitis, no clear meningitic signs in the ER. Treating empirically with azithromycin and meningitic dosing ceftriaxone. Will hold on LP at this time and reevaluate over the next day or 2. On arrival to the floor, patient's daughter is at bedside. Patient is sleeping comfortably on room air. Denies any nausea, vomiting, diarrhea. No skin wounds or other signs of infection. Urine was obtained in the ER with minor findings including trace leuk esterase and occasional white cells. Negative nitrates. Subjective I am ready to go home. Objective Patient Orientation Person,Place,Birthday Right Upper Extremity Gross ROM WFL Left Upper Extremity Gross ROM WFL Transfer Training Sit/Stand Transfer Assist Level Supervision/Stand by Chair Transfer Ability Supervision/Stand by Chair Transfer Technique Sit to/from Ambulatory Chair Transfer Assistive Devices Rolling Walker Lower Body Dressing Ability Standby Assistance Rehab OT IP prob,goals,plan Problems Date of Evaluation: 05/22/23 OT IP Problems Bed Mobility,Transfers,Balance ,Self care,Safety Rehab Potential Rehab Potential Good Discharge Plan OT Discharge Plan Pt appears to be at her baseline with functional transfers and ADL independence . Daughters report someone will be staying with her 28/11 temporarily. Therapist recommends HH OT evaluation upon returning home for environmental safety. Pt and family agreeable with plan. Eval Complexity Eval Charge Codes 39803 - Moderate Complexity PHYSICIAN CERTIFICATION: I certify the specified therapy services for Nevaeh Santacruz are required, authorized, and reviewed every 30 days.
--- NOTE | 2023-05-22 10:18 | SW/DCPLANNER ---
Addendum entered by Shasta Sandoval 05/22/23 14:44: Romana correa/ [facility] stated that services will begin tomorrow. Addendum entered by Shasta Sandoval 05/22/23 13:37: Per Ailyn correa/ [facility] patient received BSC in 2021 and is not able to receive DME under insurance: I have updated patient/family. Original Note: I spoke w/ this patient and her family regarding plans once medically stable for discharge. PT/OT evaluated patient and recommended returning home w/ home health services. Patient/family stated that patient is already established w/ [facility] and would prefer to return home and resume services. Patient/family also stated that patient would need a BSC and prefer to use [facility] and deliver to patient's home. Patient could possibly discharge later today per patient/family. Information/order will be faxed to [facility] and [facility] at time of discharge.
--- NOTE | 2023-05-22 10:49 | CA_ITS ---
APPROVED REPORT EXAM: Comprehensive 2D, Doppler, and color-flow Echocardiogram Line Patrolman: Tanesha Stephenson CRT Ht: 5 ft 6 in Wt: 128lbs BSA: 1.65 BP: 124/41 mmHg Indications: Congestive Heart Failure, Hyperlipidemia, Pacer, A fib, ND, 2D Dimensions LA Volume 58.50 mL LA Volume Index 34.60 mL/m2 (M/F) 16-34 M-Mode Dimensions RVDd 2.75 cm (0.9-2.6) LA Diam 3.52 cm (1.9-4.0) LVDd 4.66 cm (3.5-5.7) LVDs 3.28 cm (3.5-5.7) IVSd 2.08 cm (0.6-1.1) PWd 1.11 cm (0.6-1.1) EF (Teich) 56.60% FS 29.60% EDV (Teich) 100.30 mL TAPSE 1.30 (<1.7) ESV (Teich) 43.50 mL LV Diastology E Decel Time 163 (160-240 msec) E/A Ratio 2.81 MED A' 7.70 cm/s LAT A' 3.20 cm/s Aortic Valve AO Peak GR. 18.80 mmHg Mitral Valve MV E Max Robby. 113.0 (40-130 cm/s) MV A Velocity 40.0 (40-130 cm/s) E/A Ratio 2.81 MV PHT 48.0 ms Pulmonary Valve PV Peak Velocity 210.0 (50-150 cm/s) Tricuspid Valve TR P. Velocity 337.00 cm/s RAP Estimate 10.00 mmHg RVSP 55.50 mmHg Left Ventricle The left ventricle is normal size. The left ventricular systolic function is low normal. There is increased LV wall thickness. There is borderline global hypokinesis present. The septal and anterior septal LV lopez appear moderately hypokinetic. Grade 2 diastolic dysfunction is present. LVEF is 50%. Right Ventricle The right ventricle is mildly dilated. The right ventricular systolic function is normal. There is a device lead present in the right ventricle. Atria The left atrium is moderately dilated. The right atrium is moderately dilated. There is a device lead present in the right atrium. There is no Doppler evidence of interatrial shunt. Aortic Valve The aortic valve is mildly thickened. Aortic sclerosis is present, but no evidence of aortic stenosis. Peak velocity 2.2 m/s. Mean AV gradient 10 mmHg. Max AV gradient 25 mmHg. Trace aortic regurgitation. Mitral Valve The mitral valve leaflets are mildly thickened. No evidence of mitral valve stenosis. Mild mitral regurgitation. Tricuspid Valve The tricuspid valve leaflets are thin and pliable. Mild tricuspid regurgitation. RVSP is 35 mmHg plus RA pressure. Pulmonic Valve The pulmonary valve is normal in structure. Mild pulmonic regurgitation. Great Vessels The aortic root is normal in size. The ascending aorta is borderline dilated, measuring 3.7 cm in diameter. The IVC is not well-visualized. Pericardium There is no pericardial effusion. Other Information Study Quality: Fair Conclusion Low normal LV systolic function (LVEF 50%). Grade 2 diastolic dysfunction. Septal and anterior septal LV lopez appear moderately hypokinetic. Mild RV dilation. Mild MR, mild TR, mild PI. RVSP 35 mmHg + RA pressure. Ascending aorta is borderline dilated, measuring 3.7 cm in diameter. Electronically signed by : Stacie Patel MD 05/23/2023 04:45:38
--- NOTE | 2023-05-22 11:33 | P.DS_ITS ---
General Admission date:: 05/18/23 Discharge date: 05/22/23 HPI HPI HPI: Ms. Santacruz is an 82-year-old female with history of pulmonary fibrosis, TIA, weight loss, hypertension, hypothyroidism, RA who was brought to the ER by family with concern for change in mental status over the last 24 hours. She was actually seen in the ER yesterday for some weakness and mild confusion. Was diagnosed with mild kidney injury given fluids, discharged home. She presents today with increased confusion. Has had episodes like this in the past with delirium onset during illnesses that would improve as her illness is improved. Presentation today, family skin concern for fatigue, agitation, altered from baseline. Had a temperature of 99 at home. Has had a mild cough but not productive. Workup in the ER concerning for elevated white count at 12.4. Also noted to have mild infection in troponin but no complaint of chest pain. Chest imaging obtained that is poorly rotated but has concern for increased interstitial markings, suspicious for pneumonia on top of her fibrosis. Fever 101.2 in the ER. ER consulted medicine for admission given patient's meeting of sepsis criteria. Extensive discussion about possible LP for meningitis, no clear meningitic signs in the ER. Treating empirically with azithromycin and meningitic dosing ceftriaxone. Will hold on LP at this time and reevaluate over the next day or 2. On arrival to the floor, patient's daughter is at bedside. Patient is sleeping comfortably on room air. Denies any nausea, vomiting, diarrhea. No skin wounds or other signs of infection. Urine was obtained in the ER with minor findings including trace leuk esterase and occasional white cells. Negative nitrates. Hospital Course Hospital Course Hospital Course: 82-year-old female who presents with worsening confusion. Presentation in the ER concerning for severe sepsis with pneumonia. Discussed case with ER physician, request admission for continued IV antibiotics, further management of sepsis. Medicine agreed to admit. Patient's fever resolved. Her mentation drastically improved but she was having some sundowning and difficulty sleeping during admission. Tolerating p.o. intake. Ambulating with minimal assistance. On oral antibiotics. Plan to follow-up with pulmonology as an outpatient. Stable to discharge home to complete treatment. Problems addressed as follows: Severe sepsis, resolved Pneumonia Metabolic encephalopathy, resolved Pleural effusion Small pneumothorax - Ms. Santacruz is a 82-year-old female history rheumatoid arthritis, pulmonary fibrosis, mild persistent asthma presented to the ER with altered mentation CT found to have pneumonia and pleural effusion. Neutrophilic leukocytosis upon admission. CT chest bilateral worsening airspace disease also concerning for interstitial thickening/pulmonary edema. COVID-19 and flu PCR negative. CT also showed bilateral pleural effusions left greater than right. Patient noted to have effusions on her CT from 03/16/2023 which are progressively getting worse. I do not think the effusions have anything to do with patient acute distress at this point of time. She is saturating 98% on room air. Does not appear to be in any respiratory distress. She was initiated on broad-spectrum antibiotics with vancomycin, cefepime, azithromycin. Pulmonology was consulted to assist with care. Patient was gradually transition to linezolid and Levaquin in anticipation of discharge regimen. MRSA swab returned negative on day of discharge. Patient to complete 7-day course with levofloxacin orally. Renally dosed. Treated with DuoNebs and Pulmicort during admission. Remained stable on room air during admission. Plan for close follow-up as an outpatient with pulmonology. Pulmonary fibrosis/RA: Will hold adalimumab at this time. Was due for dose on day of discharge, recommend holding for at least a week until she completes antibiotics. A-fib Hypertension -Continue aspirin 81 mg daily, continue Eliquis 2.5 mg twice daily, continue Lipitor daily, continue digoxin 0.125 mg daily. Echo obtained prior to discharge home. Formal read return on day of discharge with the following:Low normal LV systolic function (LVEF 50%). Grade 2 diastolic dysfunction. Septal and anterior septal LV lopez appear moderately hypokinetic. Mild RV dilation. Mild MR, mild TR, mild PI. RVSP 35 mmHg + RA pressure. Sleep disorder: Transition to melatonin, holding mirtazapine given risk for serotonin syndrome with linezolid. Okay to resume the night after discharge as she is not being discharged on linezolid and was on this medication before coming to the hospital. Hypothyroid: Continue levothyroxine 2 mcg daily GERD: Continue pantoprazole 40 mg nightly IV Gout: Continue allopurinol 300 mg daily Exam Data for Last 24 hours Vital signs and Labs for Last 24 Hours: Temp Pulse Resp BP Pulse Ox O2 Del Method O2 Flow Rate 98.1 F 70 16 122/49 L 99 Room Air 0.5 05/22/23 08:00 05/22/23 08:06 05/22/23 08:00 05/22/23 08:00 05/22/23 08:00 05/22/23 10:36 05/19/23 16:00 Laboratory Results - last 24 hr 05/22/23 05:44: Sodium 133 L, Potassium 4.8 D, Chloride 108 H, Carbon Dioxide 17 L, Anion Gap 12.8, BUN 32 H, Creatinine 1.30 H, Estimated Creat Clear 31, Estimated GFR 39 L, Est GFR ( Amer) 47 L, Glucose 92 D, Calcium 8.3 L, Magnesium 2.1, Total Bilirubin 1.1, AST 84 H D, ALT 34, Alkaline Phosphatase 312 H, Total Protein 6.8, Albumin 2.9 L D, Globulin 3.9 H, Albumin/Globulin Ratio 0.7 L 05/22/23 09:10: WBC 10.2, RBC 3.28 L, Hgb 10.2 L, Hct 31.4 L, MCV 95.9, MCH 31.1, MCHC 32.4, RDW 16.5, Plt Count 204, MPV 9.8, Neut % (Auto) 82.1 H, Lymph % (Auto) 8.4 L, Lanier % (Auto) 3.1, Eos % (Auto) 6.2, Baso % (Auto) 0.2, Neut # (Auto) 8.4 H, Lymph # (Auto) 0.9, Lanier # (Auto) 0.3, Eos # (Auto) 0.6 H, Baso # (Auto) 0.0 I & O for Last 24 hours: Intake & Output 05/19/23 05/20/23 05/21/23 05/22/23 23:59 23:59 23:59 23:59 Intake Total 120 / 170 970 / 1530 1520 / 1520 222 / 222 Output Total 1200 / 1400 525 / 525 0 / 0 900 / 900 Balance -1080 / -1230 445 / 1005 1520 / 1520 -678 / -678 Weight 53.63 kg 54.233 kg 58.06 kg Microbiology Reports for the Last 24 Hours: Microbiology 05/18/23 11:40 Blood Blood Culture - Preliminary 05/18/23 10:25 Blood Blood Culture - Preliminary 05/18/23 12:28 Urine,Catheterized Urine Culture - Final Constitutional Constitutional: no acute distress, thin and cooperative *Routine HEENT Exam Head: Present normocephalic Eye: Present EOMI and PERRL ENT: Present mucous membranes moist *Routine Neck Exam Neck: Present supple; Absent lymphadenopathy *Routine Respiratory Exam Respiratory: Present crackles (Diffuse, coarse) and normal respiratory effort; Absent rhonchi or wheezes *Routine Cardiovascular Exam Cardiovascular: Present RRR *Routine Abdominal Exam Abdominal: Present soft and normoactive bowel sounds; Absent tenderness *Routine Extremities Exam Extremities: Absent cyanosis, clubbing or edema *Routine Skin Exam Skin: Present warm; Absent rash *Routine Neurological Exam Neurological: Present alert, CN II-XII intact, moving all extremities and normal speech; Absent altered mental status Comments: Some confusion overnight, recognizes her confusion but is alert and oriented x2 Results Data Completed and Pending Labs on day of discharge: Labs from last 24 hours 05/22/23 05/22/23 09:10 05:44 WBC 10.2 RBC 3.28 L Hgb 10.2 L Hct 31.4 L MCV 95.9 MCH 31.1 MCHC 32.4 RDW 16.5 Plt Count 204 MPV 9.8 Neut % (Auto) 82.1 H Lymph % (Auto) 8.4 L Lanier % (Auto) 3.1 Eos % (Auto) 6.2 Baso % (Auto) 0.2 Neut # (Auto) 8.4 H Lymph # (Auto) 0.9 Lanier # (Auto) 0.3 Eos # (Auto) 0.6 H Baso # (Auto) 0.0 Sodium 133 L Potassium 4.8 D Chloride 108 H Carbon Dioxide 17 L Anion Gap 12.8 BUN 32 H Creatinine 1.30 H Estimated Creat Clear 31 Estimated GFR 39 L Est GFR ( Amer) 47 L Glucose 92 D Calcium 8.3 L Magnesium 2.1 Total Bilirubin 1.1 AST 84 H D ALT 34 Alkaline Phosphatase 312 H Total Protein 6.8 Albumin 2.9 L D Globulin 3.9 H Albumin/Globulin Ratio 0.7 L Preliminary micro results at discharge 05/18/23 11:40 Blood Culture - Preliminary Blood 05/18/23 10:25 Blood Culture - Preliminary Blood DS: Diagnosis Discharge Diagnosis (1) Pneumonia: Status: Acute Code(s): J18.9 - Pneumonia, unspecified organism (2) Encephalopathy acute: Status: Resolved Code(s): G93.40 - Encephalopathy, unspecified (3) Myocardial injury: Status: Acute Code(s): I5A - Non-ischemic myocardial injury (non-traumatic) (4) Fibrosis of lung: Status: Acute Code(s): J84.10 - Pulmonary fibrosis, unspecified (5) ILD (interstitial lung disease): Status: Acute Code(s): J84.9 - Interstitial pulmonary disease, unspecified (6) Essential hypertension: Status: Chronic Code(s): I10 - Essential (primary) hypertension (7) Hypothyroid: Status: Chronic Code(s): E03.9 - Hypothyroidism, unspecified Qualifiers: Hypothyroidism type: unspecified Qualified Code(s): E03.9 - Hypothyroidism, unspecified (8) Pleural effusion, bilateral: Status: Acute Code(s): J90 - Pleural effusion, not elsewhere classified (9) Severe protein-calorie malnutrition: Status: Acute Code(s): E43 - Unspecified severe protein-calorie malnutrition Meds Home Medications and Allergies Home Medications Medication Instructions Recorded Confirmed Type apixaban 5 mg tablet (Eliquis) 2.5 mg PO BID Blood thinner/atrial 10/07/21 05/18/23 History fib aspirin 81 mg tablet,delayed 81 mg PO DAILY Heart Health 02/03/22 05/18/23 History release multivitamin 1 tab PO DAILY Supplement 02/03/22 05/18/23 History adalimumab 40 mg/0.8 mL 40 mg SQ DIRECTED 01/11/23 05/18/23 History subcutaneous syringe kit (Humira) budesonide-formoterol HFA 80 1 inh inhalation BID #10.2 grams 01/11/23 05/18/23 Rx mcg-4.5 mcg/actuation aerosol inhaler (Symbicort) albuterol sulfate 90 mcg/actuation 2 puff inhalation Q6HP PRN 04/07/23 05/18/23 Rx aerosol inhaler Shortness Of Breath #8.5 grams allopurinol 300 mg tablet 300 mg PO DAILY gout 90 days #90 04/10/23 05/18/23 Rx tabs pantoprazole 40 mg tablet,delayed 40 mg PO DAILY acid reflux 90 days 05/03/23 05/18/23 Rx release #90 tabs ipratropium 0.5 mg-albuterol 3 mg 3 ml inhalation Q4-6H PRN 05/09/23 05/18/23 Rx (2.5 mg base)/3 mL nebulization shortness of breath #90 mL soln vitamins A,C,C-usam-teaiue 4,296 1 cap PO BID Supplement 05/11/23 05/18/23 History mcg-226 mg-90 mg capsule (PreserVision AREDS) atorvastatin 40 mg tablet 40 mg PO DAILY Cholesterol 30 days 05/16/23 05/18/23 Rx #30 tabs levothyroxine 50 mcg tablet 50 mcg PO DAILY Thyroid 05/19/23 05/19/23 History digoxin 125 mcg (0.125 mg) tablet 125 mcg PO DAILY Heart rhythm 90 05/22/23 05/18/23 Rx days #90 tabs levofloxacin 750 mg tablet 750 mg PO Q48H 3 days #2 tabs 05/22/23 Rx melatonin 5 mg tablet 5 mg PO HS 30 days #30 tabs 05/22/23 Rx mirtazapine 7.5 mg tablet 7.5 mg PO HS #30 tabs 05/22/23 05/18/23 Rx alprazolam 0.25 mg tablet 0.25 mg PO BID #60 tabs 05/23/23 Rx quetiapine 50 mg tablet (Seroquel) 50 mg PO HS #1 tab 05/23/23 Rx New Prescriptions to Start Prescriptions: levoVick Melchor James Allergies Allergy/AdvReac Type Severity Reaction Status Date / Time nitrofurantoin Allergy Verified 05/18/23 16:34 [From Macrobid] Sulfa (Sulfonamide Allergy Verified 05/18/23 16:34 Antibiotics) Discharge Plan Disposition Patient Disposition: Home Health Service Condition: Fair Discharge Order Discharge Orders: Discharge Order (Routine); Ordered 05/22/23 Ordered By: Vick Mckeon Follow up Plan Follow up with: Arvin Beltran MD [Primary Care Provider] - 05/29/23 11:00 am Vaibhav Christensen MD [Physician] - 06/06/23 1:15 pm Prescriptions/Medication Reconciliation: New levofloxacin 750 mg Tablet 750 mg PO Q48H 3 Days Qty: 2 0RF Rx Instructions: first dose 05/23, second dose 05/25 melatonin 5 mg Tablet 5 mg PO HS 30 Days Qty: 30 0RF Continued Eliquis 5 mg tablet 2.5 mg PO BID Humira 40 mg/0.8 mL syringe kit 40 mg SQ DIRECTED Rx Instructions: inject one - 40 mg/0.8 mL syringe every 2 weeks SQ budesonide-formoterol [Symbicort] 80-4.5 mcg/actuation HFA aerosol inhaler 1 inh inhalation BID Qty: 10.2 3RF multivitamin Tablet 1 tab PO DAILY aspirin 81 mg tablet,delayed release (DR/EC) 81 mg PO DAILY PreserVision AREDS 4,296 mcg-226 mg-90 mg capsule 1 cap PO BID albuterol sulfate 90 mcg/actuation HFA aerosol inhaler 2 puff inhalation Q6HP PRN (Reason: Shortness Of Breath) Qty: 8.5 2RF allopurinol 300 mg tablet 300 mg PO DAILY 90 Days Qty: 90 3RF pantoprazole 40 mg tablet,delayed release (DR/EC) 40 mg PO DAILY 90 Days Qty: 90 0RF ipratropium-albuterol 0.5 mg-3 mg(2.5 mg base)/3 mL solution for nebulization 3 ml inhalation Q4-6H PRN (Reason: shortness of breath) Qty: 90 0RF atorvastatin 40 mg tablet 40 mg PO DAILY 30 Days Qty: 30 0RF levothyroxine 50 mcg tablet 50 mcg PO DAILY mirtazapine 7.5 mg tablet 7.5 mg PO HS Qty: 30 0RF Rx Instructions: resume 05/23/23 Changed digoxin 125 mcg (0.125 mg) tablet 125 mcg PO DAILY 90 Days Qty: 90 0RF Discontinued digoxin 125 mcg (0.125 mg) tablet 62.5 mcg PO MOWEFR 90 Days Qty: 20 0RF No Action alprazolam 0.25 mg tablet 0.25 mg PO BID Qty: 60 2RF quetiapine [Seroquel] 50 mg tablet 50 mg PO HS Qty: 1 0RF Other Ambulatory Orders: Home Medical Equipment (Routine) Location: None Selected Ordered By: Vick Mckeon Problem Reconciliation Problems Reviewed?: Yes Patient Discharge Instructions ACTIVITY: Ambulate as tolerated and Up with assistance DIET: continue same diet Patient Instructions: DI for Urinary Tract Infection (UTI), DI for Sepsis -- Adult, DI for Encephalopathy Providers Primary Care Provider: Devin,Arvin Admit Provider: Vick Mckeon Attending Provider: Vick Mckeon
[2023-05-22] MEDS: LINEZOLID 600 MG TABLET PO (11:45)
--- NOTE | 2023-05-22 12:11 | HMH.PTEV ---
Physical Therapy Evaluation Rehab PT IP Evaluation Start: 05/21/23 10:48 Freq: ONCE Status: Active Protocol: Document 05/22/23 12:07 PERFECTO (Rec: 05/22/23 12:11 PERFECTO [id number]) Subjective/History History History 82 yowf adm to [facility] with sepsis . PMH of pulmonary fibrosis, TIA, HTN, hypothyroid, and RA. SHe lives with family who assist her with all ADLs and she is generally independent with all mobility using a RW. Subjective Subjective Pt with no new c/o this am. New diagnosis of cancer in past 12 No months? Rehab PT IP Eval Objective Appearance Patient Behavior Appropriate Patient Orientation Person,Place Difficulty following instructions mild Speech Pattern Clear Ambulation Patient Able to Ambulate Yes Ambulation Observation IP General Gait Pattern Observation No Deviations/Normal Ambulation Distance (feet) 30 Ambulation Assistive Device Rolling Walker Ambulation Ability Supervision/Stand by Balance Ability to Arise Able, uses arms to help Sitting Balance Steady, safe Standing Balance Steady, wide stance Dynamic Sitting Balance Ability Good Dynamic Standing Balance Ability Good Transfers Bed Transfer Ability Supervision/Stand by Chair Transfer Ability Supervision/Stand by Sit to Stand Bed Transfer Ability Supervision/Stand by Sit to Stand Chair Transfer Ability Supervision/Stand by Rehab PT IP prob,goals,plan Problems Date of Evaluation: 05/22/23 Discharge Plan PT Discharge Plan Pt is currently appropriate to return home once medically stable for d/c. No inpatient therapy needs at this time. Eval Complexity Eval Charge Codes 60821 - High Complexity PHYSICIAN CERTIFICATION: I certify the specified therapy services for Nevaeh Santacruz are required, authorized, and reviewed every 30 days.
--- NOTE | 2023-05-24 14:50 | CARE MANAGER ---
Called and spoke with patient's granddaughter regarding recent discharge. She stated that patient was resting and seemed to be doing better today. Patient is taking Abx as prescribed at discharge. She was aware of her scheduled f/u appt.
[2023-05-24 17:35] LABS: Aspergillus flavus Negative (Neg:<1:1); Aspergillus fumigatus Negative (Neg:<1:1); Aspergillus niger Negative (Neg:<1:1); Blastomyces Antibody Negative (Neg:<1:1)
== END 2023-05-22 13:46 | disposition home health service (06) | DRG 871 ==
LOC: ER 11:20 → 2ND 05-19 00:11
PROVIDERS: Internal Medicine Pulmonary Disease; Admitting Provider Internal Medicine Adolescent Medicine; Emergency Provider Student in an Organized Health Care Education/Training Program; PCP Family Medicine; Visit Provider Internal Medicine Adolescent Medicine
DX: A41.9 Sepsis, unspecified organism (principal); E43 Unspecified severe protein-calorie malnutrition; J18.9 Pneumonia, unspecified organism; G93.41 Metabolic encephalopathy; I5A Non-ischemic myocardial injury (non-traumatic); J84.9 Interstitial pulmonary disease, unspecified; R65.20 Severe sepsis without septic shock; J84.10 Pulmonary fibrosis, unspecified; I10 Essential (primary) hypertension; E03.9 Hypothyroidism, unspecified; Z68.20 Body mass index [BMI] 20.0-20.9, adult; Z86.73 Personal history of transient ischemic attack (TIA), and cerebral infarction without residual deficits; M06.9 Rheumatoid arthritis, unspecified; K21.9 Gastro-esophageal reflux disease without esophagitis; M10.9 Gout, unspecified
CPT/HCPCS: 36415; 70450; 71045; 71250; 74176; 80053; 81001; 82140; 82803; 83605; 83735; 84443; 84484; 85025; 86140; 86606; 86612; 87040; 87081; 87086; 87632; 87635; 93005; 93306; 94640; 96361; 96374; 96375; 97163; 97166; 99285; J0131; J0456; J0696; J1956; J2020; J2405; J3475

== ENCOUNTER 2023-05-31 11:42 | Outpatient (CLI) | payer MEDICARE, OTHER, SELFPAY ==
--- NOTE | 2023-05-31 11:57 | CT_ITS ---
FINAL REPORT TECHNIQUE: Axial CT images were performed through the head. Coronal reformatted images were submitted. This study was performed with techniques to keep radiation doses as low as reasonably achievable (ALARA). Individualized dose reduction techniques using automated exposure control or adjustment of mA and/or kV according to the patient's size were employed. CLINICAL HISTORY: confusion; possible lacunar infarct COMPARISON: 05/18/2023 FINDINGS: There is strh-gh-sdsbykjh atrophy. Left ventricle is asymmetrically larger than the right and favored to be constitutional. There is no evidence of hemorrhage. There is no mass or edema identified. There is no abnormal extra-axial fluid seen. The sinuses are well aerated. IMPRESSION: Atrophy without acute intracranial process. Reviewed, Interpreted and Dictated by Armando Jones MD Transcribed by Yakelin Freed Authenticated and [facility]
[2023-05-31 12:21] LABS: Basophils % 0.4 % (0.1-2.0); Eosinophils # 0.5 K/mm3 (0.0-0.4); Eosinophils % 3.8 % (0.1-12.0); Hematocrit 36.4 % (37.0-47.0); Hemoglobin 11.3 g/dL (12.2-16.2); Lymphocytes # 1.8 K/mm3 (0.7-4.5); Lymphocytes % 15.2 % (10-50); Mean Corpuscular HGB Conc 31.1 g/dL (31.8-35.4); Mean Corpuscular Hemoglobin 29.7 pg (27.0-31.2); Mean Corpuscular Volume 95.6 fl (81-99); Monocytes # 0.4 K/mm3 (0.1-1.0); Monocytes % 3.7 % (1.7-9.3); Neutrophils # 9.2 K/mm3 (1.8-7.8); Neutrophils % 76.9 % (37.0-80.0); Platelet Count 322 K/mm3 (142-424); Red Blood Count 3.81 M/mm3 (4.20-5.40); Red Cell Distribution Width 16.4 % (11.5-17.5)
[2023-05-31 13:05] LABS: Chloride 112 mmol/L (98-107); Potassium 5.2 mmoL/L (3.5-5.1); Sodium 139 mmol/L (136-145)
[2023-05-31 13:07] LABS: Blood Urea Nitrogen 63 mg/dl (7-17); Estimated Glomerular Filt Rate 24 ml/min (>60); GFR (African American) 29 ML/MIN (>60)
[2023-05-31 13:08] LABS: Alanine Aminotransferase 17 U/L (12-78); Albumin Level 2.7 g/dl (3.5-5.0); Albumin/Globulin Ratio 0.8 (1.1-1.8); Alkaline Phosphatase 556 U/L (38-126); Anion Gap 18.2 mEq/L (5-15); Aspartate Amino Transferase 45 U/L (14-36); Bilirubin,Total 0.6 mg/dl (0.2-1.3); Calcium 8.5 mg/dl (8.4-10.2); Carbon Dioxide 14 mmol/L (22.0-30.0); Globulin 3.6 g/dL (1.3-3.2); Glucose 101 mg/dl (74-100); Total Protein,Serum 6.3 g/dl (6.3-8.2)
[2023-05-31 13:41] LABS: Thyroid Stimulating Hormone 0.87 uIU/mL (0.465-4.68)
== END 2023-05-31 23:59 ==
LOC: RAD 11:43
PROVIDERS: PCP Family Medicine; Visit Provider Family Medicine
DX: E03.9 Hypothyroidism, unspecified (principal); G93.40 Encephalopathy, unspecified; R41.0 Disorientation, unspecified
CPT/HCPCS: 70450; 80053; 84443; 85025

== ENCOUNTER 2023-05-31 16:03 | Emergency (ER) | payer MEDICARE, OTHER, SELFPAY ==
[2023-05-31 16:25] VITALS: BP 0/0; PULSE 0; RESP 0; TEMP -17.7; TEMP 0
--- NOTE | 2023-05-31 16:41 | PC.NURSE ---
CALLED TO BRING PT BACK TO BE EVALUATED BY STAFF. PT HAD LEFT WITHOUT BEING SEEN. CALLED DAUGHTER IN PT'S CHART (STEFANO) STATES PT HAD BEEN AT [facility] FOR OVER 4 HOURS HAVING OUT PT TESTING DONE, PT BECAME TIRED AND RESTLESS. DR. SWAN WANTED PT TO RECEIVE IVF'S. OFFERED DAUGHTER TO HAVE PT EVALUATED STATES AFTER ADDITIONAL PHONE CALL TO DR SWAN PT WILL HYDRATE AT HOME. ENCOURAGED FAMILY TO BRING PT BACK WITH ANY CONCERNS. DAUGHTER V/U. INFORMED OF OUT PT INFUSION AND POSSIBILITY THAT DR SWAN MAY OFFER THAT OPTION
== END 2023-05-31 16:25 | disposition left against medical advice (07) ==
LOC: ER 16:56
PROVIDERS: Emergency Provider Emergency Medicine; PCP Family Medicine
DX: Z53.21 Procedure and treatment not carried out due to patient leaving prior to being seen by health care provider (principal)
CPT/HCPCS: 99211

== ENCOUNTER 2023-06-05 12:05 | Outpatient (CLI) | payer MEDICARE, OTHER, SELFPAY ==
[2023-06-05 13:00] LABS: Basophils # 0.1 K/mm3 (0-0.2); Basophils % 0.4 % (0.1-2.0); Eosinophils # 0.3 K/mm3 (0.0-0.4); Eosinophils % 1.7 % (0.1-12.0); Hematocrit 34.9 % (37.0-47.0); Lymphocytes % 13.3 % (10-50); Mean Corpuscular HGB Conc 31.6 g/dL (31.8-35.4); Mean Corpuscular Hemoglobin 30.4 pg (27.0-31.2); Monocytes # 0.4 K/mm3 (0.1-1.0); Monocytes % 2.6 % (1.7-9.3); Neutrophils # 12.3 K/mm3 (1.8-7.8); Platelet Count 342 K/mm3 (142-424); Red Cell Distribution Width 16.5 % (11.5-17.5)
[2023-06-05 13:01] LABS: MANUAL DIFFERENTIAL MANUAL DIFFERENTIAL (MANUAL DIFF)
[2023-06-05 13:16] LABS: Alanine Aminotransferase 16 U/L (12-78); Albumin Level 2.6 g/dl (3.5-5.0); Albumin/Globulin Ratio 0.8 (1.1-1.8); Alkaline Phosphatase 472 U/L (38-126); Anion Gap 17.2 mEq/L (5-15); Aspartate Amino Transferase 45 U/L (14-36); Bilirubin,Total 0.6 mg/dl (0.2-1.3); Blood Urea Nitrogen 59 mg/dl (7-17); Calcium 9.2 mg/dl (8.4-10.2); Carbon Dioxide 16 mmol/L (22.0-30.0); Chloride 109 mmol/L (98-107); Estimated Glomerular Filt Rate 27 ml/min (>60); GFR (African American) 33 ML/MIN (>60); Globulin 3.4 g/dL (1.3-3.2); Glucose 98 mg/dl (74-100); Potassium 5.2 mmoL/L (3.5-5.1); Sodium 137 mmol/L (136-145)
[2023-06-05 13:45] LABS: Eosinophils % 1 % (0-3); Lymphocytes % 9 % (10-50); Monocytes % 8 % (2-9); Neutrophils % 80 % (42-76); Total Cells Counted 100
[2023-06-05 13:47] LABS: Anisocytosis 1+; Macrocytosis 1+; Platelet Estimate Normal; Spherocytes 1+
[2023-06-05 13:52] LABS: Red Blood Count 3.63 M/mm3 (4.20-5.40)
== END 2023-06-05 23:59 ==
LOC: LAB.DROPOF 12:18
PROVIDERS: PCP Family Medicine; Visit Provider Family Medicine
DX: J18.9 Pneumonia, unspecified organism (principal)
CPT/HCPCS: 80053; 85007; 85025

== ENCOUNTER 2023-06-06 10:17 | Outpatient (CLI) | payer MEDICARE, OTHER, SELFPAY ==
[2023-06-06 10:50] VITALS: BP 129/65; PULSE 69; RESP 16; TEMP 36.4; O2SAT 97
[2023-06-06] MEDS: 0.9 % SODIUM CHLORIDE 1000ML 1,000 ML 500 ML IV (10:50)
[2023-06-06 11:50] VITALS: BP 132/69; PULSE 71; RESP 14; O2SAT 97
[2023-06-06 12:50] VITALS: BP 140/68; PULSE 72; RESP 14; TEMP 36.4; O2SAT 96
--- NOTE | 2023-06-06 14:09 | XR_ITS ---
FINAL REPORT CLINICAL HISTORY: Pleural Efusions COMPARISON: May 21, 2023 FINDINGS: CHEST TWO-VIEW Persistent pulmonary edema, mildly improved. Moderate left pleural effusion, new. No significant right pleural effusion. Left-sided pacemaker. The cardiac silhouette is unremarkable. IMPRESSION: Enlarging left pleural effusion. Reviewed, Interpreted and Dictated by Sd Wharton MD Transcribed by Albert Nixon Authenticated and . [facility]
== END 2023-06-06 12:55 | disposition home or self-care (01) ==
LOC: INF 10:18
PROVIDERS: PCP Family Medicine; Visit Provider Family Medicine
DX: R06.02 Shortness of breath (principal); E86.0 Dehydration
CPT/HCPCS: 71046; 96360; 96361

== ENCOUNTER 2023-06-16 08:45 | Outpatient (CLI) | payer MEDICARE, OTHER, SELFPAY ==
[2023-06-16] VITALS (7 sets, daily range): BP systolic 122–145; BP diastolic 55–79; PULSE 70–71; RESP 16; TEMP 36.7–36.9; O2SAT 98–100; BMI 18.8
--- NOTE | 2023-06-16 08:56 | US_ITS ---
FINAL REPORT CLINICAL HISTORY: Left pleural effusion - HEIKE AMEZCUA -- 800 ML FINDINGS: ULTRASOUND GUIDED LEFT THORACENTESIS HISTORY: Left pleural effusion . ATTENDING PHYSICIAN: Dr. Oates PHYSICIAN WOOD BARKER: Barbie Cobos PA-C TECHNIQUE: Informed consent was obtained from the patient. Timeout procedure was performed prior to beginning. Appropriate pocket was localized for drainage. The left posterior chest was prepped in a routine sterile fashion. Local anesthesia was achieved with 1% lidocaine. Using imaging guidance with images acquired, an 18-gauge sheath needle was directed into the pleural fluid. Approximately 800 mL of yellow serous fluid was aspirated. Ultrasound guidance was utilized for the procedure. 60 mL was sent for laboratory analysis. IMPRESSION: Successful ultrasound guided left thoracentesis. Reviewed, Interpreted and Dictated by Gabriel Oates III, MD Transcribed by Barbie Cobos PA-C Authenticated and [facility]
--- NOTE | 2023-06-16 10:07 | XR_ITS ---
FINAL REPORT CLINICAL HISTORY: post thoracentesis-- lt side-- rosalva black pa-- 800 ml COMPARISON: 06/06/2023 FINDINGS: TWO-VIEW CHEST There is cardiomegaly. Left subclavian pacer is identified. The mediastinum is normal. There are bibasilar opacities, favor atelectasis. Left pleural effusion is improved. There is no pneumothorax. IMPRESSION: Bibasilar atelectasis with improved left effusion. Reviewed, Interpreted and Dictated by Gabriel Oates III, MD Transcribed by Radha Stoddard Authenticated and [facility]
[2023-06-16 11:45] LABS: Alanine Aminotransferase 73 U/L (12-78); Albumin Level 2.7 g/dl (3.5-5.0); Albumin/Globulin Ratio 0.8 (1.1-1.8); Alkaline Phosphatase 372 U/L (38-126); Anion Gap 8.3 mEq/L (5-15); Aspartate Amino Transferase 98 U/L (14-36); Bilirubin,Total 0.7 mg/dl (0.2-1.3); Blood Urea Nitrogen 24 mg/dl (7-17); Calcium 8.5 mg/dl (8.4-10.2); Carbon Dioxide 25 mmol/L (22.0-30.0); Chloride 110 mmol/L (98-107); Creatinine Clearance Estimated 37 mL/min (50-200); Estimated Glomerular Filt Rate 80 ml/min (>60); GFR (African American) 97 ML/MIN (>60); Globulin 3.4 g/dL (1.3-3.2); Glucose 111 mg/dl (74-100); Lactate Dehydrogenase 211 U/L (313-618); Potassium 3.3 mmoL/L (3.5-5.1); Sodium 140 mmol/L (136-145); Total Protein,Serum 6.1 g/dl (6.3-8.2)
[2023-06-16 12:52] LABS: Appearance,Body Fld. Hazy; RBC,Body Fluid < 10 cells/uL (< 10 X 10^3); Source, Body Fld. Thoracentesis Fluid; TNC,Body Fluid 798 cells/uL (< 1000); Volume,Body Fld. 800 mL
[2023-06-16 12:53] LABS: Mononuclear WBCs,Body Fluid 99 %; Polynuclear WBC,Body Fluid 1 %
[2023-06-17 12:20] LABS: Albumin, Body Fluid 1.3 g/dL (Not Estab.); Glucose, Body Fluid 93 mg/dL (.); LD, Body Fluid 156 IU/L (.); Protein, Body Fluid 3.2 g/dL (.)
[2023-06-19 09:09] LABS: LD, Body Fluid 156 IU/L (.)
== END 2023-06-16 12:15 | disposition home or self-care (01) ==
PROVIDERS: PCP Family Medicine; Visit Provider Internal Medicine Pulmonary Disease
DX: J90 Pleural effusion, not elsewhere classified (principal); J84.9 Interstitial pulmonary disease, unspecified
CPT/HCPCS: 32555; 36415; 71046; 80053; 82042; 82945; 83615; 84155; 87070; 87205; 88112; 88305; 89051

== ENCOUNTER 2023-07-06 22:08 | Outpatient (CLI) | payer MEDICARE, OTHER, SELFPAY ==
[2023-07-06 16:34] LABS: Basophils % 0.3 % (0.1-2.0); Eosinophils % 0.2 % (0.1-12.0); Hematocrit 37.2 % (37.0-47.0); Hemoglobin 10.9 g/dL (12.2-16.2); Lymphocytes # 1.2 K/mm3 (0.7-4.5); Lymphocytes % 11.3 % (10-50); Mean Corpuscular HGB Conc 29.3 g/dL (31.8-35.4); Mean Corpuscular Volume 102.3 fl (81-99); Mean Platelet Volume 8.4 fl (7.4-10.4); Monocytes # 0.2 K/mm3 (0.1-1.0); Neutrophils # 8.8 K/mm3 (1.8-7.8); Neutrophils % 86.1 % (37.0-80.0); Platelet Count 242 K/mm3 (142-424); Red Blood Count 3.63 M/mm3 (4.20-5.40); Red Cell Distribution Width 18.1 % (11.5-17.5); White Blood Count 10.2 K/mm3 (4.8-10.8)
[2023-07-06 16:38] LABS: Anion Gap 9.3 mEq/L (5-15); Blood Urea Nitrogen 27 mg/dl (7-17); Calcium 8.7 mg/dl (8.4-10.2); Carbon Dioxide 31 mmol/L (22.0-30.0); Chloride 104 mmol/L (98-107); Estimated Glomerular Filt Rate 69 ml/min (>60); GFR (African American) 83 ML/MIN (>60); Glucose 126 mg/dl (74-100); Potassium 4.3 mmoL/L (3.5-5.1); Sodium 140 mmol/L (136-145)
[2023-07-06 16:43] LABS: MANUAL DIFFERENTIAL MANUAL DIFFERENTIAL (MANUAL DIFF)
[2023-07-06 16:45] LABS: NT Pro Brain Natriuretic Pep. 9960 pg/mL (0-450)
[2023-07-06 17:06] LABS: Thyroid Stimulating Hormone 1.03 uIU/mL (0.465-4.68)
[2023-07-06 18:05] LABS: Anisocytosis 1+; Hypochromasia 2+; Lymphocytes % 11 % (10-50); Microcytosis 1+; Monocytes % 1 % (2-9); Neutrophils % 88 % (42-76); Platelet Estimate Normal; Total Cells Counted 100
== END 2023-07-06 23:59 ==
LOC: LAB.DROPOF 22:08
PROVIDERS: PCP Family Medicine; Visit Provider Family Medicine
DX: E03.9 Hypothyroidism, unspecified (principal); R06.09 Other forms of dyspnea; I10 Essential (primary) hypertension; R60.9 Edema, unspecified
CPT/HCPCS: 80048; 83880; 84443; 85007; 85025

== ENCOUNTER 2023-07-14 19:36 | Outpatient (CLI) | payer MEDICARE, OTHER, SELFPAY ==
[2023-07-14 20:40] LABS: Anion Gap 10.3 mEq/L (5-15); Blood Urea Nitrogen 32 mg/dl (7-17); Carbon Dioxide 30 mmol/L (22.0-30.0); Chloride 102 mmol/L (98-107); Estimated Glomerular Filt Rate 60 ml/min (>60); GFR (African American) 73 ML/MIN (>60); Glucose 106 mg/dl (74-100); Potassium 4.3 mmoL/L (3.5-5.1); Sodium 138 mmol/L (136-145)
== END 2023-07-14 23:59 ==
PROVIDERS: PCP Family Medicine; Visit Provider Family Medicine
DX: I10 Essential (primary) hypertension (principal)
CPT/HCPCS: 80048

== ENCOUNTER 2023-07-18 12:54 | Outpatient (CLI) | payer MEDICARE, OTHER, SELFPAY ==
[2023-07-18] MEDS: ALBUTEROL 0.083% 2.5 MG/3 ML NEB IH (14:03)
--- NOTE | 2023-07-18 14:03 | PC.NURSE ---
PFT and 6 Minute walk completed on Patient. Pt gave a very good effort but has limited capacity. Albuterol 0.083% given via HHN, per protocol, Pt tolerated tx well.
== END 2023-07-18 23:59 ==
LOC: RT 12:55
PROVIDERS: PCP Family Medicine; Visit Provider Internal Medicine Pulmonary Disease
DX: R06.09 Other forms of dyspnea (principal); R06.02 Shortness of breath; Z79.899 Other long term (current) drug therapy
CPT/HCPCS: 94060; 94618; 94726; 94729

== ENCOUNTER 2023-09-04 12:19 | Outpatient (CLI) | payer MEDICARE, OTHER, SELFPAY ==
--- NOTE | 2023-09-04 12:23 | XR_ITS ---
FINAL REPORT CLINICAL HISTORY: possible pneumonia COMPARISON: 06/16/2023 FINDINGS: There are mixed interstitial and alveolar infiltrates present, favor edema over chronic changes. A left subclavian pacemaker is present. A small left pleural effusion is once again seen. The cardiac silhouette is unremarkable. IMPRESSION: Mixed interstitial and alveolar infiltrates, favor edema over chronic changes. Small left pleural effusion. Reviewed, Interpreted and Dictated by Sd Wharton MD Transcribed by Breanna Anand Authenticated and [facility]
== END 2023-09-04 23:59 | disposition home or self-care (01) ==
LOC: RAD 12:20
PROVIDERS: PCP Family Medicine; Visit Provider Family Medicine
DX: J84.9 Interstitial pulmonary disease, unspecified (principal)
CPT/HCPCS: 71046

== ENCOUNTER 2023-12-03 12:02 | Outpatient (CLI) | payer MEDICARE, MEDICAID, SELFPAY ==
[2023-12-01 16:36] LABS: Alanine Aminotransferase 27 U/L (12-78); Albumin Level 3.7 g/dl (3.5-5.0); Albumin/Globulin Ratio 1.2 (1.1-1.8); Alkaline Phosphatase 152 U/L (38-126); Anion Gap 11.4 mEq/L (5-15); Aspartate Amino Transferase 33 U/L (14-36); Bilirubin,Total 0.8 mg/dl (0.2-1.3); Blood Urea Nitrogen 36 mg/dl (7-17); Calcium 9.5 mg/dl (8.4-10.2); Carbon Dioxide 27 mmol/L (22.0-30.0); Chloride 106 mmol/L (98-107); Estimated Glomerular Filt Rate 47 ml/min (>60); GFR (African American) 57 ML/MIN (>60); Glucose 106 mg/dl (74-100); Potassium 4.4 mmoL/L (3.5-5.1); Sodium 140 mmol/L (136-145); Total Protein,Serum 6.7 g/dl (6.3-8.2)
== END 2023-12-03 23:59 | disposition home or self-care (01) ==
LOC: LAB.DROPOF 12-04 12:02
PROVIDERS: PCP Family Medicine; Visit Provider Family Medicine
DX: R89.9 Unspecified abnormal finding in specimens from other organs, systems and tissues (principal)
CPT/HCPCS: 80053

== ENCOUNTER 2023-12-11 16:48 | Outpatient (CLI) | payer MEDICARE, MEDICAID, SELFPAY ==
[2023-12-11 17:53] LABS: Alanine Aminotransferase 39 U/L (12-78); Albumin Level 3.6 g/dl (3.5-5.0); Albumin/Globulin Ratio 1.2 (1.1-1.8); Alkaline Phosphatase 149 U/L (38-126); Anion Gap 13.4 mEq/L (5-15); Aspartate Amino Transferase 44 U/L (14-36); Bilirubin,Total 1.1 mg/dl (0.2-1.3); Blood Urea Nitrogen 34 mg/dl (7-17); Calcium 9.7 mg/dl (8.4-10.2); Carbon Dioxide 29 mmol/L (22.0-30.0); Chloride 102 mmol/L (98-107); Estimated Glomerular Filt Rate 43 ml/min (>60); GFR (African American) 52 ML/MIN (>60); Globulin 3.1 g/dL (1.3-3.2); Glucose 105 mg/dl (74-100); Phosphorous 3.3 mg/dl (2.5-4.5); Potassium 4.4 mmoL/L (3.5-5.1); Sodium 140 mmol/L (136-145); Total Protein,Serum 6.7 g/dl (6.3-8.2)
== END 2023-12-11 23:59 | disposition home or self-care (01) ==
LOC: LAB.DROPOF 16:49
PROVIDERS: PCP Nurse Practitioner Family; Visit Provider Nurse Practitioner Family
DX: I10 Essential (primary) hypertension (principal); H53.8 Other visual disturbances
CPT/HCPCS: 80053; 80069; 80162

== ENCOUNTER 2024-01-18 11:12 | Outpatient (CLI) | payer MEDICARE, MEDICAID, SELFPAY ==
--- NOTE | 2024-01-18 11:24 | XR_ITS ---
FINAL REPORT CLINICAL HISTORY: Pleural Effusions- 6 mth COMPARISON: 06/16/2023 FINDINGS: Two views of the chest were obtained. A left subclavian pacer is identified. There is cardiomegaly with mild pulmonary vascular congestion. The mediastinum is normal. There are small pleural effusions which are stable. There are persistent bilateral pulmonary opacities consistent with scar/fibrosis. There is no pneumothorax. The bony thorax is intact. IMPRESSION: Stable pleural effusions. Persistent bilateral pulmonary opacities consistent with scar/fibrosis. Reviewed, Interpreted and Dictated by Gabriel Oates III, MD Transcribed by Jossy Hernandez Authenticated and [facility]
== END 2024-01-18 23:59 | disposition home or self-care (01) ==
LOC: RAD 11:14
PROVIDERS: PCP Family Medicine; Visit Provider Internal Medicine Pulmonary Disease
DX: R06.02 Shortness of breath (principal)
CPT/HCPCS: 71046

== ENCOUNTER 2024-02-14 15:41 | Outpatient (CLI) | payer MEDICARE, MEDICAID, SELFPAY ==
[2024-02-14 16:08] LABS: Basophils # 0.1 K/mm3 (0-0.2); Basophils % 0.8 % (0.1-2.0); Eosinophils # 0.2 K/mm3 (0.0-0.4); Hematocrit 37.8 % (37.0-47.0); Hemoglobin 12.4 g/dL (12.2-16.2); Lymphocytes # 2.3 K/mm3 (0.7-4.5); Lymphocytes % 15.3 % (10-50); Mean Corpuscular HGB Conc 32.9 g/dL (31.8-35.4); Mean Corpuscular Hemoglobin 33.4 pg (27.0-31.2); Mean Corpuscular Volume 101.5 fl (81-99); Monocytes # 0.6 K/mm3 (0.1-1.0); Neutrophils # 11.9 K/mm3 (1.8-7.8); Neutrophils % 78.9 % (37.0-80.0); Platelet Count 201 K/mm3 (142-424); Red Blood Count 3.72 M/mm3 (4.20-5.40); Red Cell Distribution Width 15.9 % (11.5-17.5); White Blood Count 15.1 K/mm3 (4.8-10.8)
[2024-02-14 16:14] LABS: MANUAL DIFFERENTIAL MANUAL DIFFERENTIAL (MANUAL DIFF)
[2024-02-14 16:32] LABS: Hemoglobin A1C 7.2 % (4.0-6.0)
[2024-02-14 16:35] LABS: Alanine Aminotransferase 30 U/L (12-78); Albumin Level 3.9 g/dl (3.5-5.0); Albumin/Globulin Ratio 1.4 (1.1-1.8); Alkaline Phosphatase 130 U/L (38-126); Aspartate Amino Transferase 42 U/L (14-36); Blood Urea Nitrogen 46 mg/dl (7-17); Carbon Dioxide 29 mmol/L (22.0-30.0); Chloride 105 mmol/L (98-107); Estimated Glomerular Filt Rate 43 ml/min (>60); GFR (African American) 52 ML/MIN (>60); Globulin 2.8 g/dL (1.3-3.2); Glucose 146 mg/dl (74-100); Sodium 136 mmol/L (136-145); Total Protein,Serum 6.7 g/dl (6.3-8.2)
[2024-02-14 16:40] LABS: C-Reactive Protein 18.1 mg/L (0-4)
[2024-02-14 16:46] LABS: Anisocytosis 2+; Eosinophils % 1 % (0-3); Lymphocytes % 15 % (10-50); Macrocytosis 2+; Monocytes % 3 % (2-9); Neutrophils % 80 % (42-76); Total Cells Counted 100
[2024-02-14 16:47] LABS: Platelet Estimate Normal
[2024-02-14 16:52] LABS: Erythrocyte Sedimentation Rate 63 mm/hr (0-30)
[2024-02-14 17:38] LABS: Vitamin B12 > 1000 pg/mL (239-931)
== END 2024-02-14 23:59 | disposition home or self-care (01) ==
LOC: LAB 15:44
PROVIDERS: PCP Family Medicine; Visit Provider Specialist
DX: H53.9 Unspecified visual disturbance (principal); R51.9 Headache, unspecified; R73.09 Other abnormal glucose; R53.83 Other fatigue; R41.0 Disorientation, unspecified; M06.9 Rheumatoid arthritis, unspecified; I48.91 Unspecified atrial fibrillation; J84.9 Interstitial pulmonary disease, unspecified; J84.10 Pulmonary fibrosis, unspecified; E03.9 Hypothyroidism, unspecified; Z79.899 Other long term (current) drug therapy
CPT/HCPCS: 80053; 82607; 83036; 84443; 85007; 85025; 85027; 85651; 86140

== ENCOUNTER 2024-02-27 10:06 | Outpatient (CLI) | payer MEDICARE, MEDICAID, SELFPAY ==
--- NOTE | 2024-02-27 10:06 | CT_ITS ---
PROCEDURE INFORMATION: Exam: CT Head Without Contrast Exam date and time: 02/27/2024 10:07 AM Age: 83 years old Clinical indication: Visual disturbance TECHNIQUE: Imaging protocol: Computed tomography of the head without contrast. Radiation optimization: All CT scans at this facility use at least one of these dose optimization techniques: automated exposure control; mA and/or kV adjustment per patient size (includes targeted exams where dose is matched to clinical indication); or iterative reconstruction. COMPARISON: CT HEAD/BRAIN WO CON 05/31/2023 1:49 PM FINDINGS: Brain: There is mild small vessel disease. There is no evidence of acute parenchymal hemorrhage, extra-axial collection, or acute infarction. There is no mass effect, midline shift, or downward herniation. Cerebral ventricles: No ventriculomegaly. Paranasal sinuses: Visualized sinuses are unremarkable. No fluid levels. Mastoid air cells: Visualized mastoid air cells are well aerated. Bones: Unremarkable. No acute fracture. Soft tissues: Unremarkable. IMPRESSION: Mild small vessel disease. No evidence of acute intracranial process.
== END 2024-02-27 23:59 | disposition home or self-care (01) ==
LOC: RAD 10:06
PROVIDERS: PCP Family Medicine; Visit Provider Specialist
DX: R51.9 Headache, unspecified (principal); H53.9 Unspecified visual disturbance
CPT/HCPCS: 70450

== ENCOUNTER 2024-05-23 11:40 | Outpatient (CLI) | payer MEDICARE, MEDICAID, SELFPAY ==
[2024-05-23 16:27] LABS: Basophils # 0.1 K/mm3 (0-0.2); Basophils % 0.7 % (0.1-2.0); Eosinophils # 0.2 K/mm3 (0.0-0.4); Eosinophils % 1.6 % (0.1-12.0); Hematocrit 35.8 % (37.0-47.0); Hemoglobin 11.1 g/dL (12.2-16.2); Lymphocytes # 2.1 K/mm3 (0.7-4.5); Lymphocytes % 13.9 % (10-50); Mean Corpuscular Hemoglobin 31.7 pg (27.0-31.2); Mean Corpuscular Volume 102.3 fl (81-99); Mean Platelet Volume 10.4 fl (7.4-10.4); Monocytes # 0.9 K/mm3 (0.1-1.0); Monocytes % 6.1 % (1.7-9.3); Neutrophils # 11.4 K/mm3 (1.8-7.8); Neutrophils % 76.5 % (37.0-80.0); Platelet Count 177 K/mm3 (142-424); Red Cell Distribution Width 15.5 % (11.5-17.5); White Blood Count 14.9 K/mm3 (4.8-10.8)
[2024-05-23 16:56] LABS: Albumin Level 3.6 g/dl (3.5-5.0); Chloride 105 mmol/L (98-107); Potassium 4.3 mmoL/L (3.5-5.1); Sodium 138 mmol/L (136-145)
[2024-05-23 16:59] LABS: Alanine Aminotransferase 26 U/L (12-78); Albumin/Globulin Ratio 1.4 (1.1-1.8); Alkaline Phosphatase 171 U/L (38-126); Anion Gap 12.3 mEq/L (5-15); Aspartate Amino Transferase 33 U/L (14-36); Bilirubin,Total 0.7 mg/dl (0.2-1.3); Blood Urea Nitrogen 40 mg/dl (7-17); Calcium 9.4 mg/dl (8.4-10.2); Carbon Dioxide 25 mmol/L (22.0-30.0); Estimated Glomerular Filt Rate 47 ml/min (>60); GFR (African American) 57 ML/MIN (>60); Globulin 2.6 g/dL (1.3-3.2); Glucose 122 mg/dl (74-100); Total Protein,Serum 6.2 g/dl (6.3-8.2)
[2024-05-23 17:27] LABS: T4 (Thyroxine) 9.1 ug/dl (5.53-11.0)
[2024-05-23 17:40] LABS: Thyroid Stimulating Hormone 1.23 uIU/mL (0.465-4.68)
== END 2024-05-23 23:59 | disposition home or self-care (01) ==
LOC: LAB.DROPOF 05-24 09:00
PROVIDERS: PCP Family Medicine; Visit Provider Family Medicine
DX: E11.9 Type 2 diabetes mellitus without complications (principal); E03.9 Hypothyroidism, unspecified
CPT/HCPCS: 80053; 83036; 84436; 84443; 85025

== ENCOUNTER 2024-07-17 09:48 | Outpatient (CLI) | payer MEDICARE, MEDICAID, SELFPAY ==
[2024-07-17] MEDS: ALBUTEROL 0.083% 2.5 MG/3 ML NEB IH (10:46)
== END 2024-07-17 23:59 | disposition home or self-care (01) ==
LOC: RT 09:49
PROVIDERS: PCP Family Medicine; Visit Provider Internal Medicine Pulmonary Disease
DX: R06.09 Other forms of dyspnea (principal)
CPT/HCPCS: 94060; 94618; 94726; 94729; J7613

== ENCOUNTER 2025-01-02 03:18 | Inpatient (IN) | payer MEDICARE, MEDICAID, SELFPAY ==
[2025-01-02] VITALS (18 sets, daily range): BP systolic 111–171; BP diastolic 50–71; PULSE 70–75; RESP 16–34; TEMP 36.4–39.1; O2SAT 93–98; BMI 21.9; BMI 22.5
--- NOTE | 2025-01-02 03:18 | XR_ITS ---
PROCEDURE INFORMATION: Exam: XR Chest Exam date and time: 01/02/2025 3:26 AM Age: 84 years old Clinical indication: Shortness of breath; Additional info: SOA TECHNIQUE: Imaging protocol: Radiologic exam of the chest. Views: 1 view. COMPARISON: CR XR CHEST 2V 01/18/2024 11:27 AM FINDINGS: Tubes, catheters and devices: A pacemaker device is present, and its leads are in appropriate position. Lungs: Persistent bilateral perihilar and bibasilar opacities are mildly increased which may reflect acute edema superimposed on chronic process. Correlate clinically. Pleural spaces: Small bilateral pleural effusions are stable. Negative for pneumothorax. Heart/Mediastinum: Mild cardiomegaly is slightly increased. There is persistent pulmonary vascular congestion, mildly increased. Bones/joints: There is no evidence of acute fracture. IMPRESSION: 1. Persistent bilateral perihilar and bibasilar opacities are mildly increased which may reflect acute edema superimposed on chronic process. Correlate clinically. 2. Small stable bilateral pleural effusions. 3. Mild increase in mild cardiomegaly and pulmonary vascular congestion.
--- NOTE | 2025-01-02 03:21 | HMH.EDGENADL ---
Discharge Plan Disposition Patient Disposition: Admitted Prescriptions Prescriptions: No Action metoprolol succinate 100 mg tablet extended release 24 hr 100 mg PO DAILY hydrocortisone acetate [Anusol-HC] 25 mg suppository 25 mg TX BID PRN (Reason: hemorrhoids) Qty: 24 2RF mirtazapine 15 mg tablet 15 mg PO HS Qty: 90 2RF fluticasone propionate [Allergy Relief (fluticasone)] 50 mcg/actuation spray,suspension 1 spray intranasal DAILY Qty: 16 2RF Rx Instructions: administer into each nostril loratadine [Allergy Relief (loratadine)] 10 mg tablet 10 mg PO DAILY Qty: 30 0RF albuterol sulfate 90 mcg/actuation HFA aerosol inhaler 2 puff inhalation Q6HP PRN (Reason: Shortness Of Breath) 90 Days Qty: 8.5 2RF multivitamin Tablet 1 tab PO DAILY aspirin 81 mg tablet,delayed release (DR/EC) 81 mg PO DAILY PreserVision AREDS 4,296 mcg-226 mg-90 mg capsule 1 cap PO BID ipratropium-albuterol 0.5 mg-3 mg(2.5 mg base)/3 mL solution for nebulization 3 ml inhalation Q4-6H PRN (Reason: shortness of breath) Qty: 90 0RF levalbuterol HCl 0.63 mg/3 mL solution for nebulization See Rx Instructions .ROUTE .COMPLEX Qty: 300 2RF Dose Instruction: 1 VIAL INHALED IN NEBULIZER THREE TIMES A DAY NEEDED NEEDED FOR DYSPNEA FOR 30 DAYS Rx Instructions: 1 VIAL INHALED IN NEBULIZER THREE TIMES A DAY NEEDED NEEDED FOR DYSPNEA FOR 30 DAYS prednisone 5 mg tablet 5 mg PO DAILY 90 Days Qty: 90 0RF levothyroxine 50 mcg tablet 25 mcg PO DAILY 90 Days Qty: 45 0RF potassium chloride 10 mEq capsule, extended release See Rx Instructions .ROUTE .COMPLEX Qty: 180 3RF Dose Instruction: TAKE 2 CAPSULES EVERY DAY Rx Instructions: TAKE 2 CAPSULES EVERY DAY pantoprazole 40 mg tablet,delayed release (DR/EC) 40 mg PO DAILY 90 Days Qty: 90 3RF budesonide-formoterol [Symbicort] 160-4.5 mcg/actuation HFA aerosol inhaler See Rx Instructions .ROUTE .COMPLEX Qty: 3 3RF Dose Instruction: INHALE 2 PUFFS TWICE DAILY Rx Instructions: INHALE 2 PUFFS TWICE DAILY Eliquis 2.5 mg tablet See Rx Instructions .ROUTE .COMPLEX Qty: 180 3RF Dose Instruction: TAKE 1 TABLET TWICE DAILY Rx Instructions: TAKE 1 TABLET TWICE DAILY furosemide 20 mg tablet See Rx Instructions .ROUTE .COMPLEX Qty: 180 3RF Dose Instruction: TAKE 2 TABLETS DAILY FOR FLUID RETENTION IN LEGS Rx Instructions: TAKE 2 TABLETS DAILY FOR FLUID RETENTION IN LEGS digoxin 125 mcg (0.125 mg) tablet See Rx Instructions .ROUTE .COMPLEX Qty: 90 3RF Dose Instruction: TAKE 1 TABLET EVERY DAY FOR HEART RHYTHM Rx Instructions: TAKE 1 TABLET EVERY DAY FOR HEART RHYTHM atorvastatin 40 mg tablet See Rx Instructions .ROUTE .COMPLEX Qty: 90 3RF Dose Instruction: TAKE 1 TABLET EVERY DAY FOR CHOLESTEROL Rx Instructions: TAKE 1 TABLET EVERY DAY FOR CHOLESTEROL allopurinol 300 mg tablet See Rx Instructions .ROUTE .COMPLEX Qty: 90 3RF Dose Instruction: TAKE 1 TABLET EVERY DAY FOR GOUT Rx Instructions: TAKE 1 TABLET EVERY DAY FOR GOUT alprazolam 0.25 mg tablet 0.25 mg PO BID Qty: 60 2RF PreserVision AREDS 2 Plus MV 200 mcg-15 mcg- 5 mg-1 mg Capsule 1 cap PO DAILY Referrals Follow up/Referrals: Arvin Beltran MD [Primary Care Provider, Internal Medicine] - See instructions Clinical Impressions Clinical Impression: Respiratory failure with hypoxia, Pneumonia, ILD (interstitial lung disease) Print Language Print Language: Bruneian Discharge ED Provider: Db Dowd Adult HPI General Chief complaint: Shortness of Breath/Dyspnea Stated complaint: SOA Time Seen by Provider: 01/02/25 03:18 History of Present Illness HPI narrative: 84-year-old female with history of chronic renal insufficiency, interstitial lung disease secondary to rheumatoid arthritis presents for shortness of breath. She reports that she started feeling hot this evening and had rapidly worsening shortness of breath. She denies any obvious sick contacts. EMS reports that she was satting 80% on their arrival and did not significantly improve with their interventions. They gave a DuoNeb, Solu-Medrol, nasal cannula/facemask oxygenation. Patient reports that she has not been as sick since she had COVID. Related Data Home Medications ?Medication ?Instructions ?Recorded ?Confirmed aspirin 81 mg tablet,delayed 81 mg PO DAILY Heart Health 02/03/22 11/06/24 release multivitamin 1 tab PO DAILY Supplement 02/03/22 11/06/24 vitamins A,C,F-gvxv-tfpxrf 4,296 1 cap PO BID Supplement 05/11/23 11/06/24 mcg-226 mg-90 mg capsule (PreserVision AREDS) mv-mn-folic 200 mcg-vit K 15 1 cap PO DAILY 06/16/23 11/06/24 mcg-lutein 5 mg-zeaxanthin 1 mg capsule (PreserVision AREDS 2 Plus Multivit) metoprolol succinate 100 mg 100 mg PO DAILY 07/30/24 11/06/24 tablet,extended release 24 hr Previous Rx's ?Medication ?Instructions ?Recorded ipratropium 0.5 mg-albuterol 3 mg 3 ml inhalation Q4-6H PRN 05/09/23 (2.5 mg base)/3 mL nebulization shortness of breath #90 mL soln levalbuterol HCl 0.63 mg/3 mL See Rx Instructions .Route 07/10/23 solution for nebulization .COMPLEX #300 mL levothyroxine 50 mcg tablet 25 mcg (1/2 x 50 mcg) PO DAILY 03/01/24 Held on 06/04/24. Thyroid 90 days #45 tabs Instructions: Dose Change prednisone 5 mg tablet 5 mg PO DAILY 90 days #90 tabs 03/01/24 potassium chloride 10 mEq See Rx Instructions .Route 05/14/24 capsule,extended release .COMPLEX #180 caps pantoprazole 40 mg tablet,delayed 40 mg PO DAILY acid reflux 90 days 06/19/24 release #90 tabs hydrocortisone acetate 25 mg 25 mg TX BID PRN hemorrhoids #24 ea 07/30/24 rectal suppository (Anusol-HC) apixaban 2.5 mg tablet (Eliquis) See Rx Instructions .Route 08/12/24 .COMPLEX #180 tabs budesonide-formoterol HFA 160 See Rx Instructions .Route 08/12/24 mcg-4.5 mcg/actuation aerosol .COMPLEX #3 ea inhaler (Symbicort) furosemide 20 mg tablet See Rx Instructions .Route 10/01/24 .COMPLEX #180 tabs digoxin 125 mcg (0.125 mg) tablet See Rx Instructions .Route 10/07/24 .COMPLEX #90 tabs fluticasone propionate 50 1 spray intranasal DAILY #16 grams 10/28/24 mcg/actuation nasal spray,suspension (Allergy Relief (fluticasone)) loratadine 10 mg tablet (Allergy 10 mg PO DAILY #30 tabs 10/28/24 Relief (loratadine)) mirtazapine 15 mg tablet 15 mg PO HS #90 tabs 10/28/24 albuterol sulfate 90 mcg/actuation 2 puff inhalation Q6HP PRN 11/06/24 aerosol inhaler Shortness Of Breath 90 days #8.5 grams allopurinol 300 mg tablet See Rx Instructions .Route 11/13/24 .COMPLEX #90 tabs atorvastatin 40 mg tablet See Rx Instructions .Route 11/13/24 .COMPLEX #90 tabs alprazolam 0.25 mg tablet 0.25 mg PO BID #60 tabs 12/24/24 Allergies Allergy/AdvReac Type Severity Reaction Status Date / Time nitrofurantoin (From Allergy Rash Verified 01/02/25 03:29 Macrobid) Sulfa (Sulfonamide Allergy Rash Verified 01/02/25 03:29 Antibiotics) [facility] Disclaimer: The information contained in this section may have been updated after the patient was seen, as this information can be updated by other users. Medical History New onset headache Visual disturbance Final diagnosis: Macular degeneration. Pleural effusion, left Pleural effusion, bilateral Dyspnea on exertion Asthma History of rheumatoid arthritis Fibrosis of lung ILD (interstitial lung disease) Cannot exclude secondary to previous therapy with Humira A-fib Status post pacemaker placement, current therapy with Eliquis Rheumatoid arthritis NSTEMI (non-ST elevated myocardial infarction) Multifocal pneumonia Respiratory failure Pneumonia due to COVID-19 virus Transient cerebral ischemia Surgical History History of cataract surgery History of colonoscopy Pacemaker History of cholecystectomy Family History Mother Cancer Father Heart attack Sister Diabetes Social History Smoking Status: Never smoker alcohol intake: never substance use type: denies use current occupational status: retired Travel in the last 8 weeks?: None household members: none housing: house caffeine: No Other Medical History Have you received the Flu Vaccine for this season: No Have you received the Pneumonia Vaccine: Yes ROS Obtained: Yes All systems reviewed & no additional complaints except as documented Physical Exam General General appearance: alert and in distress Head Head exam: atraumatic and normocephalic Eye Eye exam: Present normal appearance, PERRL and EOMI ENT ENT exam: Present normal oropharynx and normal external ear exam Neck Neck exam: Present normal inspection and full ROM Chest Chest inspection: Present normal inspection and symmetric chest wall rise; Absent tenderness Respiratory Respiratory exam: Present respiratory distress, accessory muscle use and other (Extremely tachypneic, accessory muscle use noted, faint wheezing and crackles noted) Cardiovascular Cardiovascular exam: Present Pacemaker w/paced rhythm Abdominal Exam Abdominal exam: Present soft; Absent distention, tenderness or guarding Extremities Exam Extremities exam: Present normal inspection; Absent edema or joint swelling Back Exam Back exam: Present normal inspection; Absent tenderness Neurological Exam Neurological exam: Present alert and oriented X3; Absent motor sensory deficit Psychiatric Psychiatric exam: Present normal affect and normal mood Skin Skin exam: Present warm, dry and normal color Lymphatic Lymphatic Findings: no adenopathy Medical Decision Making Medical Records Medical records reviewed: Yes I reviewed the patient's medical records. Screening: Per USPSTF and CDC recommendations, given the prevalence of disease in our region, it is our hospital?s policy to screen for HIV and viral Hepatitis for all patients aged 18 and over and those with ongoing risk factors. Jorge Inquiry Pt receiving controlled substance: No Jorge was queried for this patient: No Vital Signs: 01/02/25 03:18 01/02/25 03:25 01/02/25 03:31 Temperature 102.4 F H Temperature Source Temporal Artery Scan Pulse Rate Pulse Rate [Left] 70 Respiratory Rate 28 H Blood Pressure Blood Pressure [Right Arm] 171/71 H Blood Pressure Mean Blood Pressure Mean [Right Arm] 104 Blood Pressure Source [Right Arm] Automatic Cuff Blood Pressure Position [Right Arm] Sitting 02 Sat by Pulse Oximetry 96 97 Oxygen Delivery Method BiPAP BiPAP Fraction of Inspired Oxygen 50 01/02/25 03:43 01/02/25 03:43 01/02/25 03:45 Temperature Temperature Source Pulse Rate 71 71 Pulse Rate [Left] Respiratory Rate 21 22 Blood Pressure 138/52 L Blood Pressure [Right Arm] Blood Pressure Mean 80 Blood Pressure Mean [Right Arm] Blood Pressure Source [Right Arm] Blood Pressure Position [Right Arm] 02 Sat by Pulse Oximetry 95 96 Oxygen Delivery Method Fraction of Inspired Oxygen 01/02/25 04:00 Temperature Temperature Source Pulse Rate Pulse Rate [Left] Respiratory Rate Blood Pressure 118/50 L Blood Pressure [Right Arm] Blood Pressure Mean 84 Blood Pressure Mean [Right Arm] Blood Pressure Source [Right Arm] Blood Pressure Position [Right Arm] 02 Sat by Pulse Oximetry Oxygen Delivery Method Fraction of Inspired Oxygen Lab Data Lab results reviewed: Yes I reviewed the patient's lab results. Lab Results 01/02/25 03:22: VBG pH 7.32, VBG pCO2 38.0, VBG pO2 63.3 H, VBG HCO3 19.0 L, VBG Total CO2 20.2 L, VBG O2 Saturation 91.3 H, VBG Base Excess -7.1 L, VBG Lactic Acid 1.9 01/02/25 03:23: WBC 27.9 H*, RBC 3.68 L, Hgb 11.8 L, Hct 36.3 L, MCV 98.6, MCH 32.1 H, MCHC 32.5, RDW 15.7, Plt Count 207, MPV 10.2, Neut % (Auto) 64.4, Lymph % (Auto) 25.7, Faulkner % (Auto) 6.3, Eos % (Auto) 0.8, Baso % (Auto) 0.5, Neut # (Auto) 18.0 H, Lymph # (Auto) 7.2 H, Faulkner # (Auto) 1.8 H, Eos # (Auto) 0.2, Baso # (Auto) 0.1, Total Counted 100, Neutrophils % (Manual) 58, Lymphocytes % (Manual) 33, Monocytes % (Manual) 9, Platelet Estimate Normal, RBC Morphology Normal, D-Dimer 0.85 H, Sodium 139, Potassium 4.7, Chloride 111 H, Carbon Dioxide 17 L, Anion Gap 15.7 H, BUN 38 H, Creatinine 1.20 H, Estimated Creat Clear 35, Estimated GFR 43 L, Est GFR ( Amer) 52 L, Glucose 210 H, Calcium 8.6, Magnesium 1.7, Total Bilirubin 0.7, AST 50 H, ALT 39, Alkaline Phosphatase 216 H, Troponin I 0.20 H, NT-Pro-B Natriuret Pep 2680 H, Total Protein 7.1, Albumin 4.0, Globulin 3.1, Albumin/Globulin Ratio 1.3 01/02/25 03:23 01/02/25 03:23 Orders (Tests/Meds): ED MEDICATIONS Generic Name Dose Route Start Last Admin Trade Name Freq PRN Reason Stop Dose Admin Piperacillin Sod/Tazobactam 100 mls @ 200 mls/hr 01/02/25 03:45 01/02/25 04:17 Sod 4.5 gm/ Sodium Chloride IV 01/12/25 03:44 Infused Q6H TERA Infusion Sodium Chloride 3 ml 01/02/25 04:16 Sodium Chloride 3% 15ml Critical access hospital 02/01/25 04:15 ONCE PRN INDUCE SPUTUM COLLECTION Discontinued Medications Generic Name Dose Route Start Last Admin Trade Name Freq PRN Reason Stop Dose Admin Acetaminophen 1,000 mg 01/02/25 03:42 01/02/25 03:44 Acetaminophen 1,000mg/100ml Vial IV 01/02/25 03:43 1,000 mg ONCE ONE Administration Albuterol/Ipratropium 6 ml 01/02/25 03:22 01/02/25 03:41 Ipratropium/Albuterol 3 Ml Critical access hospital 01/02/25 03:23 6 ml ONCE ONE Administration Furosemide 40 mg 01/02/25 03:53 01/02/25 04:10 Furosemide 40mg/4ml Vial IV 01/02/25 03:54 40 mg ONCE ONE Administration Magnesium Sulfate 2 gm in 50 mls @ 150 mls/hr 01/02/25 03:18 01/02/25 04:03 Magnesium Sulfate 2gm/50ml Premix IV 01/02/25 03:37 Infused ONCE ONE Infusion ORDERS Category Date Time Status CXR --portable [XR chest portable] Stat Exams 01/02/25 03:18 Completed BNP [NT Pro Brain Natriuretic Pep.] Stat Lab 01/02/25 03:23 Completed CBC w/Auto Diff [Complete Blood Count Auto Diff] Stat Lab 01/02/25 03:23 Completed CMP [Comprehensive Metabolic Panel] Stat Lab 01/02/25 03:23 Completed D-Dimer Stat Lab 01/02/25 03:23 Completed Full Resp Panel w/COVID ([facility]) Routine Lab 01/02/25 03:15 Received Magnesium Stat Lab 01/02/25 03:23 Completed Troponin I Q3H Lab 01/02/25 03:23 Completed Troponin I Q3H Lab 01/02/25 06:30 Ordered Blood Culture Stat Micro 01/02/25 03:39 Received Sputum Culture & Gram Stain Stat Micro 01/02/25 04:16 Ordered VBG [Venous Blood Gas] Stat RT 01/02/25 03:22 Completed ECG Data Tracing #1: I reviewed this ECG and interpreted as documented below: Ventricularly paced rhythm, rate of 70, no concordant ST elevation or depression, patient does have significant discordant elevation in V2, but it is not positive by modified Sgarbossa criteria. 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 History was obtained via interactive discussion with patient, EMS, chart review. On arrival, patient is febrile to 102, satting 80% on 4 L nasal cannula, hypertensive, severely short of breath, tachypneic, alert and oriented x 4, moving all extremities spontaneously. Full physical exam performed and significant for respiratory distress with faint wheezing and crackles Differential includes but is not limited to pneumonia, ACS, PE, scape, heart failure, asthma/COPD. Patient was given DuoNeb and Solu-Medrol by EMS. Initiated on BiPAP on arrival to the ER, given 2 additional DuoNebs, 2 g IV mag, 4.5 g Zosyn, 40 mg Lasix in ED for symptomatic management and correction of underlying abnormalities. Patient was not given any fluids due to concern for possible volume overload. Workup initiated including chest x-ray EKG CBC CMP troponin D-dimer blood cultures VBG. On re-evaluation, patient looks significantly improved, satting appropriately on BiPAP with improved work of breathing. Laboratory workup independently interpreted by me and significant for BNP mod evaded but lower than previous. D-dimer negative by years criteria. Renal function at baseline. White count significantly elevated at 28. Imaging independently interpreted by me and significant for right-sided pneumonia in addition to chronic interstitial findings. See radiology read for full review of final results. Given patient history, exam and workup, patient's presentation most likely represents community-acquired pneumonia in the setting of interstitial lung disease. Interactive discussion was had with the hospitalist on-call for admission. We tried the patient off BiPAP briefly but she did not do well, will be admitted to stepdown on BiPAP. Procedures Risk/Benefits of Procedure(s) Were Explained: Yes Critical Care Critical Care Time Critical Care Time: Yes Attestation: On 01/02/25, the high probability of a clinically significant, sudden or life threatening deterioration of the following system(s) required my full and direct attention, intervention and personal management. The time I documented below is in addition to time spent performing reported procedures but includes the following listed in this critical care notation. Total Time Total Critical Care Time: 65
--- NOTE | 2025-01-02 03:23 | ECG_ITS ---
APPROVED REPORT Exam: Resting ECG HR:70 bpm ECG Measurements Heart Rate 70 AXES QRSd 137 QRS -51 QT 371 T 93 QTc 391 Conclusion UNCERTAIN IRREGULAR RHYTHM ELECTRONIC VENTRICULAR PACEMAKER -- CONTOUR ANALYSIS BASED ON INTRINSIC RHYTHM RIGHT BUNDLE BRANCH BLOCK [120+ ms QRS DURATION, UPRIGHT V1, 40+ ms S IN I/aVL/V4/V5/V6] LEFT ANTERIOR FASCICULAR BLOCK [QRS AXIS <= -45, QR IN I, RS IN II] LEFT VENTRICULAR HYPERTROPHY AND ST-T CHANGE [VOLTAGE CRITERIA PLUS ST/T ABNORMALITY] POSSIBLE SEPTAL MYOCARDIAL INFARCTION , OF INDETERMINATE AGE [30 ms Q WAVE IN V1/V2] ABNORMAL ECG UNCONFIRMED REPORT Electronically signed by : SOFIE DURAN, 01/02/2025 06:56:00
[2025-01-02 03:29] LABS: Hematocrit 36.3 % (37.0-47.0); Hemoglobin 11.8 g/dL (12.2-16.2); Immature Granulocytes % 2.3 %; Mean Corpuscular HGB Conc 32.5 g/dL (31.8-35.4); Mean Corpuscular Hemoglobin 32.1 pg (27.0-31.2); Mean Corpuscular Volume 98.6 fl (81-99); Nucleated Red Blood Cells % 0.1 %; Platelet Count 207 K/mm3 (142-424); Red Blood Count 3.68 M/mm3 (4.20-5.40); Red Cell Distribution Width-SD 56.0 fL; White Blood Count 27.9 K/mm3 (4.8-10.8)
--- OUTSIDE RECORDS SUMMARY | 2025-01-02 03:29 | XMS_ITS | Encounter Summary ---
Author Organization [facility] Address 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 Sangeetha Lebron MD [address] [place] [address] Phone: tel: fax: [facility] [address] [place] [id number] Phone: tel: fax: Referral ID Status Reason Start Date Expiration Date Visits Requested Visits Authorized [id number] Authorized Specialty Services Required 4 09/17/2025 1 1 Encounter Details Date Type Department Care Team (Latest Contact Info) Description 03/18/2024 Community [facility] [address] [place] [address] Sangeetha Lebron MD [address] [place] [address] 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 (Primary Dx) Social History Tobacco Use Types Packs/Day Years Used Date Smoking Tobacco: Never Assessed Comments Unknown Sex and Gender Information Value Date Recorded Sex Assigned at Not on file Legal Sex Female 8:46 PM EDT Gender Identity Not on file Sexual Orientation Not on file documented as of this encounter Plan of Treatment Scheduled Referrals Name Type Priority Associated Diagnoses Orde r Schedule Ambulatory Referral to Ophthalmology Outpatient Referral Routine 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
--- OUTSIDE RECORDS SUMMARY | 2025-01-02 03:29 | XMS_ITS | Clinical Summary ---
Author Organization [facility] Address [address] [place] [address] Care Team Providers Care Box Estimator Name Role Phone Obie Hernandes MD Primary Care Provider [phone] Social History Tobacco Use Types Packs/Day Years Used Date Smoking Tobacco: Never Assessed Comments Unknown Sex and Gender Information Value Date Recorded Sex Assigned at Not on file Legal Sex Female 8:46 PM EDT Gender Identity Not on file Sexual Orientation Not on file Plan of Treatment Health Maintenance Due Date Last Done Comments [facility]-Bone Density Scan 1940 [facility]-Depression Screening 1940 [facility]-Medicare Annual Wellness (AWV) 1940 [facility]-/Child/Adol SDOH Screenings 1940 [facility]- SDOH Screenings 1958 [facility]-Adult SDOH Screenings 1958 [facility]-DTaP,Tdap,and Td Vaccines (1 - Tdap) 09/15/1959 [facility]-Pneumococcal Vaccine: 50+ Years (1 of 1 - PCV) 1990 [facility]-Zoster Vaccines (1 of 2) 1990 [facility]-RSV Vaccine: 60+ Years or (1 - 1-dose 75+ series) 09/15/2015 [id number] Vaccine (2023- season) 2024 02/08/2022, 03/11/2021, 07/09/2020, Additional history exists [facility]-Influenza Vaccine (#1) 01/06/202502/22, 02/24/2023, 01/22/2020, Additional history exists HPV Vaccines Aged Out No longer eligi ble based on patient's age to complete this topic [facility]-HIB Vaccines Aged Out No longer e ligible based on patient's age to complete this topic [facility]-Hepatitis A Vaccines Aged Out No longer eligible based on patient's age to complete this topic [facility]-IPV Vaccines Aged Out No longer e ligible based on patient's age to complete this topic [facility]-Rotavirus Vaccines Aged Out No lo nger eligible based on patient's age to complete this topic [place] [address] [place] [id number] [employer] MED[employer] Care Teams Box Estimator Relationship Specialty Start Date End Date Obie Hernandes MD [address] [place] [id number] PCP - General 09/18/20
--- OUTSIDE RECORDS SUMMARY | 2025-01-02 03:29 | XMS_ITS | Clinical Summary ---
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 1:33 PM EDT Body Mass Index 22.24 09/11/2024 1:33 PM EDT Plan of Treatment Upcoming Encounters Date Type Department Care Team (Late st Contact Info) Description 03/05/2025 11:00 AM EDT Office Visit [facility] [address] [phone] Eunice Segundo MD [address] [id number] 03/05/2025 11:00 AM EDT Clinical Support No Requirements [facility] [address] [id number] Health Maintenance Due Date Last Done Comments DXA SCAN 1940 Pneumococcal Vaccine 50+ (1 of 2 - PCV) 09/15/1959 ZOSTER VACCINE (1 of 2) 1990 TDAP/TD VACCINES (1 - Tdap) 12/03/2009 12/02/2009 RSV Vaccine - Adults (1 - 1- dose 75+ series) 09/15/2015 ANNUAL WELLNESS VISIT 04/02/2018 COVID-19 Vaccine (5 2023-2 5 season) 2024 02/08/2022, 03/11/2021, 07/09/2020, Additional history exists LIPID PANEL 03/08/2024 03/08/2023, 08/06, 04/06/2018 INFLUENZA VACCINE 02/05/2025 02/23/2024, , 01/22/2020, Additional history exists Medical Devices Implanted Type Area Rubber Stamp Maker Device Identifier Shelf Expiration Date Model / Serial / Lot Pacemaker Pacemaker Gen Pm Assurity Sr Rf [id number] - [id number] - [id number] Implanted:Qty: 1 on 11/15/2022 by Eunice Segundo MD at [facility] Pacemaker Left: Chest [facility] [employer] 01/06/2024 [id number] / [id number] / Stent Xience Carli Everolimus Gavino [id number] - [id number] Implanted:Qty: 1 on 04/06/2018 by Vishal Park MD at [facility] HAN VASCULAR 01/24/2019 [id number] / / [id number] Procedures Procedure Name Priority Date/Time Associated Diagnosis Comments REMOTE DEVICE CHECK 12/19/2024 3:57 AM EDT LIPID PANEL Routine 03/08/2023 Fatigue, unspecified type 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
[address] [place] [address], [place] [phone] from Last 3 Months or Most Recently Relevant to Health Maintenance Insurance MEDICAID [place] [employer] MEDICARE AD[facility]ANTAGE [facility] Care Teams Claims Adjuster Crop Relationship Specialty Start Date End Date Arvin Beltran MD [address] [place] [address] PCP - General Family Medicine 10/19/22
--- OUTSIDE RECORDS SUMMARY | 2025-01-02 03:29 | XMS_ITS | Encounter Summary ---
Author Organization Healthcare Address [address] 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
--- OUTSIDE RECORDS SUMMARY | 2025-01-02 03:29 | XMS_ITS | Clinical Summary ---
Author Organization [facility] Address [address] [facility] [address] [place] [address] Phone Care Team Providers Care Produce Team Lead Name Role Phone Unavailable Unavailable Conditions or Problems No information available. Medications No information available. Medications Administered No information available. Allergies, Adverse Reactions, Alerts No information available. Results No information available. Plan of Care No information available. Procedures No information available. Vital Signs No information available. Immunizations No information available. Advance Directives No information available.
[2025-01-02 03:30] LABS: Lactate Venous 1.9 mmol/L (0.4-2.0); VBG HCO3 19.0 mmol/L (23-30); VBG PCO2 38.0 mmol/L (35-51); VBG PH 7.32 mmol/L (7.31-7.41); VBG PO2 63.3 mmol/L (28-40)
[2025-01-02 03:31] LABS: Adenovirus,PCR Not Detected (NotDetected); Chlamydophila Pneumoniae, PCR Not Detected (NotDetected); Coronovirus HKU1,PCR Not Detected (NotDetected); Influenza A, PCR Not Detected (NotDetected); Influenza AH1, 2009 Not Detected (NotDetected); Influenza AH1, PCR Not Detected (NotDetected); Influenza AH3,PCR Not Detected (NotDetected); Influenza B, PCR Not Detected (NotDetected); Mycoplasma Pneumoniae, PCR Not Detected (NotDetected); Parainfluenza 1, PCR Not Detected (NotDetected); Parainfluenza 2, PCR Not Detected (NotDetected); Parainfluenza 3, PCR Not Detected (NotDetected); Parainfluenza 4, PCR Not Detected (NotDetected)
[2025-01-02 03:36] LABS: Albumin Level 4.0 g/dl (3.5-5.0); Chloride 111 mmol/L (98-107); Potassium 4.7 mmoL/L (3.5-5.1); Sodium 139 mmol/L (136-145)
[2025-01-02] MEDS: MAGNESIUM SULFATE IN WATER 2 GM/50 ML PIGGYBACK IV (03:37)
[2025-01-02 03:38] LABS: Alanine Aminotransferase 39 U/L (12-78); Aspartate Amino Transferase 50 U/L (14-36); Blood Urea Nitrogen 38 mg/dl (7-17); Creatinine Clearance Estimated 35 mL/min (50-200); Creatinine,Serum 1.20 mg/dl (0.52-1.04); Estimated Glomerular Filt Rate 43 ml/min (>60); GFR (African American) 52 ML/MIN (>60)
[2025-01-02 03:39] LABS: Albumin/Globulin Ratio 1.3 (1.1-1.8); Alkaline Phosphatase 216 U/L (38-126); Anion Gap 15.7 mEq/L (5-15); Bilirubin,Total 0.7 mg/dl (0.2-1.3); Calcium 8.6 mg/dl (8.4-10.2); Carbon Dioxide 17 mmol/L (22.0-30.0); Globulin 3.1 g/dL (1.3-3.2); Glucose 210 mg/dl (74-100); Magnesium 1.7 mg/dl (1.6-2.3); Total Protein,Serum 7.1 g/dl (6.3-8.2)
[2025-01-02] MEDS: IPRATROPIUM/ALBUTEROL 3 ML NEB 6 ML IH (03:41)
[2025-01-02] MEDS: ACETAMINOPHEN 1,000MG/100ML VIAL 1000 MG IV (03:44)
[2025-01-02 03:45] LABS: D-Dimer 0.85 ug/mL (0.0-0.5)
[2025-01-02] MEDS: PIPERACILLIN/TAZO 4.5 GM in 0.9 % SODIUM CHLORIDE 100 ML IV (03:46)
[2025-01-02 03:48] LABS: NT Pro Brain Natriuretic Pep. 2680 pg/mL (0-450)
[2025-01-02 03:58] LABS: RBC Morphology Normal; Total Cells Counted 100
[2025-01-02] MEDS: FUROSEMIDE 40MG/4ML VIAL 40 MG IV ×2 (04:10→09:07)
[2025-01-02 04:24] LABS: Troponin I 0.20 ng/ml (0.00-0.034)
--- NOTE | 2025-01-02 04:24 | PC.NURSE ---
critical called from MD alix notified
--- NOTE | 2025-01-02 04:48 | P.HP_ITS ---
<Statement entered by Chacorta Small MD - 01/04/25 15:09> Personally evaluated patient and agree with plan of care as outlined by the INSTRUCTOR [employer]. History of Present Illness *Admission Date: 01/02/25 *Reason for visit:: Shortness of breath *History of present illness: This is an 84-year-old female who has a past medical history significant for chronic kidney disease, diabetes mellitus, pleural effusion, interstitial lung disease, atrial fibrillation, hypertension, rheumatoid arthritis, hypothyroidism, asthma, TIA and NSTEMI who presents with chief complaint of shortness of breath. Due to patient's symptoms, EMS presented to her home residence. While at patient's home residence, EMS noted patient was room air saturations to be in the 80s. Patient was given nebulizer treatments, Solu-Medrol, and placed on BiPAP and transition to the emergency room for further management. While in the emergency room, plain films of the chest showed pulmonary edema, bilateral pleural effusions, and a superimposed left lower lobe pneumonia. Moreover, patient's white blood cell count was significantly elevated. Patient continued to have increased work loopogram, so hospital medicine was consulted for further management. During my evaluation of the patient, patient states that her shortness of breath started acutely. She reports she had no symptomology until this evening. She has in the past had thoracentesis due to pleural effusion; however, she reports no difficulty laying flat or any significant edema to her lower extremities. She reports no ill contacts with anyone; moreover, she is denying any chest pain, lightheadedness, dizziness, rigors, nausea, vomiting, or diarrhea. Additional pertinent vitals obtained include a temperature of 102, white blood cell count of 27.9, red blood cell count of 3.68, hemoglobin 11.8, hematocrit 36.3, D-dimer 0.85, chloride 111, bicarbonate of 17, BUN of 38, creatinine 1.20, GFR 43, blood glucose of 210, AST of 50, alkaline phosphate of 216, and BNP of 2680. [facility] Disclaimer: The information contained in this section may have been updated after the patient was seen, as this information can be updated by other users. Medical History New onset headache Visual disturbance Final diagnosis: Macular degeneration. Pleural effusion, left Pleural effusion, bilateral Dyspnea on exertion Asthma History of rheumatoid arthritis Fibrosis of lung ILD (interstitial lung disease) Cannot exclude secondary to previous therapy with Humira A-fib Status post pacemaker placement, current therapy with Eliquis Rheumatoid arthritis NSTEMI (non-ST elevated myocardial infarction) Multifocal pneumonia Respiratory failure Pneumonia due to COVID-19 virus Transient cerebral ischemia Surgical History History of cataract surgery History of colonoscopy Pacemaker History of cholecystectomy Family History Mother Cancer Father Heart attack Sister Diabetes Social History Smoking Status: Never smoker alcohol intake: never substance use type: denies use current occupational status: retired Travel in the last 8 weeks?: None household members: none housing: house caffeine: No Other Medical History Have you received the Flu Vaccine for this season: No Have you received the Pneumonia Vaccine: Yes Review of Systems Review of Systems Review of systems:: pertinent systems reviewed and negative unless documented below Constitutional Constitutional: Reports fever(s) Eyes Eyes: Reports system reviewed and no additional complaints, except as documented ENT Ears, Nose, Mouth, and Throat: Reports system reviewed and no additional complaints, except as documented *Cardiovascular Cardiovascular: Reports dyspnea and Reports dyspnea on exertion *Respiratory Respiratory: Reports dyspnea and Reports dyspnea on exertion *Gastrointestinal Gastrointestinal: Reports system reviewed and no additional complaints, except as documented *Genitourinary Genitourinary: Reports system reviewed and no additional complaints, except as documented *Musculoskeletal Musculoskeletal: Reports system reviewed and no additional complaints, except as documented Integumentary/Breasts Skin/Breast: Reports system reviewed and no additional complaints, except as documented *Neurologic Neurologic: Reports system reviewed and no additional complaints, except as documented Psychiatric Psychiatric: Reports system reviewed and no additional complaints, except as documented Endocrine Endocrine: Reports system reviewed and no additional complaints, except as documented Hematologic/Lymphatic Hematologic/Lymphatic: Reports system reviewed and no additional complaints, except as documented Allergic/Immunologic Allergic/Immunologic: Reports system reviewed and no additional complaints, except as documented Meds Home Medications and Allergies Home Medications ?Medication ?Instructions ?Recorded ?Confirmed ?Type aspirin 81 mg tablet,delayed 81 mg PO DAILY Heart Heal th 02/03/22 11/06/24 History release multivitamin 1 tab PO DAILY Supplement 11/06/24 History ipratropium 0.5 mg-albuterol 3 mg 3 ml inhalation Q4-6 H PRN 05/09/23 11/06/24 Rx (2.5 mg base)/3 mL nebulization shortness of breath #9 0 mL soln vitamins A,C,D-nafu-vrmqlc 4,296 1 cap PO BID Suppleme nt 05/11/23 11/06/24 History mcg-226 mg-90 mg capsule (PreserVision AREDS) mv-mn-folic 200 mcg-vit K 15 1 cap PO DAILY 06/16/23 0 11/06/24 History mcg-lutein 5 mg-zeaxanthin 1 mg capsule (PreserVision AREDS 2 Plus Multivit) levalbuterol HCl 0.63 mg/3 mL See Rx Instructions .Rou te 07/10/23 11/06/24 Rx solution for nebulization .COMPLEX #300 mL levothyroxine 50 mcg tablet 25 mcg (1/2 x 50 mcg) PO D AILY 03/01/24 11/06/24 Rx Held on 06/04/24. Thyroid 90 days #45 tabs Instructions: Dose Change prednisone 5 mg tablet 5 mg PO DAILY 90 days #90 ta bs 03/01/24 11/06/24 Rx potassium chloride 10 mEq See Rx Instructions .Route 0 05/14/24 11/06/24 Rx capsule,extended release .COMPLEX #180 caps pantoprazole 40 mg tablet,delayed 40 mg PO DAILY acid reflux 90 days 06/19/24 11/06/24 Rx release #90 tabs hydrocortisone acetate 25 mg 25 mg IN BID PRN hemorrho ids #24 ea 07/30/24 11/06/24 Rx rectal suppository (Anusol-HC) metoprolol succinate 100 mg 100 mg PO DAILY 07/30/24 0 11/06/24 History tablet,extended release 24 hr apixaban 2.5 mg tablet (Eliquis) See Rx Instructions . Route 08/12/24 11/06/24 Rx .COMPLEX #180 tabs budesonide-formoterol HFA 160 See Rx Instructions .Rou te 08/12/24 11/06/24 Rx mcg-4.5 mcg/actuation aerosol .COMPLEX #3 ea inhaler (Symbicort) furosemide 20 mg tablet See Rx Instructions .Route 0 10/01/24 11/06/24 Rx .COMPLEX #180 tabs digoxin 125 mcg (0.125 mg) tablet See Rx Instructions .Route 10/07/24 11/06/24 Rx .COMPLEX #90 tabs fluticasone propionate 50 1 spray intranasal DAILY #16 grams 10/28/24 11/06/24 Rx mcg/actuation nasal spray,suspension (Allergy Relief (fluticasone)) loratadine 10 mg tablet (Allergy 10 mg PO DAILY #30 ta bs 10/28/24 11/06/24 Rx Relief (loratadine)) mirtazapine 15 mg tablet 15 mg PO HS #90 tabs 5 11/06/24 Rx albuterol sulfate 90 mcg/actuation 2 puff inhalation Q 6HP PRN 11/06/24 11/06/24 Rx aerosol inhaler Shortness Of Breath 90 days #8.5 grams allopurinol 300 mg tablet See Rx Instructions .Route 0 11/13/24 Rx .COMPLEX #90 tabs atorvastatin 40 mg tablet See Rx Instructions .Route 0 11/13/24 Rx .COMPLEX #90 tabs alprazolam 0.25 mg tablet 0.25 mg PO BID #60 tabs 12/06 01/30 Rx New Prescriptions to Start Prescriptions: Allergies Allergy/AdvReac Type Severity Reaction Status Date / Time nitrofurantoin (From Allergy Rash Verified 01/02/25 03:29 Macrobid) Sulfa (Sulfonamide Allergy Rash Verified 01/02/25 03:29 Antibiotics) Exam Data for Last 24 hours Vital signs and Labs for Last 24 Hours: Temp Pulse Resp BP Pulse Ox O2 Del Method FiO2 102.4 F H 70 21 117/55 L 93 L BiPAP 50 01/02/25 03:18 01/02/25 04:30 01/02/25 04:30 01/02/25 04:30 01/02/25 04:30 01/02/25 03:31 01/02/25 03:25 Laboratory Results - last 24 hr 01/02/25 03:22: VBG pH 7.32, VBG pCO2 38.0, VBG pO2 63.3 H, VBG HCO3 19.0 L, VBG Total CO2 20.2 L, VBG O2 Saturation 91.3 H, VBG Base Excess -7.1 L, VBG Lactic Acid 1.9 01/02/25 03:23: WBC 27.9 H*, RBC 3.68 L, Hgb 11.8 L, Hct 36.3 L, MCV 98.6, MCH 32.1 H, MCHC 32.5, RDW 15.7, Plt Count 207, MPV 10.2, Neut % (Auto) 64.4, Lymph % (Auto) 25.7, [place] % (Auto) 6.3, Eos % (Auto) 0.8, Baso % (Auto) 0.5, Neut # (Auto) 18.0 H, Lymph # (Auto) 7.2 H, [place] # (Auto) 1.8 H, Eos # (Auto) 0.2, Baso # (Auto) 0.1, Total Counted 100, Neutrophils % (Manual) 58, Lymphocytes % (Manual) 33, Monocytes % (Manual) 9, Platelet Estimate Normal, RBC Morphology Normal, D-Dimer 0.85 H, Sodium 139, Potassium 4.7, Chloride 111 H, Carbon Dioxide 17 L, Anion Gap 15.7 H, BUN 38 H, Creatinine 1.20 H, Estimated Creat Clear 35, Estimated GFR 43 L, Est GFR ( Amer) 52 L, Glucose 210 H, Calcium 8.6, Magnesium 1.7, Total Bilirubin 0.7, AST 50 H, ALT 39, Alkaline Phosphatase 216 H, Troponin I 0.20 H, NT-Pro-B Natriuret Pep 2680 H, Total Protein 7.1, Albumin 4.0, Globulin 3.1, Albumin/Globulin Ratio 1.3 I & O for Last 24 hours: Intake & Output 12/30/24 12/31/24 01/01/25 01/02/25 23:59 23:59 23:59 23:59 Intake Total 150 / 150 Balance 150 / 150 Weight 63.503 kg Constitutional Constitutional: moderate distress and cooperative *Routine HEENT Exam Head: Present normocephalic and atraumatic Eye: Present EOMI and PERRL ENT: Present mucous membranes dry *Routine Neck Exam Neck: Present supple, full ROM and trachea midline *Routine Respiratory Exam Respiratory: Present respiratory distress, wheezes, crackles and symmetric chest movement *Routine Cardiovascular Exam Cardiovascular: Present RRR, Normal S1 and Normal S2 *Routine Abdominal Exam Abdominal: Present soft and normoactive bowel sounds *Routine Rectal Exam Rectal:: deferred *Routine Genitalia Exam Genitalia:: deferred *Routine Extremities Exam Extremities: Present pulses intact and normal capillary refill Routine Back/Spine/Pelvis Exam Back/Spine: Present full ROM *Routine Skin Exam Skin: Present dry and warm *Routine Neurological Exam Neurological: Present alert, oriented X3, moving all extremities and normal speech Routine Psychiatric Exam Psychiatric: Present normal affect, normal thought process, cooperative, good insight and good judgment H&P: Result Impressions This is an 84-year-old female who presents with acute hypoxic respiratory failure, pulmonary edema with pleural effusions superimposed pneumonia, and sepsis requiring BiPAP to help with workload of breathing. Assessment and Plan *Assessment and plan (1) Sepsis: Status: Acute Qualifiers: Acute respiratory failure type: with hypoxia Sepsis acute organ dysfun ction status: with acute organ dysfunction Sepsis type: sepsis due to unspecified organism Severe sepsis acute organ dysfunction type: acute respiratory failure Severe sepsis shock status: without septic shock Qualified Code(s): A41.9 - Sepsis, unspecified organism; R65.20 - Severe sepsis without septic shock; J96.01 - Acute respiratory failure with hypoxia Category: Medical Code(s): A41.9 - Sepsis, unspecified organism (2) Pneumonia: Status: Acute Qualifiers: Laterality: unspecified laterality Lung location: lower lobe of lung Pneumonia type: due to unspecified organism Qualified Code(s): J18.9 - Pneumonia, unspecified organism Category: Medical Code(s): J18.9 - Pneumonia, unspecified organism (3) Respiratory failure with hypoxia: Status: Acute Qualifiers: Chronicity: acute Qualified Code(s): J96.01 - Acute respiratory failure with hypoxia Category: Medical Code(s): J96.91 - Respiratory failure, unspecified with hypoxia (4) Metabolic acidosis: Status: Acute Category: Medical Code(s): E87.20 - Acidosis, unspecified (5) Acute kidney injury superimposed on CKD: Status: Acute Category: Medical Code(s): N17.9 - Acute kidney failure, unspecified; N18.9 - Chronic kidney disease, unspecified (6) Hyperglycemia due to diabetes mellitus: Status: Acute Category: Medical Code(s): E11.65 - Type 2 diabetes mellitus with hyperglycemia (7) Elevated brain natriuretic peptide (BNP) level: Status: Acute Category: Medical Code(s): R79.89 - Other specified abnormal findings of blood chemistry (8) Pleural effusion: Status: Acute Category: Medical Code(s): J90 - Pleural effusion, not elsewhere classified (9) Fever: Status: Acute Qualifiers: Fever type: unspecified Qualified Code(s): R50.9 - Fever, unspecified Category: Medical Code(s): R50.9 - Fever, unspecified Plan Assessment: Sepsis Fever - Patient is meeting sepsis criteria with elevated white blood cell count, source of pneumonia, and temperature -Due to the pulmonary edema seen on imaging, patient did not receive 30 mL/kg of IV hydration due to this may cause more harm -Blood cultures x 2 -Venous lactic acid was within normal limits -Sepsis reperfusion assessment performed Community-acquired bacterial pneumonia Metabolic acidosis Acute hypoxic respiratory failure -Will continue 1 g Rocephin IV daily -500 mg of azithromycin now and then 250 mg of azithromycin daily for atypical coverage -Sputum for culture -DuoNebs every 6 hours - If metabolic acidosis does not improve will consider bicarbonate supplementation - Bicarb daily Bilateral pleural effusions Elevated D-dimer Elevated BNP -Will give 40 mg of Lasix IV daily hold for systolic blood pressure less than 120 - Obtain 2D echo-last 2D echo obtained in September 2021 revealed an EF of 55% -Will get decubitus of the chest -Will consider holding Eliquis due to potential thoracentesis -Consult pulmonology -Saline lock - Patient's blood pressures after Lasix was in the 1 teens - Will continue BiPAP to help with workload of breathing; will have RT titrate for comfort -Review of patient's home medication shows she is currently prescribed Eliquis 2.5 mg twice daily-it is least likely that patient may have pulmonary embolism; if symptomology continues to worsen we will consider VQ scan (patient is currently on a prophylactic dose for emboli due to age and probability is low for thrombosis) will discuss with attending Acute on chronic renal impairment -Patient is close to her baseline creatinine and GFR -Will continue to monitor - Will minimize nephrotoxic drugs - Patient's creatinine may worsen due to diuresis-Will monitor closely Plan: Admit patient to the stepdown unit on telemetry SCDs to bilateral lower extremity 2 L of oxygen by nasal cannula while off the BiPAP Will try to maintain oxygen saturation greater than 94% Cardiac/1800 ADA diet CBC/BMP daily 5 mg [place] p.o. every 4 hours for moderate pain Sliding scale insulin AC and at bedtime with mild scale coverage Full code I will discuss this case with attending physician Dr. Small and a look forward to more input
--- NOTE | 2025-01-02 05:05 | EXP.SEPSISRE ---
[facility] Tissue Perfusion Eval Sepsis Re-Evaluation Performed: Yes Date Performed: 01/02/25 Time Performed: 05:06
--- NOTE | 2025-01-02 05:11 | PC.NURSE ---
pt to icu via stretcher at this time
[2025-01-02 05:18] LABS: Coronavirus 19, PCR Detected (NotDetected)
[2025-01-02] MEDS: AZITHROMYCIN 250MG TABLET 500 MG PO (05:39)
[2025-01-02] MEDS: CEFTRIAXONE 1 GM 1 GM in 0.9 % SODIUM CHLORIDE 50 ML IV (05:39)
[2025-01-02] MEDS: humaLOG 100 UNITS/ML 10ML VIAL (SSI) SUBCUT ×4 (05:59→21:03)
--- NOTE | 2025-01-02 06:00 | CA_ITS ---
APPROVED REPORT EXAM: Comprehensive 2D, Doppler, and color-flow Echocardiogram Rn Psych: Ju Yang RT(R) Ht: 5 ft 7 in Wt: 140lbs BSA: 1.74 BP: 111/53 mmHg Indications: pneumonia, pulmonary edema, AFIB 2D Dimensions LA Volume 66.40 mL LA Volume Index 38.16 mL/m2 (M/F) 16-34 EF AP4 36.40 % GL Strain -12.0 % M-Mode Dimensions RVDd 3.72 cm (0.9-2.6) LA Diam 4.15 cm (1.9-4.0) LVDd 4.29 cm (3.5-5.7) LVDs 3.19 cm (3.5-5.7) IVSd 1.02 cm (0.6-1.1) PWd 0.99 cm (0.6-1.1) EF (Teich) 50.80% FS 25.60% EDV (Teich) 82.60 mL ESV (Teich) 40.60 mL Tricuspid Valve TR P. Velocity 270.00 cm/s Left Ventricle The left ventricle is normal size. Left ventricular systolic function is mildly reduced. There is increased left ventricular wall thickness. There is mild global hypokinesis present. There is severe hypokinesis of the septal and inferoseptal LV lopez. The septum is asynchronous. The left ventricular diastolic function is indeterminate. LVEF is 40-45%. Right Ventricle The right ventricle is mildly dilated. The right ventricular systolic function is normal. Atria The left atrium is severely dilated. The right atrium is severely dilated. There is no color Doppler evidence of interatrial shunt. Aortic Valve The aortic valve is mildly thickened. There is no hemodynamically significant aortic valvular stenosis. Trace aortic regurgitation is present. Mitral Valve The mitral valve is mildly thickened. No evidence of mitral valve stenosis. Mild mitral regurgitation is present. Tricuspid Valve The tricuspid valve leaflets are thin and pliable. Mild to moderate tricuspid regurgitation. RVSP is 30-35 mmHg. Pulmonic Valve The pulmonary valve is grossly normal in structure. Trace pulmonic valve regurgitation is present. Great Vessels The aortic root is normal in size. IVC is normal in size and collapses >50% with inspiration. Pericardium There is no pericardial effusion. Other Information Study Quality: Fair Conclusion Mildly reduced LV systolic function (LVEF 40-45%). Severe hypokinesis of the septal and inferoseptal LV lopez. The septum is asynchronous. Mild RV dilation with normal RV function. Severe biatrial dilation. Mild to moderate TR. Mild MR. RVSP 30-35 mmHg. Electronically signed by : Stacie Patel MD 01/02/2025 18:51:31
[2025-01-02 06:12] LABS: POC Glucose,Bedside 314 gm/dL (70-110)
[2025-01-02] MEDS: IPRATROPIUM/ALBUTEROL 3 ML NEB IH (06:25)
[2025-01-02 07:29] LABS: Troponin I 1.14 ng/ml (0.00-0.034)
--- NOTE | 2025-01-02 09:00 | XR_ITS ---
FINAL REPORT CLINICAL HISTORY: Bilateral pleural effusion COMPARISON: 01/02/2025 FINDINGS: CHEST SPECIAL VIEWS/DECUB/LORDOTIC There is no change in the left-sided pacemaker. The heart is enlarged. Bilateral interstitial opacities are unchanged. There is slight worsening in the left basilar airspace disease. There appears to be small bilateral pleural effusions. No pneumothorax is identified. Decubitus views were obtained. In the left lateral decubitus film, there may be layering of the small left effusion. On the right lateral decubitus view, a significant layering effusion is not visualized. IMPRESSION: Stable cardiomegaly and interstitial opacities. Small bilateral effusions. There appears to be layering of the left effusion but the right effusion is difficult to evaluate. Consider CT if further evaluation is needed. Reviewed, Interpreted and Dictated by Mame Flower MD Transcribed by Radha Stoddard Authenticated and . [facility]
[2025-01-02] MEDS: REMDESIVIR 200 MG in 0.9 % SODIUM CHLORIDE 250 ML 250 MG IV (09:04)
[2025-01-02] MEDS: DEXAMETHASONE 4MG TABLET 6 MG PO (09:07)
--- NOTE | 2025-01-02 09:09 | EXP.PULM.CON ---
History of Present Illness History of present illness: Ms. 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 [facility] Disclaimer: The information contained in this section may have been updated after the patient was seen, as this information can be updated by other users. Medical History (Updated 01/02/25 @ 10:10 by Vaibhav Christensen MD) Pneumonia due to COVID-19 virus Acute respiratory failure with hypoxia New onset headache Visual disturbance Pleural effusion, left Pleural effusion, bilateral Dyspnea on exertion Asthma History of rheumatoid arthritis Fibrosis of lung ILD (interstitial lung disease) A-fib Rheumatoid arthritis NSTEMI (non-ST elevated myocardial infarction) Multifocal pneumonia Respiratory failure Transient cerebral ischemia Surgical History History of cataract surgery History of colonoscopy Pacemaker History of cholecystectomy Family History Mother Cancer Father Heart attack Sister Diabetes Social History Smoking Status: Never smoker alcohol intake: never substance use type: denies use current occupational status: retired Travel in the last 8 weeks?: None household members: none housing: house caffeine: No Review of Systems Constitutional Constitutional: Reports anorexia, Reports body ache(s) and Reports fatigue Eyes Eyes: Denies eye discharge, Denies dry eyes, Denies irritation and Denies itchy eyes ENT Ears, Nose, Mouth, and Throat: Denies epistaxis, Denies facial pain, Denies lip swelling and Denies throat swelling *Cardiovascular Cardiovascular: Reports dyspnea and Reports dyspnea on exertion *Respiratory Respiratory: Denies change in phlegm color, Reports chest congestion, Reports cough, Reports dyspnea, Reports dyspnea on exertion, Denies excessive phlegm production and Reports wheezing *Gastrointestinal Gastrointestinal: Denies abdominal pain, Denies belching and Denies cramping *Musculoskeletal Musculoskeletal: Reports back pain, Reports myalgias and Reports other (No small joint swelling or Pain) *Neurologic Neurologic: Reports system reviewed and no additional complaints, except as documented Psychiatric Psychiatric: Denies homicidal ideation and Denies suicidal ideation Endocrine Endocrine: Reports fatigue and Denies heat intolerance Hematologic/Lymphatic Hematologic/Lymphatic: Denies easy bleeding and Denies lymphadenopathy Allergic/Immunologic Allergic/Immunologic: Denies itchy eyes, Denies lip swelling, Denies throat swelling and Reports wheezing Pulmonology Exam Inpatient Vital signs and Labs for Last 24 Hours: Temp Pulse Resp BP Pulse Ox O2 Del Method O2 Flow Rate 98.1 F 70 30 H 128/56 L 96 Nasal Cannula 4 01/02/25 08:00 01/02/25 08:00 01/02/25 08:00 01/02/25 08:00 01/02/25 08:00 01/02/25 08:00 01/02/25 08:00 FiO2 50 01/02/25 03:25 Laboratory Results - last 24 hr 01/02/25 03:15: Chlamy pneumoniae PCR Not detected, Adenovirus (PCR) Not detected, B. pertussis DNA (PCR) Not detected, Coronavirus OC43 (PCR) Not detected, Coronavirus HKU1 (PCR) Not detected, Coronavirus 229E (PCR) Not detected, SARS-CoV-2 (PCR) Detected A, Coronavirus NL63 (PCR) Not detected, Human Metapneumovir PCR Not detected, Influenza A (H1) PCR Not detected, Influ A (H1N1/09) PCR Not detected, Influenza A (H3) PCR Not detected, Influenza Type A (PCR) Not detected, Influenza Type B (PCR) Not detected, M. pneumoniae (PCR) Not detected, Parainfluenza 1 (PCR) Not detected, Parainfluenza 2 (PCR) Not detected, Parainfluenza 3 (PCR) Not detected, Parainfluenza 4 (PCR) Not detected, RSV (PCR) Not detected, Entero/Rhino (PCR) Not detected 01/02/25 03:22: VBG pH 7.32, VBG pCO2 38.0, VBG pO2 63.3 H, VBG HCO3 19.0 L, VBG Total CO2 20.2 L, VBG O2 Saturation 91.3 H, VBG Base Excess -7.1 L, VBG Lactic Acid 1.9 01/02/25 03:23: WBC 27.9 H*, RBC 3.68 L, Hgb 11.8 L, Hct 36.3 L, MCV 98.6, MCH 32.1 H, MCHC 32.5, RDW 15.7, Plt Count 207, MPV 10.2, Neut % (Auto) 64.4, Lymph % (Auto) 25.7, [place] % (Auto) 6.3, Eos % (Auto) 0.8, Baso % (Auto) 0.5, Neut # (Auto) 18.0 H, Lymph # (Auto) 7.2 H, [place] # (Auto) 1.8 H, Eos # (Auto) 0.2, Baso # (Auto) 0.1, Total Counted 100, Neutrophils % (Manual) 58, Lymphocytes % (Manual) 33, Monocytes % (Manual) 9, Platelet Estimate Normal, RBC Morphology Normal, D-Dimer 0.85 H, Sodium 139, Potassium 4.7, Chloride 111 H, Carbon Dioxide 17 L, Anion Gap 15.7 H, BUN 38 H, Creatinine 1.20 H, Estimated Creat Clear 35, Estimated GFR 43 L, Est GFR ( Amer) 52 L, Glucose 210 H, Calcium 8.6, Magnesium 1.7, Total Bilirubin 0.7, AST 50 H, ALT 39, Alkaline Phosphatase 216 H, Troponin I 0.20 H, NT-Pro-B Natriuret Pep 2680 H, Total Protein 7.1, Albumin 4.0, Globulin 3.1, Albumin/Globulin Ratio 1.3 01/02/25 05:54: POC Glucose 314 H* 01/02/25 06:50: Troponin I 1.14 H I & O for Labs for Last 24 Hours: Intake & Output 12/30/24 12/31/24 01/01/25 01/02/25 23:59 23:59 23:59 23:59 Intake Total 500 / 500 Balance 500 / 500 Weight 143 lb 11.862 oz Constitutional: Present severe distress Head: Present normocephalic and atraumatic ENT: Present normal exam, normal oropharynx and mucous membranes moist Neck: Present normal inspection and full ROM Respiratory: Present prolonged expiratory phase, respiratory distress, rhonchi and wheezes; Absent able to speak in complete sentences Cardiac: Present S1/S2, Tachycardia and radial pulses present GI: Present soft and distention; Absent tenderness or guarding Rectal (female): Present deferred (female): Present deferred Skin: Present intact; Absent cyanosis or jaundice Neuro: Present alert, awake and oriented x 3 Extremities: Present normal inspection; Absent clubbing or cyanosis Psychiatric: Present normal affect and cooperative Meds Home Medications and Allergies Home Medications ?Medication ?Instructions ?Recorded ?Confirmed ?Type aspirin 81 mg tablet,delayed 81 mg PO DAILY Heart Health 02/03/22 01/02/25 History release multivitamin 1 tab PO DAILY Supplement 02/03/22 01/02/25 History vitamins A,C,U-wkft-xgilmz 4,296 1 cap PO BID Supplement 05/11/23 01/02/25 History mcg-226 mg-90 mg capsule (PreserVision AREDS) mv-mn-folic 200 mcg-vit K 15 1 cap PO DAILY 06/16/23 01/02/25 History mcg-lutein 5 mg-zeaxanthin 1 mg capsule (PreserVision AREDS 2 Plus Multivit) prednisone 5 mg tablet 5 mg PO DAILY 90 days #90 tabs 03/01/24 01/02/25 Rx metoprolol succinate 100 mg 100 mg PO DAILY 07/30/24 01/02/25 History tablet,extended release 24 hr fluticasone propionate 50 1 spray intranasal DAILY #16 grams 10/28/24 01/02/25 Rx mcg/actuation nasal spray,suspension (Allergy Relief (fluticasone)) mirtazapine 15 mg tablet 15 mg PO HS #90 tabs 10/28/24 01/02/25 Rx albuterol sulfate 90 mcg/actuation 2 puff inhalation Q6HP PRN 11/06/24 01/02/25 Rx aerosol inhaler Shortness Of Breath 90 days #8.5 grams alprazolam 0.25 mg tablet 0.25 mg PO BID #60 tabs 12/24/24 01/02/25 Rx allopurinol 300 mg tablet 300 mg PO DAILY 01/02/25 01/02/25 History apixaban 2.5 mg tablet (Eliquis) 2.5 mg PO BID 01/02/25 01/02/25 History atorvastatin 40 mg tablet 40 mg PO HS 01/02/25 01/02/25 History budesonide-formoterol HFA 160 2 puff inhalation BID 01/02/25 01/02/25 History mcg-4.5 mcg/actuation aerosol inhaler (Symbicort) digoxin 125 mcg (0.125 mg) tablet 125 mcg PO DAILY 01/02/25 01/02/25 History furosemide 20 mg tablet 40 mg PO DAILY 01/02/25 01/02/25 History loratadine 10 mg tablet (Allergy 10 mg PO NEEDED PRN Allergy 01/02/25 01/02/25 History Relief (loratadine)) Symptoms pantoprazole 40 mg tablet,delayed 40 mg PO DAILY 01/02/25 01/02/25 History release potassium chloride 10 mEq 10 meq PO BID 01/02/25 01/02/25 History capsule,extended release New Prescriptions to Start Prescriptions: Allergies Allergy/AdvReac Type Severity Reaction Status Date / Time nitrofurantoin (From Allergy Rash Verified 01/02/25 03:29 Macrobid) Sulfa (Sulfonamide Allergy Rash Verified 01/02/25 03:29 Antibiotics) Results Laboratory Findings 01/02/25 03:23 01/02/25 03:23 PT/INR, D-dimer D-Dimer 0.85 ug/mL (0.0-0.5) H 01/02/25 03:23 Abnormal lab findings: Abnormal Labs 01/02/25 01/02/25 01/02/25 03:15 03:22 03:23 WBC 27.9 H* RBC 3.68 L Hgb 11.8 L Hct 36.3 L MCH 32.1 H Neut # (Auto) 18.0 H Lymph # (Auto) 7.2 H [place] # (Auto) 1.8 H D-Dimer 0.85 H VBG pO2 63.3 H VBG HCO3 19.0 L VBG Total CO2 20.2 L VBG O2 Saturation 91.3 H VBG Base Excess -7.1 L Chloride 111 H Carbon Dioxide 17 L Anion Gap 15.7 H BUN 38 H Creatinine 1.20 H Estimated GFR 43 L Est GFR ( Amer) 52 L Glucose 210 H POC Glucose AST 50 H Alkaline Phosphatase 216 H Troponin I 0.20 H NT-Pro-B Natriuret Pep 2680 H SARS-CoV-2 (PCR) Detected A 01/02/25 01/02/25 05:54 06:50 WBC RBC Hgb Hct MCH Neut # (Auto) Lymph # (Auto) [place] # (Auto) D-Dimer VBG pO2 VBG HCO3 VBG Total CO2 VBG O2 Saturation VBG Base Excess Chloride Carbon Dioxide Anion Gap BUN Creatinine Estimated GFR Est GFR ( Amer) Glucose POC Glucose 314 H* AST Alkaline Phosphatase Troponin I 1.14 H NT-Pro-B Natriuret Pep SARS-CoV-2 (PCR) Assessment and Plan *Assessment and plan (1) Acute respiratory failure with hypoxia: Status: Acute Category: Medical Code(s): J96.01 - Acute respiratory failure with hypoxia (2) Pneumonia due to COVID-19 virus: Status: Acute Category: Medical Code(s): U07.1 - COVID-19; J12.82 - Pneumonia due to coronavirus disease 2019 Plan Ms. 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 Afebrile. Hemodynamically stable. Neutrophilic predominant leukocytosis. Chest x-ray upon admission bilateral diffuse interstitial changes and consolidative changes concerning for airspace disease. Vascular congestion also noted. Small bilateral effusions noted. COVID-19 PCR positive. Denies any known sick contacts. Worsening respiratory distress since yesterday. On examination severe respiratory distress. Unable to complete full sentences. Minimal wheezing noted on auscultation. On 4 L saturating 96%, weaned to 2 L. Not using any oxygen supplementation at baseline. Plan: -Continue nasal cannula maintain O2 saturation goal of 90% above, wean as tolerated. -Continue remdesivir x 5 days OR untill Discharge -Continue dexamethasone x10 days OR untill Discharge -Continue Advair 250 twice daily scheduled along with DuoNebs every 6 hours as needed. -Recommend chemical prophylactic anticoagulation and GI ulcer prophylaxis
[2025-01-02 11:50] LABS: POC Glucose,Bedside 262 gm/dL (70-110)
[2025-01-02] MEDS: ACETAMINOPHEN 325MG TAB 650 MG PO ×2 (14:15→19:32)
[2025-01-02 17:16] LABS: POC Glucose,Bedside 329 gm/dL (70-110)
[2025-01-02] MEDS: PANTOPRAZOLE 40MG TABLET 40 MG PO (17:43)
[2025-01-02] MEDS: ASPIRIN EC 81MG TABLET 81 MG PO (17:45)
[2025-01-02] MEDS: MIRTAZAPINE 15 MG TABLET PO (20:55)
[2025-01-02 21:07] LABS: POC Glucose,Bedside 259 gm/dL (70-110)
--- NOTE | 2025-01-02 21:14 | PC.NURSE ---
patient placed on telemetry monitoring rt + trops
[2025-01-03] VITALS: BP 136/59; PULSE 70; RESP 18; TEMP 36.4; O2SAT 98
--- NOTE | 2025-01-03 02:00 | PC.NURSE ---
Pt AOx4, pleasant. Weaned to 2L O2 with current stats around 98%. VSS. No acute changes. Currently resting in bed with eyes closed. Respirations even and unlabored. Bed low, locked and call light in reach.
[2025-01-03 04:00] VITALS: BP 126/60; PULSE 70; PULSE 73; RESP 20; TEMP 36.4; O2SAT 98; BMI 22.8
[2025-01-03] MEDS: humaLOG 100 UNITS/ML 10ML VIAL (SSI) SUBCUT ×2 (05:29→12:11)
[2025-01-03] MEDS: CEFTRIAXONE 1 GM 1 GM in 0.9 % SODIUM CHLORIDE 50 ML IV (05:30)
[2025-01-03 06:11] LABS: POC Glucose,Bedside 170 gm/dL (70-110)
[2025-01-03 06:20] VITALS: O2SAT 98
[2025-01-03 06:44] LABS: Hematocrit 31.7 % (37.0-47.0); Hemoglobin 10.5 g/dL (12.2-16.2); Immature Granulocytes % 0.7 %; Mean Corpuscular HGB Conc 33.1 g/dL (31.8-35.4); Mean Corpuscular Hemoglobin 31.8 pg (27.0-31.2); Mean Corpuscular Volume 96.1 fl (81-99); Nucleated Red Blood Cells % 0 %; Platelet Count 148 K/mm3 (142-424); Red Blood Count 3.30 M/mm3 (4.20-5.40); Red Cell Distribution Width-SD 53.1 fL; White Blood Count 18.6 K/mm3 (4.8-10.8)
[2025-01-03 07:00] LABS: Chloride 106 mmol/L (98-107); Potassium 4.4 mmoL/L (3.5-5.1); Sodium 133 mmol/L (136-145)
[2025-01-03 07:03] LABS: Anion Gap 10.4 mEq/L (5-15); Blood Urea Nitrogen 48 mg/dl (7-17); Carbon Dioxide 21 mmol/L (22.0-30.0); Creatinine Clearance Estimated 34 mL/min (50-200); Creatinine,Serum 1.30 mg/dl (0.52-1.04); Estimated Glomerular Filt Rate 39 ml/min (>60); GFR (African American) 47 ML/MIN (>60)
[2025-01-03 07:04] LABS: Calcium 8.6 mg/dl (8.4-10.2); Glucose 167 mg/dl (74-100)
[2025-01-03 08:00] VITALS: BP 137/52; PULSE 70; PULSE 71; RESP 18; TEMP 36.4; O2SAT 98
[2025-01-03] MEDS: FUROSEMIDE 40MG/4ML VIAL 40 MG IV (08:03)
[2025-01-03] MEDS: DEXAMETHASONE 4MG TABLET 6 MG PO (08:03)
[2025-01-03 08:04] VITALS: PULSE 80
[2025-01-03] MEDS: DIGOXIN 0.125MG TABLET 125 MCG PO (08:04)
[2025-01-03] MEDS: ASPIRIN EC 81MG TABLET 81 MG PO (08:04)
[2025-01-03] MEDS: METOPROLOL SUCCINATE XL 100MG TABLET 100 MG PO (08:04)
[2025-01-03] MEDS: AZITHROMYCIN 250MG TABLET 250 MG PO (08:04)
--- NOTE | 2025-01-03 08:29 | EXP.CARD.CON ---
History of Present Illness History of Present Illness Consult date: 01/03/25 Requesting physician: Chacorta Small Consult reason: shortness of breath Chief complaint: SOA History of present illness: Nevaeh Santacruz is an 84-year-old white female with a past medical history of chronic kidney disease, diabetes mellitus, pleural effusion, interstitial lung disease, atrial fibrillation, pacemaker, hypertension who presented to hospital with complaints of shortness of breath. Patient reports she was in her usual state of health when she awoke during the evening very short of breath. Upon EMS arrival at patient's house her oxygen saturations were in the 80s. She was given nebulizer treatments, Solu-Medrol and placed on BiPAP for transition to the emergency department. Upon presentation to ER EKG showed a ventricular paced rhythm at 70. Chest x-ray showed persistent bilateral perihilar and bibasilar opacities mildly increased which may reflect acute edema superimposed on chronic process. Small stable bilateral pleural effusions and mild increase in mild cardiomegaly and pulmonary vascular congestion. Labs were as follow: WBC 27.9, hemoglobin 11.8, D-dimer elevated, sodium 139, potassium 4.7, BUN 38, creatinine 1.2, troponin 0.2 trending up to 1.14 and a BNP of 7180. Patient was admitted for further evaluation cardiology and pulmonology. This morning patient is resting comfortably in bed she reports her shortness of breath is getting better. She denies any chest pain. [facility] Disclaimer: The information contained in this section may have been updated after the patient was seen, as this information can be updated by other users. Medical History (Updated 01/03/25 @ 08:41 by Sharita Vargas APRN) NSTEMI (non-ST elevated myocardial infarction) Pneumonia due to COVID-19 virus Acute respiratory failure with hypoxia New onset headache Visual disturbance Pleural effusion, left Pleural effusion, bilateral Dyspnea on exertion Asthma History of rheumatoid arthritis Fibrosis of lung ILD (interstitial lung disease) A-fib Rheumatoid arthritis Multifocal pneumonia Respiratory failure Transient cerebral ischemia Surgical History History of cataract surgery History of colonoscopy Pacemaker History of cholecystectomy Family History Mother Cancer Father Heart attack Sister Diabetes Social History Smoking Status: Never smoker alcohol intake: never substance use type: denies use current occupational status: retired Travel in the last 8 weeks?: None household members: none housing: house caffeine: No Review of Systems Review of Systems Review of systems:: pertinent systems reviewed and negative unless documented below *Cardiovascular Cardiovascular: Reports dyspnea *Respiratory Respiratory: Reports dyspnea *Neurologic Neurologic: Reports system reviewed and no additional complaints, except as documented Exam Data for Last 24 hours Vital signs and Labs for Last 24 Hours: Temp Pulse Resp BP Pulse Ox O2 Del Method O2 Flow Rate 97.5 F L 80 18 137/52 L 98 Nasal Cannula 2 01/03/25 08:00 01/03/25 08:04 01/03/25 08:00 01/03/25 08:00 01/03/25 08:00 01/03/25 08:19 01/03/25 08:19 FiO2 50 01/02/25 03:25 Laboratory Results - last 24 hr 01/02/25 11:43: POC Glucose 262 H 01/02/25 17:00: POC Glucose 329 H* 01/02/25 20:58: POC Glucose 259 H 01/03/25 05:23: POC Glucose 170 H 01/03/25 05:32: WBC 18.6 H D, RBC 3.30 L, Hgb 10.5 L, Hct 31.7 L, MCV 96.1, MCH 31.8 H, MCHC 33.1, RDW 15.1, Plt Count 148 D, MPV 10.3, Neut % (Auto) 89.0 H, Lymph % (Auto) 6.9 L, [place] % (Auto) 3.2, Eos % (Auto) 0.0 L, Baso % (Auto) 0.2, Neut # (Auto) 16.5 H, Lymph # (Auto) 1.3, [place] # (Auto) 0.6, Eos # (Auto) 0.0, Baso # (Auto) 0.0, Sodium 133 L, Potassium 4.4, Chloride 106, Carbon Dioxide 21 L, Anion Gap 10.4, BUN 48 H D, Creatinine 1.30 H, Estimated Creat Clear 34, Estimated GFR 39 L, Est GFR ( Amer) 47 L, Glucose 167 H, Calcium 8.6 I & O for Last 24 hours: Intake & Output 12/31/24 01/01/25 01/02/25 01/03/25 23:59 23:59 23:59 23:59 Intake Total 1440 / 1440 50 / 50 Output Total 300 / 500 800 / 800 Balance 1140 / 940 -750 / -750 Weight 143 lb 11.862 oz 145 lb 8 oz Microbiology Reports for the Last 24 Hours: Microbiology 01/02/25 03:39 Blood Blood Culture - Preliminary NO GROWTH AFTER 24 HOURS 01/02/25 03:33 Blood Blood Culture - Preliminary NO GROWTH AFTER 24 HOURS Constitutional Constitutional: no acute distress *Routine Respiratory Exam Respiratory: Present CTA bilaterally and symmetric chest movement *Routine Cardiovascular Exam Cardiovascular: Present RRR, Normal S1 and Normal S2 *Routine Abdominal Exam Abdominal: Present soft and normoactive bowel sounds; Absent tenderness *Routine Extremities Exam Extremities: Present full ROM and normal capillary refill; Absent edema *Routine Skin Exam Skin: Present intact, dry and warm Detailed Neck Exam: Thyroids Thyroid: Absent bruit Meds Home Medications and Allergies Home Medications ?Medication ?Instructions ?Recorded ?Confirmed ?Type aspirin 81 mg tablet,delayed 81 mg PO DAILY Heart Health 02/03/22 01/02/25 History release multivitamin 1 tab PO DAILY Supplement 02/03/22 01/02/25 History vitamins A,C,Q-qbdr-dvujbz 4,296 1 cap PO BID Supplement 05/11/23 01/02/25 History mcg-226 mg-90 mg capsule (PreserVision AREDS) mv-mn-folic 200 mcg-vit K 15 1 cap PO DAILY 06/16/23 01/02/25 History mcg-lutein 5 mg-zeaxanthin 1 mg capsule (PreserVision AREDS 2 Plus Multivit) prednisone 5 mg tablet 5 mg PO DAILY 90 days #90 tabs 03/01/24 01/02/25 Rx metoprolol succinate 100 mg 100 mg PO DAILY 07/30/24 01/02/25 History tablet,extended release 24 hr fluticasone propionate 50 1 spray intranasal DAILY #16 grams 10/28/24 01/02/25 Rx mcg/actuation nasal spray,suspension (Allergy Relief (fluticasone)) mirtazapine 15 mg tablet 15 mg PO HS #90 tabs 10/28/24 01/02/25 Rx albuterol sulfate 90 mcg/actuation 2 puff inhalation Q6HP PRN 11/06/24 01/02/25 Rx aerosol inhaler Shortness Of Breath 90 days #8.5 grams alprazolam 0.25 mg tablet 0.25 mg PO BID #60 tabs 12/24/24 01/02/25 Rx allopurinol 300 mg tablet 300 mg PO DAILY 01/02/25 01/02/25 History apixaban 2.5 mg tablet (Eliquis) 2.5 mg PO BID 01/02/25 01/02/25 History atorvastatin 40 mg tablet 40 mg PO HS 01/02/25 01/02/25 History digoxin 125 mcg (0.125 mg) tablet 125 mcg PO DAILY 01/02/25 01/02/25 History furosemide 20 mg tablet 40 mg PO DAILY 01/02/25 01/02/25 History loratadine 10 mg tablet (Allergy 10 mg PO NEEDED PRN Allergy 01/02/25 01/02/25 History Relief (loratadine)) Symptoms pantoprazole 40 mg tablet,delayed 40 mg PO DAILY 01/02/25 01/02/25 History release potassium chloride 10 mEq 10 meq PO BID 01/02/25 01/02/25 History capsule,extended release dexamethasone 4 mg tablet 6 mg (1.5 x 4 mg) PO DAILY 3 days 01/03/25 Rx #5 tabs fluticasone 250 mcg-salmeterol 50 1 inh inhalation BID 30 days #60 ea 01/03/25 Rx mcg/dose blistr powdr for inhalation (Advair Diskus) spironolactone 25 mg tablet 25 mg PO DAILY 30 days #30 tabs 01/03/25 Rx New Prescriptions to Start Prescriptions: Chacorta Marcelino fluticasone propion-salmeterol [Advair Diskus] Chacorta Small spironolactone Chacorta Small Allergies Allergy/AdvReac Type Severity Reaction Status Date / Time nitrofurantoin (From Allergy Rash Verified 01/02/25 03:29 Macrobid) Sulfa (Sulfonamide Allergy Rash Verified 01/02/25 03:29 Antibiotics) Assessment and Plan *Assessment and plan (1) Pneumonia due to COVID-19 virus: Status: Acute Category: Medical Code(s): U07.1 - COVID-19; J12.82 - Pneumonia due to coronavirus disease 2019 (2) Acute respiratory failure with hypoxia: Status: Acute Category: Medical Code(s): J96.01 - Acute respiratory failure with hypoxia (3) Fever: Status: Acute Qualifiers: Fever type: unspecified Qualified Code(s): R50.9 - Fever, unspecified Category: Medical Code(s): R50.9 - Fever, unspecified (4) Pleural effusion: Status: Acute Category: Medical Code(s): J90 - Pleural effusion, not elsewhere classified (5) NSTEMI (non-ST elevated myocardial infarction): Status: Acute Category: Medical Code(s): I21.4 - Non-ST elevation (NSTEMI) myocardial infarction (6) A-fib: Problem Comment: Status post pacemaker placement, current therapy with Eliquis Status: Chronic Qualifiers: Atrial fibrillation type: unspecified Qualified Code(s): I48.91 - Unspecified atrial fibrillation Category: Medical Code(s): I48.91 - Unspecified atrial fibrillation (7) Elevated d-dimer: Status: Acute Category: Medical Code(s): R79.89 - Other specified abnormal findings of blood chemistry (8) COVID: Status: Acute Category: Medical Code(s): U07.1 - COVID-19 Plan Elevated troponin In the setting of acute illness with sepsis, fever and community-acquired bacterial pneumonia Patient denies chest pain but does endorse shortness of breath Patient is noted to have a reduced ejection fraction of 40 to 45%. Troponin 0.2 trending up to 1.14 Patient will need ischemic evaluation Continue aspirin and statin Acute HFrEF Echo from 01/02/2025 shows a mildly reduced LVEF of 40 to 45%, severe hypokinesis of the septal and inferior septal LV lopez the septum is asynchronous. Mild RV dilation with normal RV function. Severe biatrial dilation, mild to moderate TR. Mild MR. RVSP 30-35.... Family unsure if this is new or old Small bilateral effusions noted on chest x-ray Continue Lasix 40 mg IV daily and add Aldactone 25 mg p.o. daily Continue metoprolol 100 mg p.o. daily Initiate Entresto, Jardiance/Farxiga after patient has been diuresed History of A-fib Status post PPM Continue metoprolol and digoxin Can continue Lovenox for now but will need to be transitioned back to Eliquis prior to discharge home Acute hypoxic respiratory failure Acute pneumonia COVID-positive Elevated D-dimer Will defer management of pneumonia and COVID to pulmonology and primary services PE has not been ruled out. Patient does have an elevated D-dimer. She is anticoagulated due to her A-fib. Will defer to pulmonology CV summary 01/03/2025: Patient will need ischemic evaluation on an outpatient basis. She reports she is feeling better and would like to go home. 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 Patient has been weaned from nasal cannula and is maintaining O2 sat of 98 percent. She remains chest pain free. Per Dr. Millard patient can be discharged home with follow up next week with [facility] or Dr. Caal.
[2025-01-03] MEDS: SPIRONOLACTONE 25MG TABLET 25 MG PO (09:06)
--- NOTE | 2025-01-03 09:58 | PC.NURSE ---
Specimen cup left on bedside table. Pt. was not induced due to being covid positive per CDC guidelines.
[2025-01-03 10:43] LABS: Digoxin 1.00 ng/ml (0.2-2.00)
--- NOTE | 2025-01-03 11:04 | P.PN_ITS ---
Subjective *Date: 01/03/25 *Time: 12:53 Interval history: No acute respiratory events overnight. Patient admits continued improvement in her respiratory symptoms Pulmonology Exam Inpatient Vital signs and Labs for Last 24 Hours: Temp Pulse Resp BP Pulse Ox O2 Del Method O2 Flow Rate 97.5 F L 80 18 137/52 L 98 Nasal Cannula 2 01/03/25 08:00 01/03/25 08:04 01/03/25 08:00 01/03/25 08:00 01/03/25 08:00 01/03/25 08:19 01/03/25 08:19 FiO2 50 01/02/25 03:25 Laboratory Results - last 24 hr 01/02/25 11:43: POC Glucose 262 H 01/02/25 17:00: POC Glucose 329 H* 01/02/25 20:58: POC Glucose 259 H 01/03/25 05:23: POC Glucose 170 H 01/03/25 05:32: WBC 18.6 H D, RBC 3.30 L, Hgb 10.5 L, Hct 31.7 L, MCV 96.1, MCH 31.8 H, MCHC 33.1, RDW 15.1, Plt Count 148 D, MPV 10.3, Neut % (Auto) 89.0 H, Lymph % (Auto) 6.9 L, [place] % (Auto) 3.2, Eos % (Auto) 0.0 L, Baso % (Auto) 0.2, Neut # (Auto) 16.5 H, Lymph # (Auto) 1.3, [place] # (Auto) 0.6, Eos # (Auto) 0.0, Baso # (Auto) 0.0, Sodium 133 L, Potassium 4.4, Chloride 106, Carbon Dioxide 21 L, Anion Gap 10.4, BUN 48 H D, Creatinine 1.30 H, Estimated Creat Clear 34, Estimated GFR 39 L, Est GFR ( Amer) 47 L, Glucose 167 H, Calcium 8.6 01/03/25 05:52: Digoxin 1.00 Temp Pulse Resp BP Pulse Ox O2 Del Method O2 Flow Rate 98.1 F 70 30 H 128/56 L 96 Nasal Cannula 4 01/02/25 08:00 01/02/25 08:00 01/02/25 08:00 01/02/25 08:00 01/02/25 08:00 01/02/25 08:00 01/02/25 08:00 FiO2 50 01/02/25 03:25 Laboratory Results - last 24 hr 01/02/25 03:15: Chlamy pneumoniae PCR Not detected, Adenovirus (PCR) Not detected, B. pertussis DNA (PCR) Not detected, Coronavirus OC43 (PCR) Not detected, Coronavirus HKU1 (PCR) Not detected, Coronavirus 229E (PCR) Not detected, SARS-CoV-2 (PCR) Detected A, Coronavirus NL63 (PCR) Not detected, Human Metapneumovir PCR Not detected, Influenza A (H1) PCR Not detected, Influ A (H1N1/09) PCR Not detected, Influenza A (H3) PCR Not detected, Influenza Type A (PCR) Not detected, Influenza Type B (PCR) Not detected, M. pneumoniae (PCR) Not detected, Parainfluenza 1 (PCR) Not detected, Parainfluenza 2 (PCR) Not detected, Parainfluenza 3 (PCR) Not detected, Parainfluenza 4 (PCR) Not detected, RSV (PCR) Not detected, Entero/Rhino (PCR) Not detected 01/02/25 03:22: VBG pH 7.32, VBG pCO2 38.0, VBG pO2 63.3 H, VBG HCO3 19.0 L, VBG Total CO2 20.2 L, VBG O2 Saturation 91.3 H, VBG Base Excess -7.1 L, VBG Lactic Acid 1.9 01/02/25 03:23: WBC 27.9 H*, RBC 3.68 L, Hgb 11.8 L, Hct 36.3 L, MCV 98.6, MCH 32.1 H, MCHC 32.5, RDW 15.7, Plt Count 207, MPV 10.2, Neut % (Auto) 64.4, Lymph % (Auto) 25.7, [place] % (Auto) 6.3, Eos % (Auto) 0.8, Baso % (Auto) 0.5, Neut # (Auto) 18.0 H, Lymph # (Auto) 7.2 H, [place] # (Auto) 1.8 H, Eos # (Auto) 0.2, Baso # (Auto) 0.1, Total Counted 100, Neutrophils % (Manual) 58, Lymphocytes % (Manual) 33, Monocytes % (Manual) 9, Platelet Estimate Normal, RBC Morphology Normal, D-Dimer 0.85 H, Sodium 139, Potassium 4.7, Chloride 111 H, Carbon Dioxide 17 L, Anion Gap 15.7 H, BUN 38 H, Creatinine 1.20 H, Estimated Creat Clear 35, Estimated GFR 43 L, Est GFR ( Amer) 52 L, Glucose 210 H, Calcium 8.6, Magnesium 1.7, Total Bilirubin 0.7, AST 50 H, ALT 39, Alkaline Phosphatase 216 H, Troponin I 0.20 H, NT-Pro-B Natriuret Pep 2680 H, Total Protein 7.1, Albumin 4.0, Globulin 3.1, Albumin/Globulin Ratio 1.3 01/02/25 05:54: POC Glucose 314 H* 01/02/25 06:50: Troponin I 1.14 H I & O for Labs for Last 24 Hours: Intake & Output 12/31/24 01/01/25 01/02/25 01/03/25 23:59 23:59 23:59 23:59 Intake Total 1440 / 1440 390 / 390 Output Total 300 / 500 800 / 800 Balance 1140 / 940 -410 / -410 Weight 143 lb 11.862 oz 145 lb 8 oz Intake & Output 12/30/24 12/31/24 01/01/25 01/02/25 23:59 23:59 23:59 23:59 Intake Total 500 / 500 Balance 500 / 500 Weight 143 lb 11.862 oz Microbiology Reports for the Last 24 Hours: Microbiology 01/02/25 03:39 Blood Blood Culture - Preliminary NO GROWTH AFTER 24 HOURS 01/02/25 03:33 Blood Blood Culture - Preliminary NO GROWTH AFTER 24 HOURS Constitutional: Present severe distress Head: Present normocephalic and atraumatic ENT: Present normal exam, normal oropharynx and mucous membranes moist Neck: Present normal inspection and full ROM Respiratory: Present respiratory distress, rhonchi and able to speak in complete sentences; Absent prolonged expiratory phase or wheezes Cardiac: Present S1/S2, Tachycardia and radial pulses present GI: Present soft and distention; Absent tenderness or guarding Rectal (female): Present deferred (female): Present deferred Skin: Present intact; Absent cyanosis or jaundice Neuro: Present alert, awake and oriented x 3 Extremities: Present normal inspection; Absent clubbing or cyanosis Psychiatric: Present normal affect and cooperative Assessment and Plan *Assessment and plan (1) Acute respiratory failure with hypoxia: Status: Acute Category: Medical Code(s): J96.01 - Acute respiratory failure with hypoxia (2) Pneumonia due to COVID-19 virus: Status: Acute Category: Medical Code(s): U07.1 - COVID-19; J12.82 - Pneumonia due to coronavirus disease 2019 Plan Ms. 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 Afebrile. Hemodynamically stable. Neutrophilic predominant leukocytosis. Chest x-ray upon admission bilateral diffuse interstitial changes and consolidative changes concerning for airspace disease. Vascular congestion also noted. Small bilateral effusions noted. COVID-19 PCR positive. Denies any known sick contacts. Worsening respiratory distress since yesterday. On initial examination severe respiratory distress. Unable to complete full sentences. Minimal wheezing noted on auscultation. On 4 L saturating 96%, weaned to 2 L. Not using any oxygen supplementation at baseline. Interval update: No acute respiratory events overnight. Improving oxygen requirements weaned to room air with saturations maintained at 93% and above. Admits significant improvement in her respiratory distress. Wheezing improved. Able to talk in full sentences today.. Continue to receive remdesivir dexamethasone and Advair inhalers. Improving leukocytosis. Blood cultures no growth so far. Sputum cultures not available for review. Plan: -Continue nasal cannula NEEDED to maintain O2 saturation goal of 90% above, weaned to room air this morning. Continue oxygen supplementation with exertion at 1 to 2 L -Continue remdesivir x 5 days OR untill Discharge -Continue dexamethasone 6 mg daily. Steroids can be weaned to dexamethasone equivalent or dexamethasone oral upon discharge to complete a total of 5-day course -Continue Advair 250 twice daily scheduled along with DuoNebs every 6 hours as needed. - Antibiotics can be weaned to cefdinir to complete a total of 5-day course upon discharge -Recommend chemical prophylactic anticoagulation and GI ulcer prophylaxis # # Thank you for involving pulmonary in this patient care. Patient can be discharged home from pulmonary standpoint will follow the patient in pulmonary clinic in 2 weeks postdischarge
[2025-01-03 12:00] VITALS: BP 132/64; PULSE 70; PULSE 80; RESP 18; TEMP 36.5; O2SAT 98
[2025-01-03 12:11] LABS: POC Glucose,Bedside 242 gm/dL (70-110)
--- NOTE | 2025-01-03 13:23 | EXP.DC.SUM ---
General Admission date:: 01/02/25 HPI HPI HPI: This is an 84-year-old female who has a past medical history significant for chronic kidney disease, diabetes mellitus, pleural effusion, interstitial lung disease, atrial fibrillation, hypertension, rheumatoid arthritis, hypothyroidism, asthma, TIA and NSTEMI who presents with chief complaint of shortness of breath. Due to patient's symptoms, EMS presented to her home residence. While at patient's home residence, EMS noted patient was room air saturations to be in the 80s. Patient was given nebulizer treatments, Solu-Medrol, and placed on BiPAP and transition to the emergency room for further management. While in the emergency room, plain films of the chest showed pulmonary edema, bilateral pleural effusions, and a superimposed left lower lobe pneumonia. Moreover, patient's white blood cell count was significantly elevated. Patient continued to have increased work loopogram, so hospital medicine was consulted for further management. During my evaluation of the patient, patient states that her shortness of breath started acutely. She reports she had no symptomology until this evening. She has in the past had thoracentesis due to pleural effusion; however, she reports no difficulty laying flat or any significant edema to her lower extremities. She reports no ill contacts with anyone; moreover, she is denying any chest pain, lightheadedness, dizziness, rigors, nausea, vomiting, or diarrhea. Additional pertinent vitals obtained include a temperature of 102, white blood cell count of 27.9, red blood cell count of 3.68, hemoglobin 11.8, hematocrit 36.3, D-dimer 0.85, chloride 111, bicarbonate of 17, BUN of 38, creatinine 1.20, GFR 43, blood glucose of 210, AST of 50, alkaline phosphate of 216, and BNP of 2680. Hospital Course Hospital Course Hospital Course: Total time spent on discharge: 32 minutes on chart review, counseling, documentation, and direct care with patient. Exam Data for Last 24 hours Vital signs and Labs for Last 24 Hours: Temp Pulse Resp BP Pulse Ox O2 Del Method O2 Flow Rate 97.7 F 70 18 132/64 98 Nasal Cannula 2 01/03/25 12:01/03/25 12:01/03/25 12:01/03/25 12:00 01/03/25 12:01/03/25 12:01/03/25 12:00 FiO2 50 01/02/25 03:25 Laboratory Results - last 24 hr 01/02/25 17:00: POC Glucose 329 H* 01/02/25 20:58: POC Glucose 259 H 01/03/25 05:23: POC Glucose 170 H 01/03/25 05:32: WBC 18.6 H D, RBC 3.30 L, Hgb 10.5 L, Hct 31.7 L, MCV 96.1, MCH 31.8 H, MCHC 33.1, RDW 15.1, Plt Count 148 D, MPV 10.3, Neut % (Auto) 89.0 H, Lymph % (Auto) 6.9 L, [place] % (Auto) 3.2, Eos % (Auto) 0.0 L, Baso % (Auto) 0.2, Neut # (Auto) 16.5 H, Lymph # (Auto) 1.3, [place] # (Auto) 0.6, Eos # (Auto) 0.0, Baso # (Auto) 0.0, Sodium 133 L, Potassium 4.4, Chloride 106, Carbon Dioxide 21 L, Anion Gap 10.4, BUN 48 H D, Creatinine 1.30 H, Estimated Creat Clear 34, Estimated GFR 39 L, Est GFR ( Amer) 47 L, Glucose 167 H, Calcium 8.6 01/03/25 05:52: Digoxin 1.00 01/03/25 12:04: POC Glucose 242 H I & O for Last 24 hours: Intake & Output 12/31/24 01/01/25 01/02/25 01/03/25 23:59 23:59 23:59 23:59 Intake Total 1440 / 1440 390 / 390 Output Total 300 / 500 800 / 800 Balance 1140 / 940 -410 / -410 Weight 65.2 kg 65.998 kg Microbiology Reports for the Last 24 Hours: Microbiology 01/02/25 03:39 Blood Blood Culture - Preliminary NO GROWTH AFTER 24 HOURS 01/02/25 03:33 Blood Blood Culture - Preliminary NO GROWTH AFTER 24 HOURS Results Data Completed and Pending Labs on day of discharge: Labs from last 24 hours 01/03/25 01/03/25 01/03/25 12:04 05:52 05:32 WBC 18.6 H D RBC 3.30 L Hgb 10.5 L Hct 31.7 L MCV 96.1 MCH 31.8 H MCHC 33.1 RDW 15.1 Plt Count 148 D MPV 10.3 Neut % (Auto) 89.0 H Lymph % (Auto) 6.9 L [place] % (Auto) 3.2 Eos % (Auto) 0.0 L Baso % (Auto) 0.2 Neut # (Auto) 16.5 H Lymph # (Auto) 1.3 [place] # (Auto) 0.6 Eos # (Auto) 0.0 Baso # (Auto) 0.0 Sodium 133 L Potassium 4.4 Chloride 106 Carbon Dioxide 21 L Anion Gap 10.4 BUN 48 H D Creatinine 1.30 H Estimated Creat Clear 34 Estimated GFR 39 L Est GFR ( Amer) 47 L Glucose 167 H POC Glucose 242 H Calcium 8.6 Digoxin 1.00 01/03/25 01/02/25 01/02/25 05:23 20:58 17:00 WBC RBC Hgb Hct MCV MCH MCHC RDW Plt Count MPV Neut % (Auto) Lymph % (Auto) [place] % (Auto) Eos % (Auto) Baso % (Auto) Neut # (Auto) Lymph # (Auto) [place] # (Auto) Eos # (Auto) Baso # (Auto) Sodium Potassium Chloride Carbon Dioxide Anion Gap BUN Creatinine Estimated Creat Clear Estimated GFR Est GFR ( Amer) Glucose POC Glucose 170 H 259 H 329 H* Calcium Digoxin Preliminary micro results at discharge 01/02/25 03:39 Blood Culture - Preliminary Blood NO GROWTH AFTER 24 HOURS 01/02/25 03:33 Blood Culture - Preliminary Blood NO GROWTH AFTER 24 HOURS DS: Diagnosis Discharge Diagnosis (1) Acute respiratory failure with hypoxia: Status: Acute Code(s): J96.01 - Acute respiratory failure with hypoxia (2) Pneumonia due to COVID-19 virus: Status: Acute Code(s): U07.1 - COVID-19; J12.82 - Pneumonia due to coronavirus disease 2019 Meds Home Medications and Allergies Home Medications ?Medication ?Instructions ?Recorded ?Confirmed ?Type aspirin 81 mg tablet,delayed 81 mg PO DAILY Heart Health 02/03/22 01/02/25 History release multivitamin 1 tab PO DAILY Supplement 02/03/22 01/02/25 History vitamins A,C,C-imdz-gvvxok 4,296 1 cap PO BID Supplement 05/11/23 01/02/25 History mcg-226 mg-90 mg capsule (PreserVision AREDS) mv-mn-folic 200 mcg-vit K 15 1 cap PO DAILY 06/16/23 01/02/25 History mcg-lutein 5 mg-zeaxanthin 1 mg capsule (PreserVision AREDS 2 Plus Multivit) prednisone 5 mg tablet 5 mg PO DAILY 90 days #90 tabs 03/01/24 01/02/25 Rx metoprolol succinate 100 mg 100 mg PO DAILY 07/30/24 01/02/25 History tablet,extended release 24 hr fluticasone propionate 50 1 spray intranasal DAILY #16 grams 10/28/24 01/02/25 Rx mcg/actuation nasal spray,suspension (Allergy Relief (fluticasone)) mirtazapine 15 mg tablet 15 mg PO HS #90 tabs 10/28/24 01/02/25 Rx albuterol sulfate 90 mcg/actuation 2 puff inhalation Q6HP PRN 11/06/24 01/02/25 Rx aerosol inhaler Shortness Of Breath 90 days #8.5 grams alprazolam 0.25 mg tablet 0.25 mg PO BID #60 tabs 12/24/24 01/02/25 Rx allopurinol 300 mg tablet 300 mg PO DAILY 01/02/25 01/02/25 History apixaban 2.5 mg tablet (Eliquis) 2.5 mg PO BID 01/02/25 01/02/25 History atorvastatin 40 mg tablet 40 mg PO HS 01/02/25 01/02/25 History digoxin 125 mcg (0.125 mg) tablet 125 mcg PO DAILY 01/02/25 01/02/25 History furosemide 20 mg tablet 40 mg PO DAILY 01/02/25 01/02/25 History loratadine 10 mg tablet (Allergy 10 mg PO NEEDED PRN Allergy 01/02/25 01/02/25 History Relief (loratadine)) Symptoms pantoprazole 40 mg tablet,delayed 40 mg PO DAILY 01/02/25 01/02/25 History release potassium chloride 10 mEq 10 meq PO BID 01/02/25 01/02/25 History capsule,extended release dexamethasone 4 mg tablet 6 mg (1.5 x 4 mg) PO DAILY 3 days 01/03/25 Rx #5 tabs fluticasone 250 mcg-salmeterol 50 1 inh inhalation BID 30 days #60 ea 01/03/25 Rx mcg/dose blistr powdr for inhalation (Advair Diskus) spironolactone 25 mg tablet 25 mg PO DAILY 30 days #30 tabs 01/03/25 Rx New Prescriptions to Start Prescriptions: Chacorta Marcelino fluticasone propion-salmeterol [Advair Diskus] Chacorta Small spironolactone Chacorta Small Allergies Allergy/AdvReac Type Severity Reaction Status Date / Time nitrofurantoin (From Allergy Rash Verified 01/02/25 03:29 Macrobid) Sulfa (Sulfonamide Allergy Rash Verified 01/02/25 03:29 Antibiotics) Discharge Plan Disposition Patient Disposition: Home, Self-Care Condition: Fair Discharge Order Discharge Orders: Discharge Order (Routine); Ordered 01/03/25 Ordered By: Chacorta Small Follow up Plan Follow up with: Sharita Vargas APRN [Nurse Practitioner, Cardiology] - 01/08/25 Arvin Beltran MD [Primary Care Provider, Internal Medicine] - Enter time for follow up Vaibhav Christensen MD [Physician, Pulmonology] - 2 weeks Prescriptions/Medication Reconciliation: New spironolactone 25 mg Tablet 25 mg PO DAILY 30 Days Qty: 30 0RF dexamethasone 4 mg Tablet 6 mg PO DAILY 3 Days Qty: 5 0RF fluticasone propion-salmeterol [Advair Diskus] 250-50 mcg/dose blister with device 1 inh inhalation BID 30 Days Qty: 60 0RF Continued metoprolol succinate 100 mg tablet extended release 24 hr 100 mg PO DAILY mirtazapine 15 mg tablet 15 mg PO HS Qty: 90 2RF fluticasone propionate [Allergy Relief (fluticasone)] 50 mcg/actuation spray,suspension 1 spray intranasal DAILY Qty: 16 2RF Rx Instructions: administer into each nostril albuterol sulfate 90 mcg/actuation HFA aerosol inhaler 2 puff inhalation Q6HP PRN (Reason: Shortness Of Breath) 90 Days Qty: 8.5 2RF multivitamin Tablet 1 tab PO DAILY aspirin 81 mg tablet,delayed release (DR/EC) 81 mg PO DAILY PreserVision AREDS 4,296 mcg-226 mg-90 mg capsule 1 cap PO BID alprazolam 0.25 mg tablet 0.25 mg PO BID Qty: 60 2RF PreserVision AREDS 2 Plus MV 200 mcg-15 mcg- 5 mg-1 mg Capsule 1 cap PO DAILY loratadine [Allergy Relief (loratadine)] 10 mg tablet 10 mg PO NEEDED PRN (Reason: Allergy Symptoms) potassium chloride 10 mEq capsule, extended release 10 meq PO BID furosemide 20 mg tablet 40 mg PO DAILY Rx Instructions: 2 tabs atorvastatin 40 mg tablet 40 mg PO HS allopurinol 300 mg tablet 300 mg PO DAILY digoxin 125 mcg (0.125 mg) tablet 125 mcg PO DAILY Eliquis 2.5 mg tablet 2.5 mg PO BID pantoprazole 40 mg tablet,delayed release (DR/EC) 40 mg PO DAILY Held prednisone 5 mg tablet 5 mg PO DAILY 90 Days Qty: 90 0RF Hold Instructions: Resume on 01/07/25. Hold until finished course of dexamethasone. Discontinued budesonide-formoterol [Symbicort] 160-4.5 mcg/actuation HFA aerosol inhaler 2 puff INHALATION BID Problem Reconciliation Problems Reviewed?: Yes Patient Discharge Instructions Patient Instructions: DI for Sepsis -- Adult, DI for Respiratory Failure, DI for COVID-19 (Suspected or Confirmed ), Stop Light Pneumonia Print Language: Iraqi Providers Primary Care Provider: Arvin Beltran Admit Provider: Chacorta Small Attending Provider: Chacorta Small
[2025-01-03 13:34] LABS: C-Reactive Protein 118.4 mg/L (0-4)
--- NOTE | 2025-01-07 11:31 | SW/DCPLANNER ---
Spoke with patient on the phone. patient stated that she is doing good. Patient stated that she is aware of her upcoming appointment. 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 Patient stated that she has no concerns or questions at this time. Dillan Olvera
== END 2025-01-03 15:25 | disposition home or self-care (01) | DRG 871 ==
LOC: ER 04:37 → ICU 04:46 → 2ND 10:42
PROVIDERS: Internal Medicine Pulmonary Disease; Nurse Practitioner; Nurse Practitioner Family; Admitting Provider Student in an Organized Health Care Education/Training Program; Emergency Provider Emergency Medicine; PCP Family Medicine; Visit Provider Student in an Organized Health Care Education/Training Program
DX: A41.89 Other specified sepsis (principal); I50.21 Acute systolic (congestive) heart failure; J12.82 Pneumonia due to coronavirus disease 2019; J96.01 Acute respiratory failure with hypoxia; U07.1 COVID-19; I48.19 Other persistent atrial fibrillation; J84.9 Interstitial pulmonary disease, unspecified; E87.20 Acidosis, unspecified; I13.0 Hypertensive heart and chronic kidney disease with heart failure and stage 1 through stage 4 chronic kidney disease, or unspecified chronic kidney disease; R65.20 Severe sepsis without septic shock; M05.10 Rheumatoid lung disease with rheumatoid arthritis of unspecified site; Z95.0 Presence of cardiac pacemaker; E11.22 Type 2 diabetes mellitus with diabetic chronic kidney disease; E03.9 Hypothyroidism, unspecified; E11.65 Type 2 diabetes mellitus with hyperglycemia; J45.30 Mild persistent asthma, uncomplicated; N18.30 Chronic kidney disease, stage 3 unspecified; R79.1 Abnormal coagulation profile; I25.2 Old myocardial infarction; Z79.82 Long term (current) use of aspirin; Z79.899 Other long term (current) drug therapy; Z86.73 Personal history of transient ischemic attack (TIA), and cerebral infarction without residual deficits; Z79.890 Hormone replacement therapy; Z79.01 Long term (current) use of anticoagulants; Z79.52 Long term (current) use of systemic steroids
CPT/HCPCS: 0223U; 36415; 71045; 80048; 80053; 80162; 82803; 82962; 83735; 83880; 84484; 85007; 85025; 85378; 86140; 87040; 93005; 93306; 94640; 94761; 99285; J0131; J0248; J0696; J1650; J1938; J2543; J3475; J7050; J8540

== ENCOUNTER 2025-01-22 13:00 | Outpatient (CLI) | payer MEDICARE, MEDICAID, SELFPAY ==
--- OUTSIDE RECORDS SUMMARY | 2025-01-08 13:30 | XMS_ITS | Encounter Summary ---
Author Organization [facility] Address [address] [place] [address] Care Team Providers Care Director Of Cardiac Cath Lab Name Role Phone Arvin Beltran MD Primary Care Provider +1- [phone] Reason for Referral * Diagnostic Imaging (Routine) - Pending Review Specialty Diagnoses / Procedures Referred By Bianka t Referred To Contact Diagnoses Chronic atrial fibrillation Mitral valve insufficiency, unspecified etiology Procedures Adult Transthoracic Echo Complete W/ Cont if Necessary Per Protocol [place] [address] Phone: tel: fax: [facility] [address] [place] [id number] Phone: tel: fax: Referral ID Status Reason Start Date Expiration Date V isits Requested Visits Authorized [id number] Pending Review 01/08/2025 04/09/2026 1 1 Reason for Visit * Reason Comments Hospital Follow Up Visit Pt states she i s here for a hospital follow up [facility]. Pacemaker Check Encounter Details Date Type Department Care Team (Late st Contact Info) Description 01/08/2025 1:30 PM EDT Office Visit [facility] [place] [phone] Eunice Segundo MD [address] [place] [address] Presence of cardiac pacemaker [Z95.0] (Primary Dx); Chronic atrial fibrillation; Mitral valve insufficiency, unspecified etiology; Hypertension, essential; Paroxysmal atrial fibrillation; Coronary artery disease involving [place] coronary artery of [place] heart without angina pectoris Social History Tobacco Use Types Packs/Day Years [...] on file documented as of this encounter Last Filed Vital Signs Vital Sign Reading Time Taken Comments Blood Pressure 102/70 01/08/2025 1:48 PM EDT Pulse 71 01/08/2025 1:48 PM EDT Temperature - - Respiratory Rate - - Oxygen Saturation 96% 01/08/2025 1:48 PM EDT Inhaled Oxygen Concentration - - Weight 62.6 kg (138 lb) 01/08/2025 1:48 PM EDT Height 170.2 cm (5' 7 ) 01/08/2025 1:48 PM EDT Body Mass Index 21.61 01/08/2025 1:48 PM EDT documented in this encounter Progress Notes * Eunice Segundo MD - 01/08/2025 1:30 PM EDT Images from the original note were not included. [facility] Provider Note Date: 01/08/2025 Name: Nevaeh Santacruz : 1940 PCP: Arvin Beltran MD Chief Complaint Patient presents with Hospital Follow Up Visit Pt states she is here for a hospital follow up [facility]. Pacemaker Check Subjective History of Present Illness Nevaeh Santacruz is a 84 y.o. femalewho presents today for hospital follow up. Pt was admitted to [facility] with worsening of shortness of breath. Diagnosed with COVID pneumonia, and troponin was slightly elevated. Dr Millard seen pt was she was hospitalized and suggested that pt have hearth cath performed. Pt was discharged on 01/03/2025. Since being home pt states that shortness of air has improved but will still experience it with exertion. Denies any chest pain, swelling, or dizziness. States she will occ experience a flutter sensation near her pacemaker. Cardiac History 1. Pacemaker BiV no remote checks 2. A-fib chronic status post ablation 3. TIA 4. Moderate obstructive airway disease 5. Rheumatoid arthritis 6. Carotid stenosis, R ICA 50 to 69% 7. CAD- LAD MANSOOR 03/2018 8. Lung nodule-unclear who follows 9. CHF-EF 45 to 50% 06/2021 patient unable to tolerate Entresto 10. Moderate mitral regurgitation Left heart cath 08/21/2020-no flow-limiting CAD. Widely patent LAD stent. LVEF 45%. Echocardiogram 06/25/24 -LVEF 46-50%. Left ventricular diastolic function was indeterminate. Left atrial cavity is dilated. The right atrial cavity is dilated. RVSP is mildly elevated (35-45 mmHg). Nuclear Stress Test 08/05/2020- with moderately reduced left EF. Anterior fixed defect with some reversibility and associated wall motion abnormality in the stress gated images. PFT 03/06/2018- with moderate obstructive airway disease and moderately severe diffusion defect. Allergies Allergen Reactions Macrobid [Nitrofurantoin Macrocrystal] Unknown (See Comments) CAN'T REMEMBER Sulfa Antibiotics Hives Current Outpatient Medications: albuterol sulfate HFA 108 (90 Base) MCG/ACT inhaler, As needed, Disp: , Rfl: allopurinol (ZYLOPRIM) 300 MG tablet, Take 1 tablet by mouth Every Morning., Disp: , Rfl: ALPRAZolam (XANAX) 0.25 MG tablet, Take 1 tablet by mouth Every Night., Disp: , Rfl: apixaban (ELIQUIS) 2.5 MG tablet tablet, Take 1 tablet by mouth 2 (Two) Times a Day., Disp: , Rfl: aspirin 81 MG chewable tablet, Chew 1 tablet Daily. (Patient taking differently: Chew 1 tablet Every Night.), Disp: , Rfl: atorvastatin (LIPITOR) 40 MG tablet, Take 1 tablet by mouth Every Night., Disp: , Rfl: dexAMETHasone (DECADRON) 4 MG tablet, TAKE 1 AND 1/2 TABLET BY MOUTH EVERY DAY FOR 3 DAYS -- FINISHALL MEDICINE -- --TAKE WITH FOOD--, Disp: , Rfl: digoxin (LANOXIN) 125 MCG tablet, Take 1 tablet by mouth Every Night. 1/2 tablet Monday, Monday,Monday. 1 tablet Monday, Monday, and ., Disp: , Rfl: doxycycline (MONODOX) 100 MG capsule, TAKE ONE CAPSULE BY MOUTH TWICE DAILY FOR FOUR DAYS -- FINISHALL MEDICINE --, Disp: , Rfl: fluticasone (FLONASE) 50 MCG/ACT nasal spray, Administer 1 spray into the nostril(s) as directed byprovider Daily., Disp: , Rfl: Fluticasone-Salmeterol (ADVAIR/WIXELA) 250-50 MCG/ACT DISKUS, Inhale 1 puff 2 (Two) Times a Day., Disp: , Rfl: furosemide (LASIX) 20 MG tablet, TAKE 2 TABLETS EVERY DAY, Disp: 180 tablet, Rfl: 3 Loratadine 10 MG capsule, Take by mouth., Disp: , Rfl: metoprolol succinate XL (TOPROL-XL) 100 MG 24 hr tablet, Take 1 tablet by mouth Daily., Disp: 90 tablet, Rfl: 3 mirtazapine (REMERON) 15 MG tablet, take 1 tablet 1 time each day at bedtime, Disp: , Rfl: Multiple Vitamins-Minerals (PRESERVISION AREDS 2 PO), one capsule twice daily, Disp: , Rfl: multivitamin (MULTIVITAMIN PO), Take 1 tablet by mouth Daily., Disp: , Rfl: pantoprazole (PROTONIX) 40 MG EC tablet, Take 1 tablet by mouth Every Morning., Disp: , Rfl: potassium chloride (MICRO-K) 10 MEQ CR capsule, Take 1 capsule by mouth Daily., Disp: , Rfl: predniSONE (DELTASONE) 5 MG tablet, TAKE 1 TABLET EVERY DAY, Disp: 90 tablet, Rfl: 3 spironolactone (ALDACTONE) 25 MG tablet, Take 1 tablet by mouth Daily., Disp: , Rfl: Symbicort 160-4.5 MCG/ACT inhaler, Inhale 2 puffs 2 (Two) Times a Day., Disp: , Rfl: Past Medical History: Diagnosis Date Abnormal liver function Allergies ENTRESTO: PALPITATIONS, LEVAQUIN: HIVES, LOSARTAN:SORE THROAT, MACROBID UTI, SUFAS HIVES Atrial fibrillation Coronary artery disease Encephalopathy acute 06/13/2024 GERD (gastroesophageal reflux disease) Gout High cholesterol Histoplasmosis Hx of coronary angiogram 06/24/2009 SHOWED 50%STENOSIS LAD 30% STENOSIS LUMINAL IRREGULARIES Hypertension Idiopathic pulmonary fibrosis Macular degeneration Mitral regurgitation Osteoarthritis Pneumonia Pneumonia due to COVID-19 virus 12/2024 Pulmonary histoplasmosis Respiratory failure 06/13/2024 Rheumatoid arthritis Severe protein-calorie malnutrition 06/13/2024 Solitary pulmonary nodule TIA (transient ischemic attack) Past Surgical History: Procedure Laterality Date APPENDECTOMY CARDIAC CATHETERIZATION 06/24/2009 NO STENTS PLACED CARDIAC CATHETERIZATION N/A 04/06/2018 Procedure: Left Heart Cath; Surgeon: Vishal Park MD; Location: [facility]; Service: Cardiovascular CARDIAC CATHETERIZATION Left 08/21/2020 Procedure: Left Heart Cath??CBI; Surgeon: Vishal Park MD; Location: [facility]; Service: Cardiovascular; Laterality: Left; CARDIAC ELECTROPHYSIOLOGY STUDY AND ABLATION CARDIAC PACEMAKER PLACEMENT CHOLECYSTECTOMY CORONARY ANGIOPLASTY Percutaneous transluminal balloon angioplasty with insertion of stent into coronary artery GALLBLADDER SURGERY HEMORRHOIDECTOMY OTHER SURGICAL HISTORY PPM GENERATOR CHANGE 11/15/[address] SEGUNDO PACEMAKER IMPLANTATION BIV PACEMAKER REPLACEMENT Left 11/15/2022 Procedure: PPM generator change - dual; Surgeon: Eunice Segundo MD; Location: [facility]; Service: Cardiology; Laterality: Left; SKIN CANCER EXCISION Right HAND SKIN CANCER EXCISION Right 04/2013 HAND TUBAL ABDOMINAL LIGATION Family History Problem Relation Age of Onset Cancer Mother Other Mother TONGUE Heart disease Father Heart attack Father Diabetes Sister No Known Problems Sister Heart disease Brother IMPENDING CABG Atrial fibrillation Brother Coronary artery disease Brother Social History Socioeconomic History Marital status: Tobacco Use Smoking status: Never Passive exposure: Never Smokeless tobacco: Never Vaping Use Vaping status: Never Used Substance and Sexual Activity Alcohol use: No Comment: only occasionally Drug use: No Sexual activity: Defer Objective Vital Signs: BP 102/70 (BP Location: Right arm, Patient Position: Sitting, Cuff Size: Adult) Pulse 71 Ht 170.2 cm (67 ) Wt 62.6 kg (138 lb) SpO2 96% BMI 21.61 kg/m?? Estimated body mass index is 21.61 kg/m?? as calculated from the following: Height as of this encounter: 170.2 cm (67 ). Weight as of this encounter: 62.6 kg (138 lb). Physical Exam Constitutional: Appearance: Normal appearance. Cardiovascular: Rate and Rhythm: Normal rate and regular rhythm. Pulses: Normal pulses. Heart sounds: Normal heart sounds. Pulmonary: Effort: Pulmonary effort is normal. Breath sounds: Normal breath sounds. Musculoskeletal: General: Normal range of motion. Skin: General: Skin is warm. Neurological: General: No focal deficit present. Mental Status: She is alert and oriented to person, place, and time. Psychiatric: Mood and Affect: Mood normal. Behavior: Behavior normal. Thought Content: Thought content normal. Judgment: Judgment normal. Assessment and Plan ASSESSMENTS AND ORDERS Diagnoses and all orders for this visit: 1. Presence of cardiac pacemaker [Z95.0] (Primary) 2. Chronic atrial fibrillation - Adult Transthoracic Echo Complete W/ Cont if Necessary Per Protocol; Future 3. Mitral valve insufficiency, unspecified etiology - Adult Transthoracic Echo Complete W/ Cont if Necessary Per Protocol; Future 4. Hypertension, essential 5. Paroxysmal atrial fibrillation 6. Coronary artery disease involving [place] coronary artery of [place] heart without angina pectoris PLAN - Hospital records reviewed - overall pt feeling better - pacemaker checked, battery and leads good - discussed with pt would not recommend a heart cath at this time - Will update ECHO make sure heart function not affected. - With troponin elevated would ? Do stress test at a later date. Pt just recovering from COVID pneumonia Follow Up Return in about 6 weeks (around 02/19/2025) for with testing at that appointment, does not need Pacemaker checked at this visit. Maylin Segundo MD Cardiology and Sleep [facility] 01/08/2025 Please note that this explicitly excludes time spent on other separate billable services such as performing procedures or test interpretation, when applicable. This note was created using dictation software which occasionally transcribes nonsensical phrases. Please contact the provider if any clarification is needed. documented in this encounter Plan of Treatment Upcoming Encounters Date Type Department Care Team (Late st Contact Info) Description 03/05/2025 9:30 AM EDT Ancillary Procedure [facility] [address] [place] [address] [place] [id number] 03/05/2025 11:00 AM EDT Office Visit [facility] [address] [place] [address] [place] [id number] Eunice Segundo MD [address] [place] [address] [place] [id number] 03/05/2025 11:00 AM EDT Clinical Support No Requirements [facility] [address] [place] [address] [place] [phone] Scheduled Orders Name Type Priority Associated Diagnoses Orde r Schedule Adult Transthoracic Echo Complete W/ Cont if Necessary Per Protocol Echocardiography Routine Chronic atrial fibrillation Mitral valve insufficiency, unspecified etiology Expected: 02/05/2025, Expires: 01/08/2026 documented as of this encounter Visit Diagnoses Diagnosis Presence of cardiac pacemaker [Z95.0]- Primary Cardiac pacemaker in situ Chronic atrial fibrillation Atrial fibrillation Mitral valve insufficiency, unspecified etiology Hypertension, essential Unspecified essential hypertension Paroxysmal atrial fibrillation Atrial fibrillation Coronary artery disease involving [place] coronary artery of [place] heart without angina pectoris documented in this encounter Care Teams Director Of Cardiac Cath Lab Relationship Specialty Start Date End Date Arvin Beltran MD [address] [place] [address] PCP - General Family Medicine 10/19/22 documented as of this encounter
[2025-01-22 19:35] LABS: Hematocrit 37.8 % (37.0-47.0); Hemoglobin 11.6 g/dL (12.2-16.2); Immature Granulocytes % 0.4 %; Mean Corpuscular HGB Conc 30.7 g/dL (31.8-35.4); Mean Corpuscular Hemoglobin 30.7 pg (27.0-31.2); Mean Corpuscular Volume 100.0 fl (81-99); Nucleated Red Blood Cells % 0.1 %; Platelet Count 245 K/mm3 (142-424); Red Blood Count 3.78 M/mm3 (4.20-5.40); Red Cell Distribution Width-SD 60.1 fL; White Blood Count 16.8 K/mm3 (4.8-10.8)
[2025-01-22 20:00] LABS: Blood Urea Nitrogen 65 mg/dl (7-17); Calcium 9.4 mg/dl (8.4-10.2); Carbon Dioxide 16 mmol/L (22.0-30.0); Chloride 105 mmol/L (98-107); Creatinine,Serum 1.50 mg/dl (0.52-1.04); Estimated Glomerular Filt Rate 33 ml/min (>60); GFR (African American) 40 ML/MIN (>60); Glucose 151 mg/dl (74-100); Sodium 133 mmol/L (136-145)
[2025-01-22 20:04] LABS: NT Pro Brain Natriuretic Pep. 2680 pg/mL (0-450)
[2025-01-22 20:26] LABS: Potassium 6.0 mmoL/L (3.5-5.1)
[2025-01-22 20:27] LABS: Anion Gap 18.0 mEq/L (5-15)
--- OUTSIDE RECORDS SUMMARY | 2025-01-23 11:15 | XMS_ITS | Encounter Summary ---
Author Organization [facility] Address [address] [place] [address] Care Team Providers Care Sonar Watchstander Name Role Phone Arvin Beltran MD Primary Care Provider +1- [phone] Encounter Details Date Type Department Care Team (Latest Contact Info) Description 01/08/2025 Travel Social History Tobacco Use Types Packs/Day Years Used Date Smoking Tobacco: Never Passive Smoke Exposure: Never Smokeless Tobacco: Never Alcohol Use Standard Drinks/Week Comments No 0 [...] as of this encounter Plan of Treatment Upcoming Encounters Date Type Department Care Team (Late st Contact Info) Description 03/05/2025 9:30 AM EDT Ancillary Procedure [facility] [address] [place] [id number] 03/05/2025 11:00 AM EDT Office Visit [facility] [address] [place] [address] [place] [phone] Eunice Segundo MD [address] [place] [address] 03/05/2025 11:00 AM EDT Clinical Support No Requirements [facility] [place] [id number] documented as of this encounter Visit Diagnoses Not on filedocumented in this encounter Care Teams Sonar Watchstander Relationship Specialty Start Date End Date Arvin Beltran MD [address] [place] [address] PCP - General Family Medicine 10/19/22 documented as of this encounter
--- OUTSIDE RECORDS SUMMARY | 2025-01-23 11:15 | XMS_ITS | Clinical Summary ---
Author Organization [facility] Address [address] [place] [address] Care Team Providers Care Heel Gouger Name Role Phone Arvin Beltran MD Primary Care Provider [phone] Allergies Active Allergy Reactions Criticality Noted Date [...] Patient taking differently:81 mg OralNightly, Reported on 01/08/2025 albuterol sulfate HFA 108 (90 Base) MCG/ACT inhaler As needed 2 Active Multiple Vitamins-Minera ls (PRESERVISION AREDS 2 PO) one capsule twice [...] succinate XL (TOPROL-XL) 100 MG 24 hr tabletIndicatio ns:Hypertension , essential,PVC's (premature ventricular contractions) Take 1 tablet by mouth Daily. 90 tablet 3 5 Active predniSONE (DELTASONE) 5 MG tablet TAKE 1 TABLET EVERY DAY 90 tablet 3 5 Active dexAMETHasone (DECADRON) 4 MG tablet TAKE 1 AND 1/2 TABLET BY MOUTH EVERY DAY FOR 3 DAYS -- FINISH ALL MEDICINE -- --TAKE WITH FOOD-- 5 Active doxycycline (MONODOX) 100 MG capsule TAKE ONE CAPSULE BY MOUTH TWICE DAILY FOR FOUR DAYS -- FINISH ALL MEDICINE -- 5 Active Fluticasone-Romeml meterol (ADVAIR/WIXELA) 250-50 MCG/ACT DISKUS Inhale 1 puff 2 (Two) Times a Day. 5 Active mirtazapine (REMERON) 15 MG tablet take 1 tablet 1 time each day at bedtime 5 Active Loratadine 10 MG capsule Take by mouth. Acti ve spironolactone (ALDACTONE) 25 MG tablet Take 1 tablet by mouth Daily. 30 tablet 4 5 Active spironolactone (ALDACTONE) 25 MG tablet Take 1 tablet by mouth Daily. 5 025 Discontin ued(Reord er) Active Problems Problem Noted Date Diagnosed Date [...] PM EST): 1. She has seen a lead bi developer for her feet 2. Tylenol PRN is ok. 3. She is on a blood thinner so we would avoid/limit oral NSAIDs. 4. She has done some physical therapy in the past. 5. She has seen a chiropractor Assessment & Plan (10/24/2023 1:43 PM EDT): 1. She has seen a lead bi developer for her feet 2. Tylenol PRN is [...] physical therapy, Gianluca Resendez, she saw a lead bi developer in [facility], she saw a chiropractor, she bought new shoes, she sees a administrator, she has seen a acoustic warfare analyst in the past (she does not remember [...] physical therapy, Gianluca Resendez, she saw a lead bi developer in [facility], she saw a chiropractor, she bought new shoes, she sees a administrator, she has seen a acoustic warfare analyst in the past (she does not remember [...] Humira as long as cleared by her digital artist. Assessment & Plan (03/27/2023 4:32 PM EST): EF on echo today was 46-50%. Unable to tolerate Entresto in the past. Euvolemic on exam today. - Continue holding Lasix due to worsening kidney function and recent DOMINIK. Patient will let me know if she has worsening edema or shortness of breath. - Okay to restart Humira as long as cleared by her digital artist. She has a follow-up appointment with pulmonology [...] Eliquis, and digoxin. Coronary artery disease involving ekuk heart 0 06/16/2022 Assessment & Plan (06/19/2024 [...] she plans to reach out to patient's acoustic warfare analyst to see what specific medication, half-life, etc. [facility], Dr. Aly Hernandez [facility] [address] [place] [address] phone #[phone] and fax #[phone]. Assessment & Plan (06/16/2022 8:30 PM EST): [...] Histoplasmosis 09/06/2022 TIA (transient ischemic attack) 09/06/2022 Encounters Date Type Department Care Team Description 01/23/2025 Telephone [facility] [address] [place] [address] Jana Herring MA 01/16/2025 Refill [facility] [address] [place] [phone] Eunice Segundo MD 01/08/2025 1:30 PM EDT Office Visit [facility] [address] [phone] Eunice Segundo MD Presence of cardiac pacemaker [Z95.0] (Primary Dx); Chronic atrial fibrillation; Mitral valve insufficiency, unspecified etiology; Hypertension, essential; Paroxysmal atrial fibrillation; 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 01/08/2025 Travel from Last 3 Months Immunizations Immunization Administration Dates Next Due FLUAD [...] Name Status Comments Brother Father (Age 73) NE Mother (Age 89) Sister 1 Sister 2 [...] Pulse 71 01/08/2025 1:48 PM EDT Temperature 36.2 C (97.2 F) 04/09/2024 11:47 AM EST Respiratory Rate 20 11/15/2022 9:54 AM EDT Oxygen Saturation 96% 01/08/2025 1:48 PM EDT Inhaled Oxygen Concentration - - Weight 62.6 kg (138 lb) 01/08/2025 1:48 PM EDT Height 170.2 cm (5' 7 ) 01/08/2025 1:48 PM EDT Body Mass Index 21.61 01/08/2025 1:48 PM EDT Plan of Treatment Upcoming Encounters Date Type Department Care Team (Late st Contact Info) Description 03/05/2025 9:30 AM EDT Ancillary Procedure [facility] [address] [phone] 03/05/2025 11:00 AM EDT Office Visit [facility] [address] [phone] Eunice Segundo MD [address] [place] [address] 03/05/2025 11:00 AM EDT Clinical Support No Requirements [facility] [address] [phone] Health Maintenance Due Date Last Done Comments DXA SCAN 1940 Pneumococcal Vaccine 50+ (1 of 2 - PCV) 09/15/1959 ZOSTER VACCINE (1 of 2) 1990 TDAP/TD VACCINES (1 - Tdap) 12/03/2009 12/02/2009 RSV Vaccine - Adults (1 - 1- dose 75+ series) 09/15/2015 ANNUAL WELLNESS VISIT 04/02/2018 LIPID PANEL 03/08/2024 03/08/2023, 08/06, 04/06/2018 INFLUENZA VACCINE 12/06/2024 02/23/2024, , 01/22/2020, Additional history exists COVID-19 Vaccine (2024-06 6 season) 2025 02/08/2022, 03/11/2021, 07/09/2020, Additional history exists Medical Devices Implanted Type Area Claims Vice President Device Identifier Shelf Expiration Date Model / Serial / Lot Pacemaker Pacemaker Gen Pm Assurity Sr Rf [id number] - [id number] - [id number] Implanted:Qty: 1 on 11/15/2022 by Eunice Segundo MD at [facility] Pacemaker Left: Chest [employer] 01/06/2024 [id number] / [id number] / Stent Xience Carli Everolimus Gavino [id number] - [id number] Implanted:Qty: 1 on 04/06/2018 by Vishal Park MD at [facility] HAN VASCULAR 01/24/2019 [id number] / / [id number] Procedures Procedure Name Priority Date/Time Associated Diagnosis Comments SCANNED - LABS 01/22/2025 REMOTE DEVICE CHECK 12/19/2024 3 :57 AM EDT LIPID PANEL Routine 03/08/2023 Fatigue, unspecified type 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 Acute on chronic systolic CHF (congestive heart failure) from Last 3 Months or Most Recently Relevant to Health Maintenance Results * LABS SCANNED (01/22/2025) us Eunice Segundo MD LAB BLOOD ORDERABLES Final R esult * Remote Device Check (12/19/2024 3:57 AM EDT) Date Time Interrogation Session [id number] [facility] Type Interrogation Session Remote Scheduled [facility] Implantable Pulse Generator Claims Vice President [employer] [facility] Implantable Pulse Generator Type IPG [facility] Implantable Pulse Generator Model 1272 Assurity MRI(TM) [facility] Implantable Pulse Generator Serial Number [id number] [facility] Implantable Pulse Generator Implant Date 20221115 [facility] Battery Remaining Percentage 76.00 % [facility] Battery Remaining Longevity 60.0 mo [facility] Battery Voltage 2.990 [facility] Battery GRADUATING MACHINE OPERATOR Trigger 2.600 [facility] Battery Status Middle of Service [facility] Paramjit Statistic RV Percent Paced 88.00 [facility] Lead Channel RV Sensing Intrinsic Amplitude 4.300 [facility] Lead Channel Setting RV Sensing Sensitivity 1.50 [facility] Lead Channel RV Impedance Value 350 [facility] Lead Channel Setting RV Pacing Amplitude 2.500 [facility] Lead Channel Setting RV Pacing Pulse Width 1.2 [facility] Paramjit Setting Mode (NBG Code) VVIR [facility] Paramjit Setting Lower Rate Limit 70 [facility] Paramjit Setting Maximum Sensor Rate 120 [facility] Lead Channel Setting RV Sensing Polarity Bipolar [facility] Lead Channel Setting RV Pacing Polarity Bipolar [facility] Lead Channel RV Pacing Threshold Polarity Bipolar [facility] 12/19/2024 3:57 AM EDT us Eunice Segundo MD CV IMPLANTABLE CARDIAC DEVIC E Final Result [facility] * Lipid Panel (03/08/2023) Blood us Eunice Segundo MD LAB BLOOD ORDERABLES Final R esult [facility]
[address] [place] [address], from Last 3 Months or Most Recently Relevant to Health Maintenance Insurance MEDICAID [place] HUMANA MEDICARE ADVANTAGE SNP HMO Care Teams Heel Gouger Relationship Specialty Start Date End Date Arvin Beltran MD [facility] [address] [facility] [address] PCP - General Family Medicine 10/19/22
--- OUTSIDE RECORDS SUMMARY | 2025-01-23 11:15 | XMS_ITS | Encounter Summary ---
Author Organization Healthcare Address [address] 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
--- OUTSIDE RECORDS SUMMARY | 2025-01-23 11:15 | XMS_ITS | Encounter Summary ---
Author Organization [facility] Address [address] [place] [address] Care Team Providers Care Integration Technician Name Role Phone Arvin Beltran MD Primary Care Provider [phone] Encounter Details Date Type Department Care Team (Late st Contact Info) Description 01/16/2025 Refill [facility] [address] [place] [address] Eunice Segundo MD [address] [place] [address] Social History Tobacco Use Types Packs/Day Years [...] on file documented as of this encounter Progress Notes * Patric Rob MA - 01/16/2025 2:59 PM EDTAddended by: PATRIC ROB on: 01/16/2025 02:59 PM Modules accepted: Orders documented in this encounter Miscellaneous Notes * Telephone Encounter - Patric Rob MA - 01/16/2025 2:57 PM EDT Pt notified. She states when she first started taking the Spironolactone she was peeing when she stood up but that has gotten better. She states her BP has been good. She would like a script sent in for the Spironolactone. * Telephone Encounter - Eunice Segundo MD - 01/16/2025 11:58 AM EDT This can be a medication that also strengthens the heart. I would prefer to keep it on at this time. It is very mild in terms of how much fluid it takes off. Know if she is having low blood pressuresand things then maybe we should stop it. But mostly I prefer to keep it on. I guess I need to know about why she feels like it is too much. * Telephone Encounter - Patric Rob MA - 01/16/2025 10:03 AM EDT Please advise * Telephone Encounter - Medina Rubio RegSched Rep - 01/16/2025 9:50 AM EDT When PT was in the hospital, Dr Christensen had started her on spironolactone for fluid and she is alsostill taking the lasix that has her on. She wanted to stop the new one because she feels likes its too much, and she had a follow up with Dr. Christensen yesterday and got a good report. They asked him about stopping the new one and he said he would leave that up to her Trace Clerk. documented in this encounter Plan of Treatment Upcoming Encounters Date Type Department Care Team (Late st Contact Info) Description 03/05/2025 9:30 AM EDT Ancillary Procedure [facility] [address] [id number] 03/05/2025 11:00 AM EDT Office Visit [facility] [address] [phone] uEnice Segundo MD [address] [address] 03/05/2025 11:00 AM EDT Clinical Support No Requirements [facility] [address] [phone] documented as of this encounter Visit Diagnoses Not on filedocumented in this encounter Care Teams Integration Technician Relationship Specialty Start Date End Date Arvin Beltran MD [address] [place] [address] PCP - General Family Medicine 10/19/22 documented as of this encounter
--- OUTSIDE RECORDS SUMMARY | 2025-01-23 11:15 | XMS_ITS | Encounter Summary ---
Author Organization [facility] Address 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 Sangeetha Lebron MD [address] [place] [address] Phone: tel: fax: [facility] [address] [place] [phone] Phone: tel: fax: Referral ID Status Reason Start Date Expiration Date Visits Requested Visits Authorized [id number] Authorized Specialty Services Required 4 09/17/2025 1 1 Encounter Details Date Type Department Care Team (Latest Contact Info) Description 03/18/2024 Community [facility] Community Practice [address] [place] [address] Sangeetha Lebron MD [address] [place] [address] 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
--- OUTSIDE RECORDS SUMMARY | 2025-01-23 11:15 | XMS_ITS | Clinical Summary ---
Author Organization [facility] Address [address] [place] [address] Care Team Providers Care Complex Manager Name Role Phone Obie Hernandes MD Primary Care Provider [phone] Social History Tobacco Use Types Packs/Day Years [...] Screening 1940 [facility]-Medicare Annual Wellness (AWV) 1940 [facility]-Infant/Child/Adol SDOH Screenings 1940 [facility]- SDOH Screenings 1958 [facility]-Adult SDOH Screenings 1958 [facility]-DTaP,Tdap,and Td Vaccines (1 - Tdap) 09/15/1959 [facility]-Pneumococcal Vaccine: 50+ Years (1 of 1 - PCV) 1990 [facility]-Zoster Vaccines (1 of 2) 1990 [facility]-RSV Vaccine: 60+ Years or (1 - 1-dose 75+ series) 09/15/2015 [id number] Vaccine (2024- season) 2025 02/08/2022, 03/11/2021, 07/09/2020, Additional history exists [facility]-Influenza [...] age to complete this topic Insurance MEDICAID-[place] HUMANA MEDICARE Care Teams Complex Manager Relationship Specialty Start Date End Date Obie Hernandes MD [address] [place] [address] PCP - General 09/18/20
--- OUTSIDE RECORDS SUMMARY | 2025-01-23 11:15 | XMS_ITS | Encounter Summary ---
Author Organization [facility] Address [address] [place] [address] Care Team Providers Care Configurator Name Role Phone Arvin Beltran MD Primary Care Provider [phone] Encounter Details Date Type Department Care Team (Late st Contact Info) Description 01/23/2025 Telephone [facility] [address] [place] [address] Jana Herring MA Social History Tobacco Use Types Packs/Day Years [...] on file documented as of this encounter Miscellaneous Notes * Telephone Encounter - Jana Herring MA - 01/23/2025 9:55 AM EDT Labs are in Epic. * Telephone Encounter - Jana Herring MA - 01/23/2025 8:41 AM EDT Li, pt's daughter called, on BH verbal, concerned about the new addition of Spironolactone. Pt had labs drawn yesterday at Dr. Beltran's office and Potassium was elevated. She was told to hold Potassium until Monday and have labs repeated. I requested labs from Dr. Beltran. Please call Li back at [phone] documented in this encounter Plan of Treatment Upcoming Encounters Date Type Department Care Team (Late st Contact Info) Description 03/05/2025 9:30 AM EDT Ancillary Procedure [facility] [address] [phone] 03/05/2025 11:00 AM EDT Office Visit [facility] [address] [phone] Eunice Segundo MD [address] [place] [address] 03/05/2025 11:00 AM EDT Clinical Support No Requirements [facility] [address] [phone] documented as of this encounter Visit Diagnoses Not on filedocumented in this encounter Care Teams Configurator Relationship Specialty Start Date End Date Arvin Beltran MD [address] [place] [address] PCP - General Family Medicine 10/19/22 documented as of this encounter
--- OUTSIDE RECORDS SUMMARY | 2025-01-23 11:15 | XMS_ITS | Clinical Summary ---
Author Organization [facility] Address [address] [place] [address] Phone Care Team Providers Care Machine Tool Operator Name Role Phone Unavailable Unavailable Conditions or Problems No information available. Medications No information available. Medications Administered No information available. Allergies, Adverse Reactions, Alerts No information available. Results No information available. Plan of Care No information available. Procedures No information available. Vital Signs No information available. Immunizations No information available. Advance Directives No information available.
== END 2025-01-22 23:59 ==
LOC: LAB.DROPOF 01-23 11:12
PROVIDERS: PCP Family Medicine; Visit Provider Family Medicine
DX: I50.9 Heart failure, unspecified (principal)
CPT/HCPCS: 80048; 83880; 85025

== ENCOUNTER 2025-01-27 21:36 | Outpatient (CLI) | payer MEDICARE, MEDICAID, SELFPAY ==
--- OUTSIDE RECORDS SUMMARY | 2025-01-08 13:30 | XMS_ITS | Encounter Summary ---
Author Organization [facility] Address [address] [place] [address] Care Team Providers Care Machine Room Engineer Name Role Phone Arvin Beltran MD Primary Care Provider +1- [phone] Reason for Referral * Diagnostic Imaging (Routine) - Pending Review Specialty Diagnoses / Procedures Referred By Bianka t Referred To Contact Diagnoses Chronic atrial fibrillation Mitral valve insufficiency, unspecified etiology Procedures Adult Transthoracic Echo Complete W/ Cont if Necessary Per Protocol [place] [address] Phone: tel: fax: [facility] [address] [place] [phone] Phone: tel: fax: Referral ID Status Reason Start Date Expiration Date V isits Requested Visits Authorized [id number] Pending Review 01/08/2025 04/09/2026 1 1 Reason for Visit * Reason Comments Hospital Follow Up Visit Pt states she i s here for a hospital follow up [facility]. Pacemaker Check Encounter Details Date Type Department Care Team (Late st Contact Info) Description 01/08/2025 1:30 PM EDT Office Visit [facility] [place] [phone] Eunice Segundo MD [address] [place] [address] Presence of cardiac pacemaker [Z95.0] (Primary Dx); Chronic atrial fibrillation; Mitral valve insufficiency, unspecified etiology; Hypertension, essential; Paroxysmal atrial fibrillation; Coronary artery disease involving [place] coronary artery of [place] heart without angina pectoris Social History Tobacco [...] is here for a hospital follow up [facility]. Pacemaker Check Subjective History of Present Illness Nevaeh Santacruz is a 84 y.o. femalewho presents today for hospital follow up. Pt was admitted to [facility] with worsening of shortness of breath. Diagnosed [...] atrial fibrillation 6. Coronary artery disease involving [place] coronary artery of [place] heart without angina pectoris PLAN - Hospital [...] visit. Maylin Segundo MD Cardiology and Sleep [facility] 01/08/2025 Please note that this explicitly excludes [...] Description 03/05/2025 9:30 AM EDT Ancillary Procedure [facility] [address] [place] [address] [place] [id number] 03/05/2025 11:00 AM EDT Office Visit [facility] [address] [place] [address] [place] [id number] Eunice Segundo MD [address] [place] [address] [place] [id number] 03/05/2025 11:00 AM EDT Clinical Support No Requirements [facility] [address] [place] [address] [place] [id number] Scheduled Orders Name Type [...] fibrillation Atrial fibrillation Coronary artery disease involving [place] coronary artery of holy cross heart without angina pectoris documented in this encounter Care Teams Machine Room Engineer Relationship Specialty Start Date End Date Arvin Beltran MD [address] [place] [address] PCP - General Family Medicine 10/19/22 documented as of this encounter
--- OUTSIDE RECORDS SUMMARY | 2025-01-27 21:38 | XMS_ITS | Encounter Summary ---
Author Organization [facility] Address [address] [place] [address] Care Team Providers Care Packing And Final Assembly Supervisor Name Role Phone Arvin Beltran MD Primary Care Provider [phone] Encounter Details Date Type Department Care Team (Late st Contact Info) Description 01/23/2025 Telephone [facility] [address] [place] [address] Jana Herring MA Social History [...] encounter Miscellaneous Notes * Telephone Encounter - Regine Farmer MA - 01/24/2025 8:48 AM EDT Spoke to patient's daughter Li, she understood. She stated patient will have updated labs done on Monday. * Telephone Encounter - Eunice Segundo MD - 01/23/2025 4:37 PM EDT Agree with Dr. Damian. Hold potassium and repeat labs, if still elevated we will have to stop spironolactone. * Telephone Encounter - Jana Herring MA - 01/23/2025 9:55 AM EDT Labs are in Epic. * Telephone Encounter - Jana Herring MA - 01/23/2025 8:41 AM EDT Li, pt's daughter called, on verbal, concerned about the new addition of Spironolactone. Pt had labs drawn yesterday at Dr. Beltran's office and Potassium was elevated. She was told to hold Potassium until Monday and have labs repeated. I requested labs from Dr. Beltran. Please call Li back at [phone] documented in this encounter Plan of Treatment Upcoming Encounters Date Type Department Care Team (Late st Contact Info) Description 03/05/2025 9:30 AM EDT Ancillary Procedure [facility] [address] [place] [address] [place] [id number] 03/05/2025 11:00 AM EDT Office Visit [facility] [address] [place] [address] [place] [phone] Eunice Segundo MD [address] [place] [address] [place] [address] 03/05/2025 11:00 AM EDT Clinical Support No Requirements [facility] [address] [place] [address] [place] [phone] documented as of this encounter Visit Diagnoses Not on filedocumented in this encounter Care Teams Packing And Final Assembly Supervisor Relationship Specialty Start Date End Date Arvin Beltran MD [address] [place] [address] PCP - General Family Medicine 10/19/22 documented as of this encounter
--- OUTSIDE RECORDS SUMMARY | 2025-01-27 21:38 | XMS_ITS | Clinical Summary ---
Author Organization [facility] Address [address] [place] [address] Care Team Providers Care Talent Management Manager Name Role Phone Arvin Beltran MD Primary Care Provider [phone] Allergies Active Allergy Reactions Criticality Noted Date [...] -- FINISH ALL MEDICINE -- 5 Active Fluticasone-Rommel meterol (ADVAIR/WIXELA) 250-50 MCG/ACT DISKUS Inhale 1 [...] PM EST): 1. She has seen a installation superintendent for her feet 2. Tylenol PRN is ok. 3. She is on a blood thinner so we would avoid/limit oral NSAIDs. 4. She has done some physical therapy in the past. 5. She has seen a chiropractor Assessment & Plan (10/24/2023 1:43 PM EDT): 1. She has seen a installation superintendent for her feet 2. Tylenol PRN is [...] physical therapy, Gianluca Resendez, she saw a installation superintendent in [facility], she saw a chiropractor, she bought new shoes, she sees a staff auditor, she has seen a youth teacher in the past (she does not remember [...] physical therapy, Gianluca Resendez, she saw a installation superintendent in [facility], she saw a chiropractor, she bought new shoes, she sees a staff auditor, she has seen a youth teacher in the past (she does not remember [...] Humira as long as cleared by her photographic spotter. Assessment & Plan (03/27/2023 4:32 PM EST): EF on echo today was 46-50%. Unable to tolerate Entresto in the past. Euvolemic on exam today. - Continue holding Lasix due to worsening kidney function and recent DOMINIK. Patient will let me know if she has worsening edema or shortness of breath. - Okay to restart Humira as long as cleared by her photographic spotter. She has a follow-up appointment with pulmonology [...] Eliquis, and digoxin. Coronary artery disease involving [place] heart 0 06/16/2022 Assessment & Plan (06/19/2024 [...] she plans to reach out to patient's youth teacher to see what specific medication, half-life, etc. patient sees [facility], Dr. Aly Hernandez at [address] [place] [address] phone #[phone] and fax #[phone]. Assessment & Plan (06/16/2022 8:30 PM EST): [...] Type Department Care Team Description 01/23/2025 Telephone [facility] [address] [place] [address] Jana Herring MA 01/16/2025 Refill [facility] [address] [place] [id number] Eunice Segundo MD 01/08/2025 1:30 PM EDT Office Visit [facility] [address] [id number] Eunice Segundo MD Presence of cardiac pacemaker [Z95.0] (Primary Dx); Chronic atrial fibrillation; Mitral valve insufficiency, unspecified etiology; Hypertension, essential; Paroxysmal atrial fibrillation; Coronary artery disease involving [place] coronary artery of [place] heart without angina pectoris 01/08/2025 Travel from [...] Name Status Comments Brother Father (Age 73) OR Mother (Age 89) Sister 1 Sister 2 [...] 03/05/2025 9:30 AM EDT Ancillary Procedure [facility] [address] [id number] 03/05/2025 11:00 AM EDT Office Visit [facility] [address] [phone] Eunice Segundo MD [address] [place] [address] 03/05/2025 11:00 AM EDT Clinical Support No Requirements [facility] [address] [id number] Health [...] history exists Medical Devices Implanted Type Area Motors And Controls Tester Device Identifier Shelf Expiration Date Model / Serial / Lot Pacemaker Pacemaker Gen Pm Assurity Sr Rf [id number] - [id number] - [id number] Implanted:Qty: 1 on 11/15/2022 by Eunice Segundo MD at [facility] Pacemaker Left: Chest [employer] 01/06/2024 [id number] / [id number] / Stent Xience Carli Everolimus Gavino [id number] - [id number] Implanted:Qty: 1 on 04/06/2018 by Vishal Park MD at [facility] HAN VASCULAR 01/24/2019 [id number] / / [id number] Procedures Procedure Name Priority Date/Time Associated Diagnosis Comments SCANNED - LABS 01/22/2025 REMOTE DEVICE CHECK 12/19/2024 3 :57 AM EDT LIPID PANEL Routine 03/08/2023 Fatigue, unspecified type Coronary artery disease involving [place] coronary artery of [place] heart without angina pectoris Acute on chronic systolic CHF (congestive heart failure) from Last 3 Months or Most Recently Relevant to Health Maintenance Results * LABS SCANNED (01/22/2025) us Eunice Segundo MD LAB BLOOD ORDERABLES Final R esult * Remote Device Check (12/19/2024 3:57 AM EDT) Date Time Interrogation Session [id number] [facility] Type Interrogation Session Remote Scheduled [facility] Implantable Pulse Generator Motors And Controls Tester [employer] [facility] Implantable Pulse Generator Type IPG [facility] Implantable Pulse Generator Model 1272 Assurity MRI(TM) [facility] Implantable Pulse Generator Serial Number [id number] [facility] Implantable Pulse Generator Implant Date 20221115 [facility] Battery Remaining Percentage 76.00 % [facility] Battery Remaining Longevity 60.0 mo [facility] Battery Voltage 2.990 [facility] Battery WHEEL GRINDER Trigger 2.600 [facility] Battery Status Middle of Service [facility] Paramjit Statistic RV Percent Paced 88.00 [facility] Lead Channel RV Sensing Intrinsic Amplitude 4.300 [facility] Lead Channel Setting RV Sensing Sensitivity 1.50 [facility] Lead Channel RV Impedance Value 350 [facility] Lead Channel Setting RV Pacing Amplitude 2.500 [facility] Lead Channel Setting RV Pacing Pulse Width 1.2 [facility] Paramjit Setting Mode (NBG Code) VVIR [facility] Paramjit Setting Lower Rate Limit 70 [facility] Paramjit Setting Maximum Sensor Rate 120 [facility] Lead Channel Setting RV Sensing Polarity Bipolar [facility] Lead Channel Setting RV Pacing Polarity Bipolar [facility] Lead Channel RV Pacing Threshold Polarity Bipolar [facility] 12/19/2024 3:57 AM EDT us Eunice Segundo MD CV IMPLANTABLE CARDIAC DEVIC E Final Result [facility] * Lipid Panel (03/08/2023) Blood us Eunice Segundo MD LAB BLOOD ORDERABLES Final R esult [facility]
[address] [place] [address], from Last 3 Months or Most Recently Relevant to Health Maintenance Insurance MEDICAID [place] HUMANA MEDICARE ADVANTAGE SNP HMO Care Teams Talent Management Manager Relationship Specialty Start Date End Date Arvin Beltran MD [facility] [address] [place] [address] PCP - General Family Medicine 10/19/22
--- OUTSIDE RECORDS SUMMARY | 2025-01-27 21:38 | XMS_ITS | Encounter Summary ---
Author Organization [facility] Address [address] [place] [address] Care Team Providers Care Sewage Plant Attendant Name Role Phone Arvin Beltran MD Primary Care Provider [phone] Encounter Details Date Type Department Care Team (Late st Contact Info) Description 01/16/2025 Refill [facility] [address] [place] [phone] Eunice Segundo MD [address] [place] [address] Social History Tobacco Use Types Packs/Day [...] he would leave that up to her Cytopathology Technologist. documented in this encounter Plan of Treatment Upcoming Encounters Date Type Department Care Team (Late st Contact Info) Description 03/05/2025 9:30 AM EDT Ancillary Procedure [facility] [address] [id number] 03/05/2025 11:00 AM EDT Office Visit [facility] [address] [id number] Eunice Segundo MD [address] [place] [address] 03/05/2025 11:00 AM EDT Clinical Support No Requirements [facility] [address] [id number] documented as of this encounter Visit Diagnoses Not on filedocumented in this encounter Care Teams Sewage Plant Attendant Relationship Specialty Start Date End Date Arvin Beltran MD [address] [place] [address] PCP - General Family Medicine 10/19/22 documented as of this encounter
--- OUTSIDE RECORDS SUMMARY | 2025-01-27 21:38 | XMS_ITS | Encounter Summary ---
Author Organization [facility] Address 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 Sangeetha Lebron MD [address] [place] [address] Phone: tel: fax: [facility] [address] [place] [id number] Phone: tel: fax: Referral ID Status Reason Start Date Expiration Date Visits Requested Visits Authorized [id number] Authorized Specialty Services Required 4 09/17/2025 1 1 Encounter Details Date Type Department Care Team (Latest Contact Info) Description 03/18/2024 Community [facility] [address] [place] [address] Sangeetha Lebron MD [address] [place] [address] Advanced dry age-related macular degeneration of both [...] Primary documented in this encounter Care Teams Ballistics Expert Relationship Specialty Start Date End Date Obie Hernandes MD [address] [place] [address] PCP - General 09/18/20 documented as of this encounter
--- OUTSIDE RECORDS SUMMARY | 2025-01-27 21:38 | XMS_ITS | Clinical Summary ---
Author Organization [facility] Address [address] [place] [address] Care Team Providers Care Control Manager Name Role Phone Obie Hernandes MD Primary Care Provider [phone] Social History Tobacco Use Types Packs/Day Years [...] or (1 - 1-dose 75+ series) 09/15/2015 [id number] Vaccine (2024- season) 2025 02/08/2022, 03/11/2021, 07/09/2020, [...] topic Insurance MEDICAID-[place] HU[place] MEDICARE Care Teams Control Manager Relationship Specialty Start Date End Date Obie Hernandes MD [address] [place] [address] PCP - General 09/18/20
--- OUTSIDE RECORDS SUMMARY | 2025-01-27 21:38 | XMS_ITS | Encounter Summary ---
Author Organization [facility] Address [address] [place] [address] Care Team Providers Care Grader Green Meat Name Role Phone Obie Hernandes MD Primary Care Provider [phone] Encounter Details Date Type Department Care Team (Latest Contact Info) Description 03/11/2024 Community [facility] [address] [place] [address] Sangeetha Lebron MD [address] [place] [address] Advanced dry age-related macular degeneration of both [...] Primary documented in this encounter Care Teams Grader Green Meat Relationship Specialty Start Date End Date Obie Hernandes MD [address] [place] [address] PCP - General 09/18/20 documented as of this encounter
--- OUTSIDE RECORDS SUMMARY | 2025-01-27 21:38 | XMS_ITS | Encounter Summary ---
Author Organization [facility] Address [address] [place] [address] Care Team Providers Care Alumina Plant Supervisor Name Role Phone Arvin Beltran MD Primary Care Provider [phone] Encounter Details Date Type Department Care Team [...] 03/05/2025 9:30 AM EDT Ancillary Procedure [facility] [address] [id number] 03/05/2025 11:00 AM EDT Office Visit [facility] [address] [place] [address] [place] [id number] Eunice Segundo MD [address] [place] [address] 03/05/2025 11:00 AM EDT Clinical Support No Requirements [facility] [address] [place] [phone] documented as of this encounter Visit Diagnoses Not on filedocumented in this encounter Care Teams Alumina Plant Supervisor Relationship Specialty Start Date End Date Arvin Beltran MD [address] [place] [address] PCP - General Family Medicine 10/19/22 documented as of this encounter
--- OUTSIDE RECORDS SUMMARY | 2025-01-27 21:38 | XMS_ITS | Clinical Summary ---
Author Organization [facility] Address [address] [facility] [address] [place] [address] Phone Care Team Providers Care Plastics Nurse Name Role Phone Unavailable Unavailable Conditions or Problems No information available. Medications No information available. Medications Administered No information available. Allergies, Adverse Reactions, Alerts No information available. Results No information available. Plan of Care No information available. Procedures No information available. Vital Signs No information available. Immunizations No information available. Advance Directives No information available.
[2025-01-27 23:39] LABS: Hematocrit 37.3 % (37.0-47.0); Hemoglobin 11.7 g/dL (12.2-16.2); Immature Granulocytes % 0.8 %; Mean Corpuscular HGB Conc 31.4 g/dL (31.8-35.4); Mean Corpuscular Hemoglobin 32.1 pg (27.0-31.2); Mean Corpuscular Volume 102.2 fl (81-99); Nucleated Red Blood Cells % 0 %; Platelet Count 237 K/mm3 (142-424); Red Blood Count 3.65 M/mm3 (4.20-5.40); Red Cell Distribution Width-SD 61.4 fL; White Blood Count 14.3 K/mm3 (4.8-10.8)
[2025-01-27 23:53] LABS: NT Pro Brain Natriuretic Pep. 3390 pg/mL (0-450)
[2025-01-28 09:07] LABS: Albumin Level 3.9 g/dl (3.5-5.0); Chloride 102 mmol/L (98-107); Sodium 136 mmol/L (136-145)
[2025-01-28 09:08] LABS: Potassium 4.8 mmoL/L (3.5-5.1)
[2025-01-28 09:10] LABS: Alanine Aminotransferase 26 U/L (12-78); Alkaline Phosphatase 151 U/L (38-126); Anion Gap 20.8 mEq/L (5-15); Aspartate Amino Transferase 44 U/L (14-36); Bilirubin,Total 0.7 mg/dl (0.2-1.3); Blood Urea Nitrogen 68 mg/dl (7-17); Carbon Dioxide 18 mmol/L (22.0-30.0); Creatinine,Serum 1.50 mg/dl (0.52-1.04); Estimated Glomerular Filt Rate 33 ml/min (>60); GFR (African American) 40 ML/MIN (>60)
[2025-01-28 09:11] LABS: Albumin/Globulin Ratio 1.6 (1.1-1.8); Calcium 9.3 mg/dl (8.4-10.2); Globulin 2.5 g/dL (1.3-3.2); Glucose 140 mg/dl (74-100); Total Protein,Serum 6.4 g/dl (6.3-8.2)
== END 2025-01-27 23:59 | disposition home or self-care (01) ==
LOC: LAB.DROPOF 21:36
PROVIDERS: PCP Family Medicine; Visit Provider Family Medicine
DX: E87.5 Hyperkalemia (principal); I12.9 Hypertensive chronic kidney disease with stage 1 through stage 4 chronic kidney disease, or unspecified chronic kidney disease; N18.32 Chronic kidney disease, stage 3b; I48.91 Unspecified atrial fibrillation; U07.1 COVID-19; J12.82 Pneumonia due to coronavirus disease 2019
CPT/HCPCS: 80053; 82043; 82570; 83880; 85025

== ENCOUNTER 2025-01-27 21:39 | Outpatient (CLI) | payer MEDICARE, MEDICAID, SELFPAY ==
--- OUTSIDE RECORDS SUMMARY | 2025-01-27 21:41 | XMS_ITS | Clinical Summary ---
Author Organization [facility] Address [address] [facility] [address] [place] [address] Phone Care Team Providers Care Transfer Driver Name Role Phone Unavailable Unavailable Conditions or Problems No information available. Medications No information available. Medications Administered No information available. Allergies, Adverse Reactions, Alerts No information available. Results No information available. Plan of Care No information available. Procedures No information available. Vital Signs No information available. Immunizations No information available. Advance Directives No information available.
== END 2025-01-27 23:59 | disposition home or self-care (01) ==
LOC: LAB.DROPOF 21:40
PROVIDERS: PCP Family Medicine; Visit Provider Family Medicine
DX: E11.9 Type 2 diabetes mellitus without complications (principal)
CPT/HCPCS: 82043; 82570

== ENCOUNTER 2025-02-21 21:24 | Outpatient (CLI) | payer MEDICARE, MEDICAID, SELFPAY ==
--- OUTSIDE RECORDS SUMMARY | 2025-01-08 13:30 | XMS_ITS | Encounter Summary ---
Author Organization [facility] Address [address] [place] [address] Care Team Providers Care Aircraft Seat Upholsterer Name Role Phone Arvin Beltran MD Primary Care Provider +1- [phone] Reason for Referral * Diagnostic Imaging (Routine) - Pending Review Specialty Diagnoses / Procedures Referred By Bianka t Referred To Contact Diagnoses Chronic atrial fibrillation Mitral valve insufficiency, unspecified etiology Procedures Adult Transthoracic Echo Complete W/ Cont if Necessary Per Protocol [place] [address] Phone: tel: fax: [facility] [address] [place] [phone] Phone: tel: fax: Referral ID Status Reason Start Date Expiration Date V isits Requested Visits Authorized [id number] Pending Review 01/08/2025 04/09/2026 1 1 Reason for Visit * Reason Comments Hospital Follow Up Visit Pt states she i s here for a hospital follow up [facility]. Pacemaker Check Encounter Details Date Type Department Care Team (Late st Contact Info) Description 01/08/2025 1:30 PM EDT Office Visit [facility] [place] [phone] Eunice Segundo MD [address] [place] [address] Presence of cardiac pacemaker [Z95.0] (Primary Dx); Chronic atrial fibrillation; Mitral valve insufficiency, unspecified etiology; Hypertension, essential; Paroxysmal atrial fibrillation; Coronary artery disease involving [place] coronary artery of [place] heart without angina pectoris Social History Tobacco [...] is here for a hospital follow up [facility]. Pacemaker Check Subjective History of Present Illness Nevaeh Santacruz is a 84 y.o. femalewho presents today for hospital follow up. Pt was admitted to [facility] with worsening of shortness of [...] atrial fibrillation 6. Coronary artery disease involving [place] coronary artery of [place] heart without angina pectoris PLAN - Hospital [...] visit. Maylin Segundo MD Cardiology and Sleep [facility] 01/08/2025 Please note that this explicitly [...] Description 03/05/2025 9:30 AM EDT Ancillary Procedure [facility] [address] [place] [address] [place] [id number] 03/05/2025 11:00 AM EDT Office Visit [facility] [address] [place] [address] [place] [id number] Eunice Segundo MD [address] [place] [address] [place] [id number] 03/05/2025 11:00 AM EDT Clinical Support No Requirements [facility] [address] [place] [address] [place] [phone] Scheduled Orders Name Type [...] fibrillation Atrial fibrillation Coronary artery disease involving [place] coronary artery of [place] heart without angina pectoris documented in this encounter Care Teams Aircraft Seat Upholsterer Relationship Specialty Start Date End Date Arvin Beltran MD [address] [place] [address] PCP - General Family Medicine 10/19/22 documented as of this encounter
--- OUTSIDE RECORDS SUMMARY | 2025-02-21 21:27 | XMS_ITS | Clinical Summary ---
Author Organization [facility] Address [address] [facility] [address] [place] [address] Phone Care Team Providers Care Product Advisor Name Role Phone Unavailable Unavailable Conditions or Problems No information available. Medications No information available. Medications Administered No information available. Allergies, Adverse Reactions, Alerts No information available. Results No information available. Plan of Care No information available. Procedures No information available. Vital Signs No information available. Immunizations No information available. Advance Directives No information available.
--- OUTSIDE RECORDS SUMMARY | 2025-02-21 21:27 | XMS_ITS | Clinical Summary ---
Author Organization [facility] Address [address] [place] [address] Care Team Providers Care Pipe Blanks Cut Off Saw Operator Name Role Phone Obie Hernandes MD Primary Care Provider [phone] Social History Tobacco Use Types Packs/Day Years [...] or (1 - 1-dose 75+ series) 09/15/2015 [id number] Vaccine (2024- season) 2025 02/08/2022, 03/11/2021, 07/09/2020, [...] topic Insurance [place] HU[place] MEDICARE Care Teams Pipe Blanks Cut Off Saw Operator Relationship Specialty Start Date End Date Obie Hernandes MD [address] [place] [address] PCP - General 09/18/20
--- OUTSIDE RECORDS SUMMARY | 2025-02-21 21:27 | XMS_ITS | Encounter Summary ---
Author Organization [facility] Address [address] [place] [address] Care Team Providers Care High Worker Name Role Phone Arvin Beltran MD Primary Care Provider [phone] Encounter Details Date Type Department Care Team [...] 9:30 AM EDT Ancillary Procedure [facility] [address] [place] [id number] 03/05/2025 11:00 AM EDT Office Visit [facility] [address] [place] [address] [place] [id number] Eunice Segundo MD [address] [place] [address] 03/05/2025 11:00 AM EDT Clinical Support No Requirements [facility] [address] [place] [id number] documented as of this encounter Visit Diagnoses Not on filedocumented in this encounter Care Teams High Worker Relationship Specialty Start Date End Date Arvin Beltran MD [address] [place] [address] PCP - General Family Medicine 10/19/22 documented as of this encounter
--- OUTSIDE RECORDS SUMMARY | 2025-02-21 21:27 | XMS_ITS | Clinical Summary ---
Author Organization [facility] Address [address] [place] [address] Care Team Providers Care Automobile Spring Repairer Name Role Phone Arvin Beltran MD Primary Care Provider [phone] Allergies Active Allergy Reactions Criticality Noted Date [...] -- FINISH ALL MEDICINE -- 5 Active Fluticasone-Salm eterol (ADVAIR/WIXELA) 250-50 MCG/ACT DISKUS Inhale 1 puff 2 (Two) Times a Day. 5 Active mirtazapine (REMERON) 15 MG tablet take 1 tablet 1 time each day at bedtime 5 Active Loratadine 10 MG capsule Take by mouth. Activ e spironolactone (ALDACTONE) 25 MG tablet Take 1 tablet by mouth Daily. 30 tablet 4 5 Active Active Problems Problem Noted Date [...] PM EST): 1. She has seen a chrome worker for her feet 2. Tylenol PRN is ok. 3. She is on a blood thinner so we would avoid/limit oral NSAIDs. 4. She has done some physical therapy in the past. 5. She has seen a chiropractor Assessment & Plan (10/24/2023 1:43 PM EDT): 1. She has seen a chrome worker for her feet 2. Tylenol PRN is [...] prednisone, MTX/folic acid, Tylenol, indomethacin, physical therapy, ElGianluca mccain, she saw a chrome worker in [facility], she saw a chiropractor, she bought new shoes, she sees a motorcycle technician, she has seen a drapery seamstress in the past (she does not remember [...] physical therapy, Gianluca Resendez, she saw a chrome worker in [facility], she saw a chiropractor, she bought new shoes, she sees a motorcycle technician, she has seen a drapery seamstress in the past (she does not remember [...] Humira as long as cleared by her child nutrition manager. Assessment & Plan (03/27/2023 4:32 PM EST): EF on echo today was 46-50%. Unable to tolerate Entresto in the past. Euvolemic on exam today. - Continue holding Lasix due to worsening kidney function and recent DOMINIK. Patient will let me know if she has worsening edema or shortness of breath. - Okay to restart Humira as long as cleared by her child nutrition manager. She has a follow-up appointment with pulmonology [...] Eliquis, and digoxin. Coronary artery disease involving [place]ag heart 0 06/16/2022 Assessment & Plan (06/19/2024 [...] she plans to reach out to patient's drapery seamstress to see what specific medication, half-life, etc. patient sees [facility], Dr. Aly Hernandez at [address] [place] [address] phone #[phone] and fax #[phone]. Assessment & Plan (06/16/2022 8:30 PM EST): [...] Encounters Date Type Department Care Team Description 01/29/2025 Telephone [facility] [address] [place] [address] Jana Herring MA 01/23/2025 Telephone [facility] [address] [facility] [address] [place] [address] Jana Herring MA 01/16/2025 Refill [facility] [address] [place] [address] [id number] Eunice Segundo MD 01/08/2025 1:30 PM EDT Office Visit [facility] [address] [id number] Eunice Segundo MD Presence of cardiac pacemaker [Z95.0] (Primary Dx); Chronic atrial fibrillation; Mitral valve insufficiency, unspecified etiology; Hypertension, essential; Paroxysmal atrial fibrillation; Coronary artery disease involving [place] coronary artery of [place]ag heart without angina pectoris 01/08/2025 Travel from [...] Name Status Comments Brother Father (Age 73) [place] Mother (Age 89) Sister 1 Sister 2 [...] Description 03/05/2025 9:30 AM EDT Ancillary Procedure [facility] [address] [id number] 03/05/2025 11:00 AM EDT Office Visit [facility] [address] [phone] Eunice Segundo MD [address] [place] [address] 03/05/2025 11:00 AM EDT Clinical Support No Requirements [facility] [address] [...] history exists Medical Devices Implanted Type Area Supervisor Pipelines Device Identifier Shelf Expiration Date Model / Serial / Lot Pacemaker Pacemaker Gen Pm Assurity Sr Rf [id number] - [id number] - [id number] Implanted:Qty: 1 on 11/15/2022 by Eunice Segundo MD at [facility] Pacemaker Left: Chest [facility] [employer] 01/06/2024 [id number] / [id number] / Stent Xience Carli Everolimus Gavino [id number] - [id number] Implanted:Qty: 1 on 04/06/2018 by Vishal Park MD at [facility] HAN VASCULAR 01/24/2019 [id number] / / [id number] Procedures Procedure Name Priority Date/Time Associated Diagnosis Comments SCANNED - LABS 01/27/2025 SCANNED - LABS 01/22/2025 REMOTE DEVICE CHECK 12/19/2024 3 :57 AM EDT LIPID PANEL Routine 03/08/2023 Fatigue, unspecified type Coronary artery disease involving [place] coronary artery of [place] heart without angina pectoris Acute on chronic systolic CHF (congestive heart failure) from Last 3 Months or Most Recently Relevant to Health Maintenance Results * LABS SCANNED (01/27/2025) Only the most recent of2 resultswithin the time period is included. us Eunice Segundo MD LAB BLOOD ORDERABLES Final R esult * Remote Device Check (12/19/2024 3:57 AM EDT) Date Time Interrogation Session [id number] [facility] Type Interrogation Session Remote Scheduled [facility] Implantable Pulse Generator Supervisor Pipelines [facility] Implantable Pulse Generator Type IPG [facility] Implantable Pulse Generator Model 1272 Assurity MRI(TM) [facility] Implantable Pulse Generator Serial Number [id number] [facility] Implantable Pulse Generator Implant Date 20221115 [facility] Battery Remaining Percentage 76.00 % [facility] Battery Remaining Longevity 60.0 mo [facility] Battery Voltage 2.990 [facility] Battery CERTIFIED ACTIVITIES DIRECTOR Trigger 2.600 [facility] Battery Status Middle of Service [facility] Paramjit Statistic RV Percent Paced 88.00 [facility] Lead Channel RV Sensing Intrinsic Amplitude 4.300 [facility] Lead Channel Setting RV Sensing Sensitivity 1.50 [facility] Lead Channel RV Impedance Value 350 [facility] Lead Channel Setting RV Pacing Amplitude 2.500 [facility] Lead Channel Setting RV Pacing Pulse Width 1.2 [facility] Paramjit Setting Mode (NBG Code) VVIR [facility] Paramjit Setting Lower Rate Limit 70 [facility] Paramjit Setting Maximum Sensor Rate 120 [facility] Lead Channel Setting RV Sensing Polarity Bipolar [facility] Lead Channel Setting RV Pacing Polarity Bipolar [facility] Lead Channel RV Pacing Threshold Polarity Bipolar [facility] 12/19/2024 3:57 AM EDT Eunice Segundo MD CV IMPLANTABLE CARDIAC DEVIC E Final Result [facility] * Lipid Panel (03/08/2023) Blood us Eunice Segundo MD LAB BLOOD ORDERABLES Final R esult [facility]
[address] [place] [id number], [place] [phone] from Last 3 Months or Most Recently Relevant to Health Maintenance Insurance [place]ICA[place] [employer] MEDICARE ADVANTAGE [facility] Care Teams Automobile Spring Repairer Relationship Specialty Start Date End Date Arvin Beltran MD [address] [place] [facility] [place] [address] PCP - General Family Medicine 10/19/22
--- OUTSIDE RECORDS SUMMARY | 2025-02-21 21:27 | XMS_ITS | Encounter Summary ---
Author Organization [facility] Address [address] [place] [address] Care Team Providers Care Court Registry Officer Name Role Phone Arvin Beltran MD Primary Care Provider [phone] Encounter Details Date Type Department Care Team (Late st Contact Info) Description 01/23/2025 Telephone [facility] [address] [facility] [address] [place] [address] Jana Herring MA Social History [...] Dr. Beltran. Please call Li back at [phone] documented in this encounter Plan of Treatment Upcoming Encounters Date Type Department Care Team (Late st Contact Info) Description 03/05/2025 9:30 AM EDT Ancillary Procedure [facility] [address] [place] [address] [place] [address] 03/05/2025 11:00 AM EDT Office Visit [facility] [address] [place] [address] [place] [phone] Eunice Segundo MD [address] [place] [address] [place] [address] 03/05/2025 11:00 AM EDT Clinical Support No Requirements [facility] [address] [place] [address] [place] [address] documented as of this encounter Visit Diagnoses Not on filedocumented in this encounter Care Teams Court Registry Officer Relationship Specialty Start Date End Date Arvin Beltran MD [address] [place] [address] PCP - General Family Medicine 10/19/22 documented as of this encounter
--- OUTSIDE RECORDS SUMMARY | 2025-02-21 21:27 | XMS_ITS | Encounter Summary ---
Author Organization [facility] Address 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 Sangeetha Lebron MD [address] [place] [address] Phone: tel: fax: [facility] [address] [place] [id number] Phone: tel: fax: Referral ID Status Reason Start Date Expiration Date Visits Requested Visits Authorized [id number] Authorized Specialty Services Required 4 09/17/2025 1 1 Encounter Details Date Type Department Care Team (Latest Contact Info) Description 03/18/2024 Community [facility] [address] [place] [address] Sangeetha Lebron MD [address] [place] [address] Advanced dry age-related macular degeneration of both [...] Primary documented in this encounter Care Teams Language And Literature Division Chair Relationship Specialty Start Date End Date Obie Hernandes MD [address] [place] [address] PCP - General 09/18/20 documented as of this encounter
--- OUTSIDE RECORDS SUMMARY | 2025-02-21 21:27 | XMS_ITS | Encounter Summary ---
Author Organization [facility] Address [address] [place] [address] Care Team Providers Care Program Therapist Name Role Phone Arvin Beltran MD Primary Care Provider [phone]- [phone] Encounter Details Date Type Department Care Team (Late st Contact Info) Description 01/29/2025 Telephone [facility] [address] [place] [address] Jana Herring MA Social History Tobacco Use [...] Telephone Encounter - Jana Herring MA - 01/29/2025 3:42 PM EDT Stephanie notified and verbalized understanding. She will contact Dr. Beltran. * Telephone Encounter - Eunice Segundo MD - 01/29/2025 3:10 PM EDT We could update some new labs but the ones from just the other day are pretty good. Her kidney function was stable just 2 days ago. Her white blood cell count was elevated like there may be an infection so she might want to get in to Dr. Beltran's office and look for a UTI. Or go to the ER if needed. Also white blood cell count was going down from January 22 and she is on dexamethasone which can make it go up so hard to know exactly what may be causing this. Make sure she is eating and drinking well. Drink if thirsty but do not drink too much and overwhelmed fluid pills.. * Telephone Encounter - Jana Herring MA - 01/29/2025 1:11 PM EDT Stephanie, on BH verbal, called concerned about pt. She states Nevaeh is very tired and weak. Not urinating much. Recent labs from Dr. Beltran's office on 01-27-25 in [facility]. She is taking Lasix 20 mg 2 tabs qd and Spironolactone 25 mg qd. Please call Stephanie at [phone]. Please advise. documented in this encounter Plan of Treatment Upcoming Encounters Date Type Department Care Team (Late st Contact Info) Description 03/05/2025 9:30 AM EDT Ancillary Procedure [facility] [address] [place] [address] [place] [phone] 03/05/2025 11:00 AM EDT Office Visit [facility] [address] [place] [address] [place] [phone] Eunice Segundo MD [address] [place] [address] [place] [address] 03/05/2025 11:00 AM EDT Clinical Support No Requirements [facility] [address] [place] [address] [place] [phone] documented as of this encounter Visit Diagnoses Not on filedocumented in this encounter Care Teams Program Therapist Relationship Specialty Start Date End Date Arvin Beltran MD [address] [place] [address] PCP - General Family Medicine 10/19/22 documented as of this encounter
--- OUTSIDE RECORDS SUMMARY | 2025-02-21 21:27 | XMS_ITS | Encounter Summary ---
Author Organization [facility] Address [address] [place] [address] Care Team Providers Care Locomotive Operator Helper Name Role Phone Arvin Beltran MD Primary Care Provider [phone] Encounter Details Date Type Department Care Team (Late st Contact Info) Description 01/16/2025 Refill [facility] [address] [place] [address] Eunice Segundo MD [address] [place] [address] Social History Tobacco Use Types Packs/Day [...] Know if she is having low blood pressures and things then maybe we should stop it. But mostly I prefer to keep it on. 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 documented in this encounter Plan of Treatment Upcoming Encounters Date Type Department Care Team (Late st Contact Info) Description 03/05/2025 9:30 AM EDT Ancillary Procedure [facility] [address] [place] [id number] 03/05/2025 11:00 AM EDT Office Visit [facility] [address] [place] [phone] Eunice Segundo MD [address] [place] [address] 03/05/2025 11:00 AM EDT Clinical Support No Requirements [facility] [address] [place] [address] [phone] documented as of this encounter Visit Diagnoses Not on filedocumented in this encounter Care Teams Locomotive Operator Helper Relationship Specialty Start Date End Date Arvin Beltran MD [address] [place] [address] PCP - General Family Medicine 10/19/22 documented as of this encounter
--- OUTSIDE RECORDS SUMMARY | 2025-02-21 21:27 | XMS_ITS | Encounter Summary ---
Author Organization [facility] Address [address] 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
[2025-02-21 22:00] LABS: Hematocrit 34.4 % (37.0-47.0); Hemoglobin 10.6 g/dL (12.2-16.2); Immature Granulocytes % 0.8 %; Mean Corpuscular HGB Conc 30.8 g/dL (31.8-35.4); Mean Corpuscular Hemoglobin 31.7 pg (27.0-31.2); Mean Corpuscular Volume 103.0 fl (81-99); Nucleated Red Blood Cells % 0 %; Platelet Count 230 K/mm3 (142-424); Red Blood Count 3.34 M/mm3 (4.20-5.40); Red Cell Distribution Width-SD 61.9 fL; White Blood Count 15.8 K/mm3 (4.8-10.8)
[2025-02-21 22:14] LABS: Anion Gap 16.9 mEq/L (5-15); Blood Urea Nitrogen 36 mg/dl (7-17); Calcium 8.9 mg/dl (8.4-10.2); Carbon Dioxide 23 mmol/L (22.0-30.0); Chloride 101 mmol/L (98-107); Creatinine,Serum 1.10 mg/dl (0.52-1.04); Estimated Glomerular Filt Rate 47 ml/min (>60); GFR (African American) 57 ML/MIN (>60); Glucose 177 mg/dl (74-100); Potassium 4.9 mmoL/L (3.5-5.1); Sodium 136 mmol/L (136-145)
== END 2025-02-21 23:59 | disposition home or self-care (01) ==
LOC: LAB.DROPOF 21:25
PROVIDERS: PCP Family Medicine; Visit Provider Family Medicine
DX: E87.5 Hyperkalemia (principal); I12.9 Hypertensive chronic kidney disease with stage 1 through stage 4 chronic kidney disease, or unspecified chronic kidney disease; N18.32 Chronic kidney disease, stage 3b
CPT/HCPCS: 80048; 85025